=== PATIENT | female | born 1985 | race Caucasian/White ===

== ENCOUNTER 2022-09-04 13:21 | Outpatient (CLI) | payer OTHER, SELFPAY | END 2022-09-04 13:22 | disposition home or self-care (01) | PROVIDERS: Visit Provider Nurse Practitioner Family | DX: Z00.00 Encounter for general adult medical examination without abnormal findings (principal); E03.9 Hypothyroidism, unspecified; D64.9 Anemia, unspecified | CPT/HCPCS: 82728; 83540; 83550; 84443; 84481 ==

== ENCOUNTER 2023-09-18 23:06 | Emergency (ER) | payer OTHER, SELFPAY ==
[2023-09-18 23:12] VITALS: BP 155/90; PULSE 91; RESP 18; TEMP 36.7; O2SAT 98
--- NOTE | 2023-09-18 23:16 | ED_ITS ---
HPI - General Adult General Chief complaint: Abdominal Pain Stated complaint: abdominal pain Time Seen by Provider: 09/18/23 23:11 History of Present Illness HPI narrative: 1500 ate gyros and since had upper abd/rib pain. states hx of this 1x before after eating a sub, that time pt vomited and pain went away. today tried antiacids and some relief, states she cant vomit so pain is getting worse. hx gastric sleve sx. ibuprofen 800 at 1200. 38-year-old woman presenting to the emergency department with concern of upper abdominal pain. Really intense. Pain seems to be wrapping around to both sides of her back. No dysuria or hematuria. Does have a history of gastric sleeve and gallbladder remains. Similar episode about a month ago after eating and seem to resolve after vomiting. Vomiting is difficult today. She has tried treatment with some antacids maybe a little relief. Did also take some ibuprofen. Pain has been present now over the last 10 hours or so. No fever. Related Data Home Medications ?Medication ?Instructions ?Recorded ?Confirmed desvenlafaxine succinate 50 mg 50 mg PO DAILY 08/02/22 06/04/23 tablet,extended release 24 hr omeprazole 20 mg capsule,delayed 20 mg PO DAILY 08/02/22 06/04/23 release valacyclovir 500 mg tablet 500 mg PO QDAY 06/04/23 06/04/23 (Valtrex) Previous Rx's ?Medication ?Instructions ?Recorded levothyroxine 125 mcg tablet 125 mcg PO QDAY #90 tabs 06/04/23 Allergies Allergy/AdvReac Type Severity Reaction Status Date / Time Penicillins Allergy Unknown Verified 06/04/23 13:54 NSAIDS (Non-Steroidal Allergy Verified 06/04/23 13:54 Anti-Inflamma Review of Systems Status of ROS: Reports: 6 or more systems reviewed and unremarkable except as noted in History and below [facility] Medical History HSV-2 (herpes simplex virus 2) infection ?B00.9 - Herpesviral infection, unspecified (ICD-10) Anemia ?D64.9 - Anemia, unspecified (ICD-10) Hypothyroidism ?E03.9 - Hypothyroidism, unspecified (ICD-10) Surgical History H/O hernia repair ?Z98.890 - Other specified postprocedural states (ICD-10) ?Z87.19 - Personal history of other diseases of the digestive system (ICD-10) History of partial hysterectomy ?Z90.711 - Acquired absence of uterus with remaining cervical stump (ICD-10) H/O gastric sleeve ?Z90.3 - Acquired absence of stomach [part of] (ICD-10) Social History What is your current living situation?: I presently have a place to live Problems where you live: no known problems In the past 12 months, utilities in danger of being shut off: no In past 12 months, lack of transportation kept you from medical appts, meetings, work, or getting things needed for daily living: yes In the past 12 mos, have been you worried that your food would run out before you had money to buy more?: never true In the past 12 mos, the food you bought just didn't last and you didn't have money to buy more?: never true Smoking Status: Never smoker How often do you have a drink containing alcohol: never AUDIT-C Alcohol total score: 0 Non-prescribed substance use: denies use How often does anyone, including family, friends and others, physically hurt you : never How often does anyone, including family, friends and others, insult or talk down to you: never How often does anyone, including family, friends and others, threaten you with harm: never How often does anyone, including family, friends and others, scream or curse at you: never Little interest or pleasure in doing things: not at all Feeling down, depressed, or hopeless: not at all Exam Narrative: Exam Narrative: I enter the room to find Ms. Lezama the retching over the sink. Clearly very uncomfortable. Mildly labored in her breathing but not tachypneic. Heart in elevated rate but regular rhythm. Abdomen with present bowel sounds. Soft and without peritoneal signs but is quite tender across the upper abdomen. Little tender to percussion in the right flank. Extremities are well perfused without edema. No rashes noted. Const: Vital Signs, click to edit/add: Vital Signs - 24 hr 09/18/23 23:12 09/18/23 23:21 09/19/23 02:17 Temperature 98.1 F Pulse Rate [Pulse Oximeter] 91 76 Respiratory Rate 18 16 Blood Pressure [Ri ght Upper Arm] 155/90 H 121/72 Pulse Oximetry 98 96 96 Oxygen Delivery Me thod Room Air Room Air Documenting provider has reviewed patient's vital signs: yes Course Vital Signs Vital signs: Initial Vital Signs Temperature 98.1 F 09/18/23 23:12 Temperature Source Temporal Artery Scan 09/18/23 23:12 Pulse Rate 91 09/18/23 23:12 Respiratory Rate 18 09/18/23 23:12 Blood Pressure 155/90 H 09/18/23 23:12 Blood Pressure Mean 111 H 09/18/23 23:12 Blood Pressure Position Sitting 09/18/23 23:12 Pulse Oximetry 98 09/18/23 23:12 Oxygen Delivery Method Room Air 09/18/23 23:12 Vital Signs Temperature 98.1 F 09/18/23 23:12 Pulse Rate 91 09/18/23 23:12 Respiratory Rate 18 09/18/23 23:12 Blood Pressure 155/90 H 09/18/23 23:12 Pulse Oximetry 98 09/18/23 23:12 Oxygen Delivery Method Room Air 09/18/23 23:12 Temperature 98.1 F 09/18/23 23:12 Pulse Rate 76 09/19/23 02:17 Respiratory Rate 16 09/19/23 02:17 Blood Pressure 121/72 09/19/23 02:17 Pulse Oximetry 96 09/19/23 02:17 Oxygen Delivery Method Room Air 09/19/23 02:17 Medications Administered Medications: Discontinued Medications Generic Name Dose Route Start Last Admin Trade Name Justusq PRN Reason Stop Dose Admin Hydromorphone HCl 0.5 mg 09/18/23 23:20 09/18/23 23:30 Hydromorphone 0.5 Mg/0.5 Ml Inj IVP 09/18/23 23:21 0.5 mg ONCE ONE Administration Sodium Chloride 500 mls @ 500 mls/hr 09/18/23 23:20 09/19/23 00:35 0.9 % Sodium Chloride 500 Ml IV 09/19/23 00:19 Infused .Q1H ONE Infusion Ketorolac Tromethamine 30 mg 09/18/23 23:20 09/18/23 23:32 Ketorolac 30 Mg/Ml Inj IVP 09/18/23 23:21 30 mg ONCE ONE Administration Ondansetron HCl 4 mg 09/18/23 23:20 09/18/23 23:31 Ondansetron 2 Mg/Ml Inj IVP 09/18/23 23:21 4 mg ONCE ONE Administration Medical Decision Making MDM Narrative Medical decision making narrative: I would have concern about biliary colic. Differential also would include pancreatitis, gastritis possibly ureteral stone and colic though I think less likely. Infectious hepatitis? IV was initiated. Received normal saline. Given ketorolac and half a mg of Dilaudid with marked relief of her pain. Limited abdominal ultrasound was requested and discussed findings with application infrastructure engineer. Radiology over-read as below TECHNIQUE: Limited right upper quadrant ultrasound examination of the abdomen was performed. Grayscale and color Doppler images were obtained. COMPARISON: None. FINDINGS: Liver: Normal in size and contour. The hepatic echotexture is increased in echogenicity. There is mild intrahepatic biliary ductal dilatation. No suspicious hepatic masses. Gallbladder: Distended gallbladder. Cholelithiasis with biliary sludge. No gallbladder wall thickening. Sonographic Donis`s sign was positive. Common bile duct: Measures 11 mm. Pancreas: Visualized portions unremarkable. Right kidney: Normal in size. No hydronephrosis. No suspicious renal masses or obstructive urinary calculus. IMPRESSION: Cholelithiasis with findings compatible with acute cholecystitis. The dilatation of the intrahepatic and extrahepatic bile duct raise suspicion for a choledocholithiasis. Labs show rather elevated transaminases and elevated bilirubin primarily direct. All since to indicate an obstructive process. Did discuss findings with our general surgeon who is recommending a ERCP. Will be looking for hospital with this capability for admission. Contacted [facility] has a bed. I did speak with Dr. Muniz bullet maker who is accepting. Ms. Lezama would really prefer to be going by private car. She does appear well, now pain-free, and has been stable vitally otherwise. Lab Data Lab results reviewed: Yes I reviewed the patient's lab results Labs: Lab Results 09/18/23 09/19/23 Range/Units 23:27 03:10 WBC 7.08 (4.50-11.00) K/uL RBC 4.83 (4.00-5.20) m/uL Hgb 15.3 (12.0-16.0) gm/dL Hct 45.5 (33.0-51.0) % MCV 94 (80-100) fL MCH 32 (26-34) pg MCHC 34 (32-36) gm/dL RDW Coeff of Jose 11.8 (11.5-15.5) % Plt Count 161 (140-440) K/uL Neut % (Auto) 66.9 (42.0-72.0) % Lymph % (Auto) 26.7 (20-44) % [place] % (Auto) 5.8 (0.0-11.0) % Eos % (Auto) 0.4 (0.0-7.0) % Baso % (Auto) 0.1 (0.0-3.0) % Neut # (Auto) 4.73 (1.7-7.0) K/uL Lymph # (Auto) 1.89 (0.90-2.90) K/uL [place] # (Auto) 0.40 (0.00-0.90) K/UL Eos # (Auto) 0.03 (0.00-0.50) K/uL Baso # (Auto) 0.01 (0.00-0.30) K/uL Abs Immat Gran (auto) 0.01 (0.00-0.30) K/uL Imm/Tot Granulo (auto) 0.1 % Sodium 139 (135-149) mmol/L Potassium 3.9 (3.6-5.1) mmol/L Chloride 105 (96-114) mmol/L Carbon Dioxide 28 (20-32) mmol/L Anion Gap 6 L (7-15) mEq/L BUN 15 (5-24) mg/dL Creatinine 0.6 (0.5-1.5) mg/dL Estimated GFR 116 ml/min Glucose 130 H (60-115) mg/dL Calcium 9.6 (8.4-10.6) mg/dL Total Bilirubin 2.2 H (0.1-1.5) mg/dL Direct Bilirubin 1.1 H (0.0-0.5) mg/dL AST 1847 H (12-35) U/L ALT 1325 H (4-35) U/L Alkaline Phosphatase 103 (40-150) U/L C-Reactive Protein < 0.5 L (0.5-1.0) mg/dL Total Protein 7.5 (6.0-8.3) g/dL Albumin 4.8 (3.3-5.0) g/dL Lab Acknowledgement Test Added Discharge Plan Discharge Clinical Impression: Choledocholithiasis, Acute cholecystitis Patient Disposition: Home, Self-Care Condition: Stable Additional Instructions: Please present to the emergency department at [facility]. They are expecting you. Dr. Muniz is the bullet maker evelin who will be admitting you. Prescriptions: No Action desvenlafaxine succinate 50 mg tablet extended release 24 hr 50 mg PO DAILY omeprazole 20 mg capsule,delayed release(DR/EC) 20 mg PO DAILY valacyclovir [Valtrex] 500 mg tablet 500 mg PO QDAY levothyroxine 125 mcg tablet 125 mcg PO QDAY Qty: 90 0RF Follow Up/Referrals: Tyra Bravo MANAGER PROJECT MANAGEMENT [Primary Care Provider] - Stand Alone Forms: [employer] Info Instructions
[2023-09-18 23:21] VITALS: O2SAT 96
--- NOTE | 2023-09-18 23:21 | CRLHL7_ITS ---
For Patients: As a result of the Century Cures Act, medical imaging exams and procedure reports are released immediately into your electronic medical record. You may view this report before your referring provider. If you have questions, please contact your health care provider. INDICATION: Right upper quadrant pain. TECHNIQUE: Limited right upper quadrant ultrasound examination of the abdomen was performed. Grayscale and color Doppler images were obtained. COMPARISON: None. FINDINGS: Liver: Normal in size and contour. The hepatic echotexture is increased in echogenicity. There is mild intrahepatic biliary ductal dilatation. No suspicious hepatic masses. Gallbladder: Distended gallbladder. Cholelithiasis with biliary sludge. No gallbladder wall thickening. Sonographic Donis`s sign was positive. Common bile duct: Measures 11 mm. Pancreas: Visualized portions unremarkable. Right kidney: Normal in size. No hydronephrosis. No suspicious renal masses or obstructive urinary calculus. IMPRESSION: Cholelithiasis with findings compatible with acute cholecystitis. The dilatation of the intrahepatic and extrahepatic bile duct raise suspicion for a choledocholithiasis. Dictated by Eric Villavicencio MD @ 09/19/2023 12:22:11 AM (Electronically Signed)
[2023-09-18] MEDS: 0.9 % SODIUM CHLORIDE 500 ML 500 ML IV (23:29)
[2023-09-18] MEDS: HYDROmorphone 0.5 mg/0.5 ml inj IVP (23:30)
[2023-09-18] MEDS: ONDANSETRON 2 MG/ML inj 4 MG IVP (23:31)
[2023-09-18] MEDS: KETOROLAC 30 MG/ML inj IVP (23:32)
[2023-09-18 23:36] LABS: Basophils Absolute Auto 0.01 K/uL (0.00-0.30); Basophils Percent Auto 0.1 % (0.0-3.0); Eosinophils Absolute Auto 0.03 K/uL (0.00-0.50); Eosinophils Percent Auto 0.4 % (0.0-7.0); Hematocrit 45.5 % (33.0-51.0); Hemoglobin* 15.3 gm/dL (12.0-16.0); Immature Granulocytes Abs Auto 0.01 K/uL (0.00-0.30); Immature Granulocytes Pct Auto 0.1 %; Lymphocytes Absolute Auto 1.89 K/uL (0.90-2.90); Lymphocytes Percent Auto 26.7 % (20-44); Mean Corpuscular HGB Conc 34 gm/dL (32-36); Mean Corpuscular Hemoglobin 32 pg (26-34); Mean Corpuscular Volume 94 fL (80-100); Monocytes Percent Auto 5.8 % (0.0-11.0); Neutrophils Absolute Auto 4.73 K/uL (1.7-7.0); Neutrophils Percent Auto 66.9 % (42.0-72.0); Platelet Count* 161 K/uL (140-440); RDW Coefficient of Variation % 11.8 % (11.5-15.5); Red Blood Count 4.83 m/uL (4.00-5.20); White Blood Count* 7.08 K/uL (4.50-11.00)
[2023-09-18 23:47] LABS: Slide Review Reflex No
[2023-09-18 23:50] LABS: Chloride* 105 mmol/L (96-114)
[2023-09-18 23:51] LABS: Albumin* 4.8 g/dL (3.3-5.0); Potassium* 3.9 mmol/L (3.6-5.1); Sodium* 139 mmol/L (135-149)
[2023-09-18 23:53] LABS: Creatinine* 0.6 mg/dL (0.5-1.5); Estimated Glomerular Filt Rate 116 ml/min
[2023-09-18 23:54] LABS: Alkaline Phosphatase* 103 U/L (40-150); Anion Gap 6 mEq/L (7-15); Bilirubin Direct* 1.1 mg/dL (0.0-0.5); Bilirubin Total* 2.2 mg/dL (0.1-1.5); Blood Urea Nitrogen* 15 mg/dL (5-24); Calcium* 9.6 mg/dL (8.4-10.6); Carbon Dioxide* 28 mmol/L (20-32); Glucose* 130 mg/dL (60-115); Total Protein* 7.5 g/dL (6.0-8.3)
--- OUTSIDE RECORDS SUMMARY | 2023-09-18 23:55 | XMS_ITS | Clinical Summary ---
Author Organization [facility] Address [place], [place] [address] Care Team Providers Care Numerical Control Lathe Operator Name Role Phone Tyra Shelton NP Primary Care Provider [phone] Allergies Active Allergy Reactions Criticality Noted Date Comments Aspirin Other - Describe In Comment Field 02/22/2019 Gastric sleeve 02/15/2019 Nsaids (Non-Steroidal Anti-Inflammatory Drug) Other - Describe In Comment Field 02/22/2019 Gastric sleeve 02/15/2019Gastric sleeve 02/15/2019 Penicillins *Unknown - Childhood Rxn Unknown 10/23/2015 Medications Medication Sig Dispensed Refills Start Date End Date Status levothyroxine (SYNTHROID) 137 mcg tabletIndications:Hyp othyroidism (acquired) Take 1 tablet by mouth before breakfast. 90 tablet 1 03/08/2018 Active biotin 10,000 mcg TbDi Take by mouth. Active desvenlafaxine succinate (PRISTIQ) 50 mg Extended-Release tablet Take 50 mg by mouth once daily. 11/12/2021 Active omeprazole (PRILOSEC) 20 mg Delayed-Release capsule Take 1 Capsule by mouth once daily. 04/07/2021 Active calcium carbonate (Calcium 500) 500 mg calcium (1,250 mg) chewable tablet Chew 1 Tablet (1,250 mg) by mouth three times daily with meals. 0 10/01/2022 Active Magnesium 200 mg tab Take 1 Tablet (200 mg) by mouth two times daily. 0 10/01/2022 Active cholecalciferol (VITAMIN D3) 5,000 unit capsule Take 1 Capsule (5,000 units) by mouth once daily. 10/01/2022 Active b complex vitamins (VITAMIN B COMPLEX) capsule Take 1 Capsule by mouth once daily. 0 10/01/2022 Active Fepdi-4-HCT-EPA-Fish Oil (Fish OiL) 1,000 mg (120 mg-180 mg) cap Take 1 Capsule (1,000 mg) by mouth once daily. 0 10/01/2022 Active turmeric 400 mg cap Take 1 Capsule by mouth once daily. 0 10/01/2022 Active Active Problems Problem Noted Date Diagnosed Date Hypothyroidism (acquired) 03/03/2016 Immunizations Name Administration Dates Next Due Tdap 10/18/2013 Family History Medical History Relation Name Comments Unknown Brother COPD Father Hypertension Father Leukemia Maternal Grandfather Cancer Maternal Grandmother PANCREA TIC Heart Disease Maternal Grandmother Diabetes Mother Psychiatric illness Mother Cancer-colon Paternal Grandfather Alzheimer's disease Paternal Grandmother Relation Name Status Comments Brother Father Alive Maternal Grandfather Maternal Grandmother Mother Alive Paternal Grandfather Paternal Grandmother Social History Tobacco Use Types Packs/Day Years Used Date Smoking Tobacco: Former Cigarettes Q uit: 10/19/2012 Smokeless Tobacco: Never Tobacco Cessation:Ready to Q uit: Yes; Counseling Given: Yes Alcohol Use Standard Drinks/Week Comments Yes 0 (1 standard drink = 0.6 oz pur e alcohol) RARE - MAYBE 1 GLASS MONTHLY Social Connections Answer Date Recorded Frequency of Communication with Friends and Fami ly Not on file 10/01/2022 Sex and Gender Information Value Date Recorded Sex Assigned at Not on file Gender Identity Not on file Sexual Orientation Not on file Obstetrics History Last Filed Vital Signs Vital Sign Reading Time Taken Comments Blood Pressure 125/78 10/01/2022 1:12 PM CDT Pulse 96 10/01/2022 1:12 PM CDT Temperature 37.2 ??C (99 ??F) 12/21/2021 12:26 PM SLAB WORKER Respiratory Rate 18 12/21/2021 12:26 PM SLAB WORKER Oxygen Saturation 96% 10/01/2022 1:12 PM CDT Inhaled Oxygen Concentration - - Weight 80.3 kg (177 lb) 10/01/2022 1:12 PM CDT Height 162.6 cm (5' 4) 10/01/2022 1:12 PM CDT Body Mass Index 30.38 10/01/2022 1:12 PM CDT Plan of Treatment Health Maintenance Due Date Last Done Comments HIV for age 15-65 07/14/1998 Hepatitis C screening for age 18-79 07/14/2001 Depression screening for age 12+ 02/25/2018 02/25/2017, 03/03/2016, 12/31/2015 COVID-19 vaccine series ( season) 2022 11/12/2021, 01/01/2021, 05/18/2020 BMI (ht and wt on same day) for age 18+ 10/02/2023 10/01/2022, 04/20/2017, 02/25/2017, Additional history exists Influenza for age 9-49 10/11/2023 6 (Completed outside of [facility]) Tetanus booster 10/19/2023 10/18/2013 Tdap Completed 10/18/2013 Pneumococcal series for age 6-64 Aged Out No longer eligible based on patient's age to complete this topic Care Teams Numerical Control Lathe Operator Relationship Specialty Start Date End Date Tyra Shelton, MANAGER SUPPLY PCP - General Nurse Practitioner 10/15/22
--- OUTSIDE RECORDS SUMMARY | 2023-09-18 23:56 | XMS_ITS | Encounter Summary ---
Author Organization [facility] Address [address] [place] [address] Care Team Providers Care Gaming Surveillance Observer Name Role Phone Joanna Hernandez MD Unavailable [phone] Joanna Hernandez MD Primary Care Provider [phone] Makenzie Toth PA-C Unavailable [phone] Encounter Details Date Type Department Care Team (Late st Contact Info) Description 04/15/2021 [facility] [place] [facility] [address] [place] [id number] Olivia Arredondo, RN Social History Tobacco Use Types Packs/Day Years Used Date Smoking Tobacco: Former Cigarettes 0 07/10/2001 - 2012 Smokeless Tobacco: Never Comments:Smoke free since , previously mild smoker 1-3 cigs a day Alcohol Use Standard Drinks/Week Comments Yes 0 (1 standard drink = 0.6 oz pur e alcohol) 0-1 per month PHQ-2 Answer Date Recorded PHQ-2 Score 0 06/12/2020 Sex and Gender Information Value Date Recorded Sex Assigned at Female 11/11/2018 8:03 AM CDT Gender Identity Female 11/11/2018 8:03 AM CDT Sexual Orientation Straight 11/11/2018 8: 03 AM CDT documented as of this encounter Plan of Treatment Not on file documented as of this encounter Visit Diagnoses Not on filedocumented in this encounter Additional Health Concerns Assessment Noted Time PHQ-9 Depression Total Score: 27 10/31/2 021 7:02 AM CDT documented as of this encounter Care Teams Gaming Surveillance Observer Relationship Specialty [place] [address] [place] [address] PCP - General Family Practice 02/22/19 [place] [address] [place] [address] Assigned PCP 10/29/18 Makenzie Toth PA-C [address] [place] [address] Assigned Surgical Provider 04/29/20 documented as of this encounter
--- OUTSIDE RECORDS SUMMARY | 2023-09-18 23:56 | XMS_ITS | Encounter Summary ---
Author Organization [place] Address [address] [place] [address] Care Team Providers Care Road Freight Conductor Name Role Phone Joanna Hernandez MD Unavailable [phone] Joanna Hernandez MD Primary Care Provider [phone] Encounter Details Date Type Department Care Team (Late st Contact Info) Description 01/27/2022 [facility] [place] [facility] [address] [place] [address] Jodie Salazar MD [address] [facility] [address] [place] [address] Social History Tobacco Use Types Packs/Day Years Used Date Smoking Tobacco: Former Cigarettes 0 07/10/2001 - 2012 Smokeless Tobacco: Never Comments:Smoke free since , previously mild smoker 1-3 cigs a day Alcohol Use Standard Drinks/Week Comments Yes 0 (1 standard drink = 0.6 oz pur e alcohol) 0-1 per month PHQ-2 Answer Date Recorded PHQ-2 Score 1 01/30/2022 Sex and Gender Information Value Date Recorded Sex Assigned at Female 11/11/2018 8:03 AM CDT Gender Identity Female 11/11/2018 8:03 AM CDT Sexual Orientation Straight 11/11/2018 8: 03 AM CDT COVID-19 Exposure Response Date Recorded In the last 10 days, have yo u been in contact with someone who was confirmed or suspected to have Coronavirus/COVID-19? No / Unsure 01/30/2022 10:03 AM SUPERVISOR DIMENSION WAREHOUSE documented as of this encounter Plan of Treatment Not on file documented as of this encounter Visit Diagnoses Not on filedocumented in this encounter Additional Health Concerns Assessment Noted Time PHQ-9 Depression Total Score: 27 021 7:02 AM CDT documented as of this encounter Care Teams Road Freight Conductor Relationship Specialty [place] [address] [place] [address] PCP - General Family Practice 02/22/19 [place] [address] [place] [address] Assigned PCP 10/29/18 documented as of this encounter
--- OUTSIDE RECORDS SUMMARY | 2023-09-18 23:56 | XMS_ITS | Encounter Summary ---
Author Organization [facility] Address [address] [place] [address] Care Team Providers Care Basic Sciences Professor Name Role Phone Joanna Hernandez MD Unavailable [phone] Joanna Hernandez MD Primary Care Provider [phone] Makenzie Toth PA-C Unavailable [phone] Encounter Details Date Type Department Care Team (Late st Contact Info) Description 04/08/2021 [facility] [place] Medical Advice [facility] [address] [place] [address] Celena Davenport, [facility] [address] [facility] [address] [place], [place] [address] Social History Tobacco Use Types Packs/Day Years [...] documented as of this encounter Care Teams Basic Sciences Professor Relationship Specialty [place] [address] [place] [address] PCP - General Family Practice 02/22/19 [place] [address] [place] [address] Assigned PCP 10/29/18 Makenzie Toth PA-C [address] [place] [address] Assigned Surgical Provider 04/29/20 documented as of this encounter
--- OUTSIDE RECORDS SUMMARY | 2023-09-18 23:56 | XMS_ITS | Encounter Summary ---
Author Organization [place] Address [address] [place] [address] Care Team Providers Care Flattening Press Operator Name Role Phone Joanna Hernandez MD Unavailable [phone] Joanna Hernandez MD Primary Care Provider [phone] Makenzie Toth PA-C Unavailable [phone] Encounter Details Date Type Department Care Team (Late st Contact Info) Description 02/21/2021 [facility] [place] Medical Advice [facility] [place] [id number] [facility] [address] [place] [address] Makenzie Toth PA-C [address] [facility] [address] [place], [place] [address] Social History Tobacco Use Types Packs/Day Years Used Date Smoking Tobacco: Former Cigarettes 0 07/10/2001 - 2012 Smokeless Tobacco: Never Comments:Smoke free since 11, previously mild smoker 1-3 cigs a day [...] documented as of this encounter Care Teams Flattening Press Operator Relationship Specialty [place] [address] [place] [address] PCP - General Family Practice 02/22/19 [place] [address] [place] [address] Assigned PCP 10/29/18 Makenzie Toth PA-C [address] [place] [address] Assigned Surgical Provider 04/29/20 documented as of this encounter
--- OUTSIDE RECORDS SUMMARY | 2023-09-18 23:56 | XMS_ITS | Encounter Summary ---
Author Organization [place] Address [address] [facility] [place] [address] Care Team Providers Care Drainage Inspector Name Role Phone Joanna Hernandez MD Unavailable [phone] Joanna Hernandez MD Primary Care Provider [phone] Makenzie Toth PA-C Unavailable [phone] Encounter Details Date Type Department Care Team (Late st Contact Info) Description 08/19/2021 [facility] [place] Medical Advice [address] [address] Vickie Landin Social History Tobacco Use Types Packs/Day Years [...] documented as of this encounter Care Teams Drainage Inspector Relationship Specialty [place] [address] [place] [address] PCP - General Family Practice 02/22/19 [place] [address] [place] [address] Assigned PCP 10/29/18 Makenzie Toth PA-C [address] [place] [address] Assigned Surgical Provider 04/29/20 documented as of this encounter
--- OUTSIDE RECORDS SUMMARY | 2023-09-18 23:56 | XMS_ITS | Encounter Summary ---
Author Organization [place] Address [facility] [place] [address] Care Team Providers Care Braze Operator Name Role Phone Joanna Hernandez MD Unavailable [phone] Joanna Hernandez MD Primary Care Provider [phone] Encounter Details Date Type Department Care Team (Latest Contact Info) Description 06/12/2023 Travel Social History Tobacco Use Types Packs/Day Years Used Date Smoking Tobacco: Former Cigarettes 0 07/10/2001 - 2012 Smokeless Tobacco: Never Comments:Smoke free since , previously mild smoker 1-3 cigs a day Alcohol Use Standard Drinks/Week Comments Yes 0 (1 standard drink = 0.6 oz pur e alcohol) 0-1 per month PHQ-2 Answer Date Recorded PHQ-2 Score 1 01/30/2022 Adolescent Education Answer Date Record ed Getting School Help Needed Not on file 10/31 Sex and Gender Information Value Date Recorded [...] documented as of this encounter Care Teams Braze Operator Relationship Specialty [place] [address] [place] [address] PCP - General Family Practice 02/22/19 [place] [address] [place] [address] Assigned PCP 10/29/18 documented as of this encounter
--- OUTSIDE RECORDS SUMMARY | 2023-09-18 23:56 | XMS_ITS | Encounter Summary ---
Author Organization [place] Address [address] [place] [address] Care Team Providers Care Sign Installer Name Role Phone Joanna Hernandez MD Unavailable [phone] Joanna Hernandez MD Primary Care Provider [phone] Makenzie Toth PA-C Unavailable [phone] Encounter Details Date Type Department Care Team (Late st Contact Info) Description 04/04/2021 [facility] [place] Medical Advice [facility] [address] [place] [address] Celena Davenport, [facility] [address] [facility] [address] [place], [place] [address] Social History Tobacco Use Types Packs/Day Years [...] documented as of this encounter Care Teams Sign Installer Relationship Specialty [place] [address] [place] [address] PCP - General Family Practice 02/22/19 [place] [address] [place] [address] Assigned PCP 10/29/18 Makenzie Toth PA-C [address] [place] [address] Assigned Surgical Provider 04/29/20 documented as of this encounter
--- OUTSIDE RECORDS SUMMARY | 2023-09-18 23:56 | XMS_ITS | Encounter Summary ---
Author Organization [place] Address [address] [place] [address] Care Team Providers Care Cross Tie Tram Loader Name Role Phone Joanna Hernandez MD Unavailable [phone] Joanna Hernandez MD Primary Care Provider [phone] Encounter Details Date Type Department Care Team (Late st Contact Info) Description 01/30/2022 [facility] Medical [facility]ice [facility] [address] [place] [address] Jodie Salazar MD [address] [facility] [address] [place] [address] Social History Tobacco Use Types [...] Coronavirus/COVID-19? No / Unsure 01/30/2022 10:03 AM [employer] MAKER HAND documented as of this encounter Plan of Treatment Not on file documented as of this encounter Visit Diagnoses Not on filedocumented in this encounter Additional Health Concerns Assessment Noted Time PHQ-9 Depression Total Score: 27 021 7:02 AM CDT documented as of this encounter Care Teams Cross Tie Tram Loader Relationship Specialty [place] [address] [place] [address] PCP - General Family Practice 02/22/19 [place] [address] [place] [address] Assigned PCP 10/29/18 documented as of this encounter
--- OUTSIDE RECORDS SUMMARY | 2023-09-18 23:56 | XMS_ITS | Encounter Summary ---
Author Organization [place] Address [address] [place] [address] Care Team Providers Care Spline Rolling Machine Job Setter Name Role Phone Joanna Hernandez MD Unavailable [phone] Joanna Hernandez MD Primary Care Provider Makenzie Toth PA-C Unavailable [phone] Encounter Details Date Type Department Care Team (Late st Contact Info) Description 05/29/2021 [facility] [place] [facility] [place] [address] [facility] [address] [place] [address] Makenzie Toth PA-C [address] [facility] [address] [place], [place] [address] Social History Tobacco Use Types Packs/Day Years [...] documented as of this encounter Care Teams Spline Rolling Machine Job Setter Relationship Specialty [place] [address] [place] [address] PCP - General Family Practice 02/22/19 [place] [address] [place] [address] Assigned PCP 10/29/18 Makenzie Toth PA-C [address] [place] [address] Assigned Surgical Provider 04/29/20 documented as of this encounter
--- OUTSIDE RECORDS SUMMARY | 2023-09-18 23:56 | XMS_ITS | Referral Summary ---
Author Organization [place] Address [address] [place] [address] Care Team Providers Care Agency Director Name Role Phone Joanna Hernandez MD Unavailable [phone] Joanna Hernandez MD Primary Care Provider [phone] Allergies Active Allergy Reactions Criticality Noted Date Comments Aspirin Other (See Comments) 02/22/2019 Gastric sleeve 02/15/2019 Nsaids Other (See Comments) 02/22/2019 Gastric sleeve 02/15/2019Gastric sleeve 02/15/2019 Penicillins 10/07/2018 Medications Medication Sig Dispensed Refills Start Date End Date Status Biotin 46840 MCG TBDP Take by mouth daily Active Cholecalciferol (VITAMIN D3 PO) Take 5,000 Units by mouth daily Gel cap. Active CALCIUM CITRATE PO Take 500 mg by mouth 3 times daily Chews at mid-morning, lunch, and dinner. Active vitamin (B COMPLEX-C) tablet Take 1 tablet by mouth once a week Active childrens multivitamin w/iron (FLINTSTONES COMPLETE) chewable tablet Take 2 chew tab by mouth At Bedtime Active MAGNESIUM GLYCINATE PO Take 260 mg by mouth 2 times daily Active desvenlafaxine (PRISTIQ) 50 MG 24 hr tablet Take 50 mg by mouth 11/09/2021 Active LORazepam (ATIVAN) 0.5 MG tablet TAKE ONE TABLET BY MOUTH TWICE DAILY NEEDED FOR SEVERE ANXIETY 05/17/2021 Active MAGNESIUM GLYCINATE PO 02/09/2021 Ac tive levothyroxine (SYNTHROID/LEVOTHROID) 112 MCG tabletIndications:Acqui red hypothyroidism Take 1 tablet (112 mcg) by mouth daily 90 tablet 3 01/30/2022 Active Active Problems Problem Noted Date Diagnosed Date H/O total hysterectomy 06/12/2020 Postsurgical malabsorption 02/28/2020 Orthostatic lightheadedness 02/28/2020 Overweight 02/28/2020 Bariatric surgery status 04/21/2019 Overview: Gastric sleeve 2019 Acquired hypothyroidism 11/18/2018 PCOS (polycystic ovarian syndrome) 10/27/2018 Resolved Problems Problem Noted Date Diagnosed Date Resolved Date Class 1 obesity due to exces s calories with serious comorbidity and body mass index (BMI) of 30.0 to 30.9 in adult 02/15/2019 02/28/2020 Morbidly obese 01/11/2019 01/26/2019 Overview: Added automatically from request for surgery [id number] Morbidly obese 01/11/2019 04/21/2019 Overview: Added automatically from request for surgery [id number] Morbid obesity with BMI of 40.0-44.9, adult 10/27/2018 08/17/2019 Morbid obesity 10/12/2018 11/18/2018 Immunizations Name Administration Dates Next Due COVID-19 MONOVALENT 12+ (Pfizer) 01/01/2021 Flu, Unspecified 11/12/2019,11/18/2018 Influenza Vaccine >6 months,quad, PF 11/21/2020, 11/18/2018 TDAP Vaccine (Adacel) 10/18/2013 Social History Tobacco Use Types Packs/Day Years Used Date Smoking Tobacco: Former Cigarettes 0 07/10/2001 - 2012 Smokeless Tobacco: Never Tobacco Cessation:Counseling Given: Not Answered Comments:Smoke free since 2012, previously mild smoker 1-3 cigs a day [...] Orientation Straight 11/11/2018 8: 03 AM CDT Last Filed Vital Signs Vital Sign Reading Time Taken Comments Blood Pressure 98/68 06/12/2020 3:23 PM CDT Pulse 60 06/12/2020 3:23 PM CDT Temperature 36.9 ??C (98.4 ??F) 06/12/2020 3:23 PM CD T Respiratory Rate 14 06/12/2020 3:23 PM CDT Oxygen Saturation 94% 02/22/2019 1:47 PM TRACK FITTER Inhaled Oxygen Concentration - - Weight 69.4 kg (153 lb) 05/29/2021 9:27 AM CDT Height 162.6 cm (5' 4) 05/29/2021 9:27 AM CDT Body Mass Index 26.26 05/29/2021 9:27 AM CDT Plan of Treatment Not on file Procedures Procedure Name Priority Date/Time Associated Diagnosis Comments MA DIAGNOSTIC BILATERAL W/ KENTRELL Routine 06/12/2023 7:54 AM CDT Left breast mass Breast pain, left T4 FREE Routine 01/30/2022 10:10 AM TRACK FITTER Acquired hypothyroidism HIV ANTIGEN ANTIBODY COMBO Routine 01/09/2021 11:08 AM TRACK FITTER Screening for HIV (human immunodeficiency virus) HEPATITIS C SCREEN REFLEX TO HCV RNA QUANT AND GENOTYPE Routine 01/09/2021 11:08 AM TRACK FITTER Need for hepatitis C screening test LIPID REFLEX TO DIRECT LDL PANEL Routine 06/12/2020 4:54 PM CDT Routine general medical examination at a health care facility GLUCOSE BY METER Routine 02/16/2019 6:31 AM TRACK FITTER Morbidly obese (H) PAP SMEAR - HIM PATIENT REPORTED Routine 12/14/2018 from Last 3 Months or Most Recently Relevant to Health Maintenance Results * MA Diagnostic Bilateral w/Kentrell (06/12/2023 7:54 AM CDT) Anatomical Region Laterality Modality Breast Bilateral Mammography Impressions 06/12/2023 8:52 AM CDT IMPRESSION: 1. Negative bilateral mammogram and targeted left breast ultrasound. Any further management of the clinically palpable lump and breast pain can be based on clinical grounds. 2. Based on family history, patient may qualify for high risk screening with supplemental breast MRI. She was advised to discuss with her primary care provider. The patient states she has an appointment to follow up regarding possible genetic testing. BI-RADS CATEGORY: 1 - ??Negative. ?? RECOMMENDED FOLLOW-UP: Routine yearly mammography beginning at age 40 or as discussed with your provider. NELSON MACE MD Narrative 06/12/2023 8:52 AM CDT EXAM: MA DIAGNOSTIC BILATERAL W/ KENTRELL, US BREAST LEFT LIMITED 1-3 QUADRANTS, 06/12/2023 7:54 AM HISTORY: Bilateral symmetric tenderness along the pectoralis muscle and behind the nipples. Palpable lump in the lower outer left breast detected by physician. Family history of breast cancer in her mother in her 40s. Family history of ovarian cancer in her maternal grandmother. Previous probably benign asymmetry in the left breast for which final follow-up is due. COMPARISON: 10/06/2018, 03/18/2019, 09/16/2019 BREAST DENSITY: There are scattered areas of fibroglandular density. FINDINGS: Diagnostic tomosynthesis with CAD shows nothing for malignancy in either breast and no worrisome interval change. Global increase in breast density is due to significant interval weight loss. Targeted ultrasound shows nothing for malignancy in the lower outer quadrant in the area of palpable lump. Mary Alice Schmidt MD IMG MAMMOGRAPHY JOANNE CYNDEERY * T4, free (01/30/2022 10:10 AM TRACK FITTER) Free T4 1.31 0.90 - 1.70 ng/dL 01/30/2022 5:43 PM TRACK FITTER [facility] Blood STRUCTURE OF LEFT UPPER LIMB / Unknown Venipuncture / Unknown 01/30/2022 10:10 AM TRACK FITTER 01/30/2022 10:10 AM TRACK FITTER Joanna Hernandez MD LAB - BLOOD ORDER [facility] [place] [facility] [address] [place] [address], [facility] [phone] * HIV Antigen Antibody Combo (01/09/2021 11:08 AM TRACK FITTER) HIV Antigen Antibody Combo Nonreactive Nonreactive 01/10/2021 10:53 AM TRACK FITTER [facility] Comment:HIV-1 p24 Ag & HIV-1 /HIV-2 Ab Not Detected Blood STRUCTURE OF LEFT UPPER LIMB / Unknown Venipuncture / Unknown 01/09/2021 11:08 AM TRACK FITTER 01/09/2021 11:08 AM TRACK FITTER Joanna Hernandez MD LAB - BLOOD ORDER MILAGROS [facility] Specialty Core Lab [address] [facility] [place] [address], [facility] [phone] * Hepatitis C Screen Reflex to HCV RNA Quant and Genotype (01/09/2021 11:08 AM TRACK FITTER) Pathologist [facility] Hepatitis C Antibody Nonreactive Nonreactive 01/10/2021 10:53 AM TRACK FITTER [facility] Blood STRUCTURE OF LEFT UPPER LIMB / Unknown Venipuncture / Unknown 01/09/2021 11:08 AM TRACK FITTER 01/09/2021 11:08 AM TRACK FITTER Narrative [facility] - 01/10/2021 10:53 AM TRACK FITTER Assay performance characteristics have not been established for newborns, infants, and children. Joanna Hernandez MD LAB - BLOOD ORDER MILAGROS [facility] Specialty Core Lab [address] [facility] [place] [address], [facility] [phone] * Lipid panel reflex to direct LDL Fasting (06/12/2020 4:54 PM CDT) Pathologist [facility] Cholesterol 132 <200 mg/dL 06/13/2020 5:14 PM CDT [facility] Triglycerides 58 <150 mg/dL 06/13/2020 5:14 PM CDT [facility] HDL Cholesterol 51 >49 mg/dL 5:17 PM CDT [facility] LDL Cholesterol Calculated 69 <100 mg/dL 06/13/2020 5:17 PM CDT [facility] Comment:Desirable: <100 mg/d l Non HDL Cholesterol 81 <130 mg/dL 06/13/2020 5:17 PM CDT [facility] Blood 06/12/2020 4:54 PM CDT 06/12/2020 4:56 PM CDT Joanna Hernandez MD LAB - BLOOD ORDER MILAGROS [facility] [address] [place] [address], [facility] [phone] * Glucose by meter (02/16/2019 6:31 AM TRACK FITTER) Glucose 89 70 - 99 mg/dL 02/16/2019 6:42 AM TRACK FITTER POINT OF CARE TEST, GLUCOSE 02/16/2019 6:31 AM TRACK FITTER 02/16/2019 6:42 AM TRACK FITTER Dimitri Pop MD LAB - BEAKER POCT POINT OF CARE TEST, GLUCOSE * PAP Smear - HIM Patient Reported (12/14/2018) PAP Smear - HIM Patient Reported Negative EXTERNAL LAB 12/14/2018 Narrative EXTERNAL LAB - 12/14/2018 Joanna Hernandez MD ??P Abstract Quality Initiatives Pap with HPV, 12/14/2018, Dr. Ordonez - all negative Patient Reported LABORATORY EXTERNAL LAB External Lab from Last 3 Months or Most Recently Relevant to Health Maintenance Advance Directives For more information, please contact: [phone] * Full Code (Latest Code Status on File) Date Activated Date Inactivated Comments 02/15/2019 12:06 PM 02/17/2019 3:40 PM Question Answer Comments Code status determined by: Unable to det ermine; FULL CODE until documents or legal decision maker available Care Teams Agency Director Relationship Specialty [place] [address] [place] [address] PCP - General Family Practice 02/22/19 [place] [address] [place] [address] Assigned PCP 10/29/18
--- OUTSIDE RECORDS SUMMARY | 2023-09-18 23:56 | XMS_ITS | Encounter Summary ---
Author Organization [place] Address [address] [place] [address] Care Team Providers Care Supervisor Composing Room Name Role Phone Joanna Hernandez MD Unavailable [phone] Joanna Hernandez MD Primary Care Provider [phone] Reason for Referral * Diagnostic Imaging Ultrasound (Routine) - Pending Review Specialty Diagnoses / Procedures Referred By Contac t Referred To Contact Radiology. Diagnoses Left breast mass Breast pain, left Procedures US Breast Left Mary Alice Schmidt MD [facility] [address] [place] [address] Referral ID Status Reason Start Date Expiration Date V isits Requested Visits Authorized [id number] Pending Review 05/27/2023 05/26/2024 1 1 Reason for Visit * Diagnostic Imaging Ultrasound (Routine) - Pending Review Specialty Diagnoses / Procedures Referred By Contac t Referred To Contact Radiology. Diagnoses Left breast mass Breast pain, left Procedures US Breast Left Mary Alice Schmidt MD [facility] [address] [place] [address] Referral ID Status Reason Start Date Expiration Date V isits Requested Visits Authorized [id number] Pending Review 05/27/2023 05/26/2024 1 1 Encounter Details Date Type Department Care Team (Late st Contact Info) Description 06/12/2023 7:19 AM CDT - 06/12/2023 11:59 PM CDT Hospital Encounter [facility] [address] [facility], [address] [place] [phone] Mary Alice Schmidt MD [facility] [address] [facility] [address] [place], [place] [address] Left breast mass; Breast pain, left Discharge Disposition: Home or Self Care Social History Tobacco Use Types Packs/Day Years [...] AM CDT documented as of this encounter Medications at Time of Discharge Medication Sig Dispensed Refills Start Date End Date Biotin 59159 MCG TBDP Take by mouth daily CALCIUM CITRATE PO Take 500 mg by mouth 3 times daily Chews at mid-morning, lunch, and dinner. childrens multivitamin w/iron (FLINTSTONES COMPLETE) chewable tablet Take 2 chew tab by mouth At Bedtime Cholecalciferol (VITAMIN D3 PO) Take 5,000 Units by mouth daily Gel cap. desvenlafaxine (PRISTIQ) 50 MG 24 hr tablet Take 50 mg by mouth 11/09/2021 levothyroxine (SYNTHROID/LEVOTHROID) 112 MCG tabletIndications:Acquired hypothyroidism Take 1 tablet (112 mcg) by mouth daily 90 tablet 3 01/30/2022 LORazepam (ATIVAN) 0.5 MG tablet TAKE ONE TABLET BY MOUTH TWICE DAILY NEEDED FOR SEVERE ANXIETY 05/17/2021 MAGNESIUM GLYCINATE PO 02/09/2021 MAGNESIUM GLYCINATE PO Take 260 mg by mouth 2 times daily vitamin (B COMPLEX-C) tablet Take 1 tablet by mouth once a week documented as of this encounter Plan of Treatment Not on file documented as of this encounter Procedures Procedure Name Priority Date/Time Associated Diagnosis Comments US BREAST LEFT LIMITED 1-3 QUADRANTS Routine 06/12/2023 8:37 AM CDT Left breast mass Breast pain, left documented in this encounter Results * US Breast Left (06/12/2023 8:37 AM CDT) Anatomical Region Laterality Modality Breast Left Ultrasound Impressions 06/12/2023 8:52 AM CDT IMPRESSION: 1. [...] AM CDT EXAM: MA DIAGNOSTIC BILATERAL W/ MODE[place]O, US BREAST LEFT LIMITED 1-3 QUADRANTS, 06/12/2023 [...] palpable lump. Mary Alice Schmidt MD IMG US ORDERABLES documented in this encounter Visit Diagnoses Diagnosis Left breast mass Lump or mass in breast Breast pain, left Mastodynia documented in this encounter Additional Health Concerns Assessment Noted Time PHQ-9 Depression Total Score: 27 021 7:02 AM CDT documented as of this encounter Care Teams Supervisor Composing Room Relationship Specialty [place] [address] [place] [address] PCP - General Family Practice 02/22/19 [place] [address] [facility] [place] [address] Assigned PCP 10/29/18 documented as of this encounter
--- OUTSIDE RECORDS SUMMARY | 2023-09-18 23:56 | XMS_ITS | Encounter Summary ---
Author Organization [place] Address [address] [place] [address] Care Team Providers Care Foam Charger Name Role Phone Joanna Hernandez MD Unavailable Joanna Hernandez MD Primary Care Provider [phone] Reason for Referral * Diagnostic Imaging Mammo (Routine) - Pending Review Specialty Diagnoses / Procedures Referred By [facility] Referred To Contact Radiology. Diagnoses Left breast mass Breast pain, left Procedures MA Diagnostic Bilateral w/Mary Alice Benítez MD [facility] [address] [address] Referral ID Status Reason Start Date Expiration Date V isits Requested Visits Authorized [id number] Pending Review 05/27/2023 05/26/2024 1 1 Reason for Visit * Diagnostic Imaging Mammo (Routine) - Pending Review Specialty Diagnoses / Procedures [facility] Ref[facility] To Contact Rad[facility]. Diagnoses Left breast mass Breast pain, left Procedures MA Diagnostic Bilateral w/Mary Alice Benítez MD [facility] [address] [facility] [address] [place] [address] Referral ID Status Reason Start Date Expiration Date V isits Requested Visits Authorized [id number] Pending Review 05/27/2023 05/26/2024 1 1 Encounter Details Date Type Department Care Team (Late st Contact Info) Description 06/12/2023 7:18 AM CDT Hospital Encounter [facility] [address] [facility], [address] [place] [phone] Mary Alice Schmidt MD [facility] [address] [place] [address] Left breast mass; Breast pain, left Discharge [...] Dispensed Refills Start Date End Date Biotin 37831 MCG TBDP Take by mouth daily CALCIUM [...] left documented in this encounter Results * MA Diagnostic Bilateral w/Kentrell (06/12/2023 [...] Mary Alice Schmidt MD IMG MAMMOGRAPHY JOANNE MAYA documented in this encounter Visit Diagnoses Diagnosis Left breast mass Lump or mass in breast Breast pain, left Mastodynia documented in this encounter Additional Health Concerns Assessment Noted Time PHQ-9 Depression Total Score: 27 021 7:02 AM CDT documented as of this encounter Care Teams Foam Charger Relationship Specialty [place] [address] [facility] [place] [address] PCP - General Family Practice 02/22/19 [place] [address] [place] [address] Assigned PCP 10/29/18 documented as of this encounter
--- OUTSIDE RECORDS SUMMARY | 2023-09-18 23:56 | XMS_ITS | Encounter Summary ---
Author Organization [place] Address [address] [facility] [place] [address] Care Team Providers Care Laser Cutter Name Role Phone Joanna Hernandez MD Unavailable [phone] Joanna Hernandez MD Primary Care Provider [phone] Makenzie Toth PA-C Unavailable [phone] Encounter Details Date Type Department Care Team (Late st Contact Info) Description 12/08/2020 [facility] Medical Advice [facility] [address] [place] [address] [place] [id number] [place] [address] Social History Tobacco Use Types Packs/Day Years [...] AM CDT documented as of this encounter Miscellaneous Notes * Telephone Encounter - Karo Duncan RN - 12/10/2020 8:05 AM CDT Please see gas appliance mechanic encounter 12/10/20. Karo Luciano RN documented in this encounter Plan of Treatment Not on file documented as of this encounter Visit Diagnoses Not on filedocumented in this encounter Additional Health Concerns Assessment Noted Time PHQ-9 Depression Total Score: 27 021 7:02 AM CDT documented as of this encounter Care Teams Laser Cutter Relationship Specialty [place] [address] [place] [address] PCP - General Family Practice 02/22/19 [place] [address] [place] [address] Assigned PCP 10/29/18 Makenzie Toth PA-C [address] [place] [address] Assigned Surgical Provider 04/29/20 documented as of this encounter
--- OUTSIDE RECORDS SUMMARY | 2023-09-18 23:56 | XMS_ITS | Encounter Summary ---
Author Organization [place] Address [facility] [place] [address] Care Team Providers Care Warp Coiler Name Role Phone Joanna Hernandez MD Unavailable [phone] Joanna Hernandez MD Primary Care Provider [phone] Makenzie Toth PA-C Unavailable + [phone] Encounter Details Date Type Department Care Team (Late st Contact Info) Description 01/02/2021 Documentation Only INTERFACED REPORT Unknown, Provider Social History Tobacco Use Types Packs/Day Years [...] Exposure Response Date Recorded In the last month, have you been in contact with someone who was confirmed or suspected to have Coronavirus / COVID-19? Unable to assess 01/01/2021 11:59 AM CS T documented as of this encounter Plan of Treatment Not on file documented as of this encounter Visit Diagnoses Not on filedocumented in this encounter Additional Health Concerns Assessment Noted Time PHQ-9 Depression Total Score: 27 021 7:02 AM CDT documented as of this encounter Care Teams Warp Coiler Relationship Specialty [place] [address] [place] [address] PCP - General Family Practice 02/22/19 [place] [address] [place] [address] Assigned PCP 10/29/18 Makenzie Toth PA-C [address] [facility] [address] [place] [address] Assigned Surgical Provider 04/29/20 documented as of this encounter
--- OUTSIDE RECORDS SUMMARY | 2023-09-18 23:56 | XMS_ITS | Encounter Summary ---
Author Organization [place] Address [address] [place] [address] Care Team Providers Care Finance Intern Name Role Phone Joanna Hernandez MD Unavailable [phone] Joanna Hernandez MD Primary Care Provider [phone] Makenzie Toth PA-C Unavailable +[phone] Reason for Visit * Reason Onset Date Comments Patient Inquiry 10/08/2020 Encounter Details Date Type Department Care Team (Late st Contact Info) Description 10/08/2020 [facility] Medical Advice [facility] [id number] [place] [address] [place] [address] [place] [address] Patient Inquiry Social History Tobacco Use Types Packs/Day Years [...] encounter Miscellaneous Notes * Telephone Encounter - Joanna Hernandez MD - 10/09/2020 12:56 PM CDT This should not be cause for concern while she is asleep. If she notes a heart rate drop like this during the day, she should be seen. No need to check thyroid levels. JH * Telephone Encounter - Chencho Duran RN - 10/08/2020 2:21 PM CDT Please see patient MyChart message as follow up from physical 06/12/20. Please advise, visit needed to discuss or lab only for thyroid recheck? Chencho Onofre RN documented in this encounter Plan of Treatment Not on file documented as of this encounter Visit Diagnoses Not on filedocumented in this encounter Care Teams Finance Intern Relationship Specialty [place] [address] [place] [address] PCP - General Family Practice 02/22/19 [place] [address] [place] [address] Assigned PCP 10/29/18 Makenzie Toth PA-C [address] [address] Assigned Surgical Provider 04/29/20 documented as of this encounter
--- OUTSIDE RECORDS SUMMARY | 2023-09-18 23:56 | XMS_ITS | Encounter Summary ---
Author Organization [place] Address [address] [place] [address] Care Team Providers Care Public Health Veterinarian Name Role Phone Joanna Hernandez MD Unavailable [phone] Joanna Hernandez MD Primary Care Provider [phone] Makenzie Toth PA-C Unavailable [phone] Encounter Details Date Type Department Care Team (Late st Contact Info) Description 04/29/2021 [facility] Medical Advice [facility] [place] [id number] [facility] [address] [place] [address] Makenzie Toth PA-C [address] [facility] [address] [place], [place] [address] Social History Tobacco Use Types Packs/Day Years [...] or suspected to have Coronavirus / COVID-19? No / Unsure 04/24/2021 1:29 PM CDT documented as of this encounter Plan of Treatment Not on file documented as of this encounter Visit Diagnoses Not on filedocumented in this encounter Additional Health Concerns Assessment Noted Time PHQ-9 Depression Total Score: 27 021 7:02 AM CDT documented as of this encounter Care Teams Public Health Veterinarian Relationship Specialty [place] [address] [place] [address] PCP - General Family Practice 02/22/19 [place] [address] [place] [address] Assigned PCP 10/29/18 Makenzie Toth PA-C [address] [place] [address] Assigned Surgical Provider 04/29/20 documented as of this encounter
--- OUTSIDE RECORDS SUMMARY | 2023-09-18 23:56 | XMS_ITS | Encounter Summary ---
Author Organization [place] Address [address] [place] [address] Care Team Providers Care Parts Facilitator Name Role Phone Joanna Hernandez MD Unavailable [phone] Joanna Hernandez MD Primary Care Provider [phone] Makenzie Toth PA-C Unavailable [phone] Encounter Details Date Type Department Care Team (Late st Contact Info) Description 05/03/2020 [facility] Medical Advice [address] [address] Vickie Landin Social History Tobacco Use Types Packs/Day Years Used Date Smoking Tobacco: Former Cigarettes 0 07/10/2001 - 2012 Smokeless Tobacco: Never Comments:Smoke free since 11, previously mild smoker 1-3 cigs a day Alcohol Use Standard Drinks/Week Comments Yes 0 (1 standard drink = 0.6 oz pur e alcohol) 0-1 per month PHQ-2 Answer Date Recorded PHQ-2 Score 0 11/12/2018 Sex and Gender Information Value Date Recorded Sex Assigned at Female 11/11/2018 8:03 AM CDT Gender Identity Female 11/11/2018 8:03 AM CDT Sexual Orientation Straight 11/11/2018 8: 03 AM CDT documented as of this encounter Plan of Treatment Not on file documented as of this encounter Visit Diagnoses Not on filedocumented in this encounter Care Teams Parts Facilitator Relationship Specialty [place] [address] [place] [address] PCP - General Family Practice 02/22/19 [place] [address] [place] [address] Assigned PCP 10/29/18 Makenzie Toth PA-C [address] [place] [address] Assigned Surgical Provider 04/29/20 documented as of this encounter
--- OUTSIDE RECORDS SUMMARY | 2023-09-18 23:56 | XMS_ITS | Encounter Summary ---
Author Organization [place] Address [address] [facility] [place] [address] Care Team Providers Care Automobile Contract Clerk Name Role Phone Joanna Hernandez MD Unavailable [phone] Joanna Hernandez MD Primary Care Provider [phone] Makenzie Toth PA-C Unavailable [phone] Encounter Details Date Type Department Care Team (Late st Contact Info) Description 01/07/2021 [facility] Medical Advice [facility] [address] [place] [address] [place] [address] [place] [address] Acquired hypothyroidism (Primary Dx) Social History Tobacco Use Types Packs/Day Years [...] have Coronavirus / COVID-19? No / Unsure 01/09/2021 11:04 AM INFECTIOUS DISEASE TECHNICIAN documented as of this encounter Miscellaneous Notes * Telephone Encounter - Joanna Hernandez MD - 01/08/2021 10:34 AM INFECTIOUS DISEASE TECHNICIAN Orders in, please help schedule lab appt. JH CTIOUS DISEASE TECHNICIAN * Telephone Encounter - Vickie Landin - 01/07/2021 2:29 PM CST Please advise if you will place labs or if patient needs to schedule Vickie Landin/ Rug Repairer CTIOUS DISEASE TECHNICIAN documented in this encounter Plan of Treatment Not on file documented as of this encounter Results * T4, free (01/09/2021 11:08 AM INFECTIOUS DISEASE TECHNICIAN) Free T4 1.01 0.76 - 1.46 ng/dL 01/10/2021 11:48 AM INFECTIOUS DISEASE TECHNICIAN [facility] Blood STRUCTURE OF LEFT UPPER LIMB / Unknown Venipuncture / Unknown 01/09/2021 11:08 AM INFECTIOUS DISEASE TECHNICIAN 01/09/2021 11:08 AM INFECTIOUS DISEASE TECHNICIAN Joanna Hernandez MD LAB - BLOOD ORDER [facility] Acute Care Lab [address] Lab (1st floor, no room number) [place] [address], [facility] [phone] * TSH (01/09/2021 11:08 AM INFECTIOUS DISEASE TECHNICIAN) TSH 0.81 0.40 - 4.00 mU/L 01/10/2021 11:53 AM INFECTIOUS DISEASE TECHNICIAN [facility] Blood STRUCTURE OF LEFT UPPER LIMB / Unknown Venipuncture / Unknown 01/09/2021 11:08 AM INFECTIOUS DISEASE TECHNICIAN 01/09/2021 11:08 AM INFECTIOUS DISEASE TECHNICIAN Joanna Hernandez MD LAB - BLOOD ORDER [facility] Acute Care Lab [address] [facility] Lab (1st floor, no room number) [place] [address], [facility] [phone] documented in this encounter Visit Diagnoses Diagnosis Acquired hypothyroidism- Primary Unspecified hypothyroidism documented in this encounter Additional Health Concerns Assessment Noted Time PHQ-9 Depression Total Score: 27 021 7:02 AM CDT documented as of this encounter Care Teams Automobile Contract Clerk Relationship Specialty [place] [address] [place] [address] PCP - General Family Practice 02/22/19 [place] [address] [place] [address] Assigned PCP 10/29/18 Makenzie Toth PA-C [address] [place] [address] Assigned Surgical Provider 04/29/20 documented as of this encounter
--- OUTSIDE RECORDS SUMMARY | 2023-09-18 23:56 | XMS_ITS | Clinical Summary ---
Author Organization [place] Address [address] [place] [address] Care Team Providers Care Transmission Design Engineer Name Role Phone Joanna Hernandez MD Unavailable [phone] Joanna Hernandez MD Primary Care Provider [phone] Allergies Active Allergy Reactions Criticality Noted Date Comments Aspirin Other (See Comments) 02/22/2019 Gastric sleeve 02/15/2019 Nsaids Other (See Comments) 02/22/2019 Gastric sleeve 02/15/2019Gastric sleeve 02/15/2019 Penicillins 10/07/2018 Medications Medication Sig Dispensed Refills Start Date End Date Status Biotin 90714 MCG TBDP Take by mouth daily Active [...] Overview: Added automatically from request for surgery [id number] Morbidly obese 01/11/2019 04/21/2019 Overview: Added automatically from request for surgery [id number] Morbid obesity with BMI of 40.0-44.9, adult 10/27/2018 08/17/2019 Morbid obesity 10/12/2018 11/18/2018 Immunizations Name Administration Dates Next Due COVID-19 MONOVALENT 12+ (Pfizer) 01/01/2021 Flu, Unspecified 11/12/2019,11/18/2018 Influenza Vaccine >6 months,quad, PF 11/21/2020, 11/18/2018 TDAP Vaccine (Adacel) 10/18/2013 Family History Medical History Relation Comments Obesity Brother 1 Obesity Brother 2 Hypertension Father Obesity Father Substance Abuse Father Cerebrovascular Disease Maternal Grandmother Diabetes Maternal Grandmother Type 2 dece ased Hypertension Maternal Grandmother Obesity Maternal Grandmother Breast Cancer Mother Diabetes Mother Type 2 Obesity Mother Obesity Other Thyroid Disease Other Colon Cancer Paternal Grandfather Diabetes Paternal Grandfather Type 2 dece ased Obesity Paternal Grandfather Prostate Cancer Paternal Grandfather Relation Status Comments Brother 1 Brother 2 Father Alive Maternal Grandmother Mother Alive Other Paternal Grandfather Social History Tobacco Use Types Packs/Day Years [...] CDT Oxygen Saturation 94% 02/22/2019 1:47 PM FOOD SERVICE MANAGER Inhaled Oxygen Concentration - - Weight 69.4 kg (153 lb) 05/29/2021 9:27 AM CDT Height 162.6 cm (5' 4) 05/29/2021 9:27 AM CDT Body Mass Index 26.26 05/29/2021 9:27 AM CDT Plan of Treatment Health Maintenance Due Date Last Done Comments HEPATITIS B IMMUNIZATION (1 of 3 - 19+ 3-dose series) 07/14/2002 YEARLY PREVENTIVE VISIT 06/12/2021 06/12/2020, 11/18 PAP 12/14/2021 12/14/2018 GLUCOSE 02/16/2022 02/16/2019, 08/2019, 02/15/2019, Additional history exists COVID-19 Vaccine ( season) 2022 11/12/2021, 01/01/2021, 05/18/2020 ANNUAL REVIEW OF HM ORDERS 01/30/2023 01/30/2022, TSH W/FREE T4 REFLEX 01/30/2023 01/30/2022, 01/30/2022, 01/09/2021, Additional history exists PHQ-2 (once per calendar year) 2023 01/30/2022, 12/08/2020, 06/12/2020, Additional history exists INFLUENZA VACCINE (#1) 2023 2, 11/21/2020, 11/12/2019, Additional history exists DTAP/TDAP/TD IMMUNIZATION (2 - Td or Tdap) 10/19/2023 10/18/2013 MAMMO SCREENING 06/11/2025 06/12/2023, 08/08/2019, 03/18/2019, Additional history exists ADVANCE CARE PLANNING 06/12/2025 06/12/2020 LIPID 06/12/2025 06/12/2020, 11/18/2018 HEPATITIS C SCREENING Completed 01/09/2021 HIV SCREENING Completed 01/09/2021 HPV IMMUNIZATION Aged Out No longer e ligible based on patient's age to complete this topic IPV IMMUNIZATION Aged Out No longer e ligible based on patient's age to complete this topic MENINGITIS IMMUNIZATION Aged Out No l onger eligible based on patient's age to complete this topic Pneumococcal Vaccine: Pediatrics (0 to 5 Years) and At-Risk Patients (6 to 64 Years) Aged Out No longer eligible based on patient's age to complete this topic RSV MONOCLONAL ANTIBODY Aged Out No l onger eligible based on patient's age to complete this topic Procedures Procedure Name Priority Date/Time Associated Diagnosis Comments MA DIAGNOSTIC BILATERAL W/ KENTRELL Routine 06/12/2023 7:54 AM CDT Left breast mass Breast pain, left T4 FREE Routine 01/30/2022 10:10 AM FOOD SERVICE MANAGER Acquired hypothyroidism HIV ANTIGEN ANTIBODY COMBO Routine 01/09/2021 11:08 AM FOOD SERVICE MANAGER Screening for HIV (human immunodeficiency virus) HEPATITIS C SCREEN REFLEX TO HCV RNA QUANT AND GENOTYPE Routine 01/09/2021 11:08 AM FOOD SERVICE MANAGER Need for hepatitis C screening test LIPID REFLEX TO DIRECT LDL PANEL Routine 06/12/2020 4:54 PM CDT Routine general medical examination at a health care facility GLUCOSE BY METER Routine 02/16/2019 6:31 AM FOOD SERVICE MANAGER Morbidly obese (H) PAP SMEAR - HIM [...] Alice Schmidt MD IMG MAMMOGRAPHY JOANNE MAYA * T4, free (01/30/2022 10:10 AM FOOD SERVICE MANAGER) Free T4 1.31 0.90 - 1.70 ng/dL 01/30/2022 5:43 PM FOOD SERVICE MANAGER [facility] Blood STRUCTURE OF LEFT UPPER LIMB / Unknown Venipuncture / Unknown 01/30/2022 10:10 AM FOOD SERVICE MANAGER 01/30/2022 10:10 AM FOOD SERVICE MANAGER Joanna Hernandez MD LAB - BLOOD ORDER [facility] [place] Core Lab [address] [facility], [address] [place] [address], [facility] [phone] * HIV Antigen Antibody Combo (01/09/2021 11:08 AM FOOD SERVICE MANAGER) HIV Antigen Antibody Combo Nonreactive Nonreactive 01/10/2021 10:53 AM FOOD SERVICE MANAGER [facility] Comment:HIV-1 p24 Ag & HIV-1 /HIV-2 Ab Not Detected Blood STRUCTURE OF LEFT UPPER LIMB / Unknown Venipuncture / Unknown 01/09/2021 11:08 AM FOOD SERVICE MANAGER 01/09/2021 11:08 AM FOOD SERVICE MANAGER Joanna Hernandez MD LAB - BLOOD ORDER [facility] Specialty Core Lab [address] [facility], [address] [place] [address], [facility] [phone] * Hepatitis C Screen Reflex to HCV RNA Quant and Genotype (01/09/2021 11:08 AM FOOD SERVICE MANAGER) Hepatitis C Antibody Nonreactive Nonreactive 01/10/2021 10:53 AM FOOD SERVICE MANAGER [facility] Blood STRUCTURE OF LEFT UPPER LIMB / Unknown Venipuncture / Unknown 01/09/2021 11:08 AM FOOD SERVICE MANAGER 01/09/2021 11:08 AM FOOD SERVICE MANAGER Narrative [facility] - 01/10/2021 10:53 AM FOOD SERVICE MANAGER Assay performance characteristics have not been established for newborns, infants, and children. Joanna Hernandez MD LAB - BLOOD ORDER [facility] Specialty Core Lab [address] [facility], [address] [place] [address], [facility] [phone] * Lipid panel reflex to direct LDL Fasting (06/12/2020 4:54 PM CDT) Cholesterol 132 <200 mg/dL 06/13/2020 5:14 PM CDT [facility] Triglycerides 58 <150 mg/dL 06/13/2020 5:14 PM CDT [facility] HDL Cholesterol 51 >49 mg/dL 5:17 PM CDT [facility] LDL Cholesterol Calculated 69 <100 mg/dL 06/13/2020 5:17 PM CDT [facility] Comment:Desirable: <100 mg/d l Non HDL Cholesterol 81 <130 mg/dL 06/13/2020 5:17 PM CDT [facility] Blood 06/12/2020 4:54 PM CDT 06/12/2020 4:56 PM CDT Joanna Hernandez MD LAB - BLOOD ORDER [facility] [address] [place] [address], [facility] [phone] * Glucose by meter (02/16/2019 6:31 AM FOOD SERVICE MANAGER) Glucose 89 70 - 99 mg/dL 02/16/2019 6:42 AM FOOD SERVICE MANAGER POINT OF CARE TEST, GLUCOSE 02/16/2019 6:31 AM FOOD SERVICE MANAGER 02/16/2019 6:42 AM FOOD SERVICE MANAGER Dimitri Pop MD LAB - BEAKER POCT [...] Advance Directives For more information, please contact: [phone] * Full Code (Latest Code Status on File) Date Activated Date Inactivated Comments 02/15/2019 12:06 PM 02/17/2019 3:40 PM Question Answer Comments Code status determined by: Unable to det ermine; FULL CODE until documents or legal decision maker available Care Teams Transmission Design Engineer Relationship Specialty [place] [address] [place] [address] PCP - General Family Practice 02/22/19 [place] [address] [facility] [address] Assigned PCP 10/29/18
--- OUTSIDE RECORDS SUMMARY | 2023-09-18 23:56 | XMS_ITS | Encounter Summary ---
Author Organization [place] Address [facility] [place] [address] Care Team Providers Care Instructor Ballroom Dancing Name Role Phone Joanna Hernandez MD Unavailable [phone] Joanna Hernandez MD Primary Care Provider [phone] Encounter Details Date Type Department Care Team (Late st Contact Info) Description 10/25/2021 [facility] Medical Advice [facility] [address] [place] [address] Joanna Hernandez MD [address] [place] [address] Social History Tobacco Use Types Packs/Day [...] documented as of this encounter Care Teams Instructor Ballroom Dancing Relationship Specialty [place] [address] [place] [address] PCP - General Family Practice 02/22/19 [place] [address] [place] [address] Assigned PCP 10/29/18 documented as of this encounter
--- OUTSIDE RECORDS SUMMARY | 2023-09-18 23:56 | XMS_ITS | Encounter Summary ---
Author Organization [place] Address [address] [facility] [place] [address] Care Team Providers Care Sofa Back Upholsterer Name Role Phone Joanna Hernandez MD Unavailable [phone] Joanna Hernandez MD Primary Care Provider Makenzie Toth PA-C Unavailable [phone] Reason for Visit * Reason Onset Date Comments Orders 05/03/2020 Encounter Details Date Type Department Care Team (Late st Contact Info) Description 05/03/2020 Telephone [facility] [id number] [place] [address] [place] [address] [place] [address] Orders Social History Tobacco Use Types Packs/Day Years [...] Telephone Encounter - Joanna Hernandez MD - 05/03/2020 10:19 AM CDT Orders placed, but she needs a visit with me as it's been a year. JH * Telephone Encounter - Natalie Wan - 05/03/2020 9:54 AM CDT Reason for Call: Request for an order or referral: Order or referral being requested: Thyroid lab Date needed: as soon as possible Has the patient been seen by the PCP for this problem? YES Additional comments: Patient has lab appt on 05/08/2020 is requesting thyroid labs. Phone number Patient can be reached at: Home number on file [phone] (home) Best Time: Anytime Can we leave a detailed message on this number? YES Call taken on 05/03/2020 at 9:54 AM by Natalie Wan documented in this encounter Plan of Treatment Not on file documented as of this encounter Results * T4, free (05/08/2020 10:53 AM CDT) T4 Free 1.04 0.76 - 1.46 ng/dL 05/09/2020 10:37 AM CDT [facility] Blood specimen (specimen) 05/08/2020 10:53 AM CDT 05/08/2020 10:58 AM CDT Joanna Hernandez MD LAB - BLOOD ORDER [facility] [address] [place] [address] * TSH (05/08/2020 10:53 AM CDT) Pathologist [facility] TSH 1.30 0.40 - 4.00 mU/L 05/09/2020 10:43 AM CDT [facility] Blood specimen (specimen) 05/08/2020 10:53 AM CDT 05/08/2020 10:58 AM CDT Joanna Hernandez MD LAB - BLOOD ORDER [facility] [address] [place] [address] documented in this encounter Visit Diagnoses Diagnosis Acquired hypothyroidism- Primary Unspecified hypothyroidism documented in this encounter Care Teams Sofa Back Upholsterer Relationship Specialty [place] [address] [place] [address] PCP - General Family Practice 02/22/19 [place] [address] [place] [address] Assigned PCP 10/29/18 Makenzie Toth PA-C [address] [place] [address] Assigned Surgical Provider 04/29/20 documented as of this encounter
--- OUTSIDE RECORDS SUMMARY | 2023-09-18 23:57 | XMS_ITS | Encounter Summary ---
Author Organization [place] Address [address] [place] [address] Care Team Providers Care Furniture Rental Consultant Name Role Phone Joanna Hernandez MD Unavailable Joanna Hernandez MD Primary Care Provider [phone] Dimitri Pop MD Unavailable [phone] Dung De Jesus PA-C Unavailable Makenzie Toth PA-C Unavailable [phone] Encounter Details Date Type Department Care Team (Late st Contact Info) Description 03/07/2019 My[facility] Medical Advice [facility] Surgical Weight Loss Clinic [address] [place] [id number] Dung De Jesus PA-C [facility] [place] [address] Social History Tobacco Use Types Packs/Day Years Used Date Smoking Tobacco: Former Cigarettes Q uit: 2013 Smokeless Tobacco: Never Alcohol Use Standard Drinks/Week Comments Yes 0 [...] on filedocumented in this encounter Care Teams Furniture Rental Consultant Relationship Specialty [place] [address] [place] [address] PCP - General Family Practice 02/22/19 [place] [address] [place] [address] Assigned PCP 10/29/18 Dimitri Pop MD [address] [address] Assigned Surgical Provider 12/02/19 Dung De Jesus PA-C [address] [place] [address] Assigned Surgical Provider 04/25/20 Makenzie Toth PA-C [address] [place] [address] Assigned Surgical Provider 04/29/20 documented as of this encounter
--- OUTSIDE RECORDS SUMMARY | 2023-09-18 23:57 | XMS_ITS | Encounter Summary ---
Author Organization [place] Address [address] [facility] [place] [address] Care Team Providers Care Battery Plate Remover Name Role Phone Rhys Ordonez MD Primary Care Provider + Joanna Hernandez MD Unavailable Joanna Hernandez MD Primary Care Provider [phone] Dimitri Pop MD Unavailable [phone] Dung De Jesus PA-C Unavailable Makenzie Toth PA-C Unavailable [phone] Encounter Details Date Type Department Care Team (Late st Contact Info) Description 12/27/2018 MyC Medical Advice [facility] Surgical Weight Loss Clinic [place] [address] [facility] [address] [place] [address] Dimitri Pop MD [address] [facility] [address] [address] [place] [address] Social History Tobacco Use Types Packs/Day Years [...] on filedocumented in this encounter Care Teams Battery Plate Remover Relationship Specialty Start Date End Date Rhys Ordonez MD [address] [place] [address] PCP - General technical document writer 10/01/18 02/21/19 [place] [address] [place] [address] PCP - General Family Practice 02/22/19 [place] [address] [place] [address] Assigned PCP 10/29/18 Dimitri Pop MD [address] [place] [address] Assigned Surgical Provider 12/02/19 Dung De Jesus PA-C [address] [place] [address] Assigned Surgical Provider 04/25/20 Makenzie Toth PA-C [address] [place] [address] Assigned Surgical Provider 04/29/20 documented as of this encounter
--- OUTSIDE RECORDS SUMMARY | 2023-09-18 23:57 | XMS_ITS | Encounter Summary ---
Author Organization [place] Address [address] [place] [address] Care Team Providers Care Pleating Machine Operator Name Role Phone Joanna Hernandez MD Unavailable [phone] Joanna Hernandez MD Primary Care Provider [phone] Dimitri Pop MD Unavailable [phone] Dung De Jesus PA-C Unavailable [phone] Makenzie Toth PA-C Unavailable [phone] Encounter Details Date Type Department Care Team (Late st Contact Info) Description 02/28/[address] [facility] Surgical Weight Loss Clinic [address] [place] [address] Makenzie Toth PA-C [address] [place] [address] [place] [address] Social History Tobacco Use Types Packs/Day Years [...] have Coronavirus / COVID-19? No / Unsure 02/15/2020 1:22 PM INDUSTRIAL SOCIOLOGIST documented as of this encounter Plan of Treatment Not on file documented as of this encounter Visit Diagnoses Not on filedocumented in this encounter Care Teams Pleating Machine Operator Relationship Specialty [place] [address] [place] [address] PCP - General Family Practice 02/22/19 [place] [address] [place] [address] Assigned PCP 10/29/18 Dimitri Pop MD [address] [address] Assigned Surgical Provider 12/02/19 Dung De Jesus PA-C [address] [address] Assigned Surgical Provider 04/25/20 Makenzie Toth PA-C [address] [address] Assigned Surgical Provider 04/29/20 documented as of this encounter
--- OUTSIDE RECORDS SUMMARY | 2023-09-18 23:57 | XMS_ITS | Encounter Summary ---
Author Organization [place] Address [address] [place] [address] Care Team Providers Care Wound Nurse Name Role Phone Joanna Hernandez MD Unavailable [phone] Joanna Hernandez MD Primary Care Provider [phone] Dimitri Pop MD Unavailable [phone] Dung De Jesus PA-C Unavailable Makenzie Toth PA-C Unavailable [phone] Encounter Details Date Type Department Care Team (Late st Contact Info) Description 11/29/2019 [facility] Weight Loss Clinic [address] [place] [phone] [facility] Social History Tobacco Use Types Packs/Day Years [...] have Coronavirus / COVID-19? No / Unsure 11/18/2019 1:59 PM CDT documented as of this encounter Plan of Treatment Not on file documented as of this encounter Visit Diagnoses Not on filedocumented in this encounter Care Teams Wound Nurse Relationship Specialty [place] [address] [place] [address] PCP - General Family Practice 02/22/19 [place] [address] [place] [address] Assigned PCP 10/29/18 Dimitri Pop MD [address] [place] [address] Assigned Surgical Provider 12/02/19 Dung De Jesus PA-C [address] [address] Assigned Surgical Provider 04/25/20 Makenzie Toth PA-C [address] [place] [address] Assigned Surgical Provider 04/29/20 documented as of this encounter
--- OUTSIDE RECORDS SUMMARY | 2023-09-18 23:57 | XMS_ITS | Encounter Summary ---
Author Organization [place] Address [facility] [place] [address] Care Team Providers Care Endoscopy Registered Nurse Name Role Phone Rhys Ordonez MD Primary Care Provider + Joanna Hernandez MD Unavailable [phone] Joanna Hernandez MD Primary Care Provider [phone] Dimitri Pop MD Unavailable [phone] Dung De Jesus PA-C Unavailable Makenzie Toth PA-C Unavailable [phone] Encounter Details Date Type Department Care Team (Late st Contact Info) Description 02/11/2019 MyC Medical Advice [facility] SURGERY CASES Dimitri Pop MD [address] [facility] [address] [place] [address] Social History Tobacco Use Types Packs/Day Years [...] on filedocumented in this encounter Care Teams Endoscopy Registered Nurse Relationship Specialty Start Date End Date Rhys Ordonez MD [address] [place] [address] PCP - General occupational health nurse supervisor 10/01/18 02/21/19 [place] [address] [place] [place] [address] PCP - General Family Practice 02/22/19 [place] [address] [place] [place] [address] Assigned PCP 10/29/18 Dimitri Pop MD [address] [place] [address] Assigned Surgical Provider 12/02/19 Dung De Jesus PA-C [address] [place] [address] Assigned Surgical Provider 04/25/20 Makenzie Toth PA-C [address] [place] [address] Assigned Surgical Provider 04/29/20 documented as of this encounter
--- OUTSIDE RECORDS SUMMARY | 2023-09-18 23:57 | XMS_ITS | Encounter Summary ---
Author Organization [place] Address [address] [place] [address] Care Team Providers Care Lithographer Helper Name Role Phone Rhys Ordonez MD Primary Care Provider + Joanna Hernandez MD Unavailable Joanna Hernandez MD Primary Care Provider [phone] Dimitri Pop MD Unavailable [phone] Dung De Jesus PA-C Unavailable Makenzie Toth PA-C Unavailable [phone] Encounter Details Date Type Department Care Team (Late st Contact Info) Description 10/29/2018 MyC Medical Advice [facility] Surgical Weight Loss Clinic [place] [address] [facility] [address] [place] [address] Dung De Jesus PA-C [address] [facility] [place] [address] Social History Tobacco Use Types Packs/Day Years Used Date Smoking Tobacco: Former Cigarettes Q uit: 2013 Smokeless Tobacco: Never Alcohol Use Standard Drinks/Week Comments Yes 0 (1 standard drink = 0.6 oz pur e alcohol) 0-1 per month Sex and Gender Information Value Date Recorded Sex Assigned at Female 11/11/2018 8:03 AM CDT Gender Identity Female 11/11/2018 8:03 AM CDT Sexual Orientation Straight 11/11/2018 8: 03 AM CDT documented as of this encounter Plan of Treatment Not on file documented as of this encounter Visit Diagnoses Not on filedocumented in this encounter Care Teams Lithographer Helper Relationship Specialty Start Date End Date Rhys Ordonez MD [address] [place] [address] PCP - General district manager 10/01/18 02/21/19 [place] [address] [place] [address] PCP - General Family Practice 02/22/19 [place] [address] [place] [address] Assigned PCP 10/29/18 Dimitri Pop MD [address] [place] [address] Assigned Surgical Provider 12/02/19 Dung De Jesus PA-C [address] [address] Assigned Surgical Provider 04/25/20 Makenzie Toth PA-C [address] [place] [address] Assigned Surgical Provider 04/29/20 documented as of this encounter
--- OUTSIDE RECORDS SUMMARY | 2023-09-18 23:57 | XMS_ITS | Encounter Summary ---
Author Organization [place] Address [address] [place] [address] Care Team Providers Care Marine Insurance Claim Examiner Name Role Phone Joanna Hernandez MD Unavailable [phone] Joanna Hernandez MD Primary Care Provider [phone] Dimitri Pop MD Unavailable [phone] Dung De Jesus PA-C Unavailable Makenzie Toth PA-C Unavailable [phone] Encounter Details Date Type Department Care Team (Late st Contact Info) Description 02/23/2019 MyC Medical Advice [facility] Surgical Weight Loss Clinic [address] [place] [phone] Dung De Jesus PA-C [facility] [place] [address] Social History Tobacco Use Types Packs/Day Years [...] on filedocumented in this encounter Care Teams Marine Insurance Claim Examiner Relationship Specialty [place] [address] [place] [address] PCP - General Family Practice 02/22/19 [place] [address] [place] [address] Assigned PCP 10/29/18 Dimitri Pop MD [address] [address] Assigned Surgical Provider 12/02/19 Dung De Jesus PA-C [address] [place] [address] Assigned Surgical Provider 04/25/20 Makenzie Toth PA-C [address] [place] [address] Assigned Surgical Provider 04/29/20 documented as of this encounter
--- OUTSIDE RECORDS SUMMARY | 2023-09-18 23:57 | XMS_ITS | Encounter Summary ---
Author Organization [place] Address [address] [place] [address] Care Team Providers Care Turntable Man Name Role Phone Joanna Hernandez MD Unavailable Joanna Hernandez MD Primary Care Provider [phone] Dimitri Pop MD Unavailable [phone] Dung De Jesus PA-C Unavailable Makenzie Toth PA-C Unavailable [phone] Encounter Details Date Type Department Care Team (Late st Contact Info) Description 07/25/2019 MyC Medical Advice [facility] Surgical Weight Loss Clinic [place] [address] [facility] [address] [place] [phone] Dung De Jesus PA-C [facility] [place] [address] Social History Tobacco Use Types Packs/Day Years [...] on filedocumented in this encounter Care Teams Turntable Man Relationship Specialty [place] [address] [place] [address] PCP - General Family Practice 02/22/19 [place] [address] [place] [address] Assigned PCP 10/29/18 Dimitri Pop MD [address] [address] Assigned Surgical Provider 12/02/19 Dung De Jesus PA-C [address] [address] Assigned Surgical Provider 04/25/20 Makenzie Toth PA-C [address] [address] Assigned Surgical Provider 04/29/20 documented as of this encounter
--- OUTSIDE RECORDS SUMMARY | 2023-09-18 23:57 | XMS_ITS | Encounter Summary ---
Author Organization [place] Address [facility] [place] [address] Care Team Providers Care Nitrogen Operator Name Role Phone Rhys Ordonez MD Primary Care Provider + Joanna Hernandez MD Unavailable Joanna Hernandez MD Primary Care Provider [phone] Dimitri Pop MD Unavailable [phone] Dung De Jesus PA-C Unavailable [phone] Makenzie Toth PA-C Unavailable [phone] Encounter Details Date Type Department Care Team (Late st Contact Info) Description 01/24/2019 MyC Medical Advice SX SURGERY CASES Dimitri Pop MD [address] [facility] [address] [place] [address] Social History Tobacco Use Types Packs/Day Years [...] on filedocumented in this encounter Care Teams Nitrogen Operator Relationship Specialty Start Date End Date Rhys Ordonez MD [address] [place] [address] PCP - General coiler operator 10/01/18 02/21/19 [place] [address] [place] [place] [address] PCP - General Family Practice 02/22/19 [place] [address] [place] [place] [address] Assigned PCP 10/29/18 Dimitri Pop MD [address] [place] [address] Assigned Surgical Provider 12/02/19 Dung De Jesus PA-C [address] [place] [address] Assigned Surgical Provider 04/25/20 Makenzie Toth PA-C [address] [place] [address] Assigned Surgical Provider 04/29/20 documented as of this encounter
--- OUTSIDE RECORDS SUMMARY | 2023-09-18 23:57 | XMS_ITS | Encounter Summary ---
Author Organization [place] Address [facility] [place] [address] Care Team Providers Care Account Support Associate Name Role Phone Rhys Ordonez MD Primary Care Provider + Joanna Hernandez MD Unavailable Joanna Hernandez MD Primary Care Provider [phone] Dimitri Pop MD Unavailable [phone] Dung De Jesus PA-C Unavailable Makenzie Toth PA-C Unavailable [phone] Encounter Details Date Type Department Care Team (Late st Contact Info) Description 01/26/2019 MyC Medical Advice SX SURGERY CASES Dimitri Pop MD [address] [facility] [address] [place] [address] Social History Tobacco Use Types Packs/Day Years [...] on filedocumented in this encounter Care Teams Account Support Associate Relationship Specialty Start Date End Date Rhys Ordonez MD [address] [place] [address] PCP - General frame carver spindle 10/01/18 02/21/19 [place] [address] [place] [address] PCP - General Family Practice 02/22/19 [place] [address] [place] [place] [address] Assigned PCP 10/29/18 Dimitri Pop MD [address] [place] [address] Assigned Surgical Provider 12/02/19 Dung De Jesus PA-C [address] [place] [address] Assigned Surgical Provider 04/25/20 Makenzie Toth PA-C [address] [place] [address] Assigned Surgical Provider 04/29/20 documented as of this encounter
--- OUTSIDE RECORDS SUMMARY | 2023-09-18 23:57 | XMS_ITS | Encounter Summary ---
Author Organization [place] Address [facility] [place] [address] Care Team Providers Care Delineator Name Role Phone Rhys Ordonez MD Primary Care Provider + Joanna Hernandez MD Unavailable Joanna Hernandez MD Primary Care Provider [phone] Dimitri Pop MD Unavailable [phone] Dung De Jesus PA-C Unavailable Makenzie Toth PA-C Unavailable [phone] Encounter Details Date Type Department Care Team (Late st Contact Info) Description 02/10/2019 MyC Medical Advice SX SURGERY CASES Dimitri Pop MD [address] [facility] [address] [place] [address] Social History Tobacco Use Types Packs/Day Years [...] on filedocumented in this encounter Care Teams Delineator Relationship Specialty Start Date End Date Rhys Ordonez MD [address] [place] [address] PCP - General high school combination teacher 10/01/18 02/21/19 [place] [address] [place] [place] [address] PCP - General Family Practice 02/22/19 [place] [address] [place] [place] [address] Assigned PCP 10/29/18 Dimitri Pop MD [address] [place] [address] Assigned Surgical Provider 12/02/19 Dung De Jesus PA-C [address] [place] [address] Assigned Surgical Provider 04/25/20 Makenzie Toth PA-C [address] [place] [address] Assigned Surgical Provider 04/29/20 documented as of this encounter
--- OUTSIDE RECORDS SUMMARY | 2023-09-18 23:57 | XMS_ITS | Encounter Summary ---
Author Organization [place] Address [address] [place] [address] Care Team Providers Care Hand Flatwork Finisher Name Role Phone Joanna Hernandez MD Unavailable Joanna Hernandez MD Primary Care Provider [phone] Dimitri Pop MD Unavailable [phone] Dung De Jesus PA-C Unavailable Makenzie Toth PA-C Unavailable [phone] Encounter Details Date Type Department Care Team (Late st Contact Info) Description 08/22/2019 MyC Medical Advice [facility] Surgical Weight Loss Clinic [address] [place] [address] Celena Davenport, FARRAH [facility] [address] [place] [address] [address] [place], [place] [address] Social History Tobacco Use Types Packs/Day Years [...] have Coronavirus / COVID-19? No / Unsure 08/18/2019 7:31 AM CDT documented as of this encounter Plan of Treatment Not on file documented as of this encounter Visit Diagnoses Not on filedocumented in this encounter Care Teams Hand Flatwork Finisher Relationship Specialty [place] [address] [place] [address] PCP - General Family Practice 02/22/19 [place] [address] [place] [address] Assigned PCP 10/29/18 Dimitri Pop MD [address] [address] Assigned Surgical Provider 12/02/19 Dung De Jesus PA-C [address] [address] Assigned Surgical Provider 04/25/20 Makenzie Toth PA-C [address] [address] Assigned Surgical Provider 04/29/20 documented as of this encounter
--- OUTSIDE RECORDS SUMMARY | 2023-09-18 23:57 | XMS_ITS | Encounter Summary ---
Author Organization [place] Address [address] [place] [address] Care Team Providers Care Cyber Security Specialist Name Role Phone Joanna Hernandez MD Unavailable Joanna Hernandez MD Primary Care Provider [phone] Dimitri Pop MD Unavailable [phone] Dung De Jesus PA-C Unavailable Makenzie Toth PA-C Unavailable [phone] Encounter Details Date Type Department Care Team (Late st Contact Info) Description 08/19/2019 MyC Medical Advice [facility] Weight [facility] [place] [address] [facility] [address] [place] [phone] Dung De Jesus PA-C [facility] [place] [address] Social History Tobacco Use Types Packs/Day Years [...] on filedocumented in this encounter Care Teams Cyber Security Specialist Relationship Specialty [place] [address] [place] [address] PCP - General Family Practice 02/22/19 [place] [address] [place] [address] Assigned PCP 10/29/18 Dimitri Pop MD [address] [address] Assigned Surgical Provider 12/02/19 Dung De Jesus PA-C [address] [address] Assigned Surgical Provider 04/25/20 Makenzie Toth PA-C [address] [address] Assigned Surgical Provider 04/29/20 documented as of this encounter
--- OUTSIDE RECORDS SUMMARY | 2023-09-18 23:57 | XMS_ITS | Encounter Summary ---
Author Organization [place] Address [address] [place] [address] Care Team Providers Care Nailing Machine Operator Automatic Name Role Phone Joanna Hernandez MD Unavailable Joanna Hernandez MD Primary Care Provider [phone] Dimitri Pop MD Unavailable [phone] Dung De Jesus PA-C Unavailable [phone] Makenzie Toth PA-C Unavailable [phone] Encounter Details Date Type Department Care Team (Late st Contact Info) Description 08/18/2019 [facility] [place] [facility] [address] [place] [phone] [facility] Social History Tobacco Use Types Packs/Day Years [...] on filedocumented in this encounter Care Teams Nailing Machine Operator Automatic Relationship Specialty [place] [address] [place] [address] PCP - General Family Practice 02/22/19 [place] [address] [place] [address] Assigned PCP 10/29/18 Dimitri Pop MD [address] [place] [address] Assigned Surgical Provider 12/02/19 Dung De Jesus PA-C [address] [address] Assigned Surgical Provider 04/25/20 Makenzie Toth PA-C [address] [place] [address] Assigned Surgical Provider 04/29/20 documented as of this encounter
--- OUTSIDE RECORDS SUMMARY | 2023-09-18 23:57 | XMS_ITS | Encounter Summary ---
Author Organization [place] Address [address] [place] [address] Care Team Providers Care Business Continuity Management Director Name Role Phone Rhys Ordonez MD Primary Care Provider + Joanna Hernandez MD Unavailable Joanna Hernandez MD Primary Care Provider [phone] Dimitri Pop MD Unavailable [phone] Dung De Jesus PA-C Unavailable Makenzie Toth PA-C Unavailable [phone] Encounter Details Date Type Department Care Team (Late st Contact Info) Description 12/24/2018 MyC Medical Advice [facility] Surgical Weight Loss Clinic [place] [id number] [facility] [address] [place] [address] Dung De Jesus PA-C [address] [facility] [place] [address] Social History Tobacco Use Types Packs/Day Years [...] on filedocumented in this encounter Care Teams Business Continuity Management Director Relationship Specialty Start Date End Date Rhys Ordonez MD [address] [place] [address] PCP - General drug and alcohol treatment specialist 10/01/18 02/21/19 [place] [address] [place] [address] PCP - General Family Practice 02/22/19 [place] [address] [place] [address] Assigned PCP 10/29/18 Dimitri Pop MD [address] [place] [address] Assigned Surgical Provider 12/02/19 Dung De Jesus PA-C [address] [place] [address] Assigned Surgical Provider 04/25/20 Makenzie Toth PA-C [address] [place] [address] Assigned Surgical Provider 04/29/20 documented as of this encounter
--- OUTSIDE RECORDS SUMMARY | 2023-09-18 23:57 | XMS_ITS | Encounter Summary ---
Author Organization [place] Address [address] [place] [address] Care Team Providers Care Permit Specialist Name Role Phone Rhys Ordonez MD Primary Care Provider + Joanna Hernandez MD Unavailable [phone] Joanna Hernandez MD Primary Care Provider [phone] Dimitri Pop MD Unavailable [phone] Dung De Jesus PA-C Unavailable [phone] aMkenzie Toth PA-C Unavailable [phone] Reason for Visit * Reason Onset Date Comments MyChart Communication 12/28/2018 Encounter Details Date Type Department Care Team (Late st Contact Info) Description 12/28/2018 [facility] [address] [place] [address] [place] [address] [place] [address] MyChart Communication Social History Tobacco Use Types Packs/Day Years [...] on filedocumented in this encounter Care Teams Permit Specialist Relationship Specialty Start Date End Date Rhys Ordonez MD [address] [place] [address] PCP - General pest controller assistant 10/01/18 02/21/19 [place] [address] [address] [place] [address] PCP - General Family Practice 02/22/19 [place] [address] [place] [address] Assigned PCP 10/29/18 Dimitri Pop MD [address] [place] [address] Assigned Surgical Provider 12/02/19 Dung De Jesus PA-C [address] [place] [address] Assigned Surgical Provider 04/25/20 Makenzie Toth PA-C [address] [place] [address] Assigned Surgical Provider 04/29/20 documented as of this encounter
--- OUTSIDE RECORDS SUMMARY | 2023-09-18 23:57 | XMS_ITS | Encounter Summary ---
Author Organization [place] Address [address] [place] [address] Care Team Providers Care Boat Loader Name Role Phone Joanna Hernandez MD Unavailable Joanna Hernandez MD Primary Care Provider [phone] Dimitri Pop MD Unavailable [phone] Dung De Jesus PA-C Unavailable Makenzie Toth PA-C Unavailable [phone] Encounter Details Date Type Department Care Team (Late st Contact Info) Description 11/22/2019 MyC Medical Advice [facility] [place] [id number] [facility] [address] [place] [phone] Dung De Jesus PA-C [facility] [place] [address] Social History Tobacco Use Types Packs/Day Years [...] on filedocumented in this encounter Care Teams Boat Loader Relationship Specialty [place] [address] [place] [address] PCP - General Family Practice 02/22/19 [place] [address] [place] [address] Assigned PCP 10/29/18 Dimitri Pop MD [address] [address] Assigned Surgical Provider 12/02/19 Dung De Jesus PA-C [address] [address] Assigned Surgical Provider 04/25/20 Makenzie Toth PA-C [address] [address] Assigned Surgical Provider 04/29/20 documented as of this encounter
--- OUTSIDE RECORDS SUMMARY | 2023-09-18 23:57 | XMS_ITS | Encounter Summary ---
Author Organization [place] Address [address] [place] [address] Care Team Providers Care Bacon Skin Lifter Name Role Phone Joanna Hernandez MD Unavailable [phone] Joanna Hernandez MD Primary Care Provider [phone] Dimitri Pop MD Unavailable [phone] Dung De Jesus PA-C Unavailable Makenzie Toth PA-C Unavailable [phone] Encounter Details Date Type Department Care Team (Late st Contact Info) Description 08/19/2019 MyC Medical Advice [facility] [place] [address] [facility] [address] [place] [phone] Dung De Jesus PA-C [facility] [place] [address] Social History Tobacco Use Types Packs/Day Years [...] on filedocumented in this encounter Care Teams Bacon Skin Lifter Relationship Specialty [place] [address] [place] [address] PCP - General Family Practice 02/22/19 [place] [address] [place] [address] Assigned PCP 10/29/18 Dimitri Pop MD [address] [address] Assigned Surgical Provider 12/02/19 Dung De Jesus PA-C [address] [address] Assigned Surgical Provider 04/25/20 Makenzie Toth PA-C [address] [address] Assigned Surgical Provider 04/29/20 documented as of this encounter
--- OUTSIDE RECORDS SUMMARY | 2023-09-18 23:57 | XMS_ITS | Encounter Summary ---
Author Organization [place] Address [address] [place] [address] Care Team Providers Care Marinator Name Role Phone Joanna Hernandez MD Unavailable [phone] Joanna Hernandez MD Primary Care Provider [phone] Dimitri Pop MD Unavailable [phone] Dung De Jesus PA-C Unavailable Makenzie Toth PA-C Unavailable [phone] Encounter Details Date Type Department Care Team (Late st Contact Info) Description 02/16/2020 MyC Medical Advice [facility] [address] [place] [address] Celena Davenport, [facility] [address] [place] [address] [address] [place], [place] [address] Social History Tobacco Use Types Packs/Day Years [...] COVID-19? No / Unsure 02/15/2020 1:22 PM PACKAGE DYE STAND LOADER documented as of this encounter Plan of Treatment Not on file documented as of this encounter Visit Diagnoses Not on filedocumented in this encounter Care Teams Marinator Relationship Specialty [place] [address] [place] [address] PCP - General Family Practice 02/22/19 [place] [address] [place] [address] Assigned PCP 10/29/18 Dimitri Pop MD [address] [place] [address] Assigned Surgical Provider 12/02/19 Dung De Jesus PA-C [address] [address] Assigned Surgical Provider 04/25/20 Makenzie Toth PA-C [address] [address] [address] Assigned Surgical Provider 04/29/20 documented as of this encounter
--- OUTSIDE RECORDS SUMMARY | 2023-09-18 23:57 | XMS_ITS | Encounter Summary ---
Author Organization [place] Address [address] [place] [address] Care Team Providers Care Subway Repair Supervisor Name Role Phone Joanna Hernandez MD Unavailable Joanna Hernandez MD Primary Care Provider [phone] Dimitri Pop MD Unavailable [phone] Dung De Jesus PA-C Unavailable Makenzie TothC Unavailable [phone] Reason for Visit * Reason Comments Medication Refill Encounter Details Date Type Department Care Team (Late st Contact Info) Description 02/16/2020 Refill [facility] [place] [address] [facility] [address] [place] [phone] Dung De Jesus PA-C [address] [place] [address] Medication Refill Social History Tobacco Use Types Packs/Day Years [...] COVID-19? No / Unsure 02/15/2020 1:22 PM GENETICIST documented as of this encounter Miscellaneous Notes * Telephone Encounter - Celena Davenport, RN - 02/16/2020 9:18 AM GENETICIST Patient sent MYChart note and stated she will speak with provider when she is seen 02/28/20. No needfor refill now. Thx DZ TICIST documented in this encounter Plan of Treatment Not on file documented as of this encounter Visit Diagnoses Diagnosis Bariatric surgery status Gastroesophageal reflux disease without esophagitis Esophageal reflux documented in this encounter Care Teams Subway Repair Supervisor Relationship Specialty [place] [address] [place] [address] PCP - General Family Practice 02/22/19 [place] [address] [place] [address] Assigned PCP 10/29/18 Dimitri Pop MD [address] [place] [address] Assigned Surgical Provider 12/02/19 Dung De Jesus PA-C [address] [address] Assigned Surgical Provider 04/25/20 Makenzie Toth PA-C [address] [place] [address] Assigned Surgical Provider 04/29/20 documented as of this encounter
--- OUTSIDE RECORDS SUMMARY | 2023-09-18 23:57 | XMS_ITS | Encounter Summary ---
Author Organization [place] Address [address] [place] [address] Care Team Providers Care Phosphatic Fertilizer Supervisor Name Role Phone Rhys Ordonez MD Primary Care Provider + Joanna Hernandez MD Unavailable Joanna Hernandez MD Primary Care Provider [phone] Dimitri Pop MD Unavailable [phone] Dung De Jesus PA-C Unavailable [phone] Makenzie Toth PA-C Unavailable [phone] Encounter Details Date Type Department Care Team (Late st Contact Info) Description 11/04/2018 MyC Medical Advice [facility] Surgical Weight Loss [facility] [place] [address] [facility] [address] [place] [address] Dung De Jesus PA-C [address] [facility] [place] [address] Social History Tobacco Use Types Packs/Day Years [...] on filedocumented in this encounter Care Teams Phosphatic Fertilizer Supervisor Relationship Specialty Start Date End Date Rhys Ordonez MD [address] [place] [address] PCP - General machine iii coremaker 10/01/18 02/21/19 [place] [address] [place] [address] PCP - General Family Practice 02/22/19 [place] [address] [place] [address] Assigned PCP 10/29/18 Dimitri Pop MD [address] [place] [address] Assigned Surgical Provider 12/02/19 Dung De Jesus PA-C [address] [address] Assigned Surgical Provider 04/25/20 Makenzie Toth PA-C [address] [place] [address] Assigned Surgical Provider 04/29/20 documented as of this encounter
--- OUTSIDE RECORDS SUMMARY | 2023-09-18 23:57 | XMS_ITS | Encounter Summary ---
Author Organization [place] Address [address] [place] [address] Care Team Providers Care Junior Web Designer Name Role Phone Joanna Hernandez MD Unavailable Joanna Hernandez MD Primary Care Provider [phone] Dimitri Pop MD Unavailable [phone] Dung De Jesus PA-C Unavailable Makenzie Toth PA-C Unavailable [phone] Encounter Details Date Type Department Care Team (Late st Contact Info) Description 02/15/2020 MyC Medical Advice [facility] [place] [address] [place] [phone] Dimitri Pop MD [address] [place] [address] Social History Tobacco Use Types Packs/Day Years [...] COVID-19? No / Unsure 02/15/2020 1:22 PM WIRE PRODUCTS INSPECTOR documented as of this encounter Miscellaneous Notes * Telephone Encounter - Jana Delaney RN - 02/15/2020 2:06 PM CST Already addressed for pt. Jana Wright. FARRAH Delaney on 02/15/2020 at 2:06 PM PRODUCTS INSPECTOR documented in this encounter Plan of Treatment Not on file documented as of this encounter Visit Diagnoses Not on filedocumented in this encounter Care Teams Junior Web Designer Relationship Specialty [place] [address] [place] [address] PCP - General Family Practice 02/22/19 [place] [address] [place] [address] Assigned PCP 10/29/18 Dimitri Pop MD [address] [place] [address] Assigned Surgical Provider 12/02/19 Dung De Jesus PA-C [address] [address] Assigned Surgical Provider 04/25/20 Makenzie Toth PA-C [address] [place] [address] Assigned Surgical Provider 04/29/20 documented as of this encounter
--- OUTSIDE RECORDS SUMMARY | 2023-09-18 23:57 | XMS_ITS | Encounter Summary ---
Author Organization [place] Address [address] [place] [address] Care Team Providers Care Automatic Door Mechanic Name Role Phone Rhys Ordonez MD Primary Care Provider + Joanna Hernandez MD Unavailable Joanna Hernandez MD Primary Care Provider [phone] Dimitri Pop MD Unavailable [phone] Dung De Jesus PA-C Unavailable Makenzie Toth PA-C Unavailable [phone] Encounter Details Date Type Department Care Team (Late st Contact Info) Description 11/25/2018 MyC Medical Advice [facility] [place] [address] [facility] [address] [place] [address] Dung De Jesus PA-C [address] [facility] [place] [address] Social History Tobacco Use Types Packs/Day Years [...] on filedocumented in this encounter Care Teams Automatic Door Mechanic Relationship Specialty Start Date End Date Rhys Ordonez MD [address] [place] [address] PCP - General sourcing associate 10/01/18 02/21/19 [place] [address] [place] [address] PCP - General Family Practice 02/22/19 [place] [address] [place] [address] Assigned PCP 10/29/18 Dimitri Pop MD [address] [place] [address] Assigned Surgical Provider 12/02/19 Dung De Jesus PA-C [address] [place] [address] Assigned Surgical Provider 04/25/20 Makenzie Toth PA-C [address] [place] [address] Assigned Surgical Provider 04/29/20 documented as of this encounter
--- OUTSIDE RECORDS SUMMARY | 2023-09-18 23:57 | XMS_ITS | Encounter Summary ---
Author Organization [place] Address [address] [place] [address] Care Team Providers Care Laboratory Machinist Name Role Phone Joanna Hernandez MD Unavailable Joanna Hernandez MD Primary Care Provider [phone] Dimitri Pop MD Unavailable [phone] Dung De eJsus PA-C Unavailable Makenzie Toth PA-C Unavailable [phone] Encounter Details Date Type Department Care Team (Late st Contact Info) Description 03/22/2019 MyC Medical Advice [facility] [address] [place] [phone] Dung De Jesus PA-C [facility] [place] [address] Social History Tobacco Use Types Packs/Day Years [...] on filedocumented in this encounter Care Teams Laboratory Machinist Relationship Specialty [place] [address] [place] [address] PCP - General Family Practice 02/22/19 [place] [address] [place] [address] Assigned PCP 10/29/18 Dimitri Pop MD [address] [address] Assigned Surgical Provider 12/02/19 Dung De Jesus PA-C [address] [place] [address] Assigned Surgical Provider 04/25/20 Makenzie Toth PA-C [address] [place] [address] Assigned Surgical Provider 04/29/20 documented as of this encounter
[2023-09-19 00:01] LABS: C Reactive Protein* < 0.5 mg/dL (0.5-1.0)
[2023-09-19 00:13] LABS: Alanine Aminotransferase* 1325 U/L (4-35); Aspartate Amino Transferase* 1847 U/L (12-35)
[2023-09-19 02:17] VITALS: BP 121/72; PULSE 76; RESP 16; O2SAT 96
[2023-09-19 03:24] LABS: Acetaminophen* < 10.0 ug/mL (10.0-30.0); Ethanol* < 0.01 % (0.01-0.03)
[2023-09-19 03:34] VITALS: BP 126/75; PULSE 70; RESP 16; O2SAT 96
== END 2023-09-19 04:00 | disposition home or self-care (01) ==
PROVIDERS: Emergency Provider Family Medicine; PCP Nurse Practitioner Family
DX: K81.0 Acute cholecystitis (principal)
CPT/HCPCS: 36415; 76705; 80048; 80053; 80076; 80143; 82077; 85025; 86140; 94761; 96374; 96375; 99284; J1170; J1885; J2405; J7030

== ENCOUNTER 2023-11-17 13:05 | Outpatient (CLI) | payer OTHER, SELFPAY ==
--- OUTSIDE RECORDS SUMMARY | 2023-11-20 13:06 | XMS_ITS | Encounter Summary ---
Author Organization [place] Address [address] [place] [address] Care Team Providers Care Gyn Name Role Phone Danette Alan APRN CFD ENGINEER Primary Care Provider [phone] Danette Alan APRN CFD ENGINEER Unavailable [phone] Encounter Details Date Type Department Care Team (Latest Contact Info) Description 10/07/2023 Travel Social History Tobacco Use Types Packs/Day Years Used Date Smoking Tobacco: Former Cigarettes 0 07/10/2001 - 2012 Smokeless Tobacco: Never Comments:Smoke free since , previously mild smoker 1-3 cigs a day Alcohol Use Standard Drinks/Week Comments Yes 0 (1 standard drink = 0.6 oz pur e alcohol) 0-1 per month PHQ-2 Answer Date Recorded PHQ-2 Score 0 09/23/2023 Adolescent Education Answer Date Record ed Getting School Help Needed Not on file 10/31 Interpersonal Safety Answer Date Record ed Do you feel physically and e motionally safe where you currently live? Yes 09/23/2023 Within the past 12 months, h ave you been hit, slapped, kicked or otherwise physically hurt by someone? No 09/23/2023 Within the past 12 months, h ave you been humiliated or emotionally abused in other ways by your partner or ex-partner? No 09/23/2023 Sex and Gender Information Value Date Recorded [...] documented as of this encounter Care Teams Gyn Relationship Specialty Start Date End Date Danette Alan APRN CNP [address] [facility] [address] [place] [address] PCP - General Family Medicine 09/28/23 Danette Alan APRN CFD ENGINEER [address] [facility] [address] [place] [address] Assigned PCP 10/02/23 documented as of this encounter
--- OUTSIDE RECORDS SUMMARY | 2023-11-20 13:06 | XMS_ITS | Encounter Summary ---
Author Organization [place] Address [address] [place] [address] Care Team Providers Care Scrap Metal Collector Name Role Phone Danette Alan APRN CURRICULUM COORDINATOR Primary Care Provider [phone] Danette Alan APRN CURRICULUM COORDINATOR Unavailable Cleve Barger MD Unavailable Encounter Details Date Type Department Care Team (Late st Contact Info) Description 10/07/2023 [facility] Medical Advice [facility] [place] [address] [place] [address] Mandi Marie, RN Social History Tobacco Use Types Packs/Day [...] documented as of this encounter Care Teams Scrap Metal Collector Relationship Specialty Start Date End Date Danette Alan APRN CURRICULUM COORDINATOR [address] [place], [place] [address] PCP - General Family Medicine 09/28/23 Danette Alan APRN CURRICULUM COORDINATOR [address] [place], [place] [address] Assigned PCP 10/02/23 Cleve Barger MD [address] [place] [address] Assigned Surgical Provider 11/02/23 documented as of this encounter
--- OUTSIDE RECORDS SUMMARY | 2023-11-20 13:06 | XMS_ITS | Clinical Summary ---
Author Organization [facility] Address [address] [place] [address] Care Team Providers Care Radiology Technologist Name Role Phone Danette Alan APRN FLIGHT AGENT Primary Care Provider [phone] Danette Alan APRN FLIGHT AGENT Unavailable [phone] Cleve Barger MD Unavailable Allergies Active Allergy Reactions Criticality Noted Date Comments Aspirin Other (See Comments) 02/22/2019 Gastric sleeve 02/15/2019 Nsaids Other (See Comments) 02/22/2019 Gastric sleeve 02/15/2019Gastric sleeve 02/15/2019 Penicillins 10/07/2018 Medications Medication Sig Dispensed Refills Start Date End Date Status Biotin 93801 MCG TBDP Take by mouth daily Active Cholecalciferol (VITAMIN D3 PO) Take 5,000 Units by mouth daily Gel cap. Active CALCIUM CITRATE PO Take 500 mg by mouth 3 times daily At mid-morning, lunch, and dinner. Active vitamin (B COMPLEX-C) tablet Take 1 tablet by mouth daily Active MAGNESIUM GLYCINATE PO Take 260 mg by mouth daily Active desvenlafaxine (PRISTIQ) 50 MG 24 hr tablet Take 50 mg by mouth daily 11/09/2021 Active levothyroxine (SYNTHROID/LEVOTHRO ID) 125 MCG tablet Take 125 mcg by mouth daily Active estradiol (VIVELLE-DOT) 0.05 MG/24HR bi-weekly patch Place 1 patch onto the skin twice a week Thursday and Fridays Active valACYclovir (VALTREX) 500 MG tablet Take 500 mg by mouth daily as needed Active senna (SENOKOT) 8.6 MG tabletIndications:C holedocholithiasis Take 1 tablet by mouth 2 times daily as needed for constipation (while taking oxycodone) 20 tablet 09/21/2023 Active oxyCODONE (ROXICODONE) 5 MG tabletIndications:C holedocholithiasis Take 0.5-1 tablets (2.5-5 mg) by mouth every 4 hours as needed for breakthrough pain or moderate to severe pain (2.5 mg for moderate pain, 5 mg for severe pain) 8 tablet 09/23/2023 Active docusate sodium (COLACE) 100 MG capsuleIndications: Slow transit constipation Take 1 capsule (100 mg) by mouth 2 times daily. 60 capsule 2 10/08/2023 Active nystatin (MYCOSTATIN) 643464 UNIT/GM external powderIndications:S low transit constipation,Candid a infection Apply topically 2 times daily. 15 g 10/08/2023 Active Active Problems Problem Noted Date Diagnosed Date Choledocholithiasis 09/19/2023 H/O total hysterectomy 06/12/2020 Postsurgical malabsorption 02/28/2020 [...] Overview: Added automatically from request for surgery [id number] Morbidly obese 01/11/2019 04/21/2019 Overview: Added automatically from request for surgery [id number] Morbid obesity with BMI of 40.0-44.9, adult 10/27/2018 08/17/2019 Morbid obesity 10/12/2018 11/18/2018 Encounters Date Type Department Care Team Description 10/08/2023 12:45 PM CDT Office Visit [facility] [place] [address] [place] [phone] Cleve Barger MD Slow transit constipation (Primary Dx); Joanna infection 10/08/2023 10:51 AM CDT - 10/08/2023 11:59 PM CDT Hospital Encounter [facility] [address] [place] [phone] Cleve Barger MD Abdominal pain, right upper quadrant Discharge Disposition: Home or Self Care 10/07/2023 2:20 PM CDT Lab [facility] [address] [place] [phone] Abdominal pain, right upper quadrant 10/07/2023 Travel 10/07/2023 MyC Medical Advice [facility] [address] [place] [phone] Mandi Marie, FARRAH 10/07/2023 Telephone [facility] [address] [place] [phone] Mandi Marie, FARRAH 10/07/2023 MyC Medical Advice [facility] [address] [place] [phone] Danette Alan APRN CNP MyChart Communication 09/25/2023 MyC Medical Advice [facility] [address] [place] [phone] Danette Alan APRN CNP 09/25/2023 Telephone [facility] [address] [place] [phone] Danette Alan APRN FLIGHT AGENT Forms (Unum) 09/23/2023 9:30 AM CDT Office Visit [facility] [address] [place] [phone] Danette Arredondo APRN FLIGHT AGENT Hospital discharge follow-up (Primary Dx); Choledocholithiasis; Elevated liver enzymes; Constipation, unspecified constipation type 09/23/2023 Travel 09/22/2023 MyC Medical Advice [address] [phone] Joanna Hernandez MD MyChart Communication 09/21/2023 7:30 AM CDT - 09/21/2023 9:45 AM CDT [facility] [address] [place] [phone] Cleve Barger MD Laparoscopic cholecystectomy 09/21/2023 7:27 AM CDT Anesthesia Event [facility] [address] [place] [phone] Arina Birmingham MD Anderson, Andrew Jon, DO 09/20/2023 MyC Medical Advice [address] [phone] Joanna Hernandez MD MyChart Communication ( ... 09/19/2023 12:33 PM CDT Anesthesia Event [facility] [address] [place] [phone] Neptali Beard MD Dennen, Kristina Nguyen, APRN MOP MAKER 09/19/2023 11:30 AM CDT - 09/19/2023 12:30 PM CDT Surgery [facility] [address] [place] [phone] Delmar Sheth MD ENDOSCOPIC ULTRASOUND, ESOPHAGOSCOPY / UPPER GASTROINTESTINAL TRACT (GI) 09/19/2023 4:56 AM CDT - 09/21/2023 4:00 PM CDT Hospital Encounter [facility] Orthopedics Spine [address] [place] [phone] Matti Muniz MD Dasari, Brian Aldana MD Choledocholithiasis (Primary Dx) Discharge Disposition: Home or Self Care from Last 3 Months Immunizations Name Administration Dates Next Due COVID-19 MONOVALENT 12+ (Pfizer) 01/01/2021 Flu, Unspecified 11/12/2019,11/18/2018 Influenza Vaccine (Flucelvax Quadrivalent) 11/12 Influenza Vaccine >6 months,quad, PF 11/21/2020, 11/18/2018 [...] 2012 Smokeless Tobacco: Never Tobacco Cessation:Counseling Given: Yes Comments:Smoke free since 2012, previously mild smoker [...] Sign Reading Time Taken Comments Blood Pressure 122/83 09/23/2023 9:24 AM CDT Pulse 84 09/23/2023 9:24 AM CDT Temperature 36.9 ??C (98.4 ??F) 09/23/2023 9:24 AM CD T Respiratory Rate 18 09/23/2023 9:24 AM CDT Oxygen Saturation 99% 09/23/2023 9:24 AM CDT Inhaled Oxygen Concentration - - Weight 80.7 kg (178 lb) 09/23/2023 9:24 AM CDT Height 162.6 cm (5' 4) 09/23/2023 9:24 AM CDT Body Mass Index 30.55 09/23/2023 9:24 AM CDT Plan of Treatment Health Maintenance Due Date Last Done Comments Pneumococcal Vaccine: Pediatrics (0 to 5 Years) and At-Risk Patients (6 to 64 Years) (1 of 2 - PCV) 07/14/1989 HEPATITIS B IMMUNIZATION (1 of 3 - 19+ 3-dose series) 07/14/2002 YEARLY PREVENTIVE VISIT 06/12/2021 06/12/2020, 11/18 ANNUAL REVIEW OF HM ORDERS 01/30/2023 01/30/2022, COVID-19 Vaccine ( season) 2023 11/12/2021, 01/01/2021, 05/18/2020 DTAP/TDAP/TD IMMUNIZATION (2 - Td or Tdap) 10/19/2023 10/18/2013 TSH W/FREE T4 REFLEX 09/19/2024 09/20/2023, 09/19/2023, 01/30/2022, Additional history exists MAMMO SCREENING 06/11/2025 06/12/2023, 0808/2019, 03/18/2019, Additional history exists ADVANCE CARE PLANNING 06/12/2025 06/12/2020 LIPID 06/12/2025 06/12/2020, 11/18/2018 PAP 07/10/2026 07/11/2023, 12/14/2018 GLUCOSE 10/06/2026 10/07/2023, 09/09, 09/19/2023, Additional history exists RSV VACCINE (1 - 1-dose 75+ series) 07/14/2058 HEPATITIS C SCREENING Completed 01/09/2021 HIV SCREENING Completed 01/09/2021 PHQ-2 (once per calendar year) Completed 09/23/2023, 01/30/2022, 12/08/2020, Additional history exists INFLUENZA VACCINE Completed 10/28/2023, , 11/21/2020, Additional history exists HPV IMMUNIZATION Aged Out No longer e ligible based on patient's age to complete this topic MENINGITIS IMMUNIZATION Aged Out No l onger eligible based on patient's age to complete this topic RSV MONOCLONAL ANTIBODY Aged Out No l onger eligible based on patient's age to complete this topic Medical Devices Implanted Type Area Grocery Supervisor Device Identifier Shelf Expiration Date Model / Serial / Lot Stent Reynaldo Larose (Cutler) [place] [id number] Clso-10-5 - [id number] Implanted:Qty : 1 on 09/19/2023 by Delmar Sheth MD at [facility] Stent N/A: Bile Duct [employer] [id number] 08/20/2025 CLSO-10-5 / / [id number] Procedures Procedure Name Priority Date/Time Associated Diagnosis Comments US ABDOMEN COMPLETE STAT 10/08/2023 11:33 AM CDT Abdominal pain, right upper quadrant CBC WITH PLATELETS Routine 10/07/2023 1:47 PM CDT Abdominal pain, right upper quadrant COMPREHENSIVE METABOLIC PANEL Routine 10/07/2023 1:47 PM CDT Abdominal pain, right upper quadrant HEPATIC FUNCTION PANEL Routine 4 9:59 AM CDT Hospital discharge follow-up Choledocholithiasis Elevated liver enzymes HEPATIC FUNCTION PANEL Routine 4 11:34 AM CDT SURGICAL PATHOLOGY EXAM Routine 09/21/19 8:08 AM CDT ANE AIRWAY ETT PERFORMABLE Routine 09/20 7:41 AM CDT CHOLECYSTECTOMY, LAPAROSCOPIC 09/21/2023 7:32 AM CDT Choledocholithiasis LIPASE Routine 09/20/2023 10:43 AM CDT CBC WITH PLATELETS Routine 09/20/2023 10:43 AM CDT COMPREHENSIVE METABOLIC PANEL Routine 09/20/2023 10:43 AM CDT CRP INFLAMMATION Routine 09/20/2023 10:43 AM CDT TSH WITH FREE T4 REFLEX Routine 09/20/19 10:43 AM CDT EKG 12-LEAD, TRACING ONLY Routine 2023 4:02 PM CDT XR SURGERY GEETA FLUORO LESS THAN 5 MIN Routine 09/19/2023 1:10 PM CDT ERCP W/W/O GREGORIO OF SPEC-BRUSH/WASH 09/19/2023 12:34 PM CDT Choledocholithiasis ENDOSCOPIC ULTRASOUND, ESOPHAGOSCOPY / UPPER GASTROINTESTINAL TRACT (GI) 09/19/2023 12:34 PM CDT Choledocholithiasis UPPER EUS Routine 09/19/2023 11:56 AM CDT ENDOSCOPIC RETROGRADE CHOLANGIOPANCREATOGRAPHY Routine 09/19/2023 11:56 AM CDT CBC WITH PLATELETS & DIFFERENTIAL Routine 09/19/2023 8:37 AM CDT MAGNESIUM STAT Add-on 09/19/2023 8:37 AM CDT TSH WITH FREE T4 REFLEX STAT Add-on 09/19/19 24 8:37 AM CDT BILIRUBIN DIRECT STAT Add-on 09/19/2023 8:37 AM CDT CBC WITH PLATELETS AND DIFFERENTIAL Routine 09/19/2023 8:37 AM CDT COMPREHENSIVE METABOLIC PANEL Routine 09/19/2023 8:37 AM CDT ALT (EXTERNAL RESULT) Routine 09/18/2023 11:27 PM CDT AST (EXTERNAL RESULT) Routine 09/18/2023 11:27 PM CDT CREATININE (EXTERNAL RESULT) Routine 10/2023 11:27 PM CDT GLUCOSE (EXTERNAL RESULT) Routine 2023 11:27 PM CDT POTASSIUM (EXTERNAL RESULT) Routine 10/2023 11:27 PM CDT US IMAGING - HIM SCAN 09/18/2023 12:00 AM CDT PAP SMEAR - HIM PATIENT REPORTED Routine 07/11/2023 MA DIAGNOSTIC BILATERAL W/ KENTRELL Routine 06/12/2023 7:54 AM CDT Left breast mass Breast pain, left HIV ANTIGEN ANTIBODY COMBO Routine 01/09 11:08 AM HAT MENDER Screening for HIV (human immunodeficiency virus) HEPATITIS C SCREEN REFLEX TO HCV RNA QUANT AND GENOTYPE Routine 01/09/2021 11:08 AM HAT MENDER Need for hepatitis C screening test LIPID REFLEX TO DIRECT LDL PANEL Routine 06/12/2020 4:54 PM CDT Routine general medical examination at a health care facility from Last 3 Months or Most Recently Relevant to Health Maintenance Results * US Abdomen Complete (10/08/2023 11:33 AM CDT) Anatomical Region Laterality Modality Abdomen/Pelvis Ultrasound Impressions 10/08/2023 11:36 AM CDT IMPRESSION: 1. ??No acute process demonstrated. DNAA LIGHT MD Narrative 10/08/2023 11:36 AM CDT US ABDOMEN COMPLETE 10/08/2023 11:33 AM CLINICAL HISTORY: S/p lap junito and ERCP, RUQ pain; Abdominal pain, right upper quadrant TECHNIQUE: Complete abdominal ultrasound. COMPARISON: None. FINDINGS: GALLBLADDER: Surgically absent. BILE DUCTS: No biliary dilatation. The common duct measures 3 mm. LIVER: Normal parenchyma with smooth contour. No focal mass. RIGHT KIDNEY: Normal size. Normal echogenicity with no hydronephrosis or mass. LEFT KIDNEY: Normal size. Normal echogenicity with no hydronephrosis or mass. SPLEEN: Normal. PANCREAS: The visualized portions are normal. AORTA: Normal in caliber. IVC: Normal where visualized. No ascites. Procedure Note Dana Light MD - 10/08/2023 US ABDOMEN COMPLETE 10/08/2023 11:33 AM CLINICAL HISTORY: S/p lap junito and ERCP, RUQ pain; Abdominal pain, right upper quadrant TECHNIQUE: Complete abdominal ultrasound. COMPARISON: None. FINDINGS: GALLBLADDER: Surgically absent. BILE DUCTS: No biliary dilatation. The common duct measures 3 mm. LIVER: Normal parenchyma with smooth contour. No focal mass. RIGHT KIDNEY: Normal size. Normal echogenicity with no hydronephrosis or mass. LEFT KIDNEY: Normal size. Normal echogenicity with no hydronephrosis or mass. SPLEEN: Normal. PANCREAS: The visualized portions are normal. AORTA: Normal in caliber. IVC: Normal where visualized. No ascites. IMPRESSION: 1. No acute process demonstrated. DANA LIGHT MD Cleve Barger MD [facility] US ORDERABLES * Comprehensive metabolic panel (10/07/2023 1:47 PM CDT) Only the most recent of3 resultswithin the time period is included. Sodium 141 135 - 145 mmol/L 10/07/2023 2:14 PM CDT LABORATORY Potassium 3.7 3.4 - 5.3 mmol/L 10/07/2023 2:14 PM CDT LABORATORY Carbon Dioxide (CO2) 26 22 - 29 mmol/L 10/07/2023 2:14 PM CDT LABORATORY Anion Gap 12 7 - 15 mmol/L 10/07/2023 2:14 PM CDT LABORATORY Urea Nitrogen 18.0 6.0 - 20.0 mg/dL 10/07/2023 2:14 PM CDT LABORATORY Creatinine 0.73 0.51 - 0.95 mg/dL 10/07/2023 2:14 PM CDT LABORATORY GFR Estimate >90 >60 mL/min/1.7 3m2 10/07/2023 2:14 PM CDT LABORATORY Comment:eGFR calculated us2020 CKD-EPI equation. Calcium 9.3 8.8 - 10.4 mg/dL 10/07/2023 2:14 PM CDT LABORATORY Comment:Reference intervals for this test were updated on 08/25/2023 to reflect our healthy population more accurately. There may be differences in the flagging of prior results with similar values performed with this method. Those prior results can be interpreted in the context of the updated reference intervals. Chloride 103 98 - 107 mmol/L 10/07/2023 2:14 PM CDT LABORATORY Glucose 97 70 - 99 mg/dL 10/07/2023 2:14 PM CDT LABORATORY Alkaline Phosphatase 71 40 - 150 U/L 10/07/2023 2:14 PM CDT LABORATORY AST 16 0 - 45 U/L 10/07/2023 2:14 PM CDT LABORATORY ALT 31 0 - 50 U/L 10/07/2023 2:14 PM CDT LABORATORY Protein Total 7.0 6.4 - 8.3 g/dL 10/07/2023 2:14 PM CDT LABORATORY Albumin 4.4 3.5 - 5.2 g/dL 10/07/2023 2:14 PM CDT LABORATORY Bilirubin Total 0.6 <=1.2 mg/dL 10/07/2023 2:14 PM CDT LABORATORY Blood STRUCTURE OF LEFT UPPER LIMB / Unknown Venipuncture / Unknown 10/07/2023 1:47 PM CDT 10/07/2023 1:47 PM CDT Cleve Barger MD LAB - BLOOD ORDERABL ES LABORATORY [facility] [address] 1[address] floor, [address] [place] [address], [facility] [phone] * CBC with platelets (10/07/2023 1:47 PM CDT) Only the most recent of2 resultswithin the time period is included. [facility] WBC Count 8.0 4.0 - 11.0 10e3/uL 10/07/2023 1:55 PM CDT LABORATORY RBC Count 4.53 3.80 - 5.20 10e6/uL 10/07/2023 1:55 PM CDT LABORATORY Hemoglobin 14.8 11.7 - 15.7 g/dL 10/07/2023 1:55 PM CDT LABORATORY Hematocrit 43.1 35.0 - 47.0 % 10/07/2023 1:55 PM CDT LABORATORY MCV 95 78 - 100 fL 10/07/2023 1:55 PM CDT LABORATORY MCH 32.7 26.5 - 33.0 pg 10/07/2023 1:55 PM CDT LABORATORY MCHC 34.3 31.5 - 36.5 g/dL 10/07/2023 1:55 PM CDT LABORATORY RDW 11.8 10.0 - 15.0 % 10/07/2023 1:55 PM CDT LABORATORY Platelet Count 219 150 - 450 10e3/uL 10/07/2023 1:55 PM CDT LABORATORY Blood STRUCTURE OF LEFT UPPER LIMB / Unknown Venipuncture / Unknown 10/07/2023 1:47 PM CDT 10/07/2023 1:47 PM CDT Cleve Barger MD LAB - BLOOD ORDERABL ES LABORATORY [facility] [address], [address] [place] [address], [facility] [phone] * (ABNORMAL) Hepatic panel (Albumin, ALT, AST, Bili, Alk Phos, TP) (09/23/2023 9:59 AM CDT) Only the most recent of2 resultswithin the time period is included. [facility] Protein Total 6.9 6.4 - 8.3 g/dL 09/23/2023 10:20 PM CDT [facility] Albumin 4.2 3.5 - 5.2 g/dL 09/23/2023 10:20 PM CDT [facility] Bilirubin Total 0.8 <=1.2 mg/dL 09/23/2023 10:20 PM CDT [facility] Alkaline Phosphatase 115 40 - 150 U/L 09/23/2023 10:20 PM CDT [facility] AST 68(H) 0 - 45 U/L 09/23/2023 10:20 PM CDT [facility] ALT 591(HH) 0 - 50 U/L 09/23/2023 10:20 PM CDT [facility] Bilirubin Direct 0.29 0.00 - 0.30 mg/dL 09/23/2023 10:20 PM CDT [facility] Blood BLOOD SPECIMEN / Unknown Venipuncture / Unknown 09/23/2023 9:59 AM CDT 09/23/2023 9:59 AM CDT Danette Alan APRN FLIGHT AGENT LAB - BLOOD ORDERA BLES [facility] LAB[facility]ATORY [facility] [address] [facility], [address] * Surgical Pathology Exam (09/21/2023 8:08 AM CDT) Case Report Surgical Pathology Report ? Case: [id number] ? Authorizing Provider: ??Cleve Barger MD ? Collected: ? 09/21/2023 08:08 AM ? Ordering Location: ? [facility] ?Received: ?09/21/2023 09:12 AM ? [facility] OR ? Pathologist: ? Yolanda De Souza MD ? Specimen: ?Gallbladder, Gallbladder and Contents ? 09/22/2023 4:06 PM CDT LABORATORY Final Diagnosis A(1). Gallbladder, cholecystectomy: -Acute cholecystitis, and cholelithiasis. -Negative for dysplasia or malignancy. 09/22/2023 4:06 PM CDT LABORATORY Clinical Information Procedure: Laparoscopic cholecystectomy Pre-op Diagnosis: Choledocholithiasis [K80.50] Post-op Diagnosis: K80.50 - Choledocholithiasis [ICD-10-CM] 09/22/2023 4:06 PM CDT LABORATORY Gross Description A(1). Gallbladder, Gallbladder and Contents: The specimen is received in formalin, labeled with the patient's name, medical record number and other identifying information designated gallbladder and contents. It consists of an 11.1 x 4.2 x 2.8 cm gonsalez-pink, intact, fluctuant gallbladder. The cystic duct margin is entirely inked black. The specimen is opened, releases a green-brown bile admixed with multiple, 0.1-0.4 cm pale-gonsalez, bosselated calculi. The gallbladder displays a pale-gonsalez, velvety mucosa with a ranging 0.2-0.5 cm wall. No obvious possible mass or nodularities are grossly identified. Diet Aid sections of the gallbladder to include the cystic duct margin (inked black) are submitted in 1 cassette. (ISMAEL Alejandre (ASCP) 09/21/2023 9:43 AM 09/22/2023 4:06 PM CDT LABORATORY Microscopic Description Microscopic examination was performed. 09/22/2023 4:06 PM CDT LABORATORY Performing Labs The technical component of this testing was completed at [facility]. Stain controls for all stains resulted within this report have been reviewed and show appropriate reactivity. 09/22/2023 4:06 PM CDT LABORATORY Case Images 09/22/2023 4:06 PM CDT LABORATORY Tissue GALLBLADDER PART / Unknown 09/21/2023 8:08 AM CDT 09/21/2023 9:12 AM CDT Cleve [facility] [address] (1st floor, no room number) [place] [address], [facility] [address], [address] [place] [address], [facility] [phone] * ANE AIRWAY ETT PERFORMABLE (09/21/2023 7:41 AM CDT) Narrative Dinora Agee APRN CRNA - 09/21/2023 7:41 AM CDT Dinora Agee APRN CRNA ? 09/21/2023 ??7:57 AM Airway ? Patient location during procedure: OR ? Procedure Start/Stop Times: 09/21/2023 7:41 AM Staff - ? Anesthesiologist: ??Arina Birmingham MD ? MOP MAKER: Dinora Agee APRN CRNA ? Performed By: CRNAIndications and Patient Condition ? Indications for airway management: seamus-procedural ? Induction type:intravenous ? Mask difficulty assessment: 1 - vent by mask Final Airway Details ? Final airway type: endotracheal airway ? Successful airway: ETT - single Endotracheal Airway Details ? ETT size (mm): 7.0 ? Cuffed: yes ? Successful intubation technique: video laryngoscopy ? VL Blade Size: Perrin 4 ? Grade View of Cords: 1 ? Adjucts: stylet ? Position: Right ? Measured from: lips ? Secured at (cm): 21 ? Bite block used: None Post intubation assessment ? Placement verified by: capnometry, equal breath sounds and chest rise ? Number of attempts at approach: 1 ? Number of other approaches attempted: 0 ? Secured with: tape ? Ease of procedure: easy (Very narrow/arched palate) ? Dentition: Intact and Unchanged Medication(s) Administered Medication Administration Time: 09/21/2023 7:41 AM Arina Birmingham MD [place] ANESTHESIA * TSH with free T4 reflex (09/20/2023 10:43 AM CDT) Only the most recent of2 resultswithin the time period is included. TSH 2.05 0.30 - 4.20 uIU/mL 09/20/2023 11:32 AM CDT LABORATORY Blood STRUCTURE OF RIGHT UPPER LIMB / Unknown Venipuncture / Unknown 09/20/2023 10:43 AM CDT 09/20/2023 10:55 AM CDT Brian Sewell MD LAB - BLOOD ORDERAB LES LABORATORY [facility] [address], [address] [place] [address], [place] [phone] * Lipase (09/20/2023 10:43 AM CDT) Lipase 41 13 - 60 U/L 09/20/2023 11:32 AM CDT LABORATORY Blood STRUCTURE OF RIGHT UPPER LIMB / Unknown Venipuncture / Unknown 09/20/2023 10:43 AM CDT 09/20/2023 10:55 AM CDT Brian Sewell MD LAB - BLOOD ORDERAB LES LABORATORY [facility] [address] 1[address], [address] [place] [address], [facility] [phone] * CRP inflammation (09/20/2023 10:43 AM CDT) CRP Inflammation 3.45 <5.00 mg/L 09/20/19 11:32 AM CDT LABORATORY Blood STRUCTURE OF RIGHT UPPER LIMB / Unknown Venipuncture / Unknown 09/20/2023 10:43 AM CDT 09/20/2023 10:55 AM CDT Tonio GUEVARA LAB - BLOOD ORD ERABLES LABORATORY [facility] [address] 1[address], [address] [place] [address], [facility] [phone] * EKG 12-lead, tracing only (09/19/2023 4:02 PM CDT) Systolic Blood Pressure mmHg RADIOLOGY RESULTS Diastolic Blood Pressure mmHg RADIOLOGY RESULTS Ventricular Rate 37 BPM RAD IOLOGY RESULTS Atrial Rate 37 BPM RADIOLOG Y RESULTS TN Interval 162 ms RADIOLOG Y RESULTS QRS Duration 86 ms RADIOLO GY RESULTS QT 478 ms RADIOLOGY RESULTS QTc 375 ms RADIOLOGY RESULTS P [place] 66 degrees RADIOLOGY RESULTS R AXIS 91 degrees RADIOLOGY RESULTS T [place] 66 degrees RADIOLOGY RESULTS Interpretation ECG Sinus bradycardia Rightward axis Nonspecific T wave abnormality Abnormal ECG No previous ECGs available Confirmed by MD LIBERTAD, PATRICIO ([id number]) on 09/20/2023 10:46:35 AM RADIOLOGY RESULTS 09/19/2023 4:02 PM CDT 09/20/2023 10:46 AM CDT Brian Sewell MD ECG ORDERABLES Performing Organization Address [facility]/ZIP Co de Phone Number RADIOLOGY RESULTS * XR Surgery GEETA Fluoro Less Than 5 Min (09/19/2023 1:10 PM CDT) Narrative RADIANT - 09/19/2023 1:15 PM CDT This exam was marked as non-reportable because it will not be read by a radiologist or a [facility] non-radiologist provider. Delmar Sheth MD IMG DIAGNOSTIC I MAGING ORDERABLES Performing Organization Address [facility]/ZIP Co de Phone Number RADIANT * UPPER EUS (09/19/2023 11:56 AM CDT) Upper EUS [place] [address] ??[place] ??[id number] Patient Name: Ana Lezama ? Procedure Date: 09/19/2023 11:56 AM ? Date of : 1985 ? Admit Type: Inpatient Age: 38 ? Room: OR [facility] Note Status: Finalized ?Attending MD: DELMAR SHETH MD, Instrument Name: 533 [id number] Radial Procedure: ?Upper EUS Indications: ?Common bile duct dilation (acquired) seen on CT ?scan, Elevated liver enzymes, Suspected ?choledocholithiasis, Epigastric abdominal pain Providers: ?DELMAR SHETH MD, Chelsea Cavanaugh RN, Monica ?FARRAH Araiza MD: ? King Cardenas MD Medicines: ?Monitored Anesthesia Care Complications: ?No immediate complications. Procedure: ?Pre-Anesthesia Assessment: ?- Prior to the procedure, a History and Physical ?was performed, and patient medications and ?allergies were reviewed. The patient is competent. ?The risks and benefits of the procedure and the ?sedation options and risks were discussed with the ?patient. All questions were answered and informed ?consent was obtained. Patient identification and ?proposed procedure were verified in the ?pre-procedure area. Mental Status Examination: ?alert and oriented. Airway Examination: normal ?oropharyngeal airway and neck mobility. Respiratory ?Examination: clear to auscultation. CV Examination: ?normal. Prophylactic Antibiotics: The patient does ?not require prophylactic antibiotics. Prior ?Anticoagulants: The patient has taken no ?anticoagulant or antiplatelet agents. ASA Grade ?Assessment: II - A patient with mild systemic ?disease. After reviewing the risks and benefits, ?the patient was deemed in satisfactory condition to ?undergo the procedure. The anesthesia plan was to ?use moderate sedation / analgesia (conscious ?sedation). Immediately prior to administration of ?medications, the patient was re-assessed for ?adequacy to receive sedatives. The heart rate, ?respiratory rate, oxygen saturations, blood ?pressure, adequacy of pulmonary ventilation, and ?response to care were monitored throughout the ?procedure. The physical status of the patient was ?re-assessed after the procedure. ?After obtaining informed consent, the endoscope was ?passed under direct vision. Throughout the ?procedure, the patient's blood pressure, pulse, and ?oxygen saturations were monitored continuously. The ?Endosonoscope was introduced through the mouth, and ?advanced to the second part of duodenum. The upper ?EUS was accomplished without difficulty. The ?patient tolerated the procedure well. ? Findings: ? ENDOSCOPIC FINDING: : ? The examined esophagus was normal. ? ENDOSONOGRAPHIC FINDING: : ? Endosonographic images of the stomach were unremarkable. ? There was no sign of significant endosonographic abnormality in the ? examined duodenum. ? There was no sign of significant endosonographic abnormality in the ? ampulla. ? Multiple stones were visualized endosonographically in the common bile ? duct and in the gallbladder. The stones measured up to 5 mm in greatest ? dimension. The stones were round. They were hyperechoic and ? characterized by shadowing. ? One stone was visualized endosonographically in the common bile duct. ? The stone measured 5 mm in greatest dimension. It was hyperechoic and ? characterized by shadowing. ? There was dilation in the common bile duct which measured up to 8 mm. ? There was no sign of significant endosonographic abnormality in the ? entire pancreas. The pancreatic duct measured up to 2 mm in diameter. ? Impression: ? - Normal esophagus. ?- Endosonographic images of the stomach were ?unremarkable. ?- There was no sign of significant pathology in the ?examined duodenum. ?- There was no sign of significant pathology in the ?ampulla. ?- Multiple stones were visualized ?endosonographically in the common bile duct and in ?the gallbladder. ?- One stone was visualized endosonographically in ?the common bile duct. ?- There was dilation in the common bile duct which ?measured up to 8 mm. ?- There was no sign of significant pathology in the ?entire pancreas. ?- No specimens collected. Recommendation: ? - [facility]. ?- Clear liquid diet. ? Procedure Code(s): ? --- Professional --- ? 56399, Esophagogastroduodenos copy, flexible, transoral; with endoscopic ? ultrasound examination limited to the esophagus, stomach or duodenum, ? and adjacent structures Diagnosis Code(s): ? --- Professional --- ? K80.20, Calculus of gallbladder without cholecystitis without obstruction ? K80.50, Calculus of bile duct without cholangitis or cholecystitis ? without obstruction ? K83.8, Other specified diseases of biliary tract ? R74.8, Abnormal levels of other serum enzymes ? R10.13, Epigastric pain CPT copyright 2021 [employer]. All rights reserved. The codes documented in this report are preliminary and upon seamless tube roller review may be revised to meet current compliance requirements. Electronically Signed by Delmar Infante __ DELMAR SHETH MD 09/19/2023 10:02:58 PM I was physically present for the entire viewing portion of the exam. DELMAR SHETH MD Number of Addenda: 0 Note Initiated On: 09/19/2023 11:56 AM Total Procedure Duration: 0 hours 2 minutes 36 seconds Scope In: 12:49:47 PM Scope Out: 12:52:23 PM RADIOLOGY RESULTS 09/19/2023 11:5 6 AM CDT King Cardenas PROCEDURES RADIOLOGY RESULTS * ENDOSCOPIC RETROGRADE CHOLANGIOPANCREATOGRAPHY (09/19/2023 11:56 AM CDT) Pathologist [address] [place] ??[place] ??[id number] _ Patient Name: Ana Lezama ? Procedure Date: 09/19/2023 11:56 AM ? Date of : 1985 ? Admit Type: Inpatient Age: 38 ? Room: OR [facility] Note Status: Finalized ?Attending MD: DELMAR SHETH MD, Instrument Name: [id number] ERCP ? _ Procedure: ?ERCP Indications: ?Bile duct stone(s) Providers: ?DELMAR SHETH MD, Chelsea Cavanaugh RN, Monica ?FARRAH Araiza Referring : ? King Cardenas MD Medicines: ?Monitored Anesthesia Care Complications: ?No immediate complications. _ Procedure: ?Pre-Anesthesia Assessment: ?- Prior to the procedure, a History and Physical ?was performed, and patient medications and ?allergies were reviewed. The patient is competent. ?The risks and benefits of the procedure and the ?sedation options and risks were discussed with the ?patient. All questions were answered and informed ?consent was obtained. Patient identification and ?proposed procedure were verified by the physician ?in the pre-procedure area. Mental Status ?Examination: alert and oriented. Airway ?Examination: normal oropharyngeal airway and neck ?mobility. Respiratory Examination: clear to ?auscultation. Prophylactic Antibiotics: The patient ?does not require prophylactic antibiotics. Prior ?Anticoagulants: The patient has taken no ?anticoagulant or antiplatelet agents. ASA Grade ?Assessment: II - A patient with mild systemic ?disease. After reviewing the risks and benefits, ?the patient was deemed in satisfactory condition to ?undergo the procedure. The anesthesia plan was to ?use moderate sedation / analgesia (conscious ?sedation). Immediately prior to administration of ?medications, the patient was re-assessed for ?adequacy to receive sedatives. The heart rate, ?respiratory rate, oxygen saturations, blood ?pressure, adequacy of pulmonary ventilation, and ?response to care were monitored throughout the ?procedure. The physical status of the patient was ?re-assessed after the procedure. ?After obtaining informed consent, the scope was ?passed under direct vision. Throughout the ?procedure, the patient's blood pressure, pulse, and ?oxygen saturations were monitored continuously. The ?Duodenoscope was introduced through the mouth, and ?used to inject contrast into and used to inject ?contrast into the bile duct. The ERCP was ?accomplished without difficulty. The patient ?tolerated the procedure well. ? Findings: ? The network security engineer film was normal. The esophagus was successfully intubated ? under direct vision. The scope was advanced to a normal major papilla in ? the descending duodenum without detailed examination of the pharynx, ? larynx and associated structures, and upper GI tract. The upper GI tract ? was grossly normal. The bile duct was deeply cannulated with the ? short-nosed traction sphincterotome. Contrast was injected. I personally ? interpreted the bile duct images. There was brisk flow of contrast ? through the ducts. Image quality was excellent. Contrast extended to the ? biliary pancreatic junction. Contrast extended to the main bile duct. ? Contrast extended to the cystic duct. Opacification of the main bile ? duct was successful. The maximum diameter of the ducts was 8 mm. The ? middle third of the main bile duct contained one stone, which was 6 mm ? in diameter. A short 0.035 inch Soft Jagwire was passed into the biliary ? tree. A 7 mm biliary sphincterotomy was made with a monofilament ? traction (standard) sphincterotome using ERBE electrocautery. There was ? no post-sphincterotomy bleeding. The biliary tree was swept with a 12 mm ? balloon starting at the bifurcation. Sludge was swept from the duct. All ? stones were removed. One 10 Fr by 5 cm temporary stent with a single ? external flap and a single internal flap was placed 4 cm into the common ? bile duct. Bile flowed through the stent. The stent was in good position. ? Impression: ? - Choledocholithiasis was found. Complete removal ?was accomplished by biliary sphincterotomy and ?balloon extraction. ?- A biliary sphincterotomy was performed. ?- The biliary tree was swept. ?- One temporary stent was placed into the common ?bile duct. Recommendation: ? - [facility]. ?- Clear liquid diet. ?- Repeat ERCP in 3 months to remove stent. ? Procedure Code(s): ? --- Professional --- ? 14787, Endoscopic retrograde cholangiopancreatography (ERCP); with ? placement of endoscopic stent into biliary or pancreatic duct, including ? pre- and post-dilation and guide wire passage, when performed, including ? sphincterotomy, when performed, each stent ? 10075, Endoscopic retrograde cholangiopancreatography (ERCP); with ? removal of calculi/debris from biliary/pancreatic duct(s) Diagnosis Code(s): ? --- Professional --- ? K80.50, Calculus of bile duct without cholangitis or cholecystitis ? without obstruction CPT copyright 2021 [employer]. All rights reserved. The codes documented in this report are preliminary and upon seamless tube roller review may be revised to meet current compliance requirements. Electronically Signed by Delmar Infante DELMAR SHETH MD 09/19/2023 10:06:16 PM I was physically present for the entire viewing portion of the exam. DELMAR SHETH MD Number of Addenda: 0 Note Initiated On: 09/19/2023 11:56 AM Total Procedure Duration: 0 hours 7 minutes 6 seconds Scope In: 12:54:21 PM Scope Out: 1:01:27 PM RADIOLOGY RESULTS 09/19/2023 11:5 6 AM CDT King Cardenas PROCEDURES RADIOLOGY RESULTS * (ABNORMAL) CBC with platelets and differential (09/19/2023 8:37 AM CDT) WBC Count 4.5 4.0 - 11.0 10e3/uL 09/19/2023 9:19 AM CDT LABORATORY RBC Count 4.36 3.80 - 5.20 10e6/uL 09/19/2023 9:19 AM CDT LABORATORY Hemoglobin 13.8 11.7 - 15.7 g/dL 09/19/2023 9:19 AM CDT LABORATORY Hematocrit 41.0 35.0 - 47.0 % 09/19/2023 9:19 AM CDT LABORATORY MCV 94 78 - 100 fL 09/19/2023 9:19 AM CDT LABORATORY MCH 31.7 26.5 - 33.0 pg 09/19/2023 9:19 AM CDT LABORATORY MCHC 33.7 31.5 - 36.5 g/dL 09/19/2023 9:19 AM CDT LABORATORY RDW 11.9 10.0 - 15.0 % 09/19/2023 9:19 AM CDT LABORATORY Platelet Count 149(L) 150 - 450 10e3/uL 09/19/2023 9:19 AM CDT LABORATORY % Neutrophils 61 % 09/19/2023 9:19 AM CDT LABORATORY % Lymphocytes 31 % 09/19/2023 9:19 AM CDT LABORATORY % Monocytes 6 % 09/19/2023 9:19 AM CDT LABORATORY % Eosinophils 2 % 09/19/2023 9:19 AM CDT LABORATORY % Basophils 0 % 09/19/2023 9:19 AM CDT LABORATORY % Immature Granulocytes 0 % 09/19/2023 9:19 AM CDT LABORATORY NRBCs per 100 WBC 0 <1 /100 024 9:19 AM CDT LABORATORY Absolute Neutrophils 2.7 1.6 - 8.3 10e3/uL 09/19/2023 9:19 AM CDT LABORATORY Absolute Lymphocytes 1.4 0.8 - 5.3 10e3/uL 09/19/2023 9:19 AM CDT LABORATORY Absolute Monocytes 0.3 0.0 - 1.3 10e3/uL 09/19/2023 9:19 AM CDT LABORATORY Absolute Eosinophils 0.1 0.0 - 0.7 10e3/uL 09/19/2023 9:19 AM CDT LABORATORY Absolute Basophils 0.0 0.0 - 0.2 10e3/uL 09/19/2023 9:19 AM CDT LABORATORY Absolute Immature Granulocytes 0.0 <=0.4 10e3/uL 09/19/2023 9:19 AM CDT LABORATORY Absolute NRBCs 0.0 10e3/uL 09/19/2023 9:19 AM CDT LABORATORY Blood BLOOD SPECIMEN / Unknown Venipuncture / Unknown 09/19/2023 8:37 AM CDT 09/19/2023 9:16 AM CDT Matti Muniz MD LAB - BLOOD DAREKE ZULMA LABORATORY [facility] [address], [address] [place] [address], [facility] [phone] * Magnesium (09/19/2023 8:37 AM CDT) Magnesium 2.0 1.7 - 2.3 mg/dL 09/20/2023 10:54 AM CDT LABORATORY Blood BLOOD SPECIMEN / Unknown Venipuncture / Unknown 09/19/2023 8:37 AM CDT 09/19/2023 9:16 AM CDT Paulo Naranjo MD LAB - BLOOD ORDERABL ES Performing Organization Address City/[facility]/ZIP Co de Phone Number LABORATORY [facility] [address], [address] [place] [address], [facility] [phone] * (ABNORMAL) Bilirubin direct (09/19/2023 8:37 AM CDT) Bilirubin Direct 1.54(H) 0.00 - 0.30 mg/dL 09/19/2023 12:34 PM CDT LABORATORY Blood BLOOD SPECIMEN / Unknown Venipuncture / Unknown 09/19/2023 8:37 AM CDT 09/19/2023 9:16 AM CDT Heidy Cheng MD LAB - BLOOD ORDERABL ES LABORATORY [facility] [address], [address] [place] [address], [facility] [phone] * Potassium (External Result) (09/18/2023 11:27 PM CDT) Potassium (External) 3.9 3.6 - 5.1 mmol/L [facility] Blood 09/18/2023 11:2 7 PM CDT [facility] - 09/18/2023 11:27 PM CDT [facility] ED NOTES Provider Outside LAB - HIM EXTERNAL R ESULT Performing Organization Address City/[facility]/ZIP Co de Phone Number [id number] [place] [address] * (ABNORMAL) Glucose (External Result) (09/18/2023 11:27 PM CDT) Glucose (External) 130(H) 60 - 115 mg/dL [facility] Blood 09/18/2023 11:2 7 PM CDT [facility] - 09/18/2023 11:27 PM CDT [facility] ED NOTES Provider Outside LAB - [facility] EXTERNAL R ESULT Performing Organization Address [facility] Co de Phone Number [address] [address], [facility] [phone] * Creatinine (External Result) (09/18/2023 11:27 PM CDT) Creatinine (External) 0.6 0.5 - 1.5 mg/dL [facility] Blood 09/18/2023 11:2 7 PM CDT [facility] - 09/18/2023 11:27 PM CDT [facility] ED NOTES Provider Outside LAB - HIM EXTERNAL R ESULT Performing Organization Address City/[facility] Co de Phone Number [address] [address], [facility] [phone] * (ABNORMAL) AST (External Result) (09/18/2023 11:27 PM CDT) AST (External) 1,847(H) 12 - 35 U/L [facility] Blood 09/18/2023 11:2 7 PM CDT [facility] - 09/18/2023 11:27 PM CDT [facility] ED NOTES Provider Outside LAB - HIM EXTERNAL R ESULT Performing Organization Address City/[facility]/ZIP Co de Phone Number [address] [phone] * (ABNORMAL) ALT (External Result) (09/18/2023 11:27 PM CDT) ALT (External) 1,325(H) 4 - 35 U/L [facility] Blood 09/18/2023 11:2 7 PM CDT [facility] - 09/18/2023 11:27 PM CDT [facility] ED NOTES Provider Outside LAB - HIM EXTERNAL R ESULT Performing Organization Address City/[facility]/ZIP Co de Phone Number [address] [address], [facility] [phone] * US Imaging - HIM Scan (09/18/2023 12:00 AM CDT) Anatomical Region Laterality Modality Other 09/18/2023 Provider Outside [facility] US ORDERABLES * PAP Smear - HIM Patient Reported (07/11/2023) PAP Smear - HIM Patient Reported Unknown 07/11/2023 Narrative Bettye Wilhelm - 07/11/2023 See encounter dated 09/23/23 Patient Reported LABORATORY * MA Diagnostic Bilateral w/Kentrell (06/12/2023 7:54 [...] Schmidt MD IMG MAMMOGRAPHY JOANNE MAYA * HIV Antigen Antibody Combo (01/09/2021 11:08 AM HAT MENDER) HIV Antigen Antibody Combo Nonreactive Nonreactive 01/10/2021 10:53 AM HAT MENDER [facility] Comment:HIV-1 p24 Ag & HIV-1 /HIV-2 Ab Not Detected Blood STRUCTURE OF LEFT UPPER LIMB / Unknown Venipuncture / Unknown 01/09/2021 11:08 AM HAT MENDER 01/09/2021 11:08 AM HAT MENDER Joanna Hernandez MD LAB - BLOOD ORDER [place] Lab [address] [facility], [address] [place] [address], [facility] [phone] * Hepatitis C Screen Reflex to HCV RNA Quant and Genotype (01/09/2021 11:08 AM HAT MENDER) Pathologist [facility] Hepatitis C Antibody Nonreactive Nonreactive 01/10/2021 10:53 AM HAT MENDER [facility] Blood STRUCTURE OF LEFT UPPER LIMB / Unknown Venipuncture / Unknown 01/09/2021 11:08 AM HAT MENDER 01/09/2021 11:08 AM HAT MENDER Narrative [facility] - 01/10/2021 10:53 AM HAT MENDER Assay performance characteristics have not been established for newborns, infants, and children. Joanna Hernandez MD LAB - BLOOD ORDER [place] Performing Organization Address [facility] Co de Phone Number [facility] [address] [facility], [address] [place] [address], [facility] [phone] * Lipid panel reflex to direct LDL Fasting (06/12/2020 4:54 PM CDT) [facility] Cholesterol 132 <200 mg/dL 06/13/2020 5:14 PM CDT [facility] Triglycerides 58 <150 mg/dL 06/13/2020 5:14 PM CDT [facility] HDL Cholesterol 51 >49 mg/dL 5:17 PM CDT [facility] LDL Cholesterol Calculated 69 <100 mg/dL 06/13/2020 5:17 PM CDT [facility] Comment:Desirable: <100 mg/d l Non HDL Cholesterol 81 <130 mg/dL 06/13/2020 5:17 PM CDT [facility] Blood 06/12/2020 4:54 PM CDT 06/12/2020 4:56 PM CDT Joanna Hernandez MD LAB - BLOOD ORDER [place] [facility] [address] [place] [address], [facility] [phone] from Last 3 Months or Most Recently Relevant to Health Maintenance Advance Directives For more information, please contact: [phone] * Full Code (Latest Code Status on File) Date Activated Date Inactivated Comments 09/19/2023 5:02 AM 09/21/2023 8:48 PM All basic an d advanced life-sustaining interventions are performed as appropriate Question Answer Comments Code status determined by: Discussion with patie nt/ legal decision maker * Full Code Date Activated Date Inactivated Comments 02/15/2019 12:06 PM 02/17/2019 3:40 PM Question Answer Comments Code status determined by: Unable to det ermine; FULL CODE until documents or legal decision maker available Care Teams Radiology Technologist Relationship Specialty Start Date End Date Danette Alan APRN FLIGHT AGENT [address] [place] [address] PCP - General Family Medicine 09/28/23 Danette Alan APRN FLIGHT AGENT [address] [place] [address] Assigned PCP 10/02/23 Cleve Barger MD [address] [place] [id number] Assigned Surgical Provider 11/02/23
--- OUTSIDE RECORDS SUMMARY | 2023-11-20 13:06 | XMS_ITS | Encounter Summary ---
Author Organization [place] Address [address] [place] [address] Care Team Providers Care Exercise Instructor Name Role Phone OlgaDanette santoyo DOMINGO BEATING MACHINE OPERATOR Primary Care Provider [phone] BEATING MACHINE OPERATOR Unavailable [phone] Reason for Visit * Reason Comments Post-Op - General Surgery PO: Laparoscop ic cholecystectomy 09/21/23. U/S prior to appt. Encounter Details Date Type Department Care Team (Late st Contact Info) Description 10/08/2023 12:45 PM CDT Office Visit [facility] [place] [address] [place] [phone] Cleve Barger MD [address] [facility] [address] [place], [place] [phone] Slow transit constipation (Primary Dx); Joanna infection Social History Tobacco Use Types Packs/Day Years [...] AM CDT documented as of this encounter Progress Notes * Cleve Barger MD - 10/08/2023 12:45 PM CDT Surgery Consultation, [facility], ISMAEL Barger MD Ana Lezama Date of : 1985 Age: [age] year old Ana Lezama is a 38 year old female who I did a laparoscopic cholecystectomy on after an ERCP by Dr. Sheth. This was on 09/21/2023. She did well for the week following the surgery. Than she beganhaving significant abdominal pain that starts near her umbilical incision and then extends to her right flank. She hasn't had many bowel movements since surgery. I did obtain labs after she called our triage nurse. Her LFTs and an ultrasound are normal. On exam, her camera port incision, which is in one of her old incisions is retracted a bit. There is some redness around it. I think her pain is due to constipation. She agrees with that. She does have miralax at home. Will add colace. The redness around her incision is due to some candidiasis and possibly some reaction tothe adhesive of the steri-strips. She will follow up PRN if her pain doesn't get better. Cleve Barger M.D., .[facility] DENISE Powers documented in this encounter Plan of Treatment Not on file documented as of this encounter Visit Diagnoses Diagnosis Slow transit constipation- Primary Joanna infection Candidiasis of unspecified site documented in this encounter Additional Health Concerns Assessment Noted Time PHQ-9 Depression Total Score: 27 021 7:02 AM CDT documented as of this encounter Care Teams Exercise Instructor Relationship Specialty Start Date End Date Danette Alan APRN BEATING MACHINE OPERATOR [address] [facility] [address] [place] [address] PCP - General Family Medicine 09/28/23 Danette Alan APRN BEATING MACHINE OPERATOR [address] [place] [address] Assigned PCP 10/02/23 documented as of this encounter
--- OUTSIDE RECORDS SUMMARY | 2023-11-20 13:06 | XMS_ITS | Encounter Summary ---
Author Organization [facility] Address [address] [place] [address] Care Team Providers Care Neon Sign Worker Name Role Phone Danette Alan APRN, CNP Primary Care Provider [phone] Danette Alan APRN PHOTOENGRAVING RETOUCHER Unavailable [phone] Reason for Referral * Diagnostic Imaging Ultrasound (Routine) - Pending Review Specialty Diagnoses / Procedures Referred By Contac t Referred To Contact Radiology. Diagnoses Abdominal pain, right upper quadrant Procedures US Abdomen Complete Cleve Barger MD [address] [employer] [address] [place] [address] [place] [address] Referral ID Status Reason Start Date Expiration Date V isits Requested Visits Authorized [id number] Pending Review 10/07/2023 10/06/2024 1 1 Reason for Visit * Diagnostic Imaging Ultrasound (Routine) - Pending Review Specialty Diagnoses / Procedures Referred By Contac t Referred To Contact Radiology. Diagnoses Abdominal pain, right upper quadrant Procedures US Abdomen Complete Cleve Barger MD [address] [employer] [address] [place] [address] Referral ID Status Reason Start Date Expiration Date V isits Requested Visits Authorized [id number] Pending Review 10/07/2023 10/06/2024 1 1 Encounter Details Date Type Department Care Team (Latest Contact Info) Description 10/08/2023 10:51 AM CDT - 10/08/2023 11:59 PM CDT Hospital Encounter [facility] [address] [phone] Cleve Barger MD [address] [place] [address] Abdominal pain, right upper quadrant Discharge Disposition: Home or Self Care Social [...] Dispensed Refills Start Date End Date Biotin 05971 MCG TBDP Take by mouth daily CALCIUM CITRATE PO Take 500 mg by mouth 3 times daily At mid-morning, lunch, and dinner. Cholecalciferol (VITAMIN D3 PO) Take 5,000 Units by mouth daily Gel cap. desvenlafaxine (PRISTIQ) 50 MG 24 hr tablet Take 50 mg by mouth daily 11/09/2021 docusate sodium (COLACE) 100 MG capsuleIndications:Slo w transit constipation Take 1 capsule (100 mg) by mouth 2 times daily. 60 capsule 2 10/08/2023 estradiol (VIVELLE-DOT) 0.05 MG/24HR bi-weekly patch Place 1 patch onto the skin twice a week Thursday and Fridays levothyroxine (SYNTHROID/LEVOTHROID) 125 MCG tablet Take 125 mcg by mouth daily MAGNESIUM GLYCINATE PO Take 260 mg by mouth daily nystatin (MYCOSTATIN) 035676 UNIT/GM external powderIndications:Slow transit constipation,Joanna infection Apply topically 2 times daily. 15 g 10/08/2023 oxyCODONE (ROXICODONE) 5 MG tabletIndications:Chol edocholithiasis Take 0.5-1 tablets (2.5-5 mg) by mouth every 4 hours as needed for breakthrough pain or moderate to severe pain (2.5 mg for moderate pain, 5 mg for severe pain) 8 tablet 09/23/2023 senna (SENOKOT) 8.6 MG tabletIndications:Chol edocholithiasis Take 1 tablet by mouth 2 times daily as needed for constipation (while taking oxycodone) 20 tablet 09/21/2023 valACYclovir (VALTREX) 500 MG tablet Take 500 mg by mouth daily as needed vitamin (B COMPLEX-C) tablet Take 1 tablet by mouth daily documented as of this encounter Plan of Treatment Not on file documented as of this encounter Procedures Procedure Name Priority Date/Time Associated Diagnosis Comments US ABDOMEN COMPLETE STAT 10/08/2023 1 1:33 AM CDT Abdominal pain, right upper quadrant documented in this encounter Results * US Abdomen Complete (10/08/2023 11:33 AM CDT) Anatomical Region Laterality Modality Abdomen/Pelvis Ultrasound Impressions 10/08/2023 11:36 AM CDT IMPRESSION: 1. ??No acute process demonstrated. DANA LIGHT MD Narrative 10/08/2023 11:36 AM CDT [...] demonstrated. DANA LIGHT MD Cleve Barger MD IMG US ORDERABLES documented in this encounter Visit Diagnoses Diagnosis Abdominal pain, right upper quadrant documented in this encounter Additional Health Concerns Assessment Noted Time PHQ-9 Depression Total Score: 27 12/09/ 021 7:02 AM CDT documented as of this encounter Care Teams Neon Sign Worker Relationship Specialty Start Date End Date Danette Alan APRN PHOTOENGRAVING RETOUCHER [address] [place] [address] PCP - General Family Medicine 09/28/23 Danette Alan APRN PHOTOENGRAVING RETOUCHER [address] [place] [address] Assigned PCP 10/02/23 documented as of this encounter
--- OUTSIDE RECORDS SUMMARY | 2023-11-20 13:06 | XMS_ITS | Encounter Summary ---
Author Organization [facility] Address [address] [place] [address] Care Team Providers Care Supervisor Uranium Processing Name Role Phone Dayanna Danette LANE PAYROLL SERVICES ANALYST Primary Care Provider [phone] Danette Alan APRN PAYROLL SERVICES ANALYST Unavailable [phone] Encounter Details Date Type Department Care Team (Late st Contact Info) Description 10/07/2023 2:20 PM CDT Lab [facility] [address] [id number] Abdominal pain, right upper quadrant Social History Tobacco Use Types Packs/Day Years [...] Procedure Name Priority Date/Time Associated Diagnosis Comments COMPREHENSIVE METABOLIC PANEL Routine 10/07/2023 1:47 PM CDT Abdominal pain, right upper quadrant CBC WITH PLATELETS Routine 10/07/2023 1: 47 PM CDT Abdominal pain, right upper quadrant documented in this encounter Results * CBC with platelets (10/07/2023 1:47 PM CDT) WBC Count 8.0 4.0 - 11.0 10e3/uL [...] MD LAB - BLOOD ORDERABL ES LABORATORY [facility] [address], [address] [place] [address], [facility] [phone] * Comprehensive metabolic panel (10/07/2023 1:47 PM CDT) Sodium 141 135 - 145 mmol/L 10/07/2023 [...] 10/07/2023 2:14 PM CDT LABORATORY Comment:eGFR calculated usin 2020 CKD-EPI equation. Calcium 9.3 8.8 - 10.4 [...] MD LAB - BLOOD ORDERABL ES LABORATORY [facility] [address], [address] [place] [address], [facility] [phone] documented in this encounter Visit Diagnoses Diagnosis Abdominal pain, right upper quadrant documented in this encounter Additional Health Concerns Assessment Noted Time PHQ-9 Depression Total Score: 27 021 7:02 AM CDT documented as of this encounter Care Teams Supervisor Uranium Processing Relationship Specialty Start Date End Date Danette Alan APRN PAYROLL SERVICES ANALYST [address] [place] [address] PCP - General Family Medicine 09/28/23 Danette Alan APRN PAYROLL SERVICES ANALYST [address] [place] [address] Assigned PCP 10/02/23 documented as of this encounter
--- OUTSIDE RECORDS SUMMARY | 2023-11-20 13:06 | XMS_ITS | Referral Summary ---
Author Organization [place] Address [address] [place] [address] Care Team Providers Care Advertising Copywriter Name Role Phone DayannaAristeoDanetteaiyana LANE ELECTROTYPER Primary Care Provider [phone] Danette Alan APRN ELECTROTYPER Unavailable Cleve Barger MD Unavailable Encounters Date Type Department Care Team Description 10/08/2023 12:45 PM CDT Office Visit [facility] Surgery [facility] [address], [address] [place] [phone] Cleve Barger MD Slow transit constipation (Primary Dx); Joanna infection 10/08/2023 10:51 AM CDT - 10/08/2023 11:59 PM CDT Hospital Encounter [facility] [address] [place] [phone] Cleve Barger MD Abdominal pain, right upper quadrant Discharge Disposition: Home or Self Care 10/07/2023 Travel 10/07/2023 MyC Medical Advice [facility] Surgery [facility] [address], [address] [place] [phone] Mandi Marie RN 10/07/2023 2:20 PM CDT Lab [facility] [address] [address] Abdominal pain, right upper quadrant 10/07/2023 Telephone [facility] Surgery [facility] [address], [address] [place] [phone] Mandi Marie RN 10/07/2023 MyC Medical Advice [facility] [address] [place] [phone] Danette Alan APRN CNP MyChart Communication 09/25/2023 MyC Medical Advice [facility] [address] [place] [phone] Danette Alan APRN CNP 09/25/2023 Telephone [facility] [address] [place] [phone] Danette Alan APRN CNP Forms (Unum) 09/23/2023 Travel 09/23/2023 9:30 AM CDT Office Visit [facility] [address] [place] [phone] Danette Alan APRN CNP Hospital discharge follow-up (Primary Dx); Choledocholithiasis; Elevated liver enzymes; Constipation, unspecified constipation type 09/22/2023 MyC Medical Advice [address] [phone] Joanna Hernandez MD MyChart Communication 09/21/2023 7:30 AM CDT - 09/21/2023 9:45 AM CDT Surgery [facility] [address] [place] [phone] Cleve Barger MD Laparoscopic cholecystectomy 09/21/2023 7:27 AM CDT Anesthesia Event [facility] [address] [place] [phone] Arina [place] MD Anderson, Andrew Jon, DO 09/19/2023 4:56 AM CDT - 09/21/2023 4:00 PM CDT Hospital Encounter [facility] [address] [place] [phone] Matti Muniz MD Dasari, Brian Aldana MD Choledocholithiasis (Primary Dx) Discharge Disposition: Home or Self Care 09/20/2023 MyC Medical Advice [address] [phone] Joanna Hernandez MD MyChart Communication ( ... 09/19/2023 12:33 PM CDT Anesthesia Event [facility] [address] [place] [phone] Neptali Beard MD Dennen, Kristina Nguyen, DOMINGO RUTLEDGE 09/19/2023 11:30 AM CDT - 09/19/2023 12:30 PM CDT Surgery [facility] [address] [place] [phone] Delmar Sheth MD ENDOSCOPIC ULTRASOUND, ESOPHAGOSCOPY / UPPER GASTROINTESTINAL TRACT (GI) from Last 3 Months Allergies Active Allergy Reactions Criticality Noted Date Comments Aspirin Other (See Comments) 02/22/2019 Gastric sleeve 02/15/2019 Nsaids Other (See Comments) 02/22/2019 Gastric sleeve 02/15/2019Gastric sleeve 02/15/2019 Penicillins 10/07/2018 Medications Medication Sig Dispensed Refills Start Date End Date Status Biotin 32755 MCG TBDP Take by mouth daily Active [...] 60 capsule 2 10/08/2023 Active nystatin (MYCOSTATIN) 240274 UNIT/GM external powderIndications:S low transit constipation,Candid a [...] Overview: Added automatically from request for surgery [id number] Morbidly obese 01/11/2019 04/21/2019 Overview: Added automatically from request for surgery [id number] Morbid obesity with BMI of 40.0-44.9, adult [...] 09/23/2023 9:24 AM CDT Plan of Treatment Not on file Medical Devices Implanted Type Area Rod Buster Device Identifier Shelf Expiration Date Model / Serial / Lot Stent Reynaldo Larose ([place]) [place] [id number] Clso-10-5 - [id number] Implanted:Qty : 1 on 09/19/2023 by Delmar Sheth MD at [facility] Stent N/A: Bile Duct [employer] [id number] 08/20/2025 CLSO-10-5 / / [id number] Procedures Procedure Name Priority Date/Time Associated Diagnosis Comments US ABDOMEN COMPLETE STAT 10/08/2023 11:33 AM CDT Abdominal pain, right upper quadrant CBC WITH PLATELETS Routine 10/07/2023 1:47 PM CDT Abdominal pain, right upper quadrant COMPREHENSIVE METABOLIC PANEL Routine 10/07/2023 1:47 PM CDT Abdominal pain, right upper quadrant HEPATIC FUNCTION PANEL Routine 9:59 AM CDT Hospital discharge follow-up Choledocholithiasis Elevated liver enzymes HEPATIC FUNCTION PANEL Routine 11:34 AM CDT SURGICAL PATHOLOGY EXAM Routine 09/21/19 8:08 AM CDT ANE AIRWAY ETT PERFORMABLE Routine 09/20 7:41 AM CDT CHOLECYSTECTOMY, LAPAROSCOPIC 09/21/2023 7:32 AM CDT Choledocholithiasis LIPASE Routine 09/20/2023 10:43 AM CDT CBC WITH PLATELETS Routine 09/20/2023 10:43 AM CDT COMPREHENSIVE METABOLIC PANEL Routine 09/20/2023 10:43 AM CDT CRP INFLAMMATION Routine 09/20/2023 10:43 AM CDT TSH WITH FREE T4 REFLEX Routine 09/20/19 24 10:43 AM CDT EKG 12-LEAD, TRACING ONLY [...] WITH FREE T4 REFLEX STAT Add-on 09/19/19 8:37 AM CDT BILIRUBIN DIRECT STAT Add-on [...] ANTIGEN ANTIBODY COMBO Routine 01/09 11:08 AM MEDICAL SERVICE TECHNICIAN Screening for HIV (human immunodeficiency virus) HEPATITIS C SCREEN REFLEX TO HCV RNA QUANT AND GENOTYPE Routine 01/09/2021 11:08 AM MEDICAL SERVICE TECHNICIAN Need for hepatitis C screening test LIPID [...] IMPRESSION: 1. ??No acute process demonstrated. DANA LIGTH MD Narrative 10/08/2023 11:36 AM CDT US [...] demonstrated. DANA LIGHT MD Cleve Barger MD [facility] US ORDERABLES * Comprehensive metabolic panel (10/07/2023 [...] MD LAB - BLOOD ORDERABL ES LABORATORY [facility] Acute Care Lab [address] floor, [address] [place] [address], [facility] [phone] * CBC with platelets (10/07/2023 1:47 PM CDT) Only the most recent of2 resultswithin the time period is included. WBC Count 8.0 4.0 - 11.0 10e3/uL [...] MD LAB - BLOOD ORDERABL ES LABORATORY [facility] Acute Care Lab [address] floor, [address] [place] [address], [facility] [phone] * (ABNORMAL) Hepatic panel (Albumin, ALT, AST, Bili, Alk Phos, TP) (09/23/2023 9:59 AM CDT) Only the most recent of2 resultswithin the time period is included. Protein Total 6.9 6.4 - 8.3 g/dL [...] AM CDT 09/23/2023 9:59 AM CDT Danette Espinozanatanael RETAIL WIRELESS ASSOCIATE ELECTROTYPER LAB - BLOOD ORDERA BLES UU LABORATORY [facility] Core Lab [address] [facility], [address] [place] [phone] * Surgical Pathology Exam (09/21/2023 8:08 AM CDT) Case Report Surgical Pathology Report ? Case: [id number] ? Authorizing Provider: ??Cleve Barger MD ? Collected: ? 09/21/2023 08:08 AM ? Ordering Location: ? [facility] ?Received: ?09/21/2023 09:12 AM ? [facility] Main OR ? Pathologist: ? Yolanda De Souza MD ? Specimen: ?Gallbladder, Gallbladder and Contents ? 09/22/2023 4:06 PM [facility] Final Diagnosis A(1). Gallbladder, cholecystectomy: -Acute cholecystitis, and cholelithiasis. -Negative for dysplasia or malignancy. 09/22/2023 4:06 PM [facility] Clinical Information Procedure: Laparoscopic cholecystectomy Pre-op Diagnosis: Choledocholithiasis [K80.50] Post-op Diagnosis: K80.50 - Choledocholithiasis [ICD-10-CM] 09/22/2023 4:[address] [facility] Gross Description A(1). Gallbladder, Gallbladder and [...] possible mass or nodularities are grossly identified. Bullet Casting Operator sections of the gallbladder to include the cystic duct margin (inked black) are submitted in 1 cassette. ([facility] 09/21/2023 9:43 AM 09/22/2023 4:[address] [facility] Microscopic Description Microscopic examination was performed. 09/22/2023 4:06 PM [facility] Performing Labs The technical component of this testing was completed at [facility]. Stain controls for all stains resulted within this report have been reviewed and show appropriate reactivity. 09/22/2023 4:06 PM CDT LABORATORY Case Images 09/22/2023 4:06 PM CDT LABORATORY Tissue GALLBLADDER PART / Unknown 09/21/2023 8:08 AM CDT 09/21/2023 9:12 AM CDT Cleve KILGOER - MUKESH COATES RH LABORATORY [facility] Acute Care Lab [address] [facility] Lab (1st floor, no room number) [place] [address], [facility] LABORATORY [facility] [place] [facility] Lab [address] floor, [address] [place] [address], [facility] [phone] * ANE AIRWAY ETT PERFORMABLE (09/21/2023 7:41 AM CDT) Narrative Dinora Agee APRN CRNA - 09/21/2023 7:41 AM CDT Dinora Agee APRN CRNA ? 09/21/2023 ??7:57 AM Airway ? Patient location during procedure: OR ? Procedure Start/Stop Times: 09/21/2023 7:41 AM Staff - ? Anesthesiologist: ??Arina [place] MD ? NUCLEAR POWER REACTOR OPERATOR: Dinora Agee APRN CRNA ? Performed By: [...] Time: 09/21/2023 7:41 AM Arina [place] MD OR ANESTHESIA * TSH with free T4 reflex (09/20/2023 10:43 AM CDT) Only the most recent of2 resultswithin the time period is included. TSH 2.05 0.30 - 4.20 uIU/mL 09/20/2023 11:32 AM CDT LABORATORY Blood STRUCTURE OF RIGHT UPPER LIMB / Unknown Venipuncture / Unknown 09/20/2023 10:43 AM CDT 09/20/2023 10:55 AM CDT Brian Sewell MD LAB - BLOOD ORDERAB LES [facility] Lab [address] 1[address] floor, [address] [place] [address], [facility] [phone] * Lipase (09/20/2023 10:43 AM CDT) Lipase 41 13 - 60 U/L 09/20/2023 11:32 AM CDT LABORATORY Blood STRUCTURE OF RIGHT UPPER LIMB / Unknown Venipuncture / Unknown 09/20/2023 10:43 AM CDT 09/20/2023 10:55 AM CDT Brian Sewell MD LAB - BLOOD ORDERAB LES LABORATORY [facility] Lab [address] 1[address] floor, [address] [place] [address], [facility] [phone] * CRP inflammation (09/20/2023 10:43 AM CDT) CRP Inflammation 3.45 <5.00 mg/L 09/20/19 11:32 AM CDT LABORATORY Blood STRUCTURE OF RIGHT UPPER LIMB / Unknown Venipuncture / Unknown 09/20/2023 10:43 AM CDT 09/20/2023 10:55 AM CDT Tonio GUEVARA LAB - BLOOD ORD ERABLES LABORATORY [facility] Acute [facility] [facility] Lab [address] 1[address] floor, [address] [place] [address], [facility] [phone] * EKG 12-lead, tracing only (09/19/2023 4:02 PM CDT) Systolic Blood Pressure mmHg RADIOLOGY RESULTS Diastolic Blood Pressure mmHg RADIOLOGY RESULTS Ventricular Rate 37 BPM RAD IOLOGY RESULTS Atrial Rate 37 BPM RADIOLOG Y RESULTS OR Interval 162 ms RADIOLOG Y RESULTS QRS Duration 86 ms RADIOLO GY RESULTS QT 478 ms RADIOLOGY RESULTS QTc 375 ms RADIOLOGY RESULTS P [place] 66 degrees RADIOLOGY RESULTS R AXIS 91 degrees RADIOLOGY RESULTS T [place] 66 degrees RADIOLOGY RESULTS Interpretation ECG Sinus bradycardia Rightward axis Nonspecific T wave abnormality Abnormal ECG No previous ECGs available Confirmed by MD LIBERTAD, PATRICIO ([id number]) on 09/20/2023 10:46:35 AM RADIOLOGY RESULTS 09/19/2023 4:02 PM CDT 09/20/2023 10:46 AM CDT Biran Sewell MD ECG ORDERABLES RADIOLOGY RESULTS * XR Surgery GEETA Fluoro Less Than 5 Min (09/19/2023 1:10 PM CDT) Narrative RADIANT - 09/19/2023 1:15 PM CDT This exam was marked as non-reportable because it will not be read by a radiologist or a [place] non-radiologist provider. Delmar Sheth MD IMG DIAGNOSTIC I MAGING ORDERABLES RADIANT * UPPER EUS (09/19/2023 11:56 AM CDT) Pathologist [facility] [place] [address] ??[place] ??[id number] Patient Name: Ana Lezama ? Procedure Date: 09/19/2023 11:56 AM ? Date of : 1985 ? Admit Type: Inpatient Age: 38 ? Room: [place] [address] Note Status: Finalized ?Attending MD: DELMAR SHETH MD, Instrument Name: 533 [id number] Radial Procedure: ?Upper EUS Indications: ?Common bile [...] Procedure Code(s): ? --- Professional --- ? 38734, Esophagogastroduodenos copy, flexible, transoral; with endoscopic ? [...] ? R10.13, Epigastric pain CPT copyright 2021 [employer]. All rights reserved. The codes documented in this report are preliminary and upon certified medical records coder review may be revised to meet current [...] ENDOSCOPIC RETROGRADE CHOLANGIOPANCREATOGRAPHY (09/19/2023 11:56 AM CDT) [place] [address] ??[place] ??[id number] _ Patient Name: Ana Lezama ? Procedure Date: 09/19/2023 11:56 AM ? Date of : 1985 ? Admit Type: Inpatient Age: 38 ? Room: OR [facility] Note Status: Finalized ?Attending MD: DELMAR SHETH [...] the procedure well. ? Findings: ? The market developer film was normal. The esophagus was successfully [...] Procedure Code(s): ? --- Professional --- ? 71249, Endoscopic retrograde cholangiopancreatography (ERCP); with ? placement of endoscopic stent into biliary or pancreatic duct, including ? pre- and post-dilation and guide wire passage, when performed, including ? sphincterotomy, when performed, each stent ? 92461, Endoscopic retrograde cholangiopancreatography (ERCP); with ? removal of calculi/debris from biliary/pancreatic duct(s) Diagnosis Code(s): ? --- Professional --- ? K80.50, Calculus of bile duct without cholangitis or cholecystitis ? without obstruction CPT copyright 2021 [employer]. All rights reserved. The codes documented in this report are preliminary and upon certified medical records coder review may be revised to meet current [...] CDT Matti Muniz MD LAB - BLOOD JOANNE MAYA [facility] Organization Address City/State/ZIP Co de Phone Number LABORATORY [facility] Lab [address] 1[address] floor, [address] [place] [address], [facility] [phone] * Magnesium (09/19/2023 8:37 AM CDT) Magnesium 2.0 1.7 - 2.3 mg/dL 09/20/2023 10:54 AM CDT LABORATORY Blood BLOOD SPECIMEN / Unknown Venipuncture / Unknown 09/19/2023 8:37 AM CDT 09/19/2023 9:16 AM CDT Paulo Naranjo MD LAB - BLOOD ORDERABL ES [facility] Lab [address] 1[address] floor, [address] [place] [address], [facility] [phone] * (ABNORMAL) Bilirubin direct (09/19/2023 8:37 AM CDT) Bilirubin Direct 1.54(H) 0.00 - 0.30 mg/dL 09/19/2023 12:34 PM CDT LABORATORY Blood BLOOD SPECIMEN / Unknown Venipuncture / Unknown 09/19/2023 8:37 AM CDT 09/19/2023 9:16 AM CDT Heidy Cheng MD LAB - BLOOD ORDERABL ES LABORATORY [facility] Lab [address] 1[address] floor, [address] [place] [address], [facility] [phone] * Potassium (External Result) (09/18/2023 11:27 PM CDT) Potassium (External) 3.9 3.6 - 5.1 mmol/L [facility] Blood 09/18/2023 11:2 7 PM CDT Narrative [facility] - 09/18/2023 11:27 PM CDT [facility][NOTE 3] ED NOTES Provider Outside LAB - HIM EXTERNAL R ESULT Performing Organization Address City/[facility]/ZIP Co de Phone Number [address] [address], [facility] [phone] * (ABNORMAL) Glucose (External Result) (09/18/2023 11:27 PM CDT) Glucose (External) 130(H) 60 - 115 mg/dL [facility] Blood 09/18/2023 11:2 7 PM CDT [facility] - 09/18/2023 11:27 PM CDT [facility][NOTE 3] ED NOTES Provider Outside LAB - [facility] EXTERNAL R ESULT Performing Organization Address [facility] Co de Phone Number [address] [address] [phone] * Creatinine (External Result) (09/18/2023 11:27 PM CDT) Creatinine (External) 0.6 0.5 - 1.5 mg/dL [facility] Blood 09/18/2023 11:2 7 PM CDT [facility] - 09/18/2023 11:27 PM CDT [facility][NOTE 3] ED NOTES Provider Outside LAB - HIM EXTERNAL R ESULT Performing Organization Address City/[facility] Co de Phone Number [facility] [address] [place] [address], [facility] [phone] * (ABNORMAL) AST (External Result) (09/18/2023 11:27 PM CDT) AST (External) 1,847(H) 12 - 35 U/L [facility] Blood 09/18/2023 11:2 7 PM CDT [facility] - 09/18/2023 11:27 PM CDT [facility][NOTE 3] ED NOTES Provider Outside LAB - HIM EXTERNAL R ESULT [facility] [address] [place] [address], [facility] [phone] * (ABNORMAL) ALT (External Result) (09/18/2023 11:27 PM CDT) ALT (External) 1,325(H) 4 - 35 U/L [facility] Blood 09/18/2023 11:2 7 PM CDT Narrative [facility] - 09/18/2023 11:27 PM CDT [facility][NOTE 3] ED NOTES Provider Outside LAB - HIM EXTERNAL R ESULT Performing Organization Address City/[facility]/ZIP Co de Phone Number [facility] [address] [place] [address], [facility] [phone] * US Imaging - HIM Scan (09/18/2023 12:00 AM CDT) Anatomical Region Laterality Modality Other 09/18/2023 Provider Outside [facility] US ORDERABLES * PAP Smear - HIM [...] HIV Antigen Antibody Combo (01/09/2021 11:08 AM MEDICAL SERVICE TECHNICIAN) Pathologist [facility] HIV Antigen Antibody Combo Nonreactive Nonreactive 01/10/2021 10:53 AM MEDICAL SERVICE TECHNICIAN [facility] Comment:HIV-1 p24 Ag & HIV-1 /HIV-2 Ab Not Detected Blood STRUCTURE OF LEFT UPPER LIMB / Unknown Venipuncture / Unknown 01/09/2021 11:08 AM MEDICAL SERVICE TECHNICIAN 01/09/2021 11:08 AM MEDICAL SERVICE TECHNICIAN Joanna Hernandez MD LAB - BLOOD ORDER [place] [facility] SPECIALTY [facility] Specialty Core Lab [address] [facility], [address] [place] [address], [place] [phone] * Hepatitis C Screen Reflex to HCV RNA Quant and Genotype (01/09/2021 11:08 AM MEDICAL SERVICE TECHNICIAN) Pathologist [facility] Hepatitis C Antibody Nonreactive Nonreactive 01/10/2021 10:53 AM MEDICAL SERVICE TECHNICIAN [facility] Blood STRUCTURE OF LEFT UPPER LIMB / Unknown Venipuncture / Unknown 01/09/2021 11:08 AM MEDICAL SERVICE TECHNICIAN 01/09/2021 11:08 AM MEDICAL SERVICE TECHNICIAN Narrative [facility] - 01/10/2021 10:53 AM MEDICAL SERVICE TECHNICIAN Assay performance characteristics have not been established for newborns, infants, and children. Joanna Hernandez MD LAB - BLOOD ORDER [place] [facility] SPECIAL[facility] CORE [facility] Specialty Core Lab [address] [facility], [address] [place] [address], [facility] [phone] * Lipid panel reflex to direct LDL Fasting (06/12/2020 4:54 PM CDT) Cholesterol 132 <200 mg/dL 06/13/2020 5:14 PM CDT [facility] Triglycerides 58 <150 mg/dL 06/13/2020 5:14 PM CDT [facility] HDL Cholesterol 51 >49 mg/dL 5:17 PM CDT [facility] LDL Cholesterol Calculated 69 <100 mg/dL 06/13/2020 5:17 PM CDT [facility] Comment:Desirable: <100 mg/d l Non HDL Cholesterol 81 <130 mg/dL 06/13/2020 5:17 PM CDT [facility] Blood 06/12/2020 4:54 PM CDT 06/12/2020 4:56 PM CDT Joanna Hernandez MD LAB - BLOOD ORDER [place] [facility] [address] [place] [address], [facility] [phone] from Last 3 Months or Most Recently Relevant to Health Maintenance Advance Directives For more information, please contact: [phone] * Full Code (Latest Code Status on File) Date Activated Date Inactivated Comments 09/19/2023 5:02 AM 09/21/2023 8:48 PM All basic an d advanced life-sustaining interventions are performed as appropriate Question Answer Comments Code status determined by: Discussion with crystal nt/ legal decision maker * Full Code Date Activated Date Inactivated Comments 02/15/2019 12:06 PM 02/17/2019 3:40 PM Question Answer Comments Code status determined by: Unable to det ermine; FULL CODE until documents or legal decision maker available Care Teams Advertising Copywriter Relationship Specialty Start Date End Date Danette Alan APRN ELECTROTYPER [address] [place] [address] PCP - General Family Medicine 09/28/23 Danette Alan APRN ELECTROTYPER [address] [place] [address] Assigned PCP 10/02/23 Cleve Barger MD [address] [place] [address] Assigned Surgical Provider 11/02/23
--- OUTSIDE RECORDS SUMMARY | 2023-11-20 13:07 | XMS_ITS | Encounter Summary ---
Author Organization [facility] Address [address] [place] [address] Care Team Providers Care Residential Energy Auditor Name Role Phone OlgaDanette santoyo DOMINGO PHYSICIAN PRACTICE ADMINISTRATOR Primary Care Provider [phone] OlgaAristeo santoyonah DOMINGO PHYSICIAN PRACTICE ADMINISTRATOR Unavailable Reason for Referral * Diagnostic Imaging Ultrasound (Routine) - Pending Review Specialty Diagnoses / Procedures Referred By Fabian covarrubias Referred To Contact Radiology. Diagnoses Abdominal pain, right upper quadrant Procedures US Abdomen Complete Cleve Baregr MD [address] [place] [address] Referral ID Status Reason Start Date Expiration Date V isits Requested Visits Authorized [id number] Pending Review 10/07/2023 10/06/2024 1 1 Encounter Details Date Type Department Care Team (Late st Contact Info) Description 10/07/2023 Telephone [facility] [place] [address] [place] [phone] Mandi Marie, FARRAH Social History Tobacco Use Types Packs/Day Years Used Date Smoking Tobacco: Former Cigarettes 0 07/10/2001 - 2012 Smokeless Tobacco: Never Comments:Smoke free since 20 11, previously mild smoker 1-3 cigs a [...] encounter Miscellaneous Notes * Telephone Encounter - Mandi Marie RN - 10/07/2023 1:06 PM CDT Called patient back to provide appointment info: - labs today. Check in at [facility] on floor 1. - ultrasound tomorrow. Check in at [facility] at 11:25 am for an 11:40 ultrasound. Nothing to eator drink for 8 hours (including water). - follow up with Dr. Barger in clinic tomorrow after Ultrasound Patient driving during phone call (on her way to get labs). Will MyChart her the information as well Mandi Marie RN-BSN * Telephone Encounter - Cleve Barger MD - 10/07/2023 12:37 PM CDT Called patient. Will get labs and US. Will have her follow up with me or one of the Pas when done. Cleve Barger M.D., F.A.C.SFreeman [facility] [place], [place] * Telephone Encounter - Mandi Marie RN - 10/07/2023 11:36 AM CDT Procedure: Laparoscopic cholecystectomy Date: 09/21/23 Surgeon: Charbel *Pt also had ERCP/stent;endoscopic ultrasound, esophagoscopy/upper GI on 09/19/[address] Sheth* Patient calling, in tears, to discuss pain she is having. She reports RUQ pain as well as pain across her belly button area. Taking 1000 mg of tylenol every 6 hours. Can't take ibuprofen (hx bariatric surgery). Pain started on Thursday. Seems to be associated with movement and standing. If she sits, or lays andtakes tylenol, symptoms get better. She can still feel the pressure, but pain improves She was buckled over in pain at 0930 this morning, until she took tylenol. Also a lot of bloating and belching. A lot of flatus. Passing gas helps, but very foul smelling. Trying to stay hydrated Pain is not incision, although one of her umbilical incisions does seem to be open slightly still. She is keeping it covered Low grade fever. 100 last night, 99 the night before. Chills. She is having bowel movements, but did have to start taking smooth move tea, fiber again. Informed her that I will discuss with Dr. Barger. Will likely recommend she be seen in clinic tomorrow Will call her once plan in place She agrees Did inform her that she should present to ER if symptoms become unmanageable in her home environment. She agreed Mandi Marie RN-BSN documented in this encounter Plan of Treatment Not on file documented as of this encounter Results * US Abdomen Complete [...] demonstrated. DANA LIGHT MD Cleve Barger MD [facility] US ORDERABLES * CBC with platelets (10/07/2023 1:47 PM CDT) [facility] WBC Count 8.0 4.0 - 11.0 10e3/uL [...] MD LAB - BLOOD ORDERABL ES LABORATORY [facility] [address] floor, [address] [place] [address], [facility] [phone] * Comprehensive metabolic panel (10/07/2023 1:47 PM [...] MD LAB - BLOOD ORDERABL ES LABORATORY [facility] [address] 1[address] floor, [address] [place] [address], [facility] [phone] documented in this encounter Visit Diagnoses Diagnosis Abdominal pain, right upper quadrant- Primary Abdominal pain, right upper quadrant documented in this encounter Additional Health Concerns Assessment Noted Time PHQ-9 Depression Total Score: 27 021 7:02 AM CDT documented as of this encounter Care Teams Residential Energy Auditor Relationship Specialty Start Date End Date Danette Alan APRN PHYSICIAN PRACTICE ADMINISTRATOR [address] [facility] [address] [place] [address] PCP - General Family Medicine 09/28/23 Danette Alan APRN PHYSICIAN PRACTICE ADMINISTRATOR [address] [facility] [address] [place] [address] Assigned PCP 10/02/23 documented as of this encounter
--- OUTSIDE RECORDS SUMMARY | 2023-11-20 13:07 | XMS_ITS | Encounter Summary ---
Author Organization [facility] Address [address] [place] [address] Care Team Providers Care Board Finisher Name Role Phone Joanna Hernandez MD Unavailable [phone] Joanna Hernandez MD Primary Care Provider [phone] Reason for Visit * Reason Comments Hospital F/U Encounter Details Date Type Department Care Team (Late st Contact Info) Description 09/23/2023 9:30 AM CDT Office Visit [facility] [address] [place] [address] Danette Alan APRN [facility] [address] [place] [address] Hospital discharge follow-up (Primary Dx); Choledocholithiasis; Elevated liver enzymes; Constipation, unspecified constipation type Social History Tobacco Use Types Packs/Day Years [...] AM CDT documented as of this encounter Last Filed Vital Signs Vital Sign Reading [...] Mass Index 30.55 09/23/2023 9:24 AM CDT documented in this encounter Patient Instructions * Patient Instructions* Danette Alan APRN CNP - 09/23/2023 9:30 AM CDT Constipation: Vitamin C- 2,000 mg daily until it is runny, then stop taking it. Smooth Move Tea Daily Magnesium (Natural Calm) 350 mg daily. Adult probiotic. If this does not help, consider over the counter miralax with PLENTY of water. Can also consider taking Senna over the counter 1-2 times daily until cleared out. * Attachments The following attachments cannot be sent through Care Everywhere. * Cholecystectomy: Post-op (Frisian) documented in this encounter Progress Notes * Danette Alan APRN CNP - 09/23/2023 9:30 AM CDT Assessment & Plan Hospital discharge follow-up Patient presents to the clinic for hospital discharge follow-up for gallbladder removal and elevated liver enzymes. Patient states she is overall doing okay. She does have some abdominal pain. She has been taking oxycodone most specifically at night. Patient only has 1 oxycodone left. She is wondering if she should go to Tylenol based off of her liver enzyme results. I will refill patient's pain medication for a one-time refill. - Hepatic panel (Albumin, ALT, AST, Bili, Alk Phos, TP); Future - Hepatic panel (Albumin, ALT, AST, Bili, Alk Phos, TP) Choledocholithiasis Will recheck hepatic panel. Patient requesting medication refill of oxycodone due to the pain and elevated liver enzymes limiting her to the amount of Tylenol she can take. Will refill oxycodone 1 more time. - Hepatic panel (Albumin, ALT, AST, Bili, Alk Phos, TP); Future - oxyCODONE (ROXICODONE) 5 MG tablet; Take 0.5-1 tablets (2.5-5 mg) by mouth every 4 hours as needed for breakthrough pain or moderate to severe pain (2.5 mg for moderate pain, 5 mg for severe pain) - Hepatic panel (Albumin, ALT, AST, Bili, Alk Phos, TP) Elevated liver enzymes Labs pending. - Hepatic panel (Albumin, ALT, AST, Bili, Alk Phos, TP); Future - Hepatic panel (Albumin, ALT, AST, Bili, Alk Phos, TP) Provided patient with work letter. Any further [place] paperwork will need to go through primary care provider as I am an acute same-day provider. Discussed this with the patient. Patient verbalized understanding. Constipation Constipation: Vitamin C- 2,000 mg daily until it is runny, then stop taking it. Smooth Move Tea Daily Magnesium (Natural Calm) 350 mg daily. Adult probiotic. If this does not help, consider over the counter miralax with PLENTY of water. Can also consider taking Senna over the counter 1-2 times daily until cleared out. MED REC REQUIRED Post Medication Reconciliation Status: discharge medications reconciled, continue medications without change BMI Estimated body mass index is 30.55 kg/m?? as calculated from the following: Height as of this encounter: 1.626 m (5' 4). Weight as of this encounter: 80.7 kg (178 lb). David Perez is a 38 year old, presenting for the following health issues: past medical history that is most notable for prior sleeve gastrectomy, family history of GB disease who presents with acute abdominal pain and nausea, and was found to have Choledocholithiasis and possible acute cholecystitis. Patient did undergo a gallbladder removal. Her liver enzymes were quiteelevated. Patient states she has been taking her oxycodone specifically at night to help her sleep.She does have a history of a gastric sleeve and therefore she is not able to take NSAIDs. Patient has not had a bowel movement since Thursday. Incisions have Steri-Strips on them. She does have some bloating in her abdomen area. Hospital F/U 09/23/2023 9:22 AM Additional Questions Roomed by Tyra Loredo CMA Via the [employer] Maintenance questionnaire, the patient has reported the following services have beencompleted -Cervical Cancer Screening: [facility] 2023-07-11, this information has been sent to the abstraction team. [facility] Hospital Follow-up Visit: Hospital/Prison/IP Rehab Facility: [facility] Date of Admission: 09/19/2023 Date of Discharge: 09/21/2023 Reason(s) for Admission: gall bladder removal Was the patient in the ICU or did the patient experience delirium during hospitalization? No Do you have any other stressors you would like to discuss with your provider? No Problems taking medications regularly: None Medication changes since discharge: None Problems adhering to non-medication therapy: None Summary of hospitalization: [facility] discharge summary reviewed Diagnostic Tests/Treatments reviewed. Follow up needed: none Other Healthcare Providers Involved in Patient???s Care: None Update since discharge: improved. Plan of care communicated with patient Review of Systems Constitutional, HEENT, cardiovascular, pulmonary, gi and gu systems are negative, except as otherwise noted. Objective BP 122/83 (BP Location: Left arm, Patient Position: Sitting, Cuff Size: Adult Large) Pulse 84 Temp 98.4 ??F (36.9 ??C) (Tympanic) Resp 18 Ht 1.626 m (5' 4) Wt 80.7 kg (178 lb) LMP (LMP Unknown) SpO2 99% No BMI 30.55 kg/m?? Body mass index is 30.55 kg/m??. Physical Exam GENERAL: alert and no distress NECK: no adenopathy, no asymmetry, masses, or scars RESP: lungs clear to auscultation - no rales, rhonchi or wheezes CV: regular rate and rhythm, normal S1 S2, no S3 or S4, no murmur, click or rub, no peripheral edema ABDOMEN: soft, nontender, no hepatosplenomegaly, no masses and bowel sounds normal MS: no gross musculoskeletal defects noted, no edema SKIN: surgical incisions on abdomen with steri strips in place. Signed Electronically by: Danette Alan APRN CNP documented in this encounter Plan of Treatment Not on file documented as of this encounter Procedures Procedure Name Priority Date/Time Associated Diagnosis Comments HEPATIC FUNCTION PANEL Routine 09/23/2023 9:59 AM CDT Hospital discharge follow-up Choledocholithiasis Elevated liver enzymes documented in this encounter Results * (ABNORMAL) Hepatic panel (Albumin, ALT, AST, Bili, Alk Phos, TP) (09/23/2023 9:59 AM CDT) Protein Total 6.9 6.4 - 8.3 g/dL [...] CDT 09/23/2023 9:59 AM CDT Danette Alan CONGRESSIONAL ASSISTANT PLAN NURSE LAB - BLOOD ORDERA BLES [facility]U LABORATORY [facility] [address] [place] [address] documented in this encounter Visit Diagnoses Diagnosis Hospital discharge follow-up- Primary Other follow-up examination Choledocholithiasis Calculus of bile duct without mention of cholecystitis or obstruction Elevated liver enzymes Nonspecific elevation of levels of transaminase or lactic acid dehydrogenase (LDH) Constipation, unspecified constipation type documented in this encounter Additional Health Concerns Assessment Noted Time PHQ-9 Depression Total Score: 27 021 7:02 AM CDT documented as of this encounter Care Teams Board Finisher Relationship Specialty [place] [address] [place] [address] PCP - General Family Practice 02/22/19 09/27/23 [place] [address] [place] [address] Assigned PCP 10/29/18 10/01/23 documented as of this encounter
--- OUTSIDE RECORDS SUMMARY | 2023-11-20 13:07 | XMS_ITS | Encounter Summary ---
Author Organization [place] Address [address] [place] [address] Care Team Providers Care Carry All Driver Name Role Phone Joanna Hernandez MD Unavailable [phone] Joanna Hernandez MD Primary Care Provider [phone] Danette Alan APRN PREDATORY ANIMAL EXTERMINATOR Primary Care Provider [phone] Danette Alan APRN PREDATORY ANIMAL EXTERMINATOR Unavailable Cleve Barger MD Unavailable Reason for Visit * Reason Onset Date Comments MyChart Communication 09/22/2023 Encounter Details Date Type Department Care Team (Late st Contact Info) Description 09/22/2023 MyC Medical Advice [facility] [id number] [place] [id number] [place] [address] [place] [address] MyChart Communication Social History Tobacco [...] documented as of this encounter Care Teams Carry All Driver Relationship Specialty [place] [address] [place] [address] PCP - General Family Practice 02/22/19 09/27/23 Danette Alan APRN PREDATORY ANIMAL EXTERMINATOR [address] [place] [address] PCP - General Family Medicine 09/28/23 [place] [address] [address] [place] [address] Assigned PCP 10/29/18 10/01/23 Danette Alan APRN PREDATORY ANIMAL EXTERMINATOR [address] [place] [address] Assigned PCP 10/02/23 Cleve Barger MD [address] [place] [address] Assigned Surgical Provider 11/02/23 documented as of this encounter
--- OUTSIDE RECORDS SUMMARY | 2023-11-20 13:07 | XMS_ITS | Encounter Summary ---
Author Organization [facility] Address [address] [place] [address] Care Team Providers Care Guest Relations Coordinator Name Role Phone Joanna Hernandez MD Unavailable [phone] Joanna Hernnadez MD Primary Care Provider [phone] Encounter Details Date Type Department Care Team (Late st Contact Info) Description 09/25/2023 MyC Medical Advice [facility] [address] [place] [address] Danette Alan APRN [facility] [address] [place], [place] [address] Social History Tobacco Use Types Packs/Day Years [...] encounter Miscellaneous Notes * Telephone Encounter - More Lee - 09/25/2023 2:52 PM CDT documented in this encounter Plan of Treatment Not on file documented as of this encounter Visit Diagnoses Not on filedocumented in this encounter Additional Health Concerns Assessment Noted Time PHQ-9 Depression Total Score: 27 021 7:02 AM CDT documented as of this encounter Care Teams Guest Relations Coordinator Relationship Specialty [place] [address] [place] [address] PCP - General Family Practice 02/22/19 09/27/23 [place] [address] [place] [address] Assigned PCP 10/29/18 10/01/23 documented as of this encounter
--- OUTSIDE RECORDS SUMMARY | 2023-11-20 13:07 | XMS_ITS | Encounter Summary ---
Author Organization [facility] Address [address] [place] [address] Care Team Providers Care Transportation Sales Consultant Name Role Phone Joanna Hernandez MD Unavailable Joanna Hernandez MD Primary Care Provider [phone] Reason for Visit * Auth/Cert (Routine) Specialty Diagnoses / Procedures Referred By Fabian t Referred To Contact Med Surg Diagnoses Gallstones Choledocholithiasis Sh Ortho Spine [address] [facility] [place] [address] Referral ID Status Reason Start Date Expiration Date Visits Re quested Visits Authorized [id number] 1 1 Encounter Details Date Type Department Care Team (Late st Contact Info) Description 09/21/2023 7:27 AM CDT Anesthesia Event [facility] [address] [place] [address] Arina Birmingham MD [facility] [address] [id number] Fco Anguiano, [facility] [address] [id number] Anesthesia Record Procedure Summary Procedure Name Responsible Anesthesiologist Anesthesia Start Time Anesthesia Stop Time Laparoscopic cholecystectomy (Abdomen) Arina Birmingham MD 09/21/23 0727 09/21/23 0913 Events Date Time Event Comment 09/21/2023 0643 0727 An Start Anesthesia Star t is defined as when the anesthesia provider assumed care, began anesthesia prep, remained continuously present with the patient, and excludes all time for performing the pre-anesthesia evaluation. The Pre-Anesthesia Evaluation was completed before Anesthesia Start. 0732 An Start Data 0732 AN REASSESS I attest that I have identified and re-evaluated the patient immediately before the induction of anesthesia and I am satisfied that the anesthetic plan is suitable for the patient's condition and procedure. The first vital signs recorded are pre- induction. Dinora Agee APRN CLINICAL PSYCHOLOGIST [facility] 0740 An Induction 0741 An Intubation 0743 Anesthesia Ready for Procedu re 0806 AN INCISION 0903 AN Extubation All extubation criteria met prior to removal. 0906 an stop data 0913 An Stop Electronically signed by Dinora Agee APRN CLINICAL PSYCHOLOGIST [facility] on September 21, 2023 9:13 AM Meds Name Total dexamethasone (DECADRON) 4 mg/mL 4 mg midazolam 1 mg/mL 2 mg fentaNYL 50 mcg/mL 200 mcg lidocaine 2% 100 mg propofol 10 mg/mL 150 mg propofol drip mcg/kg/min 866.18 mg rocuronium 10 mg/mL 70 mg glycopyrrolate 0.2 mg/mL 0.6 mg ondansetron 2 mg/mL 4 mg sugammadex (BRIDION) 200mg/2mL 200 mg ketorolac 30 mg/mL 30 mg lactated ringers infusion 1,000 mL * Agents Name O2 N2O Air Exp Sevoflurane Exp Isoflurane Exp Desflurane O2 Delivery Device Ins Sevoflurane Ins Isoflurane Ins Desflurane O2 Auxiliary * Blood No blood administrations on file. Lines, Drains, and Airways Type Details Placement Removal Incision/Surgical Site 02/15/19; 0936; Abdomen; PORT SITES X 5 02/15/19 0936 by Liz Hendrickson RN Incision/Surgical Site 09/21/23; 08; Abdomen; Port Site X 4 09/21/23 08 by Robert Jimenez RN Peripheral IV 09/20/23; 1729; 20 G ; B Green; Anterior, Right; Lower forearm; Chlorhexidine; 1; 1; Tolerated well 09/20/23 172 by Arina Bejarano RN 09/21/233 by Inpatient, Nurse ETT Placement Date: 09/21/23; Placement Time: 740 (created via procedure documentation); Mask Ventilation: 1; Induction Type: Intravenous; Ease of Intubation: Easy (Very narrow/arched palate); Technique: Video laryngoscopy; Tube Size: 7 mm; VL Blade Size: Perrin 4; Grade View: 1; Adjucts: Stylet; Placement Person: CLINICAL PSYCHOLOGIST [facility]; Attempts: 1 09/21/23 0741 by Dinora Agee APRN CLINICAL PSYCHOLOGIST [facility] 09/21/23 0906 by Dinora Agee APRN CRNA documented in this encounter Social History Tobacco Use Types Packs/Day Years [...] AM CDT documented as of this encounter OR Notes * Anesthesia Postprocedure Evaluation - Arina Birmingham MD - 09/21/2023 10:15 AM CDT Patient: Ana Lezama Procedure: Procedure(s): Laparoscopic cholecystectomy Anesthesia Type: General Note: Postop Pain Control: Uneventful Sign Out: Well controlled pain PONV: No Neuro/Psych: Uneventful Sign Out: Acceptable/Baseline neuro status Airway/Respiratory: Uneventful Sign Out: Acceptable/Baseline resp. status CV/Hemodynamics: Uneventful Sign Out: Acceptable CV status; No obvious hypovolemia; No obvious fluid overload Other NRE: DID A NON-ROUTINE EVENT OCCUR? No Last vitals: Vitals Value Taken Time BP 112/75 09/21/23 1000 Temp 36.3 ??C (97.3 ??F) 09/21/23 0908 Pulse 56 09/21/23 1014 Resp 16 09/21/23 1014 SpO2 100 % 09/21/23 1014 Vitals shown include unfiled device data. Electronically Signed By: Arina Birmingham MD, MD September 21, 2023 10:15 AM * Anesthesia Procedure Notes - Dinora Agee APRN CLINICAL PSYCHOLOGIST [facility] - 09/21/2023 7:57 AM CDTAssociated Order(s): Airway Airway Patient location during procedure: OR Procedure Start/Stop Times: 09/21/2023 7:41 AM Staff - Anesthesiologist: Arina Birmingham MD CL[facility]ICAL PSYCHOLOGIST [facility]: Dinora Agee APRN CRNA Performed By: CRNAIndications and Patient Condition Indications for airway management: semaus-procedural Induction type:intravenous Mask difficulty assessment: 1 - vent by mask Final Airway Details Final airway type: endotracheal airway Successful airway: ETT - single Endotracheal Airway Details ETT size (mm): 7.0 Cuffed: yes Successful intubation technique: video laryngoscopy VL Blade Size: Perrin 4 Grade View of Cords: 1 Adjucts: stylet Position: Right Measured from: lips Secured at (cm): 21 Bite block used: None Post intubation assessment Placement verified by: capnometry, equal breath sounds and chest rise Number of attempts at approach: 1 Number of other approaches attempted: 0 Secured with: tape Ease of procedure: easy (Very narrow/arched palate) Dentition: Intact and Unchanged Medication(s) Administered Medication Administration Time: 09/21/2023 7:41 AM * Anesthesia Preprocedure Evaluation - Arina Birmingham MD - 09/20/2023 6:26 AM CDT Anesthesia Pre-Procedure Evaluation Patient: Ana Lezama : 1985 Procedure : Procedure(s): CHOLECYSTECTOMY, LAPAROSCOPIC Past Medical History: Diagnosis Date Polycystic ovarian syndrome Thyroid disease Past Surgical History: Procedure Laterality Date ABDOMEN SURGERY 2011 COMBINED LAPAROSCOPIC GASTRIC SLEEVE, CHOLECYSTECTOMY N/A 02/15/2019 Procedure: LAPAROSCOPIC SLEEVE GASTRECTOMY; Surgeon: Dimitri Pop MD; Location: [facility] OR ENT SURGERY 1992 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, and 2 cesarians HERNIA REPAIR 01/2012 Allergies Allergen Reactions Asa [Aspirin] Other (See Comments) Gastric sleeve 02/15/2019 Nsaids Other (See Comments) Gastric sleeve 02/15/2019Gastric sleeve 02/15/2019 Pcn [Penicillins] Social History Tobacco Use Smoking status: Former Current packs/day: 0.00 Types: Cigarettes Start date: 07/10/2001 Quit date: 2013 Years since quittin.9 Smokeless tobacco: Never Tobacco comments: Smoke free since 2012, previously mild smoker 1-3 cigs a day Substance Use Topics Alcohol use: Yes Comment: 0-1 per month Wt Readings from Last 1 Encounters: 09/19/23 81.6 kg (180 lb) Anesthesia Evaluation Pt has had prior anesthetic. No history of anesthetic complications ROS/MED HX ENT/Pulmonary: (-) sleep apnea Neurologic: Cardiovascular: METS/Exercise Tolerance: Hematologic: Musculoskeletal: GI/Hepatic: Comment: Pt came to ED 09/17 with N/V and suspected choledocholithiasis/cholecystitis. S/p ERCP yesterday. Now for lap junito. History of lap sleeve gastrectomy 2019 (+) cholecystitis/cholelithiasis, (-) GERD Renal/Genitourinary: Comment: PCOS Endo: (+) thyroid problem, hypothyroidism, Obesity (BMI 31), Psychiatric/Substance Use: Infectious Disease: Malignancy: Other: Physical Exam Airway Mallampati: II TM distance: > 3 FB Neck ROM: full Mouth opening: > 3 cm Respiratory Devices and Support Dental no notable dental history (+) Minor Abnormalities - some fillings, tiny chips Cardiovascular cardiovascular exam normal Pulmonary pulmonary exam normal OUTSIDE LABS: CBC: Lab Results Component Value Date WBC 4.5 09/19/2023 WBC 5.2 01/30/2022 HGB 13.8 09/19/2023 HGB 14.5 01/30/2022 HCT 41.0 09/19/2023 HCT 42.9 01/30/2022 PLT 149 (L) 09/19/2023 PLT 178 01/30/2022 BMP: Lab Results Component Value Date NA 140 09/19/2023 NA 135 02/16/2019 POTASSIUM 3.9 09/19/2023 POTASSIUM 4.0 02/16/2019 CHLORIDE 106 09/19/2023 CHLORIDE 105 02/16/2019 CO2 24 09/19/2023 CO2 26 02/16/2019 BUN 10.1 09/19/2023 BUN 13 01/26/2019 CR 0.61 09/19/2023 CR 0.64 02/15/2019 GLC 91 09/19/2023 GLC 91 01/26/2019 COAGS: Lab Results Component Value Date INR 0.92 01/26/2019 POC: Lab Results Component Value Date BGM 89 02/16/2019 HEPATIC: Lab Results Component Value Date ALBUMIN 3.9 09/19/2023 PROTTOTAL 6.1 (L) 09/19/2023 ALT 2,181 (HH) 09/19/2023 AST 2,315 (HH) 09/19/2023 ALKPHOS 128 09/19/2023 BILITOTAL 2.6 (H) 09/19/2023 OTHER: Lab Results Component Value Date A1C 5.0 06/12/2020 DANIEL 8.9 09/19/2023 TSH 1.20 01/30/2022 T4 1.31 01/30/2022 T3 95 01/30/2022 Anesthesia Plan ASA Status: 2 NPO Status: NPO Appropriate Anesthesia Type: General. - Airway: ETT Induction: Intravenous. Maintenance: Balanced. Consents Anesthesia Plan(s) and associated risks, benefits, and realistic alternatives discussed. Questions answered and patient/in store representative(s) expressed understanding. - Discussed: - Discussed with: Patient - Extended Intubation/Ventilatory Support Discussed: No. - Patient is DNR/DNI Status: No Use of blood products discussed: Yes. - Discussed with: Patient. - Consented: consented to blood products Reason for refusal: other. Postoperative Care Pain management: IV analgesics, Oral pain medications, Multi-modal analgesia. PONV prophylaxis: Ondansetron (or other 5HT-3), Dexamethasone or Solumedrol, Background Propofol Infusion Comments: Fco Anguiano DO I have reviewed the pertinent notes and labs in the chart from the past 30 days and (re)examined the patient. Any updates or changes from those notes are reflected in this note. documented in this encounter Miscellaneous Notes * Anesthesia Care Transfer Note - Dinora Agee APRN CRNA - 09/21/2023 9:14 AM CDT Patient: Ana Lezama Procedure: Procedure(s): Laparoscopic cholecystectomy Diagnosis: Choledocholithiasis [K80.50] Diagnosis Additional Information: No value filed. Anesthesia Type: General Note: Oropharynx: oropharynx clear of all foreign objects and spontaneously breathing Level of Consciousness: awake Oxygen Supplementation: face mask Level of Supplemental Oxygen (L/min / FiO2): 10 Independent Airway: airway patency satisfactory and stable Dentition: dentition unchanged Vital Signs Stable: post-procedure vital signs reviewed and stable Report to RN Given: handoff report given Patient transferred to: PACU Comments: Pt awake and able to verbalize needs. ALL monitors on and audible. Spontaneous respiration without difficulty. Pt denies pain. Report given to JIRA ADMINISTRATOR. Handoff Report: Identifed the Patient, Identified the Reponsible Provider, Reviewed the pertinent medical history, Discussed the surgical course, Reviewed Intra-OP anesthesia mangement and issues during anesthesia, Set expectations for post-procedure period and Allowed opportunity for questions andacknowledgement of understanding Vitals: Vitals Value Taken Time BP 134/91 09/21/23 0908 Temp Pulse 81 09/21/23 0912 Resp 13 09/21/23 0912 SpO2 96 % 09/21/23 0912 Vitals shown include unfiled device data. Electronically Signed By: Dinora Agee APRN CRNA September 21, 2023 9:14 AM documented in this encounter Plan of Treatment Not on file documented as of this encounter Procedures Procedure Name Priority Date/Time Associated Diagnosis Comments ANE AIRWAY ETT PERFORMABLE Routine 09/21/2023 7:41 AM CDT documented in this encounter Results * ANE AIRWAY ETT PERFORMABLE (09/21/2023 7:41 AM CDT) Narrative Dinora Agee APRN CRNA - 09/21/2023 7:41 AM CDT Dinora Agee APRN CRNA ? 09/21/2023 ??7:57 AM Airway ? Patient location during procedure: OR ? Procedure Start/Stop Times: 09/21/2023 7:41 AM Staff - ? Anesthesiologist: ??Arina Birmingham MD ? CLINICAL PSYCHOLOGIST [facility]: Dinora Agee APRN CRNA ? Performed By: [...] Time: 09/21/2023 7:41 AM Arina Birmingham MD [place] ANESTHESIA documented in this encounter Visit Diagnoses Not on filedocumented in this encounter Administered Medications Inactive Administered Medications - up to 3 most recent administrations Medication Order MAR Action Action Date Dose Rate Site dexAMETHasone (DECADRON) injection Intravenous, PRN, Administer over 1 Minutes, Starting on Thu09/21/23 at 0727, Anesthesia Intra-op $Given 09/21/2023 7:44 AM CDT 4 mg fentaNYL (PF) (SUBLIMAZE) injection Intravenous, PRN, Administer over 3-5 Minutes, Starting on Thu09/21/23 at 0740, Anesthesia Intra-op $Given 09/21/2023 9:05 AM CDT 50 mcg $Given 09/21/2023 8:21 AM CDT 50 mcg $Given 09/21/2023 8:05 AM CDT 50 mcg glycopyrrolate (ROBINUL) injection Intravenous, PRN, Administer over 1-2 Minutes, Starting on Thu09/21/23 at 0735, Anesthesia Intra-op $Given 09/21/2023 8:09 AM CDT 0.2 mg $Given 09/21/2023 7:35 AM CDT 0.4 mg ketorolac (TORADOL) injection Intravenous, PRN, Administer over 2 Minutes, Starting on Thu09/21/23 at 0902, Anesthesia Intra-op $Given 09/21/2023 9:02 AM CDT 30 mg lactated ringers infusion at 10 mL/hr, Intravenous, CONTINUOUS, IF patient NOT on dialysis., Pre-procedure, Starting on Thu09/21/23 at 0630, Until Thu09/21/23 at 0907 $New Bag 09/21/2023 8:29 AM CDT $New Bag 09/21/2023 7:27 AM CDT lidocaine 2% injection (MDV) Intravenous, PRN, Starting on Thu09/21/23 at 0739, Anesthesia Intra-op $Given 09/21/2023 7:39 AM CDT 100 mg midazolam (VERSED) injection Intravenous, Administer over 2 Minutes, PRN, Starting on Thu09/21/23 at 0727, Anesthesia Intra-op $Given 09/21/2023 7:27 AM CDT 2 mg ondansetron (ZOFRAN) injection Intravenous, PRN, Administer over 2-5 Minutes, Starting on Thu09/21/23 at 0847, Anesthesia Intra-op $Given 09/21/2023 8:47 AM CDT 4 mg propofol (DIPRIVAN) infusion Intravenous, CONTINUOUS PRN, Starting on Thu09/21/23 at 0740, Anesthesia Intra-op Rate/Dose Change 09/21/2023 8:50 AM CDT 30 mcg/kg/min 14.688 mL/hr Rate/Dose Change 09/21/2023 8:45 AM CDT 125 mcg/kg/min 61. 2 mL/hr $New Bag 09/21/2023 7:40 AM CDT 150 mcg/kg/min 73.44 mL/ hr propofol (DIPRIVAN) injection 10 mg/mL vial Intravenous, PRN, Starting on Thu09/21/23 at 0740, Anesthesia Intra-op $Given 09/21/2023 7:40 AM CDT 150 mg rocuronium injection Intravenous, PRN, Starting on Thu09/21/23 at 0740, Anesthesia Intra-op $Given 09/21/2023 8:44 AM CDT 10 mg $Given 09/21/2023 8:05 AM CDT 10 mg $Given 09/21/2023 7:40 AM CDT 50 mg sugammadex (BRIDION) injection Intravenous, PRN, Starting on Thu09/21/23 at 0858, Anesthesia Intra-op $Given 09/21/2023 8:58 AM CDT 200 mg documented in this encounter Additional Health Concerns Assessment Noted Time PHQ-9 Depression Total Score: 27 021 7:02 AM CDT documented as of this encounter Care Teams Transportation Sales Consultant Relationship Specialty [place] [address] [place] [address] PCP - General Family Practice 02/22/19 09/27/23 [place] [address] [address] [facility] [address] Assigned PCP 10/29/18 10/01/23 documented as of this encounter
--- OUTSIDE RECORDS SUMMARY | 2023-11-20 13:07 | XMS_ITS | Encounter Summary ---
Author Organization [facility] Address [address] [place] [address] Care Team Providers Care Arabic Translator Name Role Phone Joanna Hernandez MD Unavailable [phone] Joanna Hernandez MD Primary Care Provider [phone] Reason for Visit * Auth/Cert (Routine) Specialty Diagnoses / Procedures Referred By Fabian t Referred To Contact Med Surg Diagnoses Gallstones Choledocholithiasis Sh Ortho Spine [address] [facility] [place] [id number] Referral ID Status Reason Start Date Expiration Date Visits Re quested Visits Authorized [id number] 1 1 Encounter Details Date Type Department Care Team (Late st Contact Info) Description 09/21/2023 7:30 AM CDT - 09/21/2023 9:45 AM CDT Surgery [facility] PeriOP Services [address] [place] [phone] Cleve Barger MD [address] [facility] [address] [place] [id number] Laparoscopic cholecystectomy Surgery Details Date/Time Status Location OR Service Patient Class Case Cl ass Case Type Trauma Case? 09/21/23 7:30 AM Posted SH OR OR M 16 General Inpatient Elective Panel 1 Procedure LRB Anes Op Region Wound Class Comments Laparoscopic cholecystectomy N/A General Abdomen I I-Clean Contaminated Surgeon Surgeon Role Service Panel Cleve Barger MD Primary General 1 Melinda Mahan PA-C Assisting Ux Manager Author fabi 1 documented in this encounter Social History Tobacco [...] Sign Reading Time Taken Comments Blood Pressure 122/78 09/21/2023 9:45 AM CDT Pulse 80 09/21/2023 9:45 AM CDT Temperature 36.3 ??C (97.3 ??F) 09/21/2023 9:08 AM CD T Respiratory Rate 20 09/21/2023 9:45 AM CDT Oxygen Saturation 99% 09/21/2023 9:45 AM CDT Inhaled Oxygen Concentration - - Weight 81.6 kg (180 lb) 09/19/2023 5:08 AM CDT Height 162.6 cm (5' 4) 09/19/2023 5:08 AM CDT Body Mass Index 30.9 09/19/2023 5:08 AM CDT documented in this encounter Discharge Summaries * Bryanna Urbano APRN CNP - 09/21/2023 1:27 PM CDT [facility] Hospitalist Discharge Summary Date of Admission: 09/19/2023 Date of Discharge: 09/21/2023 Discharging Provider: Bryanna Urbano APRN CNP Discharge Service: Hospitalist Service Discharge Diagnoses Suspected acute choledocholithiasis and possible acute cholecystitis s/p Lap Nancy, 09/21/23 Bradycardia, baseline Hypothyroid Clinically Significant Risk Factors # Obesity: Estimated body mass index is 30.9 kg/m?? as calculated from the following: Height as of this encounter: 1.626 m (5' 4). Weight as of this encounter: 81.6 kg (180 lb). Follow-ups Needed After Discharge Follow-up Appointments Follow-up and recommended labs and tests Dr. Barger's surgical office will contact you in approximately 2-3 weeks to check on your progress and answer any questions you may have. If you are doing well, you will not need to return for a follow up appointment. If any concerns are identified over the phone, we will help you make an appointment to see a provider. If you have not received a phone call, have any questions or concerns, or would like to be seen, please call us at [phone] and ask to speak with our nurse. We are located at [address] [place] [address]. Unresulted Labs Ordered in the Past 30 Days of this Admission Date and Time Order Name Status Description 09/21/2023 8:45 AM Surgical Pathology Exam In process These results will be followed up by [facility] Discharge Disposition Discharged to home Condition at discharge: Stable Hospital Course Ana Lezama is a 38 year old woman with past medical history that is most notable for prior sleeve gastrectomy, family history of GB disease who presents with acute abdominal pain and nausea, andis found to have suspected acute choledocholithiasis and possible acute cholecystitis. Suspected acute choledocholithiasis and possible acute cholecystitis s/p Marco A Cruz, 09/21/23: Of note, Ms. Lezama underwent successful combined laparoscopic gastric sleeve gastrectomy at [facility] by Dr. Pop, since which time she says she has lost over 100 pounds. She presents now for evaluation of acute abdominal pain and nausea. In the ED, whose records we arecurrently working dilligently to obtain, she is afebrile, without hypotension, tachycardia, or hypoxia. WBC is normal. CMP shows severe acute trans-aminitis with AST 1847, ALT 1325, Aphos 103, tbili 2.2, and dbili 1.1. Acetaminophen level is undetectable. Abdominal US reportedly shows a distended gallbladder and cholelithiasis with biliary sludge. The sonographic Donis's sign is positive. The wall is not thickened. The CBD is dilated to 11 mm. Patient underwent ERCP and this was discussed with Dr Sheth on 09/19/23. Underwent successful and uneventful lap nancy 09/20, has been on Empiric Meropenem (noting allergy to penicillins). 125 ml/hour NS IVF stopped post operatively. EBL 30cc Oxycodone PRN -- Post operative recheck LFTs are improved (Alk phos 165, ALT 1148, AST 314, total bili 0.8, direct 0.27) Bradycardia Patient has long standing history of sinu bradycardia. Last EKG from 2020 showed HR 57. She has been sinus emeli with stable blood pressures and asymptomatic. Her HR has been in the high 30's and low40s. Lower than when she was initially admitted. Discontinue dilaudid as this can cause bradycardia and likely exacerbating her low HR baseline. Appreciate cardiology consultation - no changes to management, signed off TSH is WNL, await FT4 Hypothyroid: Resume Synthroid Disposition: Home on 09/20 Consultations This Hospital Stay CARE MANAGEMENT / SOCIAL WORK IP CONSULT SURGERY GENERAL IP CONSULT GASTROENTEROLOGY IP CONSULT CARDIOLOGY IP CONSULT VASCULAR ACCESS ADULT IP CONSULT Code Status Full Code Time Spent on this Encounter I, Bryanna Urbano APRN CNP, personally saw the patient today and spent greater than 30 minutes discharging this patient. Bryanna Urbano APRN CNP [facility] [address] [facility] [phone] Physical Exam Vital Signs: Temp: 99.3 ??F (37.4 ??C) Temp src: Oral BP: 136/83 Pulse: 72 Resp: 24 SpO2: 94 % O2 Device: None (Room air) Oxygen Delivery: 2 LPM Weight: 180 lbs 0 oz Physical Exam Vitals and nursing note reviewed. HENT: Mouth/Throat: Mouth: Mucous membranes are dry. Cardiovascular: Rate and Rhythm: Regular rhythm. Bradycardia present. Pulmonary: Effort: Pulmonary effort is normal. Breath sounds: Normal breath sounds. Abdominal: General: Abdomen is flat. There is distension. Tenderness: There is abdominal tenderness. Skin: General: Skin is warm and dry. Capillary Refill: Capillary refill takes less than 2 seconds. Comments: Incision is covered, dressing CDI Neurological: General: No focal deficit present. Mental Status: She is alert. Mental status is at baseline. Psychiatric: Behavior: Behavior normal. Primary Care Physician Joanna Hernandez Discharge Orders Follow-up and recommended labs and tests Dr. Barger's surgical office will contact you in approximately 2-3 weeks to check on your progress and answer any questions you may have. If you are doing well, you will not need to return for a follow up appointment. If any concerns are identified over the phone, we will help you make an appointment to see a provider. If you have not received a phone call, have any questions or concerns, or would like to be seen, please call us at [phone] and ask to speak with our nurse. We are located at [address] [place] [address]. Activity Please see attached discharge instructions. Diet Please see attached discharge instructions. Significant Results and Procedures Results for orders placed or performed during the hospital encounter of 09/19/23 XR Surgery GEETA Fluoro Less Than 5 Min Narrative This exam was marked as non-reportable because it will not be read by a radiologist or a [facility] non-radiologist provider. Discharge Medications Current Discharge Medication List START taking these medications Details oxyCODONE (ROXICODONE) 5 MG tablet Take 0.5-1 tablets (2.5-5 mg) by mouth every 4 hours as needed for breakthrough pain or moderate to severe pain (2.5 mg for moderate pain, 5 mg for severe pain) Qty: 8 tablet, Refills: 0 Associated Diagnoses: Choledocholithiasis senna (SENOKOT) 8.6 MG tablet Take 1 tablet by mouth 2 times daily as needed for constipation (while taking oxycodone) Qty: 20 tablet, Refills: 0 Associated Diagnoses: Choledocholithiasis CONTINUE these medications which have NOT CHANGED Details Biotin 13472 MCG TBDP Take by mouth daily CALCIUM CITRATE PO Take 500 mg by mouth 3 times daily At mid-morning, lunch, and dinner. Cholecalciferol (VITAMIN D3 PO) Take 5,000 Units by mouth daily Gel cap. desvenlafaxine (PRISTIQ) 50 MG 24 hr tablet Take 50 mg by mouth daily estradiol (VIVELLE-DOT) 0.05 MG/24HR bi-weekly patch Place 1 patch onto the skin twice a week Thursday and Fridays levothyroxine (SYNTHROID/LEVOTHROID) 125 MCG tablet Take 125 mcg by mouth daily MAGNESIUM GLYCINATE PO Take 260 mg by mouth daily valACYclovir (VALTREX) 500 MG tablet Take 500 mg by mouth daily as needed vitamin (B COMPLEX-C) tablet Take 1 tablet by mouth daily Allergies Allergies Allergen Reactions Asa [Aspirin] Other (See Comments) Gastric sleeve 02/15/2019 Nsaids Other (See Comments) Gastric sleeve 02/15/2019Gastric sleeve 02/15/2019 Pcn [Penicillins] documented in this encounter Discharge Instructions * Discharge Instructions* Melinda Mahan PA-C - 09/20/2023 9:52 PM CDT [facility] Discharge Instructions: Post-Operative Cholecystectomy ACTIVITY Expect to feel tired after your surgery. This will gradually resolve. Take frequent, short walks and increase your activity gradually. Avoid strenuous physical activity or heavy lifting greater than 15-20 lbs. for 2-3 weeks. You may climb stairs. You may drive without restrictions when you are not using any prescription pain medication and feelcomfortable in a car. You may return to work/school when you are comfortable without any prescription pain medication. WOUND CARE You may remove your outer dressing or Band-Aids and shower 48 hours after the surgery. Pat your incisions dry and leave them open to air. Re-apply dressing (Band-Aids or gauze/tape) as needed for comfort or drainage. You may have steri-strips (looks like white tape) on your incision. You may peel off the steri-strips 2 weeks after your surgery if they have not peeled off on their own. If you have skin glue, it will peel up and fall off on its own. Do not soak your incisions in a tub or pool for 2 weeks. Do not apply any lotions, creams, or ointments to your incisions. A ridge under your incisions is normal and will gradually resolve. DIET Start with liquids, then gradually resume your regular diet as tolerated. Avoid heavy, spicy, and greasy meals for 2-3 days. Drink plenty of fluids to stay hydrated. It is not uncommon to experience some loose stools or diarrhea after surgery. This is your body's way of adapting to the bile which will slowly drain into your intestine. A low fat diet may help withthis. This should improve over 1-2 months. PAIN Expect some tenderness and discomfort at the incision sites. Use the prescribed pain medication at your discretion. Expect gradual resolution of your pain over several days. You may take acetaminophen/Tylenol instead of your prescribed pain medication. However, if you are taking [place] do not take any additional acetaminophen/Tylenol. Do not drink alcohol or drive while you are taking pain medications. You may apply ice to your incisions in 20 minute intervals as needed for the next 48 hours. After that time, consider switching to heat if you prefer. EXPECTATIONS Pain medications can cause constipation. Limit use when possible. Take an over the counter or prescribed stool softener/stimulant, such as Colace or Senna, 1-2 times a day with plenty of water. You may take a mild over the counter laxative, such as Miralax or a suppository, as needed. You may discontinue these medications once you are having regular bowel movements and/or are no longer taking your narcotic pain medication. You may have shoulder or upper back discomfort due to the gas used in surgery. This is temporary and should resolve in 48-72 hours. Short, frequent walks may help with this. If you are unable to urinate for 8 hours or feel as though you are not emptying your bladder adequately, we recommend you seek care at an ER or Urgent Care facility for possible catheter placement. FOLLOW UP Our office will contact you in approximately 2-3 weeks to check on your progress and answer any questions you may have. If you are doing well, you will not need to return for a follow up appointment.If any concerns are identified over the phone, we will help you make an appointment to see a provider. If you have not received a phone call, have any questions or concerns, or would like to be seen, please call us at [phone] and ask to speak with our nurse. We are located at [address] [place] [address] [place] [address]. CALL OUR OFFICE AT [phone] IF YOU HAVE: Chills or fever above 101??F. Increased redness, warmth, or drainage at your incisions. Significant bleeding. Pain not relieved by your pain medication or rest. Increasing pain after the first 48 hours. Any other concerns or questions. documented in this encounter Medications at Time of Discharge Medication Sig Dispensed Refills Start Date End Date Biotin 86971 MCG TBDP Take by mouth daily CALCIUM CITRATE PO Take 500 mg by mouth 3 times daily At mid-morning, lunch, and dinner. Cholecalciferol (VITAMIN D3 PO) Take 5,000 Units by mouth daily Gel cap. desvenlafaxine (PRISTIQ) 50 MG 24 hr tablet Take 50 mg by mouth daily 11/09/2021 estradiol (VIVELLE-DOT) 0.05 MG/24HR bi-weekly patch Place 1 patch onto the skin twice a week Thursday and Fridays levothyroxine (SYNTHROID/LEVOTHROID ) 125 MCG tablet Take 125 mcg by mouth daily MAGNESIUM GLYCINATE PO Take 260 mg by mouth daily senna (SENOKOT) 8.6 MG tabletIndications:Cho ledocholithiasis Take 1 tablet by mouth 2 times daily as needed for constipation (while taking oxycodone) 20 tablet 09/21/2023 valACYclovir (VALTREX) 500 MG tablet Take 500 mg by mouth daily as needed vitamin (B COMPLEX-C) tablet Take 1 tablet by mouth daily oxyCODONE (ROXICODONE) 5 MG tabletIndications:Cho ledocholithiasis Take 0.5-1 tablets (2.5-5 mg) by mouth every 4 hours as needed for breakthrough pain or moderate to severe pain (2.5 mg for moderate pain, 5 mg for severe pain) 8 tablet 09/21/2023 09/23/2023 documented as of this encounter Progress Notes * Melinda Mahan PA-C - 09/21/2023 9:16 AM CDT [facility] General Surgery Short Progress Note Ana Lezama underwent laparoscopic cholecystectomy without complications. Will admit back to the floor under hospitalist service. Okay to discharge home later today if LFTs improved and patient has recheck planned with GI team. From a surgical standpoint, patient needs to meet discharge criteria: pain is controlled with oral analgesia, tolerating diet, voiding well, and vital signs stable. Surgical discharge orders in place. Oxycodone and senokot sent to pharmacy. ADDENDUM Discussed with Bryanna Urbano NP with hospitalist team. Labs reviewed. Bilirubin now wnl and transaminases coming down. Patient feeling well and hopeful for discharge home. Recommend LFTs with GI as outpatient and will call patient in approximately 2 weeks for surgical follow up. No cholecystitis seen and patient does not antibiotic at discharge from our standpoint. Melinda Mahan PA-C * Logan العراقي, FARRAH - 09/20/2023 7:54 PM CDT A&Ox4. Independent in the room. Warm packs, and PRN oxy for breakthrough pain and prn zofran for nausea. Interventions helpful. Pt was overwhelmed (frustrated, tired, hungry) and wanted to leave earlier in the day when told that her surgery was delayed until tomorrow. Her mood dramatically improved after being allowed to eat and have coffee. Pt aware of plan for surgery tomorrow. NPO at midnight. Pt's spouse and children stopped in to visit. Abnormal labs ALT: 1,570, AST: 719, Platelet 131 * Purnima Torres DO - 09/20/2023 2:41 PM CDT [facility] GENERAL SURGERY Progress Note Admission Date: 09/19/2023 Assessment and Plan: Ana eLzama is a 38 year old female with PMHx sleeve gastrectomy, hypothyroidism who presented with choledocholithiasis. She underwent ERCP on 09/18 with sphincterotomy, stone removal, and stent placement. LFTs are downtrending today - OK for diet today. NPO at midnight for OR tomorrow - LFTs and lipase in AM Patient discussed with Dr. Cheng, staff surgeon. Purnima Torres, DO General Surgery, PGY-4 General Surgery and ACS Services Pager: [phone] Interval History: Pain controlled, was NPO, ambulating, doing ok overall. Meds reviewed. Physical Exam: Blood pressure 118/69, pulse (!) 38, temperature 98.7 ??F (37.1 ??C), temperature source Oral, resp. rate 18, height 1.626 m (5' 4), weight 81.6 kg (180 lb), SpO2 96%, not currently . Temperature Temp Av.3 ??F (36.8 ??C) Min: 97.5 ??F (36.4 ??C) Max: 99 ??F (37.2 ??C) I/O last 3 completed shifts: In: 1240 [P.O.:240; I.V.:1000] Out: - Constitutional: awake, no apparent distress Lungs: breathing comfortably on room air CV: RRR, extremities warm, well perfused Abdomen: soft, non-distended, tender in RUQ Extremities: moves all 4 extremities Data: Recent Labs Lab Test 09/20/23 1043 09/19/23 0837 01/30/22 1010 WBC 5.5 4.5 5.2 HGB 13.8 13.8 14.5 HCT 40.9 41.0 42.9 PLT 131* 149* 178 Recent Labs Lab Test 09/20/23 1043 09/19/23 0837 02/16/19 0823 02/15/19 1452 01/26/19 0923 NA 140 140 135 -- 138 POTASSIUM 4.4 3.9 4.0 -- 3.8 CHLORIDE 105 106 105 -- 108 CO2 26 -- 23 BUN 7.6 10.1 -- -- 13 CR 0.66 0.61 -- 0.64 0.69 Recent Labs Lab Test 09/20/23 1043 09/19/23 0837 10/27/18 1126 BILITOTAL 2.9* 2.6* 1.0 DBIL -- 1.54* -- ALT 1,570* 2,181* 44 AST 719* 2,315* 17 ALKPHOS 179* 128 60 LIPASE 41 -- -- Recent Labs Lab Test 01/26/19 0923 INR 0.92 Recent Labs Lab Test 09/20/23 1043 09/19/23 0837 01/26/19 0923 IERNE 9.1 8.9 8.9 MAG -- 2.0 -- Recent Labs Lab Test 09/20/23 1043 09/19/23 0837 02/16/19 0823 01/26/19 0923 10/27/18 1126 ANIONGAP 11 10 4 < > 6 ALBUMIN 4.0 3.9 -- -- 3.7 < > = values in this interval not displayed. Associated attestation - Heidy Cheng MD - 09/20/2023 4:40 PM CDT I have personally evaluated the patient and agree with Dr. Torres' s note below. I had planned on laparoscopic cholecystectomy today, however multiple surgical emergencies ended uprequiring her case be cancelled. I discussed this with the patient who was very understanding. Tolerating regular diet, but still complains of RUQ and back pain. Plan for laparoscopic cholecystectomytomorrow. Heidy Cheng MD [facility] Trauma/Emergency/Critical Care Surgery * Brian Sewell MD - 09/20/2023 1:12 PM CDT [facility] Hospitalist Progress Note Brian Sewell MD 09/20/2023 Assessment & Plan Ana Lezama is a 38 year old woman with past medical history that is most notable for prior sleeve gastrectomy, family history of GB disease who presents with acute abdominal pain and nausea, andis found to have suspected acute choledocholithiasis and possible acute cholecystitis. Suspected acute choledocholithiasis and possible acute cholecystitis: Of note, Ms. Lezama underwentsuccessful combined laparoscopic gastric sleeve gastrectomy at [facility] by Dr. Pop, since which time she says she has lost over 100 pounds. She presents now for evaluation of acute abdominal pain and nausea. In the ED, whose records we arecurrently working dilligently to obtain, she is afebrile, without hypotension, tachycardia, or hypoxia. WBC is normal. CMP shows severe acute trans-aminitis with AST 1847, ALT 1325, Aphos 103, tbili 2.2, and dbili 1.1. Acetaminophen level is undetectable. Abdominal US reportedly shows a distended gallbladder and cholelithiasis with biliary sludge. The sonographic Donis's sign is positive. The wall is not thickened. The CBD is dilated to 11 mm. Patient underwent ERCP and this was discussed with Dr Sheth on 09/19/23. NPO for lap cholecystectomy later today Empiric Meropenem ordered (noting allergy to penicillins). 125 ml/hour NS IVF ordered. Oxycodone, -- Repeat CBC and CMP show improved transaminases and stable bilirubin Bradycardia Patient has long standing history of sinu bradycardia. Last EKG from 2020 showed HR 57. She has been sinus emeli with stable blood pressures and asymptomatic. Her HR has been in the high 30's and low40s. Lower than when she was initially admitted. Discontinue dilaudid as this can cause bradycardia and likely exacerbating her low HR baseline. Appreciate cardiology consultation TSH is WNL, await FT4 Discontinue telemetry as this keeps going off. Hypothyroid: Resume Synthroid Disposition: Home on 09/20 Interval History -- chart reviewed -- HR monitor kept going off when below 40s -- surgery moved back to later today -- patient upset -- discussed with cardiology -Data reviewed today: I reviewed all new labs and imaging over the last 24 hours. I personally reviewed no images or EKG's today. Physical Exam , Blood pressure 118/69, pulse (!) 38, temperature 98.7 ??F (37.1 ??C), temperature source Oral, resp. rate 18, height 1.626 m (5' 4), weight 81.6 kg (180 lb), SpO2 96%, not currently . Vitals: 09/19/23 0508 Weight: 81.6 kg (180 lb) Vital Signs with Ranges Temp: [97.5 ??F (36.4 ??C)-99 ??F (37.2 ??C)] 98.7 ??F (37.1 ??C) Pulse: [38-67] 38 Resp: [14-25] 18 BP: (107-159)/(61-97) 118/69 SpO2: [93 %-100 %] 96 % I/O's Last 24 hours I/O last 3 completed shifts: In: 1240 [P.O.:240; I.V.:1000] Out: - Constitutional: Awake, alert, cooperative, no apparent distress Respiratory: Clear to auscultation bilaterally, no crackles or wheezing Cardiovascular: Regular rate and rhythm, normal S1 and S2 GI: Normal bowel sounds, soft, non-distended, non-tender Skin/Integumen: No rashes, no cyanosis, no edema Other: Medications All medications were reviewed. Current Facility-Administered Medications Medication Dose Route Frequency Provider Last Rate Last Admin sodium chloride 0.9 % infusion Intravenous Continuous Matti Muniz MD 125 mL/hr at 09/20/23 0027 New Bag at 09/20/23 0027 Current Facility-Administered Medications Medication Dose Route Frequency Provider Last Rate Last Admin meropenem (MERREM) 500 mg vial to attach to NS 100 mL bag for ADULTS or 25 mL bag for PEDS 500 mg Intravenous Q6H Brian Sewell MD 200 mL/hr at 09/20/23 0644 500 mg at 09/20/23 1200 sodium chloride (PF) 0.9% PF flush 3 mL 3 mL Intracatheter Q8H Matti Muniz MD 3 mL at 09/19/23 2224 Data Recent Labs Lab 09/20/23 1043 09/19/23 0837 WBC 5.5 4.5 HGB 13.8 13.8 MCV 94 94 PLT 131* 149* NA 140 140 POTASSIUM 4.4 3.9 CHLORIDE 105 106 CO2 24 BUN 7.6 10.1 CR 0.66 0.61 ANIONGAP 11 10 IRENE 9.1 8.9 GLC 80 91 ALBUMIN 4.0 3.9 PROTTOTAL 6.6 6.1* BILITOTAL 2.9* 2.6* ALKPHOS 179* 128 ALT 1,570* 2,181* AST 719* 2,315* LIPASE 41 -- No results found for this or any previous visit (from the past 24 hour(s)). Brian Sewell MD Text Page (7am to 6pm) documented in this encounter H&P Notes * Matti Muniz MD - 09/19/2023 5:02 AM CDT [facility] History and Physical Hospitalist Date of Admission: 09/19/2023 Date of Service (when I saw the patient): 09/19/23 ASSESSMENT Ana Lezama is a markedly pleasant 38 year old woman with past medical history that is most notable for prior sleeve gastrectomy, who presents with acute abdominal pain and nausea, and is found to have suspected acute choledocholithiasis and possible acute cholecystitis. PLAN Suspected acute choledocholithiasis and possible acute cholecystitis: Of note, Ms. Lezama underwentsuccessful combined laparoscopic gastric sleeve gastrectomy at [facility] by Dr. Pop, since which time she says she has lost over 100 pounds. She presents now for evaluation of acute abdominal pain and nausea. In the ED, whose records we arecurrently working dilligently to obtain, she is afebrile, without hypotension, tachycardia, or hypoxia. WBC is normal. CMP shows severe acute trans-aminitis with AST 1847, ALT 1325, Aphos 103, tbili 2.2, and dbili 1.1. Acetaminophen level is undetectable. Abdominal US reportedly shows a distended gallbladder and cholelithiasis with biliary sludge. The sonographic Donis's sign is positive. The wall is not thickened. The CBD is dilated to 11 mm. Overall, therefore, she is transferred here for further management of suspected acute choledocholithiasis and possible acute cholecystitis; noting that the pattern of hepatocellular injury could alternatively be consistent with toxic, viral or ischemic causes. -- Inpatient. NPO. Surgery and [facility] consulted. Empiric Meropenem ordered (noting allergy to penicillins). 125 ml/hour NS IVF ordered. Oxycodone, IV Dilaudid as needed for pain. Anti-emetics as needed. -- Repeat CBC and CMP in AM. SW consulted for disposition planning. Hypothyroid: Resume Synthroid when verified I have spent 80 minutes on the date of service doing chart review, history, examination, documentation, and further activities per the note. Chief Complaint Abdominal pain History is obtained from the patient and the ED physician whom I have spoken with History of Present Illness Ana Lezama is a markedly pleasant 38 year old woman who presents with sudden onset of abdominal pain, radiating diffusely through the abdomen and into her sides, beginning at 3 PM and constant and progressive, despite the use of prilosec and pepto bismol. She has associated nausea. The symptoms feel similar to a milder episode last month that resolved after she vomited. She has not vomited tonight yet however. She came to the [facility] for further evaluation. There she received IV narcotic and nsaid with partial relief of her symptoms. She otherwise denies any other acute complaints. In the ED, T 98.1, pulse 76, BP 121/72, sats 96% on room air CBC showed WBC 7.08, HGB 15.3, PLT 161. BMP showed Na 139, K 3.9, Cl 105, CO2 28, BUN 15, Cr 0.6, Glucose 130, Ca 9.6. Hepatic panel showed AST 1847, ALT 1325, Aphos 103, tbili 2.2, dbili 1.1, tprot 7.5, alb 4.8. CRP was negative, as were acetaminophen and salicylate levels. Abdominal US reportedly showed distended gallbladder and cholelithiasis with biliary sludge. The sonographic Donis's sign was positive. The wall was not thickened. The CBD was dilated to 11 mm. The case was discussed with a surgeon there and she has been transferred here. PHYSICAL EXAM Blood pressure 112/65, pulse 59, temperature 98.5 ??F (36.9 ??C), temperature source Oral, height 1.626 m (5' 4), weight 81.6 kg (180 lb), SpO2 98%, not currently . Constitutional: Alert and oriented to person, place and time; no apparent distress HEENT: normocephalic moist mucus membranes Respiratory: lungs clear to auscultation bilaterally Cardiovascular: regular S1 S2 GI: abdomen soft and diffusely tender, non distended bowel sounds positive Musculoskeletal: no clubbing, cyanosis or edema Neurologic: extra-ocular muscles intact; moves all four extremities Psychiatric: appropriate affect, insight and judgment DVT Prophylaxis: Pneumatic Compression Devices Code Status: Full Code Disposition: Expected discharge in 2-4 days Matti Muniz MD, MD Past Medical History I have reviewed this patient's medical history and updated it with pertinent information if needed. Past Medical History: Diagnosis Date Polycystic ovarian syndrome Thyroid disease Past Surgical History I have reviewed this patient's surgical history and updated it with pertinent information if needed. Past Surgical History: Procedure Laterality Date ABDOMEN SURGERY 2011 COMBINED LAPAROSCOPIC GASTRIC SLEEVE, CHOLECYSTECTOMY N/A 02/15/2019 Procedure: LAPAROSCOPIC SLEEVE GASTRECTOMY; Surgeon: Dimitri Pop MD; Location: [facility] ENT SURGERY 1992 [place] [employer] ANIMAL SURGERY hysterectomy, and 2 cesarians HERNIA REPAIR 01/2012 Prior to Admission Medications Prior to Admission Medications Prescriptions Last Dose Informant Patient Reported? Taking? Biotin 59949 MCG TBDP Self Yes No Sig: Take by mouth daily CALCIUM CITRATE PO Self Yes No Sig: Take 500 mg by mouth 3 times daily Chews at mid-morning, lunch, and dinner. Cholecalciferol (VITAMIN D3 PO) Self Yes No Sig: Take 5,000 Units by mouth daily Gel cap. LORazepam (ATIVAN) 0.5 MG tablet Yes No Sig: TAKE ONE TABLET BY MOUTH TWICE DAILY NEEDED FOR SEVERE ANXIETY MAGNESIUM GLYCINATE PO Yes No Sig: Take 260 mg by mouth 2 times daily MAGNESIUM GLYCINATE PO Yes No childrens multivitamin w/iron (FLINTSTONES COMPLETE) chewable tablet Yes No Sig: Take 2 chew tab by mouth At Bedtime desvenlafaxine (PRISTIQ) 50 MG 24 hr tablet Yes No Sig: Take 50 mg by mouth levothyroxine (SYNTHROID/LEVOTHROID) 112 MCG tablet No No Sig: Take 1 tablet (112 mcg) by mouth daily vitamin (B COMPLEX-C) tablet Yes No Sig: Take 1 tablet by mouth once a week Facility-Administered Medications: None Allergies Allergies Allergen Reactions Asa [Aspirin] Other (See Comments) Gastric sleeve 02/15/2019 Nsaids Other (See Comments) Gastric sleeve 02/15/2019Gastric sleeve 02/15/2019 Pcn [Penicillins] Social History I have reviewed this patient's social history and updated it with pertinent information if needed. Ana Lezama reports that she quit smoking about 10 years ago. Her smoking use included cigarettes. She started smoking about 22 years ago. She has never used smokeless tobacco. She reports currentalcohol use. She reports that she does not use drugs. Family History Family history assessed and, except as above, is non-contributory. Family History Problem Relation Age of Onset Substance Abuse Father Obesity Father Hypertension Father Hypertension Maternal Grandmother Cerebrovascular Disease Maternal Grandmother Diabetes Maternal Grandmother Type 2 Obesity Maternal Grandmother Colon Cancer Paternal Grandfather Prostate Cancer Paternal Grandfather Diabetes Paternal Grandfather Type 2 Obesity Paternal Grandfather Obesity Mother Diabetes Mother Type 2 Breast Cancer Mother Obesity Brother Thyroid Disease Other Obesity Other Obesity Brother Review of Systems The 10 point Review of Systems is negative other than noted in the HPI or here. Primary Care Physician Joanna Hernandez Data Labs Ordered and Resulted from Time of ED Arrival to Time of ED Departure COMPREHENSIVE METABOLIC PANEL Data reviewed today: I personally reviewed no images or EKG's today. documented in this encounter Consult Notes * Brian Martinez RN - 09/21/2023 2:08 PM CDTAssociated Order(s): CARE MANAGEMENT / SOCIAL WORK IP CONSULT Care Management Initial Consult General Information Assessment completed with: Patient, Type of CM/SW Visit: Offer D/C Planning Primary Care Provider verified and updated as needed: Yes Readmission within the last 30 days: no previous admission in last 30 days Reason for Consult: discharge planning Advance Care Planning: Communication Assessment Patient's communication style: spoken language (Maldivian or Bilingual) Hearing Difficulty or Deaf: no Wear Glasses or Blind: yes Cognitive Cognitive/Neuro/Behavioral: WDL Living Environment: People in home: child(mariza), dependent, spouse Current living Arrangements: house Able to return to prior arrangements: yes Family/Social Support: Care provided by: self Provides care for: child(mariza) Marital Status: Description of Support System: Supportive, Involved Current Resources: Patient receiving home care services: No Community Resources: None Equipment currently used at home: none Supplies currently used at home: None Employment/Financial: Employment Status: employed part-time Financial Concerns: none Does the patient's insurance plan have a 3 day qualifying hospital stay waiver? No Lifestyle & Psychosocial Needs: Social Determinants of Health Food Insecurity: Not on file Depression: Not at risk (01/30/2022) PHQ-2 PHQ-2 Score: 1 Housing Stability: Not on file Tobacco Use: Medium Risk (09/21/2023) Patient History Smoking Tobacco Use: Former Smokeless Tobacco Use: Never Passive Exposure: Not on file Financial Resource Strain: Not on file Alcohol Use: Not on file Transportation Needs: Not on file Physical Activity: Not on file Interpersonal Safety: Not on file Stress: Not on file Social Connections: Unknown (10/01/2022) [facility] from [facility] Social Connections Frequency of Communication with Friends and Family: Not on file Health Literacy: Not on file Functional Status: Prior to admission patient needed assistance: Dependent ADLs:: Independent Dependent IADLs:: Independent Mental Health Status: Mental Health Status: No Current Concerns Chemical Dependency Status: Values/Beliefs: Spiritual, Cultural Beliefs, [employer] Practices, Values that affect care: no Additional Information: Legal Instruments Examiner consulted prematurely from provider in ED for discharge planning. Patient is s/p laparoscopic cholecystectomy from today and lives in a house with her , dependent children and pets. Patient states she's feeling much better today postop and anxious to return home. PCP verified. Spouse will provide transportation to home. No discharge needs seen at this time and patient states she hasall she needs from a discharge point of view. Patient now has discharge orders placed and will likely discharge this afternoon. CM team signing off. Brian Martinez RN [facility] Inpatient Care Management - FLOAT CM jointer machine operator: [phone] daily 7:30-4:00 * aPulo Naranjo MD - 09/20/2023 10:17 AM CDTAssociated Order(s): CARDIOLOGY IP CONSULT [facility] Cardiology Consultation Ana Lezama Date of : 1985 Age: [age] year old Date of Admission: 09/19/2023 Consult Indication: bradycardia Assessment & Plan # Sinus bradycardia, asymptomatic, has resting sinus bradycardia at baseline, ddx includes vagally mediated reflex bradycardia from biliary pain, also possible contribution from hydromorphone. Not onAV debo blocking agents. Will add on TSH/free T4. No significant pauses or evidence of high-grade AV block on telemetry. No cardiac contraindication to proceeding with surgery, though recommend close hemodynamic monitoring particularly in the setting of anesthesia which may exacerbate bradycardia.Cardiology will sign off. Please do not hesitate to page with any questions or concerns. Paulo Naranjo MD, [facility] Cardiology September 20, 2023 Voice recognition software utilized. Moderate complexity History of Present Illness Patient is a 38-year-old female with a past medical history significant for gastric bypass surgery who presented with nausea, vomiting, abdominal pain, found to have symptomatic choledocholithiasis. Patient had been experiencing abdominal pain, as well as nausea, vomiting. Patient was found to have markedly abnormal liver enzymes. Patient underwent ERCP yesterday which demonstrated choledocholithiasis, complete removal was accomplished by biliary sphincterotomy and balloon extraction. A temporary stent was placed in the common bile duct. Plan is for cholecystectomy. Patient was noted to be bradycardic and so cardiology was consulted for preoperative assessment. Reviewed ECG 09/19/2023 demonstrating sinus bradycardia at 37 bpm. No evidence of high-grade AV block. ECG from 06/2020 demonstrated sinus bradycardia at 57 bpm. Prior cardiac evaluation notable for a TTE through outside hospital10/27/2022 that demonstrated normal biventricular function, no significant valvular abnormalities. Patient was also assessed with an exercise stress test through outside hospital 10/27/2022, notably patient was found to have sinus bradycardia during the study. Patient denies any recent issues with dizziness/lightheadedness. She used to wear an Apple Watch and notes that it would alert her of a heart rate below 40 bpm from time to time, she was asymptomatic during these episodes. Past Medical History Past Medical History: Diagnosis Date Polycystic ovarian syndrome Thyroid disease Past Surgical History Past Surgical History: Procedure Laterality Date ABDOMEN SURGERY 2011 COMBINED LAPAROSCOPIC GASTRIC SLEEVE, CHOLECYSTECTOMY N/A 02/15/2019 Procedure: LAPAROSCOPIC SLEEVE GASTRECTOMY; Surgeon: Dimitri Pop MD; Location: [facility] ENT SURGERY 1992 [place] [employer] ANIMAL SURGERY hysterectomy, and 2 cesarians HERNIA REPAIR 01/2012 Prior to Admission Medications Prior to Admission Medications Prescriptions Last Dose Informant Patient Reported? Taking? Biotin 96946 MCG TBDP Past Month Self Yes Yes Sig: Take by mouth daily CALCIUM CITRATE PO Unknown Self Yes Yes Sig: Take 500 mg by mouth 3 times daily At mid-morning, lunch, and dinner. Cholecalciferol (VITAMIN D3 PO) Unknown Self Yes Yes Sig: Take 5,000 Units by mouth daily Gel cap. MAGNESIUM GLYCINATE PO Unknown Yes Yes Sig: Take 260 mg by mouth daily desvenlafaxine (PRISTIQ) 50 MG 24 hr tablet Past Week Yes Yes Sig: Take 50 mg by mouth daily estradiol (VIVELLE-DOT) 0.05 MG/24HR bi-weekly patch 09/14/2023 at removed 09/17 Yes Yes Sig: Place 1 patch onto the skin twice a week Thursday and Fridays levothyroxine (SYNTHROID/LEVOTHROID) 125 MCG tablet 09/18/2023 Yes Yes Sig: Take 125 mcg by mouth daily valACYclovir (VALTREX) 500 MG tablet at PRN Yes Yes Sig: Take 500 mg by mouth daily as needed vitamin (B COMPLEX-C) tablet Unknown Yes Yes Sig: Take 1 tablet by mouth daily Facility-Administered Medications: None Current Facility-Administered Medications Medication Dose Route Frequency Provider Last Rate Last Admin benzocaine-menthol (CHLORASEPTIC) 6-10 MG lozenge 1 lozenge 1 lozenge Buccal Q1H PRN Matti Muniz MD calcium carbonate (TUMS) chewable tablet 1,000 mg 1,000 mg Oral 4x Daily PRN Matti Muniz MD guaiFENesin-dextromethorphan (ROBITUSSIN DM) 100-10 MG/5ML syrup 10 mL 10 mL Oral Q4H PRMatti Biggs MD HYDROmorphone (DILAUDID) injection 0.2 mg 0.2 mg Intravenous Q2H PRN Matti Muniz MD 0.2 mg at 09/20/23 0636 HYDROmorphone (DILAUDID) injection 0.4 mg 0.4 mg Intravenous Q2H PRN Matti Muniz MD lidocaine (LMX4) cream Topical Q1H PRN Matti Muniz MD lidocaine 1 % 0.1-1 mL 0.1-1 mL Other Q1H PRN Matti Muniz MD LORazepam (ATIVAN) injection 0.5-1 mg 0.5-1 mg Intravenous Q4H PRN Brian Sewell MD melatonin tablet 5 mg 5 mg Oral At Bedtime PRN Matti Muniz MD meropenem (MERREM) 500 mg vial to attach to NS 100 mL bag for ADULTS or 25 mL bag for PEDS 500 mg Intravenous Q6H Brian Sewell MD 200 mL/hr at 09/20/23 0644 500 mg at 09/20/23 0644 naloxone (NARCAN) injection 0.2 mg 0.2 mg Intravenous Q2 Min PRMatti Biggs MD Or naloxone (NARCAN) injection 0.4 mg 0.4 mg Intravenous Q2 Min PRN Matti Muniz MD Or naloxone (NARCAN) injection 0.2 mg 0.2 mg Intramuscular Q2 Min PRN Matti Muniz MD Or naloxone (NARCAN) injection 0.4 mg 0.4 mg Intramuscular Q2 Min PRMatti Biggs MD ondansetron (ZOFRAN ODT) ODT tab 4 mg 4 mg Oral Q6H PRMatti Biggs MD Or ondansetron (ZOFRAN) injection 4 mg 4 mg Intravenous Q6H PRN Matti Muniz MD 4 mg at 09/20/23 0635 oxyCODONE (ROXICODONE) tablet 10 mg 10 mg Oral Q4H PRMatti Biggs MD oxyCODONE (ROXICODONE) tablet 5 mg 5 mg Oral Q4H PRMatti Biggs MD senna-docusate (SENOKOT-S/PERICOLACE) 8.6-50 MG per tablet 1 tablet 1 tablet Oral BID PRMatti Biggs MD Or senna-docusate (SENOKOT-S/PERICOLACE) 8.6-50 MG per tablet 2 tablet 2 tablet Oral BID PRN Matti Muniz MD sodium chloride (PF) 0.9% PF flush 3 mL 3 mL Intracatheter Q8H Matti Muniz MD 3 mL at 09/19/23 2224 sodium chloride (PF) 0.9% PF flush 3 mL 3 mL Intracatheter q1 min prMatti Biggs MD sodium chloride 0.9 % infusion Intravenous Continuous Matti Muniz MD 125 mL/hr at 09/20/23 0027 New Bag at 09/20/23 0027 Current Facility-Administered Medications Medication Dose Route Frequency Provider Last Rate Last Admin benzocaine-menthol (CHLORASEPTIC) 6-10 MG lozenge 1 lozenge 1 lozenge Buccal Q1H PRMatti Biggs MD calcium carbonate (TUMS) chewable tablet 1,000 mg 1,000 mg Oral 4x Daily PRN Matti Muniz MD guaiFENesin-dextromethorphan (ROBITUSSIN DM) 100-10 MG/5ML syrup 10 mL 10 mL Oral Q4H PRN Matti Muniz MD HYDROmorphone (DILAUDID) injection 0.2 mg 0.2 mg Intravenous Q2H PRN Matti Muniz MD 0.2 mg at 09/20/23 0636 HYDROmorphone (DILAUDID) injection 0.4 mg 0.4 mg Intravenous Q2H PRN Matti Muniz MD lidocaine (LMX4) cream Topical Q1H PRN Matti Muniz MD lidocaine 1 % 0.1-1 mL 0.1-1 mL Other Q1H PRMatti Biggs MD LORazepam (ATIVAN) injection 0.5-1 mg 0.5-1 mg Intravenous Q4H PRN Brian Sewell MD melatonin tablet 5 mg 5 mg Oral At Bedtime PRN Matti Muniz MD meropenem (MERREM) 500 mg vial to attach to NS 100 mL bag for ADULTS or 25 mL bag for PEDS 500 mg Intravenous Q6H Brian Sewell MD 200 mL/hr at 09/20/23 0644 500 mg at 09/20/23 0644 naloxone (NARCAN) injection 0.2 mg 0.2 mg Intravenous Q2 Min PRMatti Biggs MD Or naloxone (NARCAN) injection 0.4 mg 0.4 mg Intravenous Q2 Min PRMatti Biggs MD Or naloxone (NARCAN) injection 0.2 mg 0.2 mg Intramuscular Q2 Min PRN Matti Muniz MD Or naloxone (NARCAN) injection 0.4 mg 0.4 mg Intramuscular Q2 Min PRMatti Biggs MD ondansetron (ZOFRAN ODT) ODT tab 4 mg 4 mg Oral Q6H PRN Matti Muniz MD Or ondansetron (ZOFRAN) injection 4 mg 4 mg Intravenous Q6H PRMatti Biggs MD 4 mg at 09/20/23 0635 oxyCODONE (ROXICODONE) tablet 10 mg 10 mg Oral Q4H Matti Graham MD oxyCODONE (ROXICODONE) tablet 5 mg 5 mg Oral Q4H PRMatti Biggs MD senna-docusate (SENOKOT-S/PERICOLACE) 8.6-50 MG per tablet 1 tablet 1 tablet Oral BID PRMatti Biggs MD Or senna-docusate (SENOKOT-S/PERICOLACE) 8.6-50 MG per tablet 2 tablet 2 tablet Oral BID PRMatti Biggs MD sodium chloride (PF) 0.9% PF flush 3 mL 3 mL Intracatheter Q8H Matti Muniz MD 3 mL at 09/19/23 2224 sodium chloride (PF) 0.9% PF flush 3 mL 3 mL Intracatheter q1 min prn Matti Muniz MD sodium chloride 0.9 % infusion Intravenous Continuous Matti Muniz MD 125 mL/hr at 09/20/23 0027 New Bag at 09/20/23 0027 Allergies Allergies Allergen Reactions Asa [Aspirin] Other (See Comments) Gastric sleeve 02/15/2019 Nsaids Other (See Comments) Gastric sleeve 02/15/2019Gastric sleeve 02/15/2019 Pcn [Penicillins] Social History reports that she quit smoking about 10 years ago. Her smoking use included cigarettes. She started smoking about 22 years ago. She has never used smokeless tobacco. She reports current alcohol use. She reports that she does not use drugs. Family History I have reviewed this patient's family history and updated it with pertinent information if needed. Family History Problem Relation Age of Onset Substance Abuse Father Obesity Father Hypertension Father Hypertension Maternal Grandmother Cerebrovascular Disease Maternal Grandmother Diabetes Maternal Grandmother Type 2 Obesity Maternal Grandmother Colon Cancer Paternal Grandfather Prostate Cancer Paternal Grandfather Diabetes Paternal Grandfather Type 2 Obesity Paternal Grandfather Obesity Mother Diabetes Mother Type 2 Breast Cancer Mother Obesity Brother Thyroid Disease Other Obesity Other Obesity Brother Review of Systems A comprehensive review of system was performed and is negative other than that noted in the HPI or here. Physical Exam Vital Signs with Ranges Temp: [96.8 ??F (36 ??C)-99 ??F (37.2 ??C)] 98.7 ??F (37.1 ??C) Pulse: [38-70] 38 Resp: [14-25] 18 BP: (107-159)/(61-97) 118/69 SpO2: [93 %-100 %] 96 % Wt Readings from Last 4 Encounters: 09/19/23 81.6 kg (180 lb) 05/29/21 69.4 kg (153 lb) 05/29/21 69.4 kg (153 lb) 06/12/20 70.3 kg (155 lb) I/O last 3 completed shifts: In: 1240 [P.O.:240; I.V.:1000] Out: - Vital signs were personally reviewed: Temperatures: Current - Temp: 98.7 ??F (37.1 ??C); Max - Temp Av ??F (36.7 ??C) Min: 96.8 ??F (36 ??C) Max: 99 ??F (37.2 ??C) Respiration range: Resp Av.1 Min: 14 Max: 25 Pulse range: Pulse Av.7 Min: 38 Max: 70 Blood pressure range: Systolic (24hrs), Av , Min:107 , Max:159 ; Diastolic (24hrs), Av, Min:61, Max:97 Pulse oximetry range: SpO2 Av.1 % Min: 93 % Max: 100 % Intake/Output Summary (Last 24 hours) at 09/20/2023 1017 Last data filed at 09/19/2023 1842 Gross per 24 hour Intake 1240 ml Output -- Net 1240 ml 180 lbs 0 oz Body mass index is 30.9 kg/m??. Body surface area is 1.92 meters squared. Physical Exam: General/Constitutional: appears stated age, tearful, appears to be well nourished Respiratory: clear to auscultation bilaterally, no wheezes, no rales, no increased work of breathing Cardiovascular: JVP normal, bradycardic, regular rhythm, normal S1 and S2, no S3, S4, no murmur appreciated, no lower extremity edema Laboratory tests personally reviewed: CMP Recent Labs Lab 09/19/23 0837 NA 140 POTASSIUM 3.9 CHLORIDE 106 CO2 24 ANIONGAP 10 GLC 91 BUN 10.1 CR 0.61 GFRESTIMATED >90 IRENE 8.9 PROTTOTAL 6.1* ALBUMIN 3.9 BILITOTAL 2.6* ALKPHOS 128 AST 2,315* ALT 2,181* CBC Recent Labs Lab 09/19/23 0837 WBC 4.5 RBC 4.36 HGB 13.8 HCT 41.0 MCV 94 MCH 31.7 MCHC 33.7 RDW 11.9 PLT 149* INRNo lab results found in last 7 days. No results found for: TROPI, TROPONIN, TROPR, TROPN Recent Labs Lab Test 06/12/20 1654 11/18/18 1345 CHOL 132 115 HDL 51 31* LDL 69 42 TRIG 58 209* Lab Results Component Value Date A1C 5.0 06/12/2020 A1C 4.8 04/21/2019 A1C 5.2 10/27/2018 TSH Date Value Ref Range Status 01/30/2022 1.20 0.30 - 4.20 uIU/mL Final 01/09/2021 0.81 0.40 - 4.00 mU/L Final 06/12/2020 1.02 0.40 - 4.00 mU/L Final Clinically Significant Risk Factors Present on Admission # Obesity: Estimated body mass index is 30.9 kg/m?? as calculated from the following: Height as of this encounter: 1.626 m (5' 4). Weight as of this encounter: 81.6 kg (180 lb). Cardiovascular: Cardiac Arrhythmia: Bradycardia, unspecified * Heidy Cheng MD - 09/19/2023 2:45 PM CDTAssociated Order(s): SURGERY GENERAL IP CONSULT [facility] Consult Note - General Surgery Service Date of Admission: 09/19/2023 Consult Requested by: Hospitalist Reason for Consult: choledocholithiasis Assessment & Plan: Surgery Ana Lezama is a 38 year old female admitted on 09/19/2023. Medical imaging from outside hospital is unable to be pushed through according to medical records and radiology. Will repeat US of RUQ to assess anatomy and gallbladder. Patient taken to GI suite for ERCP today. Will plan for laparoscopic cholecystctomy on 09/19/2023. Drains: None Code Status: Full Code Clinically Significant Risk Factors Present on Admission # Obesity: Estimated body mass index is 30.9 kg/m?? as calculated from the following: Height as of this encounter: 1.626 m (5' 4). Weight as of this encounter: 81.6 kg (180 lb). Heidy Cheng MD [facility] Non-urgent messages: Securely message with [employer] (Jarvam info) Text page via [facility] Paging/Directory Chief Complaint Abdominal pain History is obtained from the patient and medical records History of Present Illness Ana Lezama is a 38 year old female who has a history of a sleeve gastrectomy in 2019. She presents with abdominal pain nausea and vomiting at an outside hospital. LFTs were also elevated with direct bilirubin at 2.2 . US records at outside hospital shows distended gallbladder, cholelithiasis, and biliary sludge. Past Medical History Past Medical History: Diagnosis Date Polycystic ovarian syndrome Thyroid disease Past Surgical History Past Surgical History: Procedure Laterality Date ABDOMEN SURGERY 2011 COMBINED LAPAROSCOPIC GASTRIC SLEEVE, CHOLECYSTECTOMY N/A 02/15/2019 Procedure: LAPAROSCOPIC SLEEVE GASTRECTOMY; Surgeon: Dimitri Pop MD; Location: [facility] ENT SURGERY 1992 [place] [employer] ANIMAL SURGERY hysterectomy, and 2 cesarians HERNIA REPAIR 01/2012 Prior to Admission Medications Medications Prior to Admission Medication Sig Dispense Refill Last Dose Biotin 54357 MCG TBDP Take by mouth daily Past Month CALCIUM CITRATE PO Take 500 mg by mouth 3 times daily At mid-morning, lunch, and dinner. Unknown Cholecalciferol (VITAMIN D3 PO) Take 5,000 Units by mouth daily Gel cap. Unknown desvenlafaxine (PRISTIQ) 50 MG 24 hr tablet Take 50 mg by mouth daily Past Week estradiol (VIVELLE-DOT) 0.05 MG/24HR bi-weekly patch Place 1 patch onto the skin twice a week Thursday and Fridays09/14/2023 at removed 09/17 levothyroxine (SYNTHROID/LEVOTHROID) 125 MCG tablet Take 125 mcg by mouth daily 09/18/2023 MAGNESIUM GLYCINATE PO Take 260 mg by mouth daily Unknown valACYclovir (VALTREX) 500 MG tablet Take 500 mg by mouth daily as needed at PRN vitamin (B COMPLEX-C) tablet Take 1 tablet by mouth daily Unknown Social History I have reviewed this patient's social history and updated it with pertinent information if needed. Social History Tobacco Use Smoking status: Former Current packs/day: 0.00 Types: Cigarettes Start date: 07/10/2001 Quit date: 2012 Years since quittin.9 Smokeless tobacco: Never Tobacco comments: Smoke free since 2012, previously mild smoker 1-3 cigs a day Vaping Use Vaping status: Never Used Substance Use Topics Alcohol use: Yes Comment: 0-1 per month Drug use: Never Family History I have reviewed this patient's family history and updated it with pertinent information if needed. Family History Problem Relation Age of Onset Substance Abuse Father Obesity Father Hypertension Father Hypertension Maternal Grandmother Cerebrovascular Disease Maternal Grandmother Diabetes Maternal Grandmother Type 2 Obesity Maternal Grandmother Colon Cancer Paternal Grandfather Prostate Cancer Paternal Grandfather Diabetes Paternal Grandfather Type 2 Obesity Paternal Grandfather Obesity Mother Diabetes Mother Type 2 Breast Cancer Mother Obesity Brother Thyroid Disease Other Obesity Other Obesity Brother Allergies Allergies Allergen Reactions Asa [Aspirin] Other (See Comments) Gastric sleeve 02/15/2019 Nsaids Other (See Comments) Gastric sleeve 02/15/2019Gastric sleeve 02/15/2019 Pcn [Penicillins] Physical Exam Vital Signs: Temp: 97.6 ??F (36.4 ??C) Temp src: Temporal BP: 109/71 Pulse: 52 Resp: 17 SpO2: 96 % O2 Device: Nasal cannula Oxygen Delivery: 2 LPM Weight: 180 lbs 0 oz Intake/Output Summary (Last 24 hours) at 09/19/2023 1445 Last data filed at 09/19/2023 1310 Gross per 24 hour Intake 1000 ml Output -- Net 1000 ml Gen: NAD Neuro: AAO Abd: soft, nondistended, RUQ tenderness Medical Decision Making 15 MINUTES SPENT BY ME on the date of service doing chart review, history, exam, documentation & further activities per the note. Data I have personally reviewed the following data over the past 24 hrs: 4.5 \ 13.8 / 149 (L) 140 106 10.1 / 91 3.9 24 0.61 \ ALT: 2,181 (HH) AST: 2,315 (HH) AP: 128 TBILI: 2.6 (H) ALB: 3.9 TOT PROTEIN: 6.1 (L) LIPASE: N/A Imaging results reviewed over the past 24 hrs: Recent Results (from the past 24 hour(s)) XR Surgery GEETA Fluoro Less Than 5 Min Narrative This exam was marked as non-reportable because it will not be read by a radiologist or a [place] non-radiologist provider. * Tonio Keith PA - 09/19/2023 8:53 AM CDTAssociated Order(s): GASTROENTEROLOGY IP CONSULT [facility] Gastroenterology Consultation Ana Lezama [address] [facility] [id number] 38 year old female Admission Date/Time: 09/19/2023 Primary Care Provider: Joanna Hernandez Referring / Attending Physician: Dr. Muniz We were asked to see the patient in consultation by Dr. Muniz for evaluation of choledocholithiasis and cholecystitis. CC: Abdominal pain HPI: Ana Lezama is a pleasant 38 year old female who with past medical history that is most notable for prior sleeve gastrectomy, who presents with acute abdominal pain and nausea, and is found to have suspected acute choledocholithiasis and possible acute cholecystitis. Of note, Ms. Lezama und erwent successful combined laparoscopic gastric sleeve gastrectomy at [facility] by Dr. Pop. She presents now for evaluation of acute abdominal pain and nausea. In the ED, whose records we arecurrently working dilligently to obtain, she is afebrile, without hypotension, tachycardia, or hypoxia. *WBC is normal. CMP shows severe acute trans-aminitis with AST 1847, ALT 1325, Aphos 103, tbili 2.2, and dbili 1.1. Acetaminophen level is undetectable. *Abdominal US reportedly shows a distended gallbladder and cholelithiasis with biliary sludge. The sonographic Donis's sign is positive. The wall is not thickened. The CBD is dilated to 11 mm. Overall, therefore, she is transferred here for further management of suspected acute choledocholithiasis and possible acute cholecystitis. ROS: A comprehensive ten point review of systems was negative aside from those in mentioned in the HPI. PAST MED HX: I have reviewed this patient's medical history and updated it with pertinent information if needed. Past Medical History: Diagnosis Date Polycystic ovarian syndrome Thyroid disease MEDICATIONS: Prior to Admission Medications Prescriptions Last Dose Informant Patient Reported? Taking? Biotin 15127 MCG TBDP Self Yes No Sig: Take by mouth daily CALCIUM CITRATE PO Self Yes No Sig: Take 500 mg by mouth 3 times daily Chews at mid-morning, lunch, and dinner. Cholecalciferol (VITAMIN D3 PO) Self Yes No Sig: Take 5,000 Units by mouth daily Gel cap. LORazepam (ATIVAN) 0.5 MG tablet Yes No Sig: TAKE ONE TABLET BY MOUTH TWICE DAILY NEEDED FOR SEVERE ANXIETY MAGNESIUM GLYCINATE PO Yes No Sig: Take 260 mg by mouth 2 times daily MAGNESIUM GLYCINATE PO Yes No childrens multivitamin w/iron (FLINTSTONES COMPLETE) chewable tablet Yes No Sig: Take 2 chew tab by mouth At Bedtime desvenlafaxine (PRISTIQ) 50 MG 24 hr tablet Yes No Sig: Take 50 mg by mouth levothyroxine (SYNTHROID/LEVOTHROID) 112 MCG tablet No No Sig: Take 1 tablet (112 mcg) by mouth daily vitamin (B COMPLEX-C) tablet Yes No Sig: Take 1 tablet by mouth once a week Facility-Administered Medications: None ALLERGIES: Allergies Allergen Reactions Asa [Aspirin] Other (See Comments) Gastric sleeve 02/15/2019 Nsaids Other (See Comments) Gastric sleeve 02/15/2019Gastric sleeve 02/15/2019 Pcn [Penicillins] SOCIAL HISTORY: Social History Tobacco Use Smoking status: Former Current packs/day: 0.00 Types: Cigarettes Start date: 07/10/2001 Quit date: 2013 Years since quittin.9 Smokeless tobacco: Never Tobacco comments: Smoke free since 2013, previously mild smoker 1-3 cigs a day Vaping Use Vaping status: Never Used Substance Use Topics Alcohol use: Yes Comment: 0-1 per month Drug use: Never FAMILY HISTORY: Family History Problem Relation Age of Onset Substance Abuse Father Obesity Father Hypertension Father Hypertension Maternal Grandmother Cerebrovascular Disease Maternal Grandmother Diabetes Maternal Grandmother Type 2 Obesity Maternal Grandmother Colon Cancer Paternal Grandfather Prostate Cancer Paternal Grandfather Diabetes Paternal Grandfather Type 2 Obesity Paternal Grandfather Obesity Mother Diabetes Mother Type 2 Breast Cancer Mother Obesity Brother Thyroid Disease Other Obesity Other Obesity Brother PHYSICAL EXAM: Vital Signs with Ranges Temp: 97.8 ??F (36.6 ??C) Temp src: Oral BP: 107/55 Pulse: (!) 42 Resp: 16 SpO2: 97 % O2 Device: None (Room air) No intake/output data recorded. Constitutional: Alert, oriented to person, place, date, situation. Cooperative, lying in bed in NAD. Respiratory: Lungs CTAB. No crackles, wheezes, or rhonchi, no labored breathing. Cardiovascular: Heart RRR, no MRG, no edema. GI: Abdomen soft, TTP in epigastrium and RUQ Skin/Integumen: Warm, dry, non-diaphoretic. No jaundice. MSK: CMS x4 intact. ADDITIONAL COMMENTS: I reviewed the patient's new clinical lab test results. Recent Labs Lab Test 01/30/22 1010 04/24/21 1335 02/15/20 1354 02/15/19 1452 01/26/19 0923 WBC 5.2 7.8 4.8 < > 6.9 HGB 14.5 15.0 14.1 < > 15.1 MCV 95 93 93 < > 91 PLT 178 148* 179 < > 173 INR -- -- -- -- 0.92 < > = values in this interval not displayed. Recent Labs Lab Test 02/16/19 0823 01/26/19 0923 10/27/18 1126 POTASSIUM 4.0 3.8 3.7 CHLORIDE 105 108 106 CO2 26 23 24 BUN -- 13 8 ANIONGAP 4 7 6 Recent Labs Lab Test 10/27/18 1126 ALBUMIN 3.7 BILITOTAL 1.0 ALT 44 AST 17 I reviewed the patient's new imaging results. CONSULTATION ASSESSMENT AND PLAN: Ana Lezama is a markedly pleasant 38 year old woman with past medical history that is most notable for prior sleeve gastrectomy, who presents with acute abdominal pain and nausea, and is found to have suspected acute choledocholithiasis and possible acute cholecystitis. Suspected acute choledocholithiasis and possible acute cholecystitis: Of note, Ms. Lezama underwentsuccessful combined laparoscopic gastric sleeve gastrectomy at [facility] by Dr. Pop. She presents now for evaluation of acute abdominal pain and nausea. In the ED, whose records we arecurrently working dilligently to obtain, she is afebrile, without hypotension, tachycardia, or hypoxia. *WBC is normal. CMP shows severe acute trans-aminitis with AST 1847, ALT 1325, Aphos 103, tbili 2.2, and dbili 1.1. Acetaminophen level is undetectable. *Abdominal US reportedly shows a distended gallbladder and cholelithiasis with biliary sludge. The sonographic Donis's sign is positive. The wall is not thickened. The CBD is dilated to 11 mm. Overall, therefore, she is transferred here for further management of suspected acute choledocholithiasis and possible acute cholecystitis; noting that the pattern of hepatocellular injury could alternatively be consistent with toxic, viral or ischemic causes. --NPO. --Surgery consulted. --Empiric Meropenem ordered (noting allergy to penicillins). --IVF ordered. --Pain meds and . Anti-emetics as needed. --ERCP today. --possible cholecystectomy pending surgery input. LFTs quite elevated so will need to monitor. 09/19/23 08:37 Alkaline Phosphatase 128 ALT 2,181 (HH) AST 2,315 (HH) Bilirubin Direct 1.54 (H) Bilirubin Total 2.6 (H) [facility] Office: [phone] (Dr. Sheth) Associated attestation - Delmar Sheth MD - 09/27/2023 3:31 PM CDT History and physical exam was done independently.Patient's medical records imaging studies blood work and labs reviewed personally. On his physical exam patient is hemodynamically stable. Chest Normal breath sounds both sides. Cardiac exam unremarkable S1-S2 audible. Abdomen soft minimally distended good bowel sounds. Neurological exam nonfocal. Very pleasant 38-year-old female with history of gastric surgery with sleeve gastrectomy who is admitted with acute onset of severe abdominal pain with significantly elevated liver function test in the range of 2000 was admitted through ER due to severe pain patient is starting to feel better patient required pain medication IV fluids. During imaging evaluation patient was found to have gallstones and sludge along with dilated common bile duct up to 11 mm. Agree with the above-mentioned plan from my associate continue on IV antibiotics IV pain control supportive care plan to proceed with ERCP and sphincterotomy possible stent placement for choledocholithiasis. Risk-benefit plan discussed in detail. Thank you very much for letting us participate in his care. Delmar Sheth MD FACP [facility] documented in this encounter Nursing Notes * Mahi Mckeon RN - 09/21/2023 10:01 AM CDT Approved to transfer back to Ortho Spine floor per Dr. [place]. * Liseth Torres RN - 09/19/2023 2:37 PM CDT Glasses returned to pt * More Monsivais RN - 09/19/2023 2:27 PM CDT Cares turned over to Liseth Feliciano RN. Attempted to call report x 2. Nurse at break. * Liseth Torres RN - 09/19/2023 2:26 PM CDT Report received from More Chapa RN * More Monsivais RN - 09/19/2023 2:19 PM CDT Approved to transfer to floor by Dr. Neptali Beard. Glasses returned to patient's face in pacu. documented in this encounter Miscellaneous Notes * Plan of Care - Linda Menjivar RN - 09/21/2023 3:17 PM CDT Reason for Admission: choledocholithiasis; POD #0 laparoscopic cholecystectomy Cognitive/Mentation: A/Ox 4 Neuros/CMS: Intact VS: VSS on RA. Tele: n/a. /GI: Continent. Last BM 09/18/2023. Pulmonary: LS clear. Pain: 5/10 to abdomen managed by oxycodone. Drains/Lines: SL PIV Skin: 4 abdominal lap sites covered with bandaides Activity: Independent. Diet: regular Therapies recs: n/a Discharge: today Aggression Stoplight Tool: green End of shift summary: Arrived to floor around 1050. * Op Note - Cleve Barger MD - 09/21/2023 8:06 AM CDT General Surgery Operative Note PREOPERATIVE DIAGNOSIS: choledocholithasis POSTOPERATIVE DIAGNOSIS: choledocholithasis and cholecystitis PROCEDURE: Laparoscopic cholecystectomy SURGEON: Cleve Barger MD EXPRESS CLERK: Melinda Mahan PA-C The physician???s loan officer assistant was medically necessary for their expertise in camera management, suctioning and retraction. ANESTHESIA: General. BLOOD LOSS: 30 ml FINDINGS: Edema around the gallbladder consistent with cholecystitis INDICATIONS: Ms. Lezama presented with choledocholithasis. Patient is presenting for laparoscopic cholecystectomy. I explained the risks, benefits, complications including but not limited to bleeding, infection, possible need to open, possible postop hematoma, seroma, bowel, bladder or bile duct injury, [place], PE,and if any of these occurred the patient would require additional procedures. The patient agreed and did sign consent. DETAILS OF PROCEDURE: The patient was taken to the operating room and general anesthesia induced. They were positioned supine on the OR table with their left arm tucked at their side. An orogastric tube was placed. Perioperative antibiotics were administered. The abdomen was prepped and draped in standard fashion. A time out was performed. An incision was made above the umbilicus. Dissection was done down to the fascia. The fascia was doubly grasped with kochers elevated and incised in the midline. A figure of eight 0-vicryl suture wasplaced. A maegan trocar was placed into the peritoneal cavity. Insufflation was connected and flowed freely. Insufflation pressure was sent to 15mmhg. The abdomen was surveyed and no acute findings were seen. There was no injury from abdominal entrance noted. A total of three 5 mm trocars were placed, each having the skin and abdominal wall injected with marcaine. The gallbladder was retracted superiorly and laterally. The gallbladder wall was mildly thickened and edematous. Cautery was used totake down the medial and lateral peritoneal attachments in the infundibulum. I was able to delineate the cystic artery and cystic duct and got under the undersurface of the gallbladder to help further declinate the duct and artery. This dissection was taken up high to confirm the critical view on multiple views. The cystic duct was doubly clipped proximally and single clipped distally. The duct was completely transected with laparoscopic scissors. The artery was clipped proximally with two clips and distallywith one clip and transected. The gallbladder was taken off the liver bed with cautery. There was no bile spillage or significantbleeding. The gallbladder was then placed in an Endocatch bag and removed through the umbilical trocar site. The camera was reinserted which showed no bleeding or bile spillage. Copious irrigation were used until clear. The wound bed was inspected multiple times showing that it was completely dry and that the clips were in place. The 12mm port fascia was closed with the vicryl that was placed prior.. All gas was expelled and the trocars were taken out under direct visualization. Marcaine 0.5% were injected to all the wounds. The skin was closed with a 4-0 Monocryl in a subcuticular fashion. Steri-strips and sterile dressings were applied. The patient tolerated the procedure well. There wereno complications. They were awoken from anesthesia and transferred to PACU in stable condition. Allsponge, instrument and needle counts were correct. Cleve Barger MD Please route or send letter to: Primary Care Provider (PCP) and Referring Provider * Plan of Care - Betty Sharp RN - 09/21/2023 6:22 AM CDT Goal Outcome Evaluation: Summary: 09/20/23-09/21/23; [id number] Diagnosis: Choledocholithiasis POD: NA Orientation: A/O x4 Vitals/Tele: bradycardic (50s) on RA (baseline) IV Access/drains: R PIV infusing NS 125 ml/hr Diet: NPO since midnight Mobility: Independent Pain: 1 prn oral oxy and 1 prn IV morphine given for pain -08/18 GI/: Cont BB, no BM this shift Wound/Skin: WDL, CDI Consults: Surgery 7am Discharge Plan: pending postop recovery * Provider Notification - Logan العراقي RN - 09/20/2023 11:02 AM CDT * Plan of Care - Lashanda Moreland RN - 09/20/2023 7:08 AM CDT Goal Outcome Evaluation: DATE & TIME: 09/20/23, automobile service advisor Cognitive Concerns/ Orientation : A&o x 4. BEHAVIOR & AGGRESSION TOOL COLOR: Green CIWA SCORE: NA ABNL VS/O2: VSS except HR in 40s ( Hr drop down to 38 at times but quickly back to 40s). On RA MOBILITY: SBA PAIN MANAGMENT: PRN Dilaudid for RUQ abdominal pain, helpful. DIET: NPO BOWEL/BLADDER: Continent. ABNL LAB/BG: Am labs DRAIN/DEVICES: L PIV infusing NS @ 125ml/hr. Intermittent abx. TELEMETRY RHYTHM: SB SKIN: Intact TESTS/PROCEDURES: ERCP done on 09/19/23. Plan for lap nancy at noon today. D/C DATE: pending Discharge Barriers: pending. OTHER IMPORTANT INFO: GI and Surgery following. Gave PRN Zofran for nausea. * Plan of Care - Jac Jane RN - 09/20/2023 12:35 AM CDT Goal Outcome Evaluation: Shift Summary [id number] Admitting Diagnosis: Gallstones Choledocholithiasis Vitals Vital signs: Temp: 98.4 ??F (36.9 ??C) Temp src: Oral BP: 111/61 Pulse: (!) 40 Resp: 18 SpO2: 96 % O2 Device: None (Room air) Pain 07/19. Taking Dilaudid PRN. A&Ox4 Voiding Continent Mobility A1 Tele Bradycardia CMS Intact Lung Sounds Clear on All bases GI BS +4 Orders Placed This Encounter Clear Liquid Diet Plan: * Pharmacy-Admission Medication History - Ольга Maravilla - 09/19/2023 10:45 AM CDT Manager Of Development Admission Medication History Admission medication history is complete. The information provided in this note is only as accurateas the sources available at the time of the update. Information Source(s): Patient and CareEverywhere/SureScripts via in-person Pertinent Information: Pt reports not being adherent with desvenlafaxine and confirms taking 50mg strength, states that she is consistent with levothyroxine Changes made to GLOBAL COMMODITY MANAGER medication list: Added: valtrex prn, estradiol bi-weekly patch Deleted: no longer taking multivit/Fe, lorazepam Changed: desvenlafaxine 25mg ER --> 50mg ER Allergies reviewed with patient and updates made in EHR: yes Medication History Completed By: ОЛЬГА MARAVILLA 09/19/2023 10:45 AM GLOBAL COMMODITY MANAGER Med List Medication Sig Note Last Dose Biotin 81943 MCG TBDP Take by mouth daily Past Month CALCIUM CITRATE PO Take 500 mg by mouth 3 times daily At mid-morning, lunch, and dinner. Unknown Cholecalciferol (VITAMIN D3 PO) Take 5,000 Units by mouth daily Gel cap. Unknown desvenlafaxine (PRISTIQ) 50 MG 24 hr tablet Take 50 mg by mouth daily 09/19/2023: Per Ana Lilia, desvenlafaxine 25mg ER (LF 08/05 #90/90ds). Pt confirms taking 50mg x1 QD Past Week estradiol (VIVELLE-DOT) 0.05 MG/24HR bi-weekly patch Place 1 patch onto the skin twice a week Thursday and Fridays09/14/2023 at removed 09/17 levothyroxine (SYNTHROID/LEVOTHROID) 125 MCG tablet Take 125 mcg by mouth daily 09/18/2023 MAGNESIUM GLYCINATE PO Take 260 mg by mouth daily Unknown valACYclovir (VALTREX) 500 MG tablet Take 500 mg by mouth daily as needed at PRN vitamin (B COMPLEX-C) tablet Take 1 tablet by mouth daily Unknown Associated attestation - Sarwat Ortiz [facility] - 09/19/2023 11:01 AM CDT Sarwat Ortiz [facility] * Provider Notification - Logan العراقي RN - 09/19/2023 10:16 AM CDT Paged hospitalist CRITICAL LABS (AST: 2,318, ALT: 2,181) Both trending up from yesterday: AST 1,847, ALT 1,[address] Muniz's note. * Plan of Care - Flor Perea RN - 09/19/2023 6:28 AM CDT Images from the original note were not included. Goal Outcome Evaluation: ncomplete Patient came as DA from [address] on RA. IVF running with intermittent IV abx. No N/V complain during the shift. Independent in the room, call appropriately. Pain is managed by PRN meds. On NPO. No skin issues. documented in this encounter Plan of Treatment Not on file documented as of this encounter Procedures Procedure Name Priority Date/Time Associated Diagnosis Comments HEPATIC FUNCTION PANEL Routine 11:34 AM CDT SURGICAL PATHOLOGY EXAM Routine 09/21/19 8:08 AM CDT CHOLECYSTECTOMY, LAPAROSCOPIC 7:32 AM CDT Choledocholithi asis TSH WITH FREE T4 REFLEX Routine 09/20/19 10:43 AM CDT LIPASE Routine 09/20/2023 10:43 AM CDT CRP INFLAMMATION Routine 09/20/2023 10:43 AM CDT COMPREHENSIVE METABOLIC PANEL Routine 10:43 AM CDT CBC WITH PLATELETS Routine 09/20/2023 10:43 AM CDT EKG 12-LEAD, TRACING ONLY Routine 2023 4:02 PM CDT XR SURGERY GEETA FLUORO LESS THAN 5 MIN Routine 09/19/2023 1:10 PM CDT UPPER EUS Routine 09/19/2023 11:56 AM CDT ENDOSCOPIC RETROGRADE CHOLANGIOPANCREATOGRAPHY Routine 09/19/2023 11:56 AM CDT CBC WITH PLATELETS AND DIFFERENTIAL Routine 09/19/2023 8:37 AM CDT CBC WITH PLATELETS & DIFFERENTIAL Routine 09/19/2023 8:37 AM CDT TSH WITH FREE T4 REFLEX STAT Add-on 09/19/19 8:37 AM CDT MAGNESIUM STAT Add-on 09/19/2023 8:37 AM CDT COMPREHENSIVE METABOLIC PANEL Routine 8:37 AM CDT BILIRUBIN DIRECT STAT Add-on 09/19/2023 8:37 AM CDT documented in this encounter Results * (ABNORMAL) Hepatic function panel (09/21/2023 11:34 AM CDT) Protein Total 7.0 6.4 - 8.3 g/dL 09/21/2023 12:56 PM CDT LABORATORY Albumin 4.2 3.5 - 5.2 g/dL 09/21/2023 12:56 PM CDT LABORATORY Bilirubin Total 0.8 <=1.2 mg/dL 09/21/2023 12:56 PM CDT LABORATORY Alkaline Phosphatase 165(H) 40 - 150 U/L 09/21/2023 12:56 PM CDT LABORATORY AST 314(H) 0 - 45 U/L 09/21/2023 12:56 PM CDT LABORATORY ALT 1,148(HH) 0 - 50 U/L 09/21/2023 12:56 PM CDT LABORATORY Bilirubin Direct 0.27 0.00 - 0.30 mg/dL 09/21/2023 12:56 PM CDT LABORATORY Blood STRUCTURE OF LEFT HAND / Unknown Venipuncture / Unknown 09/21/2023 11:34 AM CDT 09/21/2023 11:52 AM CDT Melinda Mahan PA-C LAB - BLOOD ORDER [facility] [address], [address] [place] [address], [facility] [phone] * Surgical Pathology Exam (09/21/2023 8:08 AM CDT) Case Report Surgical Pathology Report ? Case: [id number] ? Authorizing Provider: ??Cleve Barger MD ? Collected: ? 09/21/2023 08:08 AM ? Ordering Location: ? [facility] ?Received: ?09/21/2023 09:12 AM ? [place] [address] [...] possible mass or nodularities are grossly identified. Developmental Specialist sections of the gallbladder to include the cystic duct margin (inked black) are submitted in 1 cassette. (ISMAEL Alejandre (ASCP) 09/21/2023 9:43 AM 09/22/2023 4:06 PM CDT LABORATORY Microscopic Description Microscopic examination was performed. 09/22/2023 4:06 PM CDT LABORATORY Performing Labs The technical component of this testing was completed at [facility]. Stain controls for all stains resulted within this report have been reviewed and show appropriate reactivity. 09/22/2023 4:06 PM CDT LABORATORY Case Images 09/22/2023 4:06 PM CDT LABORATORY Tissue GALLBLADDER PART / Unknown 09/21/2023 8:08 AM CDT 09/21/2023 9:12 AM CDT Cleve [facility] [address] [facility] (1st floor, no room number) [place] [address], [place] LABORATORY [facility] Lab [address] floor, [address] [place] [address], [place] [phone] * Lipase (09/20/2023 10:43 AM CDT) Lipase 41 13 - 60 U/L 09/20/2023 11:32 AM CDT LABORATORY Blood STRUCTURE OF RIGHT UPPER LIMB / Unknown Venipuncture / Unknown 09/20/2023 10:43 AM CDT 09/20/2023 10:55 AM CDT Brian Sewell MD LAB - BLOOD ORDERAB LES LABORATORY [facility] [address] 1[address] floor, [address] [place] [address], [facility] [phone] * TSH with free T4 reflex (09/20/2023 10:43 AM CDT) TSH 2.05 0.30 - 4.20 uIU/mL 09/20/2023 11:32 AM CDT LABORATORY Blood STRUCTURE OF RIGHT UPPER LIMB / Unknown Venipuncture / Unknown 09/20/2023 10:43 AM CDT 09/20/2023 10:55 AM CDT Brian Sewell MD LAB - BLOOD ORDERAB LES LABORATORY [facility] [address] 1[address] floor, [address] [place] [address], [facility] [phone] * (ABNORMAL) CBC with platelets (09/20/2023 10:43 AM CDT) WBC Count 5.5 4.0 - 11.0 10e3/uL 09/20/2023 10:57 AM CDT LABORATORY RBC Count 4.35 3.80 - 5.20 10e6/uL 09/20/2023 10:57 AM CDT LABORATORY Hemoglobin 13.8 11.7 - 15.7 g/dL 09/20/2023 10:57 AM CDT LABORATORY Hematocrit 40.9 35.0 - 47.0 % 09/20/2023 10:57 AM CDT LABORATORY MCV 94 78 - 100 fL 09/20/2023 10:57 AM CDT LABORATORY MCH 31.7 26.5 - 33.0 pg 09/20/2023 10:57 AM CDT LABORATORY MCHC 33.7 31.5 - 36.5 g/dL 09/20/2023 10:57 AM CDT LABORATORY RDW 11.8 10.0 - 15.0 % 09/20/2023 10:57 AM CDT LABORATORY Platelet Count 131(L) 150 - 450 10e3/uL 09/20/2023 10:57 AM CDT LABORATORY Blood STRUCTURE OF RIGHT UPPER LIMB / Unknown Venipuncture / Unknown 09/20/2023 10:43 AM CDT 09/20/2023 10:55 AM CDT Brian Sewell MD LAB - BLOOD ORDERAB LES LABORATORY [facility] [address] 1[address] floor, [address] [place] [address], [facility] [phone] * (ABNORMAL) Comprehensive metabolic panel (09/20/2023 10:43 AM CDT) [facility] Signature Sodium 140 135 - 145 mmol/L 09/[facility]23 [facility] Potassium 4.4 3.4 - 5.3 mmol/L 09/20/2023 11:44 AM [facility] Carbon Dioxide (CO2) 24 22 - 29 mmol/L 09/20/2023 11:44 AM [facility] Anion Gap 11 7 - 15 mmol/L 09/20/2023 11:44 AM [facility] Urea Nitrogen 7.6 6.0 - 20.0 mg/dL 09/20/2023 11:44 AM T LABORATORY Creatinine 0.66 0.51 - 0.95 mg/dL 09/20/2023 11:44 AM CDT LABORATORY GFR Estimate >90 >60 mL/min/1. 73m2 09/20/2023 11:44 AM [facility] Comment:eGFR calculated usin 2020 CKD-EPI equation. Calcium 9.1 8.8 - 10.4 mg/dL 09/20/2023 11:44 AM [facility] Comment:Reference intervals for this test were updated on 08/25/2023 to reflect our healthy population more accurately. There may be differences in the flagging of prior results with similar values performed with this method. Those prior results can be interpreted in the context of the updated reference intervals. Chloride 105 98 - 107 mmol/L 09/20/2023 11:44 AM CDT LABORATORY Glucose 80 70 - 99 mg/dL 09/20/2023 11:44 AM CDT LABORATORY Alkaline Phosphatase 179(H) 40 - 150 U/L 09/20/2023 11:44 AM CDT LABORATORY AST 719(HH) 0 - 45 U/L 09/20/2023 11:44 AM CDT LABORATORY ALT 1,570(HH) 0 - 50 U/L 09/20/2023 11:44 AM CDT LABORATORY Protein Total 6.6 6.4 - 8.3 g/dL 09/20/2023 11:44 AM CDT LABORATORY Albumin 4.0 3.5 - 5.2 g/dL 09/20/2023 11:44 AM T LABORATORY Bilirubin Total 2.9(H) <=1.2 mg/dL 09/20/2023 11:44 AM CDT LABORATORY Blood STRUCTURE OF RIGHT UPPER LIMB / Unknown Venipuncture / Unknown 09/20/2023 10:43 AM CDT 09/20/2023 10:55 AM CDT Brian Sewell MD LAB - BLOOD ORDERAB LES [facility] [address] 1[address] floor, [address] [place] [address], [facility] [phone] * CRP inflammation (09/20/2023 10:43 AM CDT) CRP Inflammation 3.45 <5.00 mg/L 09/20/19 11:32 AM CDT LABORATORY Blood STRUCTURE OF RIGHT UPPER LIMB / Unknown Venipuncture / Unknown 09/20/2023 10:43 AM CDT 09/20/2023 10:55 AM CDT Tonio GUEVARA LAB - BLOOD ORD ERABLES [facility] [address] 1[address] floor, [address] [place] [address], [facility] [phone] * EKG 12-lead, tracing only (09/19/2023 4:02 PM CDT) Systolic Blood Pressure mmHg RADIOLOGY RESULTS Diastolic Blood Pressure mmHg RADIOLOGY RESULTS Ventricular Rate 37 BPM RAD IOLOGY RESULTS Atrial Rate 37 BPM RADIOLOG Y RESULTS VT Interval 162 ms RADIOLOG Y RESULTS QRS Duration 86 ms RADIOLO GY RESULTS QT 478 ms RADIOLOGY RESULTS QTc 375 ms RADIOLOGY RESULTS P [place] 66 degrees RADIOLOGY RESULTS R AXIS 91 degrees RADIOLOGY RESULTS T [place] 66 degrees RADIOLOGY RESULTS Interpretation ECG Sinus bradycardia Rightward axis Nonspecific T wave abnormality Abnormal ECG No previous ECGs available Confirmed by MD LIBERTAD, PATRICIO ([id number]) on 09/20/2023 10:46:35 AM RADIOLOGY RESULTS 09/19/2023 4:02 PM CDT 09/20/2023 10:46 AM CDT Brian Sewell MD ECG ORDERABLES Performing Organization Address City/[facility]/ZIP Co de Phone Number RADIOLOGY RESULTS * XR Surgery GEETA Fluoro Less Than 5 Min (09/19/2023 1:10 PM CDT) Narrative RADIANT - 09/19/2023 1:15 PM CDT This exam was marked as non-reportable because it will not be read by a radiologist or a [place] non-radiologist provider. Delmar Sheth MD IMG DIAGNOSTIC I MAGING ORDERABLES RADIANT * UPPER EUS (09/19/2023 11:56 AM CDT) Upper EUS [facility] [address] ??[place] ??[id number] Patient Name: Ana Lezama ? Procedure Date: 09/19/2023 11:56 AM ? Date of : 1985 ? Admit Type: Inpatient Age: 38 ? Room: OR M 17 Note Status: Finalized ?Attending MD: DELMAR SHETH MD, Instrument Name: [id number] Radial Procedure: ?Upper EUS Indications: ?Common bile [...] Procedure Code(s): ? --- Professional --- ? 75181, Esophagogastroduodenos copy, flexible, transoral; with endoscopic ? [...] ? R10.13, Epigastric pain CPT copyright 2021 [employer]. All rights reserved. The codes documented in this report are preliminary and upon clinical coder review may be revised to meet [...] RETROGRADE CHOLANGIOPANCREATOGRAPHY (09/19/2023 11:56 AM CDT) Pathologist [place] [address] ??[place] ??[id number] _ Patient Name: Ana Lezama ? Procedure Date: 09/19/2023 11:56 AM ? Date of : 1985 ? Admit Type: Inpatient Age: 38 ? Room: OR M 17 Note Status: Finalized ?Attending MD: DELMAR SHETH [...] the procedure well. ? Findings: ? The chemical supervisor film was normal. The esophagus was successfully [...] Procedure Code(s): ? --- Professional --- ? 45683, Endoscopic retrograde cholangiopancreatography (ERCP); with ? placement of endoscopic stent into biliary or pancreatic duct, including ? pre- and post-dilation and guide wire passage, when performed, including ? sphincterotomy, when performed, each stent ? 84431, Endoscopic retrograde cholangiopancreatography (ERCP); with ? removal of calculi/debris from biliary/pancreatic duct(s) Diagnosis Code(s): ? --- Professional --- ? K80.50, Calculus of bile duct without cholangitis or cholecystitis ? without obstruction CPT copyright 2021 [employer]. All rights reserved. The codes documented in this report are preliminary and upon clinical coder review may be revised to meet [...] RADIOLOGY RESULTS 09/19/2023 11:5 6 AM CDT Holden Ronald PROCEDURES RADIOLOGY RESULTS * Magnesium (09/19/2023 8:37 AM CDT) Magnesium 2.0 1.7 - 2.3 mg/dL 09/20/2023 10:54 AM CDT LABORATORY Blood BLOOD SPECIMEN / Unknown Venipuncture / Unknown 09/19/2023 8:37 AM CDT 09/19/2023 9:16 AM CDT Paulo Naranjo MD LAB - BLOOD ORDERABL ES Performing Organization Address City/[facility] Co de Phone Number LABORATORY [facility] [address] 1[address], [address] [place] [address], [facility] [phone] * TSH with free T4 reflex (09/19/2023 8:37 AM CDT) TSH 0.98 0.30 - 4.20 uIU/mL 09/20/2023 10:54 AM CDT LABORATORY Blood BLOOD SPECIMEN / Unknown Venipuncture / Unknown 09/19/2023 8:37 AM CDT 09/19/2023 9:16 AM CDT Paulo Naranjo MD LAB - BLOOD ORDERABL ES Performing Organization Address City/[facility]/ZIP Co de Phone Number LABORATORY [facility] [address] 1[address], [address] [place] [address], [facility] [phone] * (ABNORMAL) Bilirubin direct (09/19/2023 8:37 AM CDT) Bilirubin Direct 1.54(H) 0.00 - 0.30 mg/dL 09/19/2023 12:34 PM CDT LABORATORY Blood BLOOD SPECIMEN / Unknown Venipuncture / Unknown 09/19/2023 8:37 AM CDT 09/19/2023 9:16 AM CDT Heidy Cheng MD LAB - BLOOD ORDERABL ES LABORATORY [facility] [address], [address] [place] [address], [facility] [phone] * (ABNORMAL) CBC with platelets and differential [...] Muniz MD LAB - BLOOD JOANNE MAYA [facility] Organization Address City/State/ZIP Co de Phone Number LABORATORY [facility] [address] 1[address], [address] [place] [address], [facility] [phone] * (ABNORMAL) Comprehensive metabolic panel (09/19/2023 8:37 AM CDT) Sodium 140 135 - 145 mmol/L 09/19/2023 10:10 AM CDT LABORATORY Potassium 3.9 3.4 - 5.3 mmol/L 09/19/2023 10:10 AM [facility] LABORATORY Carbon Dioxide (CO2) 24 22 - 29 mmol/L 09/19/2023 10:10 AM CDT LABORATORY Anion Gap 10 7 - 15 mmol/L 09/19/2023 10:10 [facility] Urea Nitrogen 10.1 6.0 - 20.0 mg/dL 09/19/2023 10:10 AM [facility] Creatinine 0.61 0.51 - 0.95 mg/dL 09/19/2023 10:10 AM [facility] GFR Estimate >90 >60 mL/min/1. 73m2 09/19/2023 10:10 AM [facility] Comment:eGFR calculated us2020 CKD-EPI equation. Calcium 8.9 8.8 - 10.4 mg/dL 09/19/2023 10:10 AM [facility] Comment:Reference intervals for this test were updated on 08/25/2023 to reflect our healthy population more accurately. There may be differences in the flagging of prior results with similar values performed with this method. Those prior results can be interpreted in the context of the updated reference intervals. Chloride 106 98 - 107 mmol/L 09/19/2023 10:10 AM [facility] Glucose 91 70 - 99 mg/dL 09/19/2023 10:10 AM [facility] Alkaline Phosphatase 128 40 - 150 U/L 09/19/2023 10:10 AM [facility] AST 2,315(HH) 0 - 45 U/L 09/19/2023 10:10 AM [facility] ALT 2,181(HH) 0 - 50 U/L 09/19/2023 10:10 AM [facility] Protein Total 6.1(L) 6.4 - 8.3 g/dL 09/19/2023 10:10 AM [facility] Albumin 3.9 3.5 - 5.2 g/dL 09/19/2023 10:10 AM [facility] Bilirubin Total 2.6(H) <=1.2 mg/dL 09/19/2023 10:10 AM [facility] Blood BLOOD SPECIMEN / Unknown Venipuncture / Unknown 09/19/2023 8:37 AM CDT 09/19/2023 9:16 AM CDT Matti Muniz MD LAB - BLOOD JOANNE ZULMA [facility] Organization Address City/State/ZIP Co de Phone Number LABORATORY [facility] [address], [address] [place] [address], [place] [phone] documented in this encounter Visit Diagnoses Diagnosis Choledocholithiasis- Primary Calculus of bile duct without mention of cholecystitis or obstruction Choledocholithiasis Calculus of bile duct without mention of cholecystitis or obstruction Choledocholithiasis Calculus of bile duct without mention of cholecystitis or obstruction documented in this encounter Administered Medications Inactive Administered Medications - up to 3 most recent administrations Medication Order MAR Action Action Date Dose Rate Site BUPivacaine 0.25 % - EPINEPHrine 1:200,000 injection PRN, Starting on Thu09/21/23 at 0854, Intra-procedure $Given 09/21/2023 8:54 AM CDT 30 mLs Operative Site/Surgical Site dexAMETHasone (DECADRON) injection 4 mg 4 mg, Intravenous, ONCE PRN, vomiting, nausea, Administer over 1 Minutes, Starting on Thu09/21/23 at 1048, For 1 dose, Administer ONLY if dexamethasone (DECADRON) NOT given in the OR. This is Step 2 of nausea and vomiting management. IF nausea vomiting NOT resolved within 30 minutes or dexamethasone (DECADRON) was given in the OR go to Step 3 prochlorperazine (COMPAZINE)., Phase ll fentaNYL (PF) (SUBLIMAZE) injection 25 mcg 25 mcg, Intravenous, EVERY 5 MIN PRN, moderate pain, Give fentaNYL (SUBLIMAZE) first if HYDROmorphone (DILAUDID) also ordered., Starting on Thu09/21/23 at 0644, - IF patient has received 2 doses of fentaNYL (SUBLIMAZE) AND continues to have pain score greater than or equal to six (6) or is unable to participate in post op recovery due to pain. Wait 5 minutes AFTER last fentaNYL (SUBLIMAZE) dose before administering HYDROmorphone (DILADUDID). Postop Anesthesia Phase I only. Notify Provider to assess for uncontrolled pain or analgesic side effects. DO NOT revert back to fentanyl (SUBLIMAZE) after moving to HYDROmorphone (DILAUDID)., PACU $Given 09/21/2023 9:36 AM CDT 25 mcg fentaNYL (PF) (SUBLIMAZE) injection 25 mcg 25 mcg, Intravenous, EVERY 15 MIN PRN, other, acute pain while in Phase II, Starting on Thu09/21/23 at 1048, Up to a total of 100 mcg. Use as a short acting IV agent for acute pain control. Patient must be monitored a minimum of 30 minutes before leaving the facility and meet all Phase II discharge criteria., Phase ll fentaNYL (PF) (SUBLIMAZE) injection 50 mcg 50 mcg, Intravenous, EVERY 5 MIN PRN, severe pain, Give fentaNYL (SUBLIMAZE) first if HYDROmorphone (DILAUDID) also ordered., Starting on Thu09/19/23 at 1330, Administer fentaNYL (SUBLIMAZE) for acute pain control. Move to HYDROmorphone (DILAUDID): - IF patient has received up to 200 mcg of fentaNYL (SUBLIMAZE), OR - IF patient has received 2 doses of fentaNYL (SUBLIMAZE) AND continues to have severe pain (pain score greater than or equal to seven (7) or is unable to participate in post op recovery due to pain. Wait 5 minutes AFTER last fentaNYL (SUBLIMAZE) dose before administering HYDROmorphone (DILADUDID). Postop Anesthesia Phase I only. Notify Provider to assess for uncontrolled pain or analgesic side effects. DO NOT revert back to fentanyl (SUBLIMAZE) after administering HYDROmorphone (DILAUDID)., PACU $Given 09/19/2023 1:42 PM CDT 50 mcg fentaNYL (PF) (SUBLIMAZE) injection 50 mcg 50 mcg, Intravenous, EVERY 5 MIN PRN, severe pain, Give fentaNYL (SUBLIMAZE) first if HYDROmorphone (DILAUDID) also ordered., Starting on Thu09/21/23 at 0644, - IF patient has received 2 doses of fentaNYL (SUBLIMAZE) AND continues to have severe pain (pain score greater than or equal to seven (7) or is unable to participate in post op recovery due to pain. Wait 5 minutes AFTER last fentaNYL (SUBLIMAZE) dose before administering HYDROmorphone (DILADUDID). Postop Anesthesia Phase I only. Notify Provider to assess for uncontrolled pain or analgesic side effects. DO NOT revert back to fentanyl (SUBLIMAZE) after moving to HYDROmorphone (DILAUDID)., PACU $Given 09/21/2023 9:14 AM CDT 50 mcg fentaNYL (PF) (SUBLIMAZE) injection 50 mcg 50 mcg, Intravenous, ONCE, Administer over 3-5 Minutes, On 09/21/23 at 0730, For 1 dose, Pre-procedure $Given 09/21/2023 7:19 AM CDT 50 mcg HYDROmorphone (DILAUDID) injection 0.2 mg 0.2 mg, Intravenous, EVERY 2 HOURS PRN, moderate pain, IF patient cannot take oral opioid OR IF pain not managed with non-pharmacological, non-opioid, or oral opioid interventions if ordered, Starting on 09/19/23 at 0502, May use concomitant with non-opioid analgesics. $Given 09/20/2023 6:36 AM CDT 0.2 mg $Given 09/20/2023 12:39 AM CDT 0.2 mg $Given 09/19/2023 10:24 PM CDT 0.2 mg lactated ringers infusion at 100 mL/hr, Intravenous, CONTINUOUS, Pre-procedure, Starting on 09/19/23 at 1230, Until 09/19/23 at 1326 $New Bag 09/19/2023 12:20 PM CDT 100 mL/hr LORazepam (ATIVAN) injection 0.5-1 mg 0.5-1 mg, Intravenous, EVERY 4 HOURS PRN, anxiety, Starting on 09/19/23 at 1633, IV Route: Dilute with equal volume NS prior to use. This drug may cause significant respiratory depression. Monitor respiratory status and vital signs carefully for 1 hour after each dose. meropenem (MERREM) 500 mg vial to attach to NS 100 mL bag for ADULTS or 25 mL bag for PEDS STAT, 500 mg, Intravenous, EVERY 8 HOURS, First dose on 09/19/23 at 0600, Indications: Intra-Abdominal Infection $New Bag 09/19/2023 5:50 AM CDT 500 mg meropenem (MERREM) 500 mg vial to attach to NS 100 mL bag for ADULTS or 25 mL bag for PEDS STAT, 500 mg, Intravenous, EVERY 6 HOURS, First dose (after last modification) on 09/19/23 at 1200, Dose adjusted per renal dosing policy. Estimated CrCl = >50 mL/min, IAI indication. , Indications: Intra-Abdominal Infection $New Bag 09/21/2023 11:35 AM CDT 500 mg $New Bag 09/21/2023 5:51 AM CDT 500 mg $New Bag 09/21/2023 12:32 AM CDT 500 mg morphine (PF) injection 2 mg 2 mg, Intravenous, EVERY 2 HOURS PRN, moderate pain, Starting on 09/20/23 at 1323 $Given 09/21/2023 12:32 AM CDT 2 mg naloxone (NARCAN) injection 0.2 mg 0.2 mg, Intravenous, EVERY 2 MIN PRN, opioid reversal, Starting on 09/19/23 at 0504, Administer intravenous route when available and notify provider when administered. For unintended sedation or respiratory depression if all of the below criteria are met: ~ respiratory rate LESS than or EQUAL to 8. ~SaO2 less than 92% and or/end-tidal CO2 is greater than 50. ~ the patient is receiving an opioid, has unintended sedations assessed as RASS (-3), and is currently not on mechanical ventilation. RASS scale moderate (-3) is movement or eye opening to voice but no eye contact. Patient Monitoring Once the patient has demonstrated a response to the naloxone, continue to monitor respiratory rate, depth, oxygen saturation and end-tidal CO2 (if available) every 15 minutes x 2, then every 30 minutes x 2, then every 1 hour x 1 after each naloxone dose. Consider transfer to ICU if patient respiratory parameters have not improved after 4 naloxone doses. naloxone (NARCAN) injection 0.2 mg 0.2 mg, Intramuscular, EVERY 2 MIN PRN, opioid reversal, Starting on 09/19/23 at 0504, Administer intramuscular if an intravenous route is not available and notify provider when administered. For unintended sedation or respiratory depression if all of the below criteria are met: ~ respiratory rate LESS than or EQUAL to 8. ~SaO2 less than 92% and or/end-tidal CO2 is greater than 50. ~ the patient is receiving an opioid, has unintended sedations assessed as RASS (-3), and is currently not on mechanical ventilation. RASS scale moderate (-3) is movement or eye opening to voice but no eye contact. Patient Monitoring Once the patient has demonstrated a response to the naloxone, continue to monitor respiratory rate, depth, oxygen saturation and end-tidal CO2 (if available) every 15 minutes x 2, then every 30 minutes x 2, then every 1 hour x 1 after each naloxone dose. Consider transfer to ICU if patient respiratory parameters have not improved after 4 naloxone doses. naloxone (NARCAN) injection 0.4 mg 0.4 mg, Intravenous, EVERY 2 MIN PRN, opioid reversal, Starting on 09/19/23 at 0504, Administer intravenous route when available and notify provider when administered. For unintended sedation or respiratory depression if all of the below criteria are met: ~ respiratory rate LESS than or EQUAL to 8. ~ SaO2 less than 92% and or/end-tidal CO2 is greater than 50. ~ the patient is receiving an opioid, has unintended sedation assessed as RASS (-4) or (-5) and patient is currently not on mechanical ventilation. RASS scale (-4) is deep sedation with no response to voice but movement or eye opening to physical stimulation. RASS scale (-5) is unarousable. Patient Monitoring Once the patient has demonstrated a response to the naloxone, continue to monitor respiratory rate, depth, oxygen saturation and end-tidal CO2 (if available) every 15 minutes x 2, then every 30 minutes x 2, then every 1 hour x 1 after each naloxone dose. Consider transfer to ICU if patient respiratory parameters have not improved after 4 naloxone doses. naloxone (NARCAN) injection 0.4 mg 0.4 mg, Intramuscular, EVERY 2 MIN PRN, opioid reversal, Starting on 09/19/23 at 0504, Administer intramuscular if an intravenous route is not available and notify provider when administered. For unintended sedation or respiratory depression if all of the below criteria are met: ~ respiratory rate LESS than or EQUAL to 8. ~ SaO2 less than 92% and or/end-tidal CO2 is greater than 50. ~ the patient is receiving an opioid, has unintended sedation assessed as RASS (-4) or (-5) and patient is currently not on mechanical ventilation. RASS scale (-4) is deep sedation with no response to voice but movement or eye opening to physical stimulation. RASS scale (-5) is unarousable. Patient Monitoring Once the patient has demonstrated a response to the naloxone, continue to monitor respiratory rate, depth, oxygen saturation and end-tidal CO2 (if available) every 15 minutes x 2, then every 30 minutes x 2, then every 1 hour x 1 after each naloxone dose. Consider transfer to ICU if patient respiratory parameters have not improved after 4 naloxone doses. ondansetron (ZOFRAN ODT) ODT tab 4 mg 4 mg, Oral, EVERY 6 HOURS PRN, nausea, vomiting, Starting on 09/19/23 at 0500, This is Step 1 of nausea and vomiting management. If nausea not resolved in 15 minutes, go to Step 2 prochlorperazine (COMPAZINE). With dry hands, peel back foil backing and gently remove tablet. Do not push oral disintegrating tablet through foil backing. Administer immediately on tongue and oral disintegrating tablet dissolves in seconds, then swallow with saliva. Liquid not required. $Given 09/20/2023 6:52 PM CDT 4 mg $Given 09/20/2023 12:17 PM CDT 4 mg ondansetron (ZOFRAN) injection 4 mg 4 mg, Intravenous, EVERY 6 HOURS PRN, nausea, vomiting, Administer over 2-5 Minutes, Starting on 09/19/23 at 0500, Give IF patient unable to tolerate oral medication. This is Step 1 of nausea and vomiting management. If nausea not resolved in 15 minutes, go to Step 2 prochlorperazine (COMPAZINE). $Given 09/20/2023 6:35 AM CDT 4 mg $Given 09/19/2023 10:24 PM CDT 4 mg $Given 09/19/2023 3:09 PM CDT 4 mg oxyCODONE (ROXICODONE) tablet 10 mg 10 mg, Oral, EVERY 4 HOURS PRN, severe pain, IF pain not managed with non-pharmacological and non-opioid interventions, Starting on 09/19/23 at 0502, May use concomitant with non-opioid analgesics. $Given 09/21/2023 11:35 AM CDT 10 mg $Given 09/20/2023 10:12 PM CDT 10 mg oxyCODONE (ROXICODONE) tablet 10 mg 10 mg, Oral, ONCE PRN, severe pain, Starting on 09/21/23 at 1048, For 1 dose, Max: 5 mg for opioid-na??ve patient. Use caution with patient Age GREATER than 65 years, COPD, or CrCl LESS than 50 mL/min., Phase ll oxyCODONE (ROXICODONE) tablet 5 mg 5 mg, Oral, EVERY 4 HOURS PRN, moderate pain, IF pain not managed with non-pharmacological and non-opioid interventions, Starting on Thu09/19/23 at 0502, May use concomitant with non-opioid analgesics. $Given 09/20/2023 6:52 PM CDT 5 mg $Given 09/20/2023 12:17 PM CDT 5 mg oxyCODONE (ROXICODONE) tablet 5 mg 5 mg, Oral, ONCE PRN, moderate pain, other, or is unable to participate in post op recovery due to pain., Starting on Thu09/21/23 at 1048, For 1 dose, Max: 5 mg for opioid-na??ve patient., Phase ll prochlorperazine (COMPAZINE) injection 5 mg 5 mg, Intravenous, EVERY 6 HOURS PRN, nausea, vomiting, Administer over 1-2 Minutes, Starting on Thu09/21/23 at 1048, This is Step 3 of the nausea and vomiting protocol. If nausea/vomitting not resolved in 15-30 minutes, notify Provider., Phase ll senna-docusate (SENOKOT-S/PERICOLACE) 8.6-50 MG per tablet 1 tablet 1 tablet, Oral, 2 TIMES DAILY, First dose (after last modification) on Thu09/21/23 at 1100, If no bowel movement in 24 hours, increase to 2 tablets by mouth. IF more than 1 constipation PRN medication is ordered, administer step-marte as indicated, moving to the next step ONLY if prior step ineffective. Step 1: senna-docusate (SENOKOT-S; PERICOLACE) OR bisacodyl (DULCOLAX) EC tablet Step 2: polyethylene glycol (MIRALAX/GLYCOLAX) Step 3: bisacodyl (DULCOLAX) suppository Step 4: enema Hold for loose stools. senna-docusate (SENOKOT-S/PERICOLACE) 8.6-50 MG per tablet 2 tablet 2 tablet, Oral, 2 TIMES DAILY, First dose (after last modification) on Thu09/21/23 at 1100, IF more than 1 constipation PRN medication is ordered, administer step-marte as indicated, moving to the next step ONLY if prior step ineffective. Step 1: senna-docusate (SENOKOT-S; PERICOLACE) OR bisacodyl (DULCOLAX) EC tablet Step 2: polyethylene glycol (MIRALAX/GLYCOLAX) Step 3: bisacodyl (DULCOLAX) suppository Step 4: enema Hold for loose stools. $Given 09/21/2023 2:37 PM CDT 2 tablets sodium chloride (PF) 0.9% PF flush 3 mL 3 mL, Intracatheter, EVERY 8 HOURS, First dose on 09/19/23 at 0530, to lock peripheral IV dormant line $Given 09/21/2023 5:51 AM CDT 3 mLs $Given 09/20/2023 10:13 PM CDT 3 mLs $Given 09/19/2023 10:24 PM CDT 3 mLs sodium chloride (PF) 0.9% PF flush 3 mL 3 mL, Intracatheter, EVERY 1 MIN PRN, line flush, other, to ensure patency or to lock dormant line, Starting on 09/19/23 at 0500 $Given 09/20/2023 5:29 PM CDT 3 mLs Right Arm sodium chloride 0.9 % infusion at 125 mL/hr, Intravenous, CONTINUOUS, Starting on 09/19/23 at 0530, Until 09/21/23 at 1329 $New Bag 09/21/2023 11:43 AM CDT 125 mL/hr $New Bag 09/20/2023 12:27 AM CDT 125 mL/hr Rate/Dose Verify 09/19/2023 3:53 PM CDT 125 mL/ hr sodium chloride 0.9% (bottle) irrigation PRN, Starting on Thu09/21/23 at 0833, Intra-procedure $Given 09/21/2023 8:33 AM CDT 1,000 mLs Operative Site/Surgi irene Site sodium chloride 0.9% irrigation (bag) PRN, Starting on Thu09/21/23 at 0834, Intra-procedure $Given 09/21/2023 8:34 AM CDT 1,000 mLs Operative Site/Surgi irene Site sterile water (bottle) irrigation PRN, Intra-procedure, Starting on Thu09/21/23 at 0834, Until Thu09/21/23 at 0907 $Given 09/21/2023 8:34 AM CDT 1,000 mLs Operative Site/Surgi irene Site documented in this encounter Active and Recently Administered Medications Times are shown in CDT. Scheduled Medication Order 09/19/2023 09/20/2023 09/21/2023 fentaNYL (PF) (SUBLIMAZE) injection 50 mcg (COMPLETED) 50 mcg, Intravenous, ONCE, Administer over 3-5 Minutes, On 09/21/23 at 0730, For 1 dose, Pre-procedure 0719 ($Given - Provider: Mahi Mckeon RN) meropenem (MERREM) 500 mg vial to attach to NS 100 mL bag for ADULTS or 25 mL bag for PEDS (CANCELED) STAT, 500 mg, Intravenous, EVERY 8 HOURS, First dose on 09/19/23 at 0600, Indications: Intra-Abdominal Infection 0550 ($New Bag - Provider: Flor Perea RN) meropenem (MERREM) 500 mg vial to attach to NS 100 mL bag for ADULTS or 25 mL bag for PEDS STAT, 500 mg, Intravenous, EVERY 6 HOURS, First dose (after last modification) on 09/19/23 at 1200, Dose adjusted per renal dosing policy. Estimated CrCl = >50 mL/min, IAI indication. , Indications: Intra-Abdominal Infection 1145 ($New Bag - Provider: Logan العراقي RN)1206 (Auto Hold - Provider: Orders Generic Provider - Reason: Transfer to a procedural area)1443 (Unhold - Provider: Orders Generic Provider)1852 ($New Bag - Provider: Jac Jane RN) 0026 ($New Bag - Provider: Lashanda Moreland RN)0644 ($New Bag - Provider: Lashanda Moreland RN)1200 ($New Bag - Provider: Logan العراقي RN)1828 ($New Bag - Provider: Logan العراقي RN) 0032 ($New Bag - Provider: Betty Sharp RN)0551 ($New Bag - Provider: Betty Sharp RN)0622 (Auto Hold - Provider: Orders Generic Provider - Reason: Transfer to a procedural area)1047 (Unhold - Provider: Orders Generic Provider)1135 ($New Bag - Provider: Linda Menjivar RN)1800 (Canceled Entry - Provider: Orders Generic Provider - Comment: Automatically canceled at discontinue of medication order) senna-docusate (SENOKOT-S/PERICOLACE) 8.6-50 MG per tablet 1 tablet(Linked Group 1) 1 tablet, Oral, 2 TIMES DAILY, First dose (after last modification) on Thu09/21/23 at 1100, If no bowel movement in 24 hours, increase to 2 tablets by mouth. IF more than 1 constipation PRN medication is ordered, administer step-marte as indicated, moving to the next step ONLY if prior step ineffective. Step 1: senna-docusate (SENOKOT-S; PERICOLACE) OR bisacodyl (DULCOLAX) EC tablet Step 2: polyethylene glycol (MIRALAX/GLYCOLAX) Step 3: bisacodyl (DULCOLAX) suppository Step 4: enema Hold for loose stools. 1437 (See Alternativ e - Provider: Linda Menjivar RN) senna-docusate (SENOKOT-S/PERICOLACE) 8.6-50 MG per tablet 2 tablet(Linked Group 1) 2 tablet, Oral, 2 TIMES DAILY, First dose (after last modification) on Thu09/21/23 at 1100, IF more than 1 constipation PRN medication is ordered, administer step-marte as indicated, moving to the next step ONLY if prior step ineffective. Step 1: senna-docusate (SENOKOT-S; PERICOLACE) OR bisacodyl (DULCOLAX) EC tablet Step 2: polyethylene glycol (MIRALAX/GLYCOLAX) Step 3: bisacodyl (DULCOLAX) suppository Step 4: enema Hold for loose stools. 1437 ($Given - Provider: Linda Menjivar RN) sodium chloride (PF) 0.9% PF flush 3 mL 3 mL, Intracatheter, EVERY 8 HOURS, First dose on Thu09/19/23 at 0530, to lock peripheral IV dormant line 0538 (Not Given - Provider: Flor Perea RN - Reason: IV Infusing)1206 (Auto Hold - Provider: Orders Generic Provider - Reason: Transfer to a procedural area)1330 (Automatically Held - Provider: Orders Generic Provider)1443 (Unhold - Provider: Orders Generic Provider)2224 ($Given - Provider: Jac Jane RN) 0639 (Not Given - Provider: Lashanda Moreland RN - Reason: IV Infusing)1330 (Not Given - Provider: Logan العراقي RN - Reason: IV Infusing)2213 ($Given - Provider: Betty Sharp RN) 0551 ($Given - Provider: Betty Sharp RN)0622 (Auto Hold - Provider: Orders Generic Provider - Reason: Transfer to a procedural area)1047 (Unhold - Provider: Orders Generic Provider)1320 (Not Given - Provider: Linda Menjivar RN - Reason: IV Infusing) Continuous Medication Order 09/19/2023 09/20/2023 09/21/2023 lactated ringers infusion (CANCELED) at 100 mL/hr, Intravenous, CONTINUOUS, Pre-procedure, Starting on 09/19/23 at 1230, Until 09/19/23 at 1326 1220 ($New Bag - Provider: Sinai Puga RN) lactated ringers infusion (CANCELED) at 10 mL/hr, Intravenous, CONTINUOUS, IF patient NOT on dialysis., Pre-procedure, Starting on 09/21/23 at 0630, Until 09/21/23 at 0907 0727 ($New Bag - Provider: Dinora Agee APRN [employer]BI[employer] SALES TECHNICIAN)0829 ($New Bag - Provider: Dinora Agee APRN CRNA) sodium chloride 0.9 % infusion (CANCELED) at 125 mL/hr, Intravenous, CONTINUOUS, Starting on 09/19/23 at 0530, Until 09/21/23 at 1329 0539 (Rate/Dose Verify - Provider: Flor Perea RN)1137 (Rate/Dose Verify - Provider: Logan العراقي RN)1234 (Anesthesia Volume Adjustment - Provider: Inga Sheth APRN MOBILE SALES TECHNICIAN)1310 (Anesthesia Volume Adjustment - Provider: Inga Sheth APRN MOBILE SALES TECHNICIAN)1451 ($New Bag - Provider: Logan العراقي RN)1553 (Rate/Dose Verify - Provider: Jac Jane RN) 0027 ($New Bag - Provider: Lashanda J Okpala, RN) 1143 ($New Bag - Provider: Linda Menjivar RN)1430 (Stopped - Provider: Linda Menjivar RN) PRN Medication Order 09/19/2023 09/20/2023 09/21/2023 benzocaine-menthol (CHLORASEPTIC) 6-10 MG lozenge 1 lozenge 1 lozenge, Buccal, EVERY 1 HOUR PRN, sore throat, without fever, Starting on 09/19/23 at 0500 1206 (Auto Hold - Provider: Orders Generic Provider - Reason: Transfer to a procedural area)1443 (Unhold - Provider: Orders Generic Provider) 0622 (Auto Hold - Provider: Orders Generic Provider - Reason: Transfer to a procedural area)1047 (Unhold - Provider: Orders Generic Provider) BUPivacaine 0.25 % - EPINEPHrine 1:200,000 injection (CANCELED) PRN, Starting on Thu09/21/23 at 0854, Intra-procedure 0854 ($Given - Provider: Cleve Barger MD) calcium carbonate (TUMS) chewable tablet 1,000 mg 1,000 mg, Oral, 4 TIMES DAILY PRN, heartburn, Starting on 09/19/23 at 0500 1206 (Auto Hold - Provider: Orders Generic Provider - Reason: Transfer to a procedural area)1443 (Unhold - Provider: Orders Generic Provider) 0622 (Auto Hold - Provider: Orders Generic Provider - Reason: Transfer to a procedural area)1047 (Unhold - Provider: Orders Generic Provider) dexAMETHasone (DECADRON) injection 4 mg 4 mg, Intravenous, ONCE PRN, vomiting, nausea, Administer over 1 Minutes, Starting on Thu09/21/23 at 1048, For 1 dose, Administer ONLY if dexamethasone (DECADRON) NOT given in the OR. This is Step 2 of nausea and vomiting management. IF nausea vomiting NOT resolved within 30 minutes or dexamethasone (DECADRON) was given in the OR go to Step 3 prochlorperazine (COMPAZINE)., Phase ll fentaNYL (PF) (SUBLIMAZE) injection 25 mcg (CANCELED) 25 mcg, Intravenous, EVERY 5 MIN PRN, moderate pain, Give fentaNYL (SUBLIMAZE) first if HYDROmorphone (DILAUDID) also ordered., Starting on Thu09/21/23 at 0644, - IF patient has received 2 doses of fentaNYL (SUBLIMAZE) AND continues to have pain score greater than or equal to six (6) or is unable to participate in post op recovery due to pain. Wait 5 minutes AFTER last fentaNYL (SUBLIMAZE) dose before administering HYDROmorphone (DILADUDID). Postop Anesthesia Phase I only. Notify Provider to assess for uncontrolled pain or analgesic side effects. DO NOT revert back to fentanyl (SUBLIMAZE) after moving to HYDROmorphone (DILAUDID)., PACU 0936 ($Given - Provider: Mahi Mckeon RN) fentaNYL (PF) (SUBLIMAZE) injection 25 mcg 25 mcg, Intravenous, EVERY 15 MIN PRN, other, acute pain while in Phase II, Starting on 09/21/23 at 1048, Up to a total of 100 mcg. Use as a short acting IV agent for acute pain control. Patient must be monitored a minimum of 30 minutes before leaving the facility and meet all Phase II discharge criteria., Phase ll fentaNYL (PF) (SUBLIMAZE) injection 50 mcg (CANCELED) 50 mcg, Intravenous, EVERY 5 MIN PRN, severe pain, Give fentaNYL (SUBLIMAZE) first if HYDROmorphone (DILAUDID) also ordered., Starting on Thu09/19/23 at 1330, Administer fentaNYL (SUBLIMAZE) for acute pain control. Move to HYDROmorphone (DILAUDID): - IF patient has received up to 200 mcg of fentaNYL (SUBLIMAZE), OR - IF patient has received 2 doses of fentaNYL (SUBLIMAZE) AND continues to have severe pain (pain score greater than or equal to seven (7) or is unable to participate in post op recovery due to pain. Wait 5 minutes AFTER last fentaNYL (SUBLIMAZE) dose before administering HYDROmorphone (DILADUDID). Postop Anesthesia Phase I only. Notify Provider to assess for uncontrolled pain or analgesic side effects. DO NOT revert back to fentanyl (SUBLIMAZE) after administering HYDROmorphone (DILAUDID)., PACU 1342 ($Given - Provider: More Monsivais RN) fentaNYL (PF) (SUBLIMAZE) injection 50 mcg (CANCELED) 50 mcg, Intravenous, EVERY 5 MIN PRN, severe pain, Give fentaNYL (SUBLIMAZE) first if HYDROmorphone (DILAUDID) also ordered., Starting on 09/21/23 at 0644, - IF patient has received 2 doses of fentaNYL (SUBLIMAZE) AND continues to have severe pain (pain score greater than or equal to seven (7) or is unable to participate in post op recovery due to pain. Wait 5 minutes AFTER last fentaNYL (SUBLIMAZE) dose before administering HYDROmorphone (DILADUDID). Postop Anesthesia Phase I only. Notify Provider to assess for uncontrolled pain or analgesic side effects. DO NOT revert back to fentanyl (SUBLIMAZE) after moving to HYDROmorphone (DILAUDID)., PACU 0914 ($Given - Provider: Mahi Mckeon RN) guaiFENesin-dextromethorph an (ROBITUSSIN DM) 100-10 MG/5ML syrup 10 mL 10 mL, Oral, EVERY 4 HOURS PRN, cough, Starting on 09/19/23 at 0500 1206 (Auto Hold - Provider: Orders Generic Provider - Reason: Transfer to a procedural area)1443 (Unhold - Provider: Orders Generic Provider) 0622 (Auto Hold - Provider: Orders Generic Provider - Reason: Transfer to a procedural area)1047 (Unhold - Provider: Orders Generic Provider) HYDROmorphone (DILAUDID) injection 0.2 mg (CANCELED) 0.2 mg, Intravenous, EVERY 2 HOURS PRN, moderate pain, IF patient cannot take oral opioid OR IF pain not managed with non-pharmacological, non-opioid, or oral opioid interventions if ordered, Starting on 09/19/23 at 0502, May use concomitant with non-opioid analgesics. 0552 ($Given - Provider: Flor Perea RN)1206 (Auto Hold - Provider: Orders Generic Provider - Reason: Transfer to a procedural area)1443 (Unhold - Provider: Orders Generic Provider)1608 ($Given - Provider: Jac Jane RN)1852 ($Given - Provider: Jac Jane RN)2224 ($Given - Provider: Jac Jane RN) 0039 ($Given - Provider: Lashanda Moreland RN)0636 ($Given - Provider: Lashanda Moreland RN) iohexol (OMNIPAQUE) injection (CANCELED) PRN, Starting on 09/19/23 at 1250, Intra-procedure 1250 ($Given - Provider: Delmar Sheth MD) lidocaine (LMX4) cream Topical, EVERY 1 HOUR PRN, pain, with VAD insertion, Starting on 09/19/23 at 0500, Apply at least 30 minutes prior to VAD insertion in divided doses as needed for size of site for insertion. MAX Dose: 2.5 g (?? of 5 g tube) Do NOT give if patient has a history of allergy to any local anesthetic or any judith product. Do NOT use both lidocaine intradermal/subcutaneous injection and the lidocaine cream on the same site. 1206 (Auto Hold - Provider: Orders Generic Provider - Reason: Transfer to a procedural area)1443 (Unhold - Provider: Orders Generic Provider) 0622 (Auto Hold - Provider: Orders Generic Provider - Reason: Transfer to a procedural area)1047 (Unhold - Provider: Orders Generic Provider) lidocaine 1 % 0.1-1 mL 0.1-1 mL, Other, EVERY 1 HOUR PRN, mild pain with VAD insertion, Starting on 09/19/23 at 0500, MAX dose 1 mL subcutaneous OR intradermal along the side of the vein in divided doses as needed for VAD insertion. Do NOT give if patient has a history of allergy to any local anesthetic or any judith product. Do NOT use both lidocaine intradermal/subcutaneous injection and the lidocaine cream on the same site. 1206 (Auto Hold - Provider: Orders Generic Provider - Reason: Transfer to a procedural area)1443 (Unhold - Provider: Orders Generic Provider) 0622 (Auto Hold - Provider: Orders Generic Provider - Reason: Transfer to a procedural area)1047 (Unhold - Provider: Orders Generic Provider) LORazepam (ATIVAN) injection 0.5-1 mg 0.5-1 mg, Intravenous, EVERY 4 HOURS PRN, anxiety, Starting on 09/19/23 at 1633, IV Route: Dilute with equal volume NS prior to use. This drug may cause significant respiratory depression. Monitor respiratory status and vital signs carefully for 1 hour after each dose. 0622 (Auto Hold - Provider: Orders Generic Provider - Reason: Transfer to a procedural area)1047 (Unhold - Provider: Orders Generic Provider) melatonin tablet 5 mg 5 mg, Oral, AT BEDTIME PRN, sleep, Starting on 09/19/23 at 0502, Do not give unless at least 6 hours of uninterrupted sleep is expected. If patient has multiple medications ordered PRN sleep/insomnia, offer melatonin first. 1206 (Auto Hold - Provider: Orders Generic Provider - Reason: Transfer to a procedural area)1443 (Unhold - Provider: Orders Generic Provider) 0622 (Auto Hold - Provider: Orders Generic Provider - Reason: Transfer to a procedural area)1047 (Unhold - Provider: Orders Generic Provider) morphine (PF) injection 2 mg 2 mg, Intravenous, EVERY 2 HOURS PRN, moderate pain, Starting on 09/20/23 at 1323 0032 ($Given - Provider: Betty Sharp RN)0622 (Auto Hold - Provider: Orders Generic Provider - Reason: Transfer to a procedural area)1047 (Unhold - Provider: Orders Generic Provider) naloxone (NARCAN) injection 0.2 mg(Linked Group 2) 0.2 mg, Intravenous, EVERY 2 MIN PRN, opioid reversal, Starting on 09/19/23 at 0504, Administer intravenous route when available and notify provider when administered. For unintended sedation or respiratory depression if all of the below criteria are met: ~ respiratory rate LESS than or EQUAL to 8. ~SaO2 less than 92% and or/end-tidal CO2 is greater than 50. ~ the patient is receiving an opioid, has unintended sedations assessed as RASS (-3), and is currently not on mechanical ventilation. RASS scale moderate (-3) is movement or eye opening to voice but no eye contact. Patient Monitoring Once the patient has demonstrated a response to the naloxone, continue to monitor respiratory rate, depth, oxygen saturation and end-tidal CO2 (if available) every 15 minutes x 2, then every 30 minutes x 2, then every 1 hour x 1 after each naloxone dose. Consider transfer to ICU if patient respiratory parameters have not improved after 4 naloxone doses. 1206 (Auto Hold - Provider: Orders Generic Provider - Reason: Transfer to a procedural area)1443 (Unhold - Provider: Orders Generic Provider) 0622 (Auto Hold - Provider: Orders Generic Provider - Reason: Transfer to a procedural area)1047 (Unhold - Provider: Orders Generic Provider) naloxone (NARCAN) injection 0.2 mg(Linked Group 2) 0.2 mg, Intramuscular, EVERY 2 MIN PRN, opioid reversal, Starting on 09/19/23 at 0504, Administer intramuscular if an intravenous route is not available and notify provider when administered. For unintended sedation or respiratory depression if all of the below criteria are met: ~ respiratory rate LESS than or EQUAL to 8. ~SaO2 less than 92% and or/end-tidal CO2 is greater than 50. ~ the patient is receiving an opioid, has unintended sedations assessed as RASS (-3), and is currently not on mechanical ventilation. RASS scale moderate (-3) is movement or eye opening to voice but no eye contact. Patient Monitoring Once the patient has demonstrated a response to the naloxone, continue to monitor respiratory rate, depth, oxygen saturation and end-tidal CO2 (if available) every 15 minutes x 2, then every 30 minutes x 2, then every 1 hour x 1 after each naloxone dose. Consider transfer to ICU if patient respiratory parameters have not improved after 4 naloxone doses. 1206 (Auto Hold - Provider: Orders Generic Provider - Reason: Transfer to a procedural area)1443 (Unhold - Provider: Orders Generic Provider) 0622 (Auto Hold - Provider: Orders Generic Provider - Reason: Transfer to a procedural area)1047 (Unhold - Provider: Orders Generic Provider) naloxone (NARCAN) injection 0.4 mg(Linked Group 2) 0.4 mg, Intravenous, EVERY 2 MIN PRN, opioid reversal, Starting on 09/19/23 at 0504, Administer intravenous route when available and notify provider when administered. For unintended sedation or respiratory depression if all of the below criteria are met: ~ respiratory rate LESS than or EQUAL to 8. ~ SaO2 less than 92% and or/end-tidal CO2 is greater than 50. ~ the patient is receiving an opioid, has unintended sedation assessed as RASS (-4) or (-5) and patient is currently not on mechanical ventilation. RASS scale (-4) is deep sedation with no response to voice but movement or eye opening to physical stimulation. RASS scale (-5) is unarousable. Patient Monitoring Once the patient has demonstrated a response to the naloxone, continue to monitor respiratory rate, depth, oxygen saturation and end-tidal CO2 (if available) every 15 minutes x 2, then every 30 minutes x 2, then every 1 hour x 1 after each naloxone dose. Consider transfer to ICU if patient respiratory parameters have not improved after 4 naloxone doses. 1206 (Auto Hold - Provider: Orders Generic Provider - Reason: Transfer to a procedural area)1443 (Unhold - Provider: Orders Generic Provider) 0622 (Auto Hold - Provider: Orders Generic Provider - Reason: Transfer to a procedural area)1047 (Unhold - Provider: Orders Generic Provider) naloxone (NARCAN) injection 0.4 mg(Linked Group 2) 0.4 mg, Intramuscular, EVERY 2 MIN PRN, opioid reversal, Starting on 09/19/23 at 0504, Administer intramuscular if an intravenous route is not available and notify provider when administered. For unintended sedation or respiratory depression if all of the below criteria are met: ~ respiratory rate LESS than or EQUAL to 8. ~ SaO2 less than 92% and or/end-tidal CO2 is greater than 50. ~ the patient is receiving an opioid, has unintended sedation assessed as RASS (-4) or (-5) and patient is currently not on mechanical ventilation. RASS scale (-4) is deep sedation with no response to voice but movement or eye opening to physical stimulation. RASS scale (-5) is unarousable. Patient Monitoring Once the patient has demonstrated a response to the naloxone, continue to monitor respiratory rate, depth, oxygen saturation and end-tidal CO2 (if available) every 15 minutes x 2, then every 30 minutes x 2, then every 1 hour x 1 after each naloxone dose. Consider transfer to ICU if patient respiratory parameters have not improved after 4 naloxone doses. 1206 (Auto Hold - Provider: Orders Generic Provider - Reason: Transfer to a procedural area)1443 (Unhold - Provider: Orders Generic Provider) 0622 (Auto Hold - Provider: Orders Generic Provider - Reason: Transfer to a procedural area)1047 (Unhold - Provider: Orders Generic Provider) ondansetron (ZOFRAN ODT) ODT tab 4 mg(Linked Group 3) 4 mg, Oral, EVERY 6 HOURS PRN, nausea, vomiting, Starting on 09/19/23 at 0500, This is Step 1 of nausea and vomiting management. If nausea not resolved in 15 minutes, go to Step 2 prochlorperazine (COMPAZINE). With dry hands, peel back foil backing and gently remove tablet. Do not push oral disintegrating tablet through foil backing. Administer immediately on tongue and oral disintegrating tablet dissolves in seconds, then swallow with saliva. Liquid not required. 1206 (Auto Hold - Provider: Orders Generic Provider - Reason: Transfer to a procedural area)1443 (Unhold - Provider: Orders Generic Provider)1509 (See Alternative - Provider: Logan العراقي RN)2224 (See Alternative - Provider: Jac Jane, FARRAH) 0635 (See Alternative - Provider: Lashanda Moreland, FARRAH)1217 ($Given - Provider: Logan العراقي RN)1852 ($Given - Provider: Logan العراقي RN) 0622 (Auto Hold - Provider: Orders Generic Provider - Reason: Transfer to a procedural area)1047 (Unhold - Provider: Orders Generic Provider) ondansetron (ZOFRAN) injection 4 mg(Linked Group 3) 4 mg, Intravenous, EVERY 6 HOURS PRN, nausea, vomiting, Administer over 2-5 Minutes, Starting on 09/19/23 at 0500, Give IF patient unable to tolerate oral medication. This is Step 1 of nausea and vomiting management. If nausea not resolved in 15 minutes, go to Step 2 prochlorperazine (COMPAZINE). 1206 (Auto Hold - Provider: Orders Generic Provider - Reason: Transfer to a procedural area)1443 (Unhold - Provider: Orders Generic Provider)1509 ($Given - Provider: Logan العراقي RN)2224 ($Given - Provider: Jac Jane RN) 0635 ($Given - Provider: Lashanda Moreland RN)1217 (See Alternative - Provider: Logan العراقي RN)1852 (See Alternative - Provider: Logan العراقي RN) 0622 (Auto Hold - Provider: Orders Generic Provider - Reason: Transfer to a procedural area)1047 (Unhold - Provider: Orders Generic Provider) oxyCODONE (ROXICODONE) tablet 10 mg (CANCELED) 10 mg, Oral, EVERY 4 HOURS PRN, severe pain, IF pain not managed with non-pharmacological and non-opioid interventions, Starting on 09/19/23 at 0502, May use concomitant with non-opioid analgesics. 1206 (Auto Hold - Provider: Orders Generic Provider - Reason: Transfer to a procedural area)1443 (Unhold - Provider: Orders Generic Provider) 2212 ($Given - Provider: Betty Sharp RN - Comment: pt requested 10mg) 0622 (Auto Hold - Provider: Orders Generic Provider - Reason: Transfer to a procedural area)1047 (Unhold - Provider: Orders Generic Provider)1135 ($Given - Provider: Linda Menjivar RN) oxyCODONE (ROXICODONE) tablet 10 mg 10 mg, Oral, ONCE PRN, severe pain, Starting on Thu09/21/23 at 1048, For 1 dose, Max: 5 mg for opioid-na??ve patient. Use caution with patient Age GREATER than 65 years, COPD, or CrCl LESS than 50 mL/min., Phase ll oxyCODONE (ROXICODONE) tablet 5 mg (CANCELED) 5 mg, Oral, EVERY 4 HOURS PRN, moderate pain, IF pain not managed with non-pharmacological and non-opioid interventions, Starting on 09/19/23 at 0502, May use concomitant with non-opioid analgesics. 1206 (Auto Hold - Provider: Orders Generic Provider - Reason: Transfer to a procedural area)1443 (Unhold - Provider: Orders Generic Provider) 1217 ($Given - Provider: Logan العراقي RN)1852 ($Given - Provider: Logan العراقي RN) 0622 (Auto Hold - Provider: Orders Generic Provider - Reason: Transfer to a procedural area)1047 (Unhold - Provider: Orders Generic Provider) oxyCODONE (ROXICODONE) tablet 5 mg 5 mg, Oral, ONCE PRN, moderate pain, other, or is unable to participate in post op recovery due to pain., Starting on Thu09/21/23 at 1048, For 1 dose, Max: 5 mg for opioid-na??ve patient., Phase ll prochlorperazine (COMPAZINE) injection 5 mg 5 mg, Intravenous, EVERY 6 HOURS PRN, nausea, vomiting, Administer over 1-2 Minutes, Starting on Thu09/21/23 at 1048, This is Step 3 of the nausea and vomiting protocol. If nausea/vomitting not resolved in 15-30 minutes, notify Provider., Phase ll sodium chloride (PF) 0.9% PF flush 3 mL 3 mL, Intracatheter, EVERY 1 MIN PRN, line flush, other, to ensure patency or to lock dormant line, Starting on Sat 10/24 at 0500 1206 (Auto Hold - Provider: Orders Generic Provider - Reason: Transfer to a procedural area)1443 (Unhold - Provider: Orders Generic Provider) 1729 ($Given - Provider: Arina Bejarano RN - Comment: new iv) 0622 (Auto Hold - Provider: Orders Generic Provider - Reason: Transfer to a procedural area)1047 (Unhold - Provider: Orders Generic Provider) sodium chloride 0.9% (bottle) irrigation (CANCELED) PRN, Starting on Thu09/21/23 at 0833, Intra-procedure 0833 ($Given - Provider: Cleve Barger MD) sodium chloride 0.9% irrigation (bag) (CANCELED) PRN, Starting on Thu09/21/23 at 0834, Intra-procedure 0834 ($Given - Provider: Cleve Barger MD) sterile water (bottle) irrigation (CANCELED) PRN, Intra-procedure, Starting on Thu09/21/23 at 0834, Until Thu09/21/23 at 0907 0834 ($Given - Provider: Cleve Barger MD - Comment: For Fire Risk Safety) Linked Groups Order Group 1: senna-docusate (SENOKOT-S/PERICOLACE) 8.6-50 MG per tablet 1 tabletJump to med 1 tablet, Oral, 2 TIMES DAILY, First dose (after last modification) on Thu09/21/23 at 1100, If no bowel movement in 24 hours, increase to 2 tablets by mouth. IF more than 1 constipation PRN medication is ordered, administer step-marte as indicated, moving to the next step ONLY if prior step ineffective. Step 1: senna-docusate (SENOKOT-S; PERICOLACE) OR bisacodyl (DULCOLAX) EC tablet Step 2: polyethylene glycol (MIRALAX/GLYCOLAX) Step 3: bisacodyl (DULCOLAX) suppository Step 4: enema Hold for loose stools. Or senna-docusate (SENOKOT-S/PERICOLACE) 8.6-50 MG per tablet 2 tabletJump to med 2 tablet, Oral, 2 TIMES DAILY, First dose (after last modification) on Thu09/21/23 at 1100, IF more than 1 constipation PRN medication is ordered, administer step- marte as indicated, moving to the next step ONLY if prior step ineffective. Step 1: senna-docusate (SENOKOT-S; PERICOLACE) OR bisacodyl (DULCOLAX) EC tablet Step 2: polyethylene glycol (MIRALAX/GLYCOLAX) Step 3: bisacodyl (DULCOLAX) suppository Step 4: enema Hold for loose stools. Group 2: naloxone (NARCAN) injection 0.2 mgJump to med 0.2 mg, Intravenous, EVERY 2 MIN PRN, opioid reversal, Starting on 09/19/23 at 0504, Administer intravenous route when available and notify provider when administered. For unintended sedation or respiratory depression if all of the below criteria are met: ~ respiratory rate LESS than or EQUAL to 8. ~SaO2 less than 92% and or/end-tidal CO2 is greater than 50. ~ the patient is receiving an opioid, has unintended sedations assessed as RASS (-3), and is currently not on mechanical ventilation. RASS scale moderate (-3) is movement or eye opening to voice but no eye contact. Patient Monitoring Once the patient has demonstrated a response to the naloxone, continue to monitor respiratory rate, depth, oxygen saturation and end-tidal CO2 (if available) every 15 minutes x 2, then every 30 minutes x 2, then every 1 hour x 1 after each naloxone dose. Consider transfer to ICU if patient respiratory parameters have not improved after 4 naloxone doses. Or naloxone (NARCAN) injection 0.4 mgJump to med 0.4 mg, Intravenous, EVERY 2 MIN PRN, opioid reversal, Starting on 09/19/23 at 0504, Administer intravenous route when available and notify provider when administered. For unintended sedation or respiratory depression if all of the below criteria are met: ~ respiratory rate LESS than or EQUAL to 8. ~ SaO2 less than 92% and or/end-tidal CO2 is greater than 50. ~ the patient is receiving an opioid, has unintended sedation assessed as RASS (-4) or (-5) and patient is currently not on mechanical ventilation. RASS scale (-4) is deep sedation with no response to voice but movement or eye opening to physical stimulation. RASS scale (-5) is unarousable. Patient Monitoring Once the patient has demonstrated a response to the naloxone, continue to monitor respiratory rate, depth, oxygen saturation and end-tidal CO2 (if available) every 15 minutes x 2, then every 30 minutes x 2, then every 1 hour x 1 after each naloxone dose. Consider transfer to ICU if patient respiratory parameters have not improved after 4 naloxone doses. Or naloxone (NARCAN) injection 0.2 mgJump to med 0.2 mg, Intramuscular, EVERY 2 MIN PRN, opioid reversal, Starting on 09/19/23 at 0504, Administer intramuscular if an intravenous route is not available and notify provider when administered. For unintended sedation or respiratory depression if all of the below criteria are met: ~ respiratory rate LESS than or EQUAL to 8. ~SaO2 less than 92% and or/end-tidal CO2 is greater than 50. ~ the patient is receiving an opioid, has unintended sedations assessed as RASS (-3), and is currently not on mechanical ventilation. RASS scale moderate (-3) is movement or eye opening to voice but no eye contact. Patient Monitoring Once the patient has demonstrated a response to the naloxone, continue to monitor respiratory rate, depth, oxygen saturation and end-tidal CO2 (if available) every 15 minutes x 2, then every 30 minutes x 2, then every 1 hour x 1 after each naloxone dose. Consider transfer to ICU if patient respiratory parameters have not improved after 4 naloxone doses. Or naloxone (NARCAN) injection 0.4 mgJump to med 0.4 mg, Intramuscular, EVERY 2 MIN PRN, opioid reversal, Starting on 09/19/23 at 0504, Administer intramuscular if an intravenous route is not available and notify provider when administered. For unintended sedation or respiratory depression if all of the below criteria are met: ~ respiratory rate LESS than or EQUAL to 8. ~ SaO2 less than 92% and or/end-tidal CO2 is greater than 50. ~ the patient is receiving an opioid, has unintended sedation assessed as RASS (-4) or (-5) and patient is currently not on mechanical ventilation. RASS scale (-4) is deep sedation with no response to voice but movement or eye opening to physical stimulation. RASS scale (-5) is unarousable. Patient Monitoring Once the patient has demonstrated a response to the naloxone, continue to monitor respiratory rate, depth, oxygen saturation and end-tidal CO2 (if available) every 15 minutes x 2, then every 30 minutes x 2, then every 1 hour x 1 after each naloxone dose. Consider transfer to ICU if patient respiratory parameters have not improved after 4 naloxone doses. Group 3: ondansetron (ZOFRAN ODT) ODT tab 4 mgJump to med 4 mg, Oral, EVERY 6 HOURS PRN, nausea, vomiting, Starting on 09/19/23 at 0500, This is Step 1 of nausea and vomiting management. If nausea not resolved in 15 minutes, go to Step 2 prochlorperazine (COMPAZINE). With dry hands, peel back foil backing and gently remove tablet. Do not push oral disintegrating tablet through foil backing. Administer immediately on tongue and oral disintegrating tablet dissolves in seconds, then swallow with saliva. Liquid not required. Or ondansetron (ZOFRAN) injection 4 mgJump to med 4 mg, Intravenous, EVERY 6 HOURS PRN, nausea, vomiting, Administer over 2-5 Minutes, Starting on 09/19/23 at 0500, Give IF patient unable to tolerate oral medication. This is Step 1 of nausea and vomiting management. If nausea not resolved in 15 minutes, go to Step 2 prochlorperazine (COMPAZINE). documented in this encounter Additional Health Concerns Assessment Noted Time PHQ-9 Depression Total Score: 27 021 7:02 AM CDT documented as of this encounter Care Teams Arabic Translator Relationship Specialty [place] [id number] [place] [address] PCP - General Family Practice 02/22/19 09/27/23 [place] [id number] [place] [address] Assigned PCP 10/29/18 10/01/23 documented as of this encounter
--- OUTSIDE RECORDS SUMMARY | 2023-11-20 13:07 | XMS_ITS | Encounter Summary ---
Author Organization [facility] Address [address] [place] [address] Care Team Providers Care General Pediatrician Name Role Phone Joanna Hernandez MD Unavailable Joanna Hernandez MD Primary Care Provider [phone] Reason for Visit * Auth/Cert (Routine) Specialty Diagnoses / Procedures Referred By Fabian t Referred To Contact Med Surg Diagnoses Gallstones Choledocholithiasis [facility] Ortho Spine [address] [facility] [place] [id number] Referral ID Status Reason Start Date Expiration Date Visits Re quested Visits Authorized [id number] 1 1 Encounter Details Date Type Department Care Team (Latest Contact Info) Description 09/19/2023 4:56 AM CDT - 09/21/2023 4:00 PM CDT Hospital Encounter [facility] Orthopedics Spine [address] [facility] [place] [id number] Matti Muniz MD [address] [address] Brian Sewell MD [address] [id number] Choledocholithiasis (Primary Dx) Discharge Disposition: Home or Self Care Social [...] Sign Reading Time Taken Comments Blood Pressure 136/83 09/21/2023 11:07 AM CDT Pulse 72 09/21/2023 10:43 AM CDT Temperature 37.4 ??C (99.3 ??F) 09/21/2023 11:07 AM C DT Respiratory Rate 24 09/21/2023 11:07 AM CDT Oxygen Saturation 94% 09/21/2023 11:07 AM CDT Inhaled Oxygen Concentration - - Weight 81.6 kg (180 lb) 09/19/2023 5:08 AM CDT Height 162.6 cm (5' 4) 09/19/2023 5:08 AM CDT Body Mass Index 30.9 09/19/2023 5:08 AM CDT documented in this encounter Discharge Summaries * Bryanna Urbano APRN CNP - 09/21/2023 1:27 PM CDT [facility] Hospitalist Discharge Summary Date of Admission: 09/19/2023 [...] to be seen, please call us at [phone] and ask to speak with our nurse. We are located at [address] [place] [address]. Unresulted Labs Ordered in the Past 30 [...] and possible acute cholecystitis s/p Lap Nancy, 09/21/23: Of note, Ms. Lezama underwent successful combined laparoscopic gastric sleeve gastrectomy at [facility] by Dr. Pop, since which time she [...] discharging this patient. Bryanna Urbano APRN CNP [facility]THOP[facility] SPINE [address] [facility] [address] Physical Exam Vital Signs: Temp: 99.3 ??F [...] to be seen, please call us at [phone] and ask to speak with our nurse. We are located at [address] [place] [address]. Activity Please see attached discharge instructions. Diet Please see attached discharge instructions. Significant Results and Procedures Results for orders placed or performed during the hospital encounter of 09/19/23 XR Surgery GEETA Fluoro Less Than 5 Min Narrative This exam was marked as non-reportable because it will not be read by a radiologist or a [facility] non-radiologist provider. Discharge Medications Current Discharge Medication [...] medications which have NOT CHANGED Details Biotin 64637 MCG TBDP Take by mouth daily CALCIUM [...] Mahan PA-C - 09/20/2023 9:52 PM CDT [facility] - [facility] Discharge Instructions: Post-Operative Cholecystectomy [...] pain medication. However, if you are taking [place] do not take any additional acetaminophen/Tylenol. Do [...] to be seen, please call us at [phone] and ask to speak with our nurse. We are located at [address] [place] [address]. CALL OUR OFFICE AT [phone] IF YOU HAVE: Chills or fever above 101??F. Increased redness, warmth, or drainage at your incisions. Significant bleeding. Pain not relieved by your pain medication or rest. Increasing pain after the first 48 hours. Any other concerns or questions. documented in this encounter Medications at Time of Discharge Medication Sig Dispensed Refills Start Date End Date Biotin 36817 MCG TBDP Take by mouth daily CALCIUM [...] Mahan PA-C - 09/21/2023 9:16 AM CDT [facility] General Surgery Short Progress Note Ana Lezama [...] our standpoint. Melinda Mahan PA-C * Logan العراقي RN - 09/20/2023 7:54 PM CDT A&Ox4. Independent [...] Torres DO - 09/20/2023 2:41 PM CDT [facility] GENERAL SURGERY Progress Note Admission Date: 09/19/2023 Assessment and Plan: Ana Lezama is a 38 year old female with [...] PGY-4 General Surgery and ACS Services Pager: [phone] Interval History: Pain controlled, was NPO, ambulating, [...] CHLORIDE 105 106 105 -- 108 CO2 24 26 -- 23 BUN 7.6 10.1 -- [...] Test 09/20/23 1043 09/19/23 0837 01/26/19 0923 DANIEL 9.1 8.9 8.9 MAG -- 2.0 -- [...] Plan for laparoscopic cholecystectomytomorrow. Heidy Cheng MD FACS Trauma/Emergency/Critical Care Surgery * Brian Sewell MD - 09/20/2023 1:12 PM CDT [facility] Hospitalist Progress Note Brian Sewell MD 09/20/2023 [...] underwentsuccessful combined laparoscopic gastric sleeve gastrectomy at [facility] by Dr. Pop, since which time she [...] 4.4 3.9 CHLORIDE 105 106 CO2 24 24 BUN 7.6 10.1 CR 0.66 0.61 ANIONGAP 11 10 DANIEL 9.1 8.9 GLC 80 91 ALBUMIN 4.0 3.9 PROTTOTAL 6.6 6.1* BILITOTAL 2.9* 2.6* ALKPHOS 179* 128 ALT 1,570* 2,181* AST 719* 2,315* LIPASE 41 -- No results found for this or any previous visit (from the past 24 hour(s)). Brian Sewell MD Text Page (7am to 6pm) documented in this encounter H&P Notes * Matti Muniz MD - 09/19/2023 5:02 AM CDT [facility] History and Physical Hospitalist Date of Admission: [...] underwentsuccessful combined laparoscopic gastric sleeve gastrectomy at [facility] by Dr. Pop, since which time she [...] tonight yet however. She came to the [place] ED for further evaluation. There she received [...] Location: [facility] OR ENT SURGERY 1992 [place] [employer] SPECIALIST SURGERY hysterectomy, and 2 cesarians HERNIA REPAIR 01/2012 Prior to Admission Medications Prior to Admission Medications Prescriptions Last Dose Informant Patient Reported? Taking? Biotin 84672 MCG TBDP Self Yes No Sig: Take [...] Communication Assessment Patient's communication style: spoken language (Cape Verdean or Bilingual) Hearing Difficulty or Deaf: no [...] file Social Connections: Unknown (10/01/2022) Received from [facility], [facility] [employer] [facility] Social Connections Frequency of Communication with Friends and Family: Not on file Health Literacy: Not on file Functional Status: Prior to admission patient needed assistance: Dependent ADLs:: Independent Dependent IADLs:: Independent Mental Health Status: Mental Health Status: No Current Concerns Chemical Dependency Status: Values/Beliefs: Spiritual, Cultural Beliefs, Spiritism Practices, Values that affect care: no Additional Information: Poultry Vaccinator consulted prematurely from provider in ED for [...] CM team signing off. Brian Martinez RN [facility] Inpatient Care Management - FLOAT CM battery container inspector: [phone] daily 7:30-4:00 * Paulo Naranjo MD - 09/20/2023 10:17 AM CDTAssociated Order(s): CARDIOLOGY IP CONSULT [facility] Cardiology Consultation Ana Lezama Date of : [...] any questions or concerns. Paulo Naranjo MD, [facility] Cardiology September 20, 2023 Voice recognition software [...] Location: [facility] OR ENT SURGERY 1992 [place] [employer] SPECIALIST SURGERY hysterectomy, and 2 cesarians HERNIA REPAIR 01/2012 Prior to Admission Medications Prior to Admission Medications Prescriptions Last Dose Informant Patient Reported? Taking? Biotin 89591 MCG TBDP Past Month Self Yes Yes [...] mg 0.2 mg Intravenous Q2 Min PRMatti Nuñez MD Or naloxone (NARCAN) injection 0.4 mg 0.4 mg Intravenous Q2 Min PRMatti Nuñez MD Or naloxone (NARCAN) injection 0.2 mg 0.2 mg Intramuscular Q2 Min PRMatti Nuñez MD Or naloxone (NARCAN) injection 0.4 mg 0.4 mg Intramuscular Q2 Min PRMatti Nuñez MD ondansetron (ZOFRAN ODT) ODT tab 4 mg 4 mg Oral Q6H PRMatti Nuñez MD Or ondansetron (ZOFRAN) injection 4 mg 4 mg Intravenous Q6H PRMatti Nuñez MD 4 mg at 09/20/23 0635 oxyCODONE (ROXICODONE) tablet 10 mg 10 mg Oral Q4H PRMatti Nuñez MD oxyCODONE (ROXICODONE) tablet 5 mg 5 mg Oral Q4H PRMatti Nuñez MD senna-docusate (SENOKOT-S/PERICOLACE) 8.6-50 MG per tablet 1 tablet 1 tablet Oral BID PRMatti Nuñez MD Or senna-docusate (SENOKOT-S/PERICOLACE) 8.6-50 MG per tablet 2 tablet 2 tablet Oral BID Matti Graham MD sodium chloride (PF) 0.9% PF flush 3 mL 3 mL Intracatheter Q8H Matti Muniz MD 3 mL at 09/19/23 2224 sodium chloride (PF) 0.9% PF flush 3 mL 3 mL Intracatheter q1 min Matti Graham MD sodium chloride 0.9 % infusion Intravenous Continuous Matti Muniz MD 125 mL/hr at 09/20/23 0027 New Bag at 09/20/23 0027 Current Facility-Administered Medications Medication Dose Route Frequency Provider Last Rate Last Admin benzocaine-menthol (CHLORASEPTIC) 6-10 MG lozenge 1 lozenge 1 lozenge Buccal Q1H PRMatti Nuñez MD calcium carbonate (TUMS) chewable tablet 1,000 [...] 0.2 mg 0.2 mg Intravenous Q2 Min PRN Matti Muniz MD Or naloxone (NARCAN) injection 0.4 mg 0.4 mg Intravenous Q2 Min PRN Matti Muniz MD Or naloxone (NARCAN) injection 0.2 mg 0.2 mg Intramuscular Q2 Min PRN Matti Muniz MD Or naloxone (NARCAN) injection 0.4 mg 0.4 mg Intramuscular Q2 Min PRMatti Nuñez MD ondansetron (ZOFRAN ODT) ODT tab 4 mg 4 mg Oral Q6H PRN Matti Muniz MD Or ondansetron (ZOFRAN) injection 4 mg 4 mg Intravenous Q6H PRMatti Nuñez MD 4 mg at 09/20/23 0635 oxyCODONE (ROXICODONE) tablet 10 mg 10 mg Oral Q4H PRN Matti Muniz MD oxyCODONE (ROXICODONE) tablet 5 mg 5 mg Oral Q4H PRN Matti Muniz MD senna-docusate (SENOKOT-S/PERICOLACE) 8.6-50 MG per tablet 1 tablet 1 tablet Oral BID PRN Matti Muniz MD Or senna-docusate (SENOKOT-S/PERICOLACE) 8.6-50 MG per [...] 91 BUN 10.1 CR 0.61 GFRESTIMATED >90 DANIEL 8.9 PROTTOTAL 6.1* ALBUMIN 3.9 BILITOTAL 2.6* [...] PM CDTAssociated Order(s): SURGERY GENERAL IP CONSULT [facility] Consult Note - General Surgery Service Date [...] 81.6 kg (180 lb). Heidy Cheng MD [facility] Non-urgent messages: Securely message with [employer] Integration Software (more info) Text page via [facility] Paging/Directory Chief Complaint Abdominal pain History [...] Location: [facility] OR ENT SURGERY 1992 [place] [employer] SPECIALIST SURGERY hysterectomy, and 2 cesarians HERNIA REPAIR 01/2012 Prior to Admission Medications Medications Prior to Admission Medication Sig Dispense Refill Last Dose Biotin 44275 MCG TBDP Take by mouth daily Past [...] be read by a radiologist or a [facility] non-radiologist provider. * Tonio Keith PA - 09/19/2023 8:53 AM CDTAssociated Order(s): GASTROENTEROLOGY IP CONSULT [facility] Gastroenterology Consultation Ana Lezama [address] [facility] [id number] 38 year old female Admission Date/Time: 09/19/2023 [...] successful combined laparoscopic gastric sleeve gastrectomy at [facility] by Dr. Pop. She presents now for [...] Last Dose Informant Patient Reported? Taking? Biotin 24514 MCG TBDP Self Yes No Sig: Take [...] underwentsuccessful combined laparoscopic gastric sleeve gastrectomy at [facility] by Dr. Pop. She presents now for [...] 2.6 (H) [facility] Office: [phone] (Dr. Sheth) Associated attestation - Delmar Sheth [...] PROCEDURE: Laparoscopic cholecystectomy SURGEON: Cleve Barger MD C ARCHITECT: Melinda Mahan PA-C The physician???s hospital administrative assistant was medically necessary for their expertise [...] seroma, bowel, bladder or bile duct injury, NH, PE,and if any of these occurred the [...] Provider * Plan of Care - Betty Sahrp RN - 09/21/2023 6:22 AM CDT Goal Outcome Evaluation: Summary: 09/20/23-09/21/23; [id number] Diagnosis: Choledocholithiasis POD: NA Orientation: A/O x4 [...] Goal Outcome Evaluation: DATE & TIME: 09/20/23, shift superintendent caustic cresylate Cognitive Concerns/ Orientation : A&o x 4. [...] AM CDT Goal Outcome Evaluation: Shift Summary [id number] Admitting Diagnosis: Gallstones Choledocholithiasis Vitals Vital signs: [...] Ольга Maravilla - 09/19/2023 10:45 AM CDT Yarn Sizer Admission Medication History Admission medication history is complete. The information provided in this note is only as accurateas the sources available at the time of the update. Information Source(s): Patient and CareEverywhere/SureScripts via in-person Pertinent Information: Pt reports not being adherent with desvenlafaxine and confirms taking 50mg strength, states that she is consistent with levothyroxine Changes made to [employer]PER[employer] medication list: Added: valtrex prn, estradiol bi-weekly patch Deleted: no longer taking multivit/Fe, lorazepam Changed: desvenlafaxine 25mg ER --> 50mg ER Allergies reviewed with patient and updates made in EHR: yes Medication History Completed By: ОЛЬГА MARAVILLA 09/19/2023 10:45 AM [employer] Med List Medication Sig Note Last Dose Biotin 92855 MCG TBDP Take by mouth daily Past Month CALCIUM CITRATE PO Take 500 mg by mouth 3 times daily At mid-morning, lunch, and dinner. Unknown Cholecalciferol (VITAMIN D3 PO) Take 5,000 Units by mouth daily Gel cap. Unknown desvenlafaxine (PRISTIQ) 50 MG 24 hr tablet Take 50 mg by mouth daily 09/19/2023: Per SureScripts, desvenlafaxine 25mg ER ( 08/05 #90/90ds). Pt confirms taking 50mg x1 [...] daily Unknown Associated attestation - Sarwat Ortiz [facility] - 09/19/2023 11:01 AM CDT Sarwat Ortiz [facility] * Provider Notification - Logan العراقي RN - 09/19/2023 10:16 AM CDT Javier hospitalist CRITICAL LABS (AST: 2,318, ALT: 2,181) Both trending up from yesterday: AST 1,847, ALT 1,[address] Muniz's note. * Plan of Care - Flor Perea RN - 09/19/2023 6:28 AM CDT Images from the original note were not included. Goal Outcome Evaluation: ncomplete Patient came as DA from [address] on [place]. IVF running with intermittent IV abx. No N/V complain during the shift. Independent in the room, call appropriately. Pain is managed by PRN meds. On NPO. No skin issues. documented in this encounter Plan of Treatment Not on file documented as of this encounter Procedures Procedure Name Priority Date/Time Associated Diagnosis Comments HEPATIC FUNCTION PANEL Routine 08/12/202 4 11:34 AM CDT SURGICAL PATHOLOGY EXAM [...] GREGORIO OF SPEC-BRUSH/WASH 09/19/2023 12:34 PM CDT Choledocholithi asis ENDOSCOPIC ULTRASOUND, ESOPHAGOSCOPY / UPPER GASTROINTESTINAL TRACT (GI) 09/19/2023 12:34 PM CDT Choledocholithi asis UPPER EUS Routine 09/19/2023 11:56 AM CDT [...] PA-C LAB - BLOOD ORDER [facility] [address] 1st floor, [address] [place] [address], [facility] [phone] * Surgical Pathology Exam (09/21/2023 8:08 AM CDT) Case Report Surgical Pathology Report ? Case: [id number] ? Authorizing Provider: ??Cleve Barger MD ? Collected: ? 09/21/2023 08:08 AM ? Ordering Location: ? [facility] ?Received: ?09/21/2023 09:12 AM ? [facility] OR ? Pathologist: ? Yolanda De Souza [...] possible mass or nodularities are grossly identified. Carton Wrapper sections of the gallbladder to include the cystic duct margin (inked black) are submitted in 1 cassette. (ISMAEL Alejandre ([facility]) 09/21/2023 9:43 AM 09/22/2023 4:06 PM CDT LABORATORY Microscopic Description Microscopic examination was performed. 09/22/2023 4:06 PM CDT LABORATORY Performing Labs The technical component of this testing was completed at [facility]. Stain controls for all stains resulted within this report have been reviewed and show appropriate reactivity. 09/22/2023 4:06 PM CDT LABORATORY Case Images 09/22/2023 4:06 PM CDT LABORATORY Tissue GALLBLADDER PART / Unknown 09/21/2023 8:08 AM CDT 09/21/2023 9:12 AM CDT Cleve [facility] [address] [facility] (1st floor, no room number) [place] [address], [place] LABORATORY [facility] [address], [address] [place] [address], [place] [phone] * Lipase (09/20/2023 10:43 AM CDT) Lipase 41 13 - 60 U/L 09/20/2023 11:32 AM CDT LABORATORY Blood STRUCTURE OF RIGHT UPPER LIMB / Unknown Venipuncture / Unknown 09/20/2023 10:43 AM CDT 09/20/2023 10:55 AM CDT Brian Sewell MD LAB - BLOOD ORDERAB LES LABORATORY [facility] [address], [address] [place] [address], [facility] [phone] * TSH with free T4 reflex (09/20/2023 10:43 AM CDT) TSH 2.05 0.30 - 4.20 uIU/mL 09/20/2023 11:32 AM CDT LABORATORY Blood STRUCTURE OF RIGHT UPPER LIMB / Unknown Venipuncture / Unknown 09/20/2023 10:43 AM CDT 09/20/2023 10:55 AM CDT Brian Sewell MD LAB - BLOOD ORDERAB LES LABORATORY [facility] [address], [address] [address], [facility] [phone] * (ABNORMAL) CBC with platelets (09/20/2023 10:43 [...] MD LAB - BLOOD ORDERAB LES LABORATORY [facility] [address], [address] [place] [address], [facility] [phone] * (ABNORMAL) Comprehensive metabolic panel (09/20/2023 10:43 AM CDT) Sodium 140 135 - 145 mmol/L 09/20/2023 11:44 AM [facility] Potassium 4.4 3.4 - 5.3 mmol/L 09/20/2023 11:44 AM [facility] Carbon Dioxide (CO2) 24 22 - 29 mmol/L 09/20/2023 11:44 AM [facility] Anion Gap 11 7 - 15 mmol/L 09/20/2023 11:44 AM T LABORATORY Urea Nitrogen 7.6 6.0 - 20.0 mg/dL 09/20/2023 11:44 AM CDT LABORATORY Creatinine 0.66 0.51 - 0.95 mg/dL 09/20/2023 11:44 AM CDT LABORATORY GFR Estimate >90 >60 mL/min/1. 73m2 09/20/2023 11:44 AM T LABORATORY Comment:eGFR calculated usin 2020 CKD-EPI equation. Calcium 9.1 8.8 - 10.4 mg/dL 09/20/2023 11:44 AM T LABORATORY Comment:Reference intervals for this test were [...] MD LAB - BLOOD ORDERAB LES LABORATORY [facility] [address], [address] [place] [address], [facility] [phone] * CRP inflammation (09/20/2023 10:43 AM CDT) CRP Inflammation 3.45 <5.00 mg/L 09/20/19 11:32 AM CDT LABORATORY Blood STRUCTURE OF RIGHT UPPER LIMB / Unknown Venipuncture / Unknown 09/20/2023 10:43 AM CDT 09/20/2023 10:55 AM CDT Tonio GUEVARA LAB - BLOOD ORD ERABLES [facility] LABORATORY [facility] [address], [address] [place] [address], [facility] [phone] * EKG 12-lead, tracing only (09/19/2023 4:02 PM CDT) Systolic Blood Pressure mmHg RADIOLOGY RESULTS Diastolic Blood Pressure mmHg RADIOLOGY RESULTS Ventricular Rate 37 BPM RAD IOLOGY RESULTS Atrial Rate 37 BPM RADIOLOG Y RESULTS VA Interval 162 ms RADIOLOG Y RESULTS QRS Duration 86 ms RADIOLO GY RESULTS QT 478 ms RADIOLOGY RESULTS QTc 375 ms RADIOLOGY RESULTS P Forest 66 degrees RADIOLOGY RESULTS R AXIS 91 degrees RADIOLOGY RESULTS T Forest 66 degrees RADIOLOGY RESULTS Interpretation ECG Sinus bradycardia Rightward axis Nonspecific T wave abnormality Abnormal ECG No previous ECGs available Confirmed by MD LIBERTAD, PATRICIO ([id number]) on 09/20/2023 10:46:35 AM RADIOLOGY RESULTS 09/19/2023 4:02 PM CDT 09/20/2023 10:46 AM CDT Brian Sewell MD ECG ORDERABLES Performing Organization Address [facility] Co de Phone Number RADIOLOGY RESULTS * XR Surgery GEETA Fluoro Less Than 5 Min (09/19/2023 1:10 PM CDT) Narrative RADIANT - 09/19/2023 1:15 PM CDT This exam was marked as non-reportable because it will not be read by a radiologist or a [facility] non-radiologist provider. Delmar Sheth MD IMG DIAGNOSTIC I MAGING ORDERABLES Performing Organization Address City/[facility]/ZIP Co de Phone Number RADIANT * UPPER EUS (09/19/2023 11:56 AM CDT) Upper EUS [facility] [address] ??[place] ??[id number] Patient Name: Ana Lezama ? Procedure Date: 09/19/2023 11:56 AM ? Date of : 1985 ? Admit Type: Inpatient Age: 38 ? Room: OR 17 Note Status: Finalized ?Attending MD: DELMAR SHETH MD, Instrument Name: 533 [id number] Radial Procedure: ?Upper EUS Indications: ?Common bile duct dilation (acquired) seen on CT ?scan, Elevated liver enzymes, Suspected ?choledocholithiasis, Epigastric abdominal pain Providers: ?DELMAR SHETH MD, Chelsea Cavanaugh RN, Monica ?FARRAH Araiza Referring MD: ? King Cardenas MD Medicines: ?Monitored [...] Procedure Code(s): ? --- Professional --- ? 62667, Esophagogastroduodenos copy, flexible, transoral; with endoscopic ? [...] ? R10.13, Epigastric pain CPT copyright 2021 [employer] [place] [employer]. All rights reserved. The codes documented in this report are preliminary and upon automobile accessories installer review may be revised to meet current [...] ENDOSCOPIC RETROGRADE CHOLANGIOPANCREATOGRAPHY (09/19/2023 11:56 AM CDT) [place] [address] [address] ??[place] ??[id number] _ Patient Name: Ana Lezama ? Procedure Date: 09/19/2023 11:56 AM ? Date of : 1985 ? Admit Type: Inpatient Age: 38 ? Room: OR 17 Note Status: Finalized ?Attending MD: DELMAR [...] the procedure well. ? Findings: ? The supervising fire marshal film was normal. The esophagus was successfully [...] Procedure Code(s): ? --- Professional --- ? 04303, Endoscopic retrograde cholangiopancreatography (ERCP); with ? placement of endoscopic stent into biliary or pancreatic duct, including ? pre- and post-dilation and guide wire passage, when performed, including ? sphincterotomy, when performed, each stent ? 83649, Endoscopic retrograde cholangiopancreatography (ERCP); with ? removal of calculi/debris from biliary/pancreatic duct(s) Diagnosis Code(s): ? --- Professional --- ? K80.50, Calculus of bile duct without cholangitis or cholecystitis ? without obstruction CPT copyright 2021 [employer] [place] [employer]. All rights reserved. The codes documented in this report are preliminary and upon automobile accessories installer review may be revised to meet current [...] - BLOOD ORDERABL ES Performing Organization Address City/[facility] Co de Phone Number [facility] [address], [address] [address], [facility] [phone] * TSH with free T4 reflex (09/19/2023 8:37 AM CDT) TSH 0.98 0.30 - 4.20 uIU/mL 09/20/2023 10:54 AM CDT LABORATORY Blood BLOOD SPECIMEN / Unknown Venipuncture / Unknown 09/19/2023 8:37 AM CDT 09/19/2023 9:16 AM CDT Paulo Naranjo MD LAB - BLOOD ORDERABL ES [facility] [address], [address] [place] [address], [facility] [phone] * (ABNORMAL) Bilirubin direct (09/19/2023 8:37 AM CDT) Pathologist [facility] Bilirubin Direct 1.54(H) 0.00 - 0.30 mg/dL 09/19/2023 12:34 PM CDT LABORATORY Blood BLOOD SPECIMEN / Unknown Venipuncture / Unknown 09/19/2023 8:37 AM CDT 09/19/2023 9:16 AM CDT Heidy Cheng MD LAB - BLOOD ORDERABL ES LABORATORY [facility] [address], [address] [place] [address], [facility] [phone] * (ABNORMAL) CBC with platelets and differential (09/19/2023 8:37 AM CDT) Pathologist [facility] WBC Count 4.5 4.0 - 11.0 10e3/uL [...] CDT Matti Muniz MD [facility] Organization Address City/State/ZIP Co de Phone Number LABORATORY [facility] [address], [address] [place] [address], [facility] [phone] * (ABNORMAL) Comprehensive metabolic panel (09/19/2023 8:37 AM CDT) Sodium 140 135 - 145 mmol/L 09/19/2023 10:10 AM CDT LABORATORY Potassium 3.9 3.4 - 5.3 mmol/L 09/19/2023 10:10 AM [facility] Carbon Dioxide (CO2) 24 22 - 29 mmol/L 09/19/2023 10:10 AM [facility] Anion Gap 10 7 - 15 mmol/L 09/19/2023 10:10 AM [facility] Urea Nitrogen 10.1 6.0 - 20.0 mg/dL 09/19/2023 10:10 AM [facility] Creatinine 0.61 0.51 - 0.95 mg/dL 09/19/2023 10:10 AM [facility] GFR Estimate >90 >60 mL/min/1. 73m2 09/19/2023 10:10 AM [facility] Comment:eGFR calculated usin 2020 CKD-EPI equation. Calcium 8.9 8.8 - 10.4 mg/dL 09/19/2023 10:10 AM [facility] Comment:Reference intervals for this test were updated on 08/25/2023 to reflect our healthy population more accurately. There may be differences in the flagging of prior results with similar values performed with this method. Those prior results can be interpreted in the context of the updated reference intervals. Chloride 106 98 - 107 mmol/L 09/19/2023 10:10 AM [facility] Glucose 91 70 - 99 mg/dL 09/19/2023 10:10 AM [facility] Alkaline Phosphatase 128 40 - 150 U/L 09/19/2023 10:10 AM [facility] AST 2,315(HH) 0 - 45 U/L 09/19/2023 10:10 AM [facility] ALT 2,181(HH) 0 - 50 U/L 09/19/2023 10:10 AM [facility] Protein Total 6.1(L) 6.4 - 8.3 g/dL 09/19/2023 10:10 AM [facility] Albumin 3.9 3.5 - 5.2 g/dL 09/19/2023 10:10 AM [facility] Bilirubin Total 2.6(H) <=1.2 mg/dL 09/19/2023 10:10 AM [facility] Blood BLOOD SPECIMEN / Unknown Venipuncture / Unknown 09/19/2023 8:37 AM CDT 09/19/2023 9:16 AM CDT Matti Muniz MD LAB - BLOOD JOANNE MAYA [facility] Organization Address City/State/ZIP Co de Phone Number [facility] [address] [place] [address], [place] [phone] documented in this encounter Visit Diagnoses Diagnosis Choledocholithiasis- Primary Calculus of bile duct without mention of cholecystitis or obstruction Choledocholithiasis Calculus of bile duct without mention of cholecystitis or obstruction documented in this encounter Administered Medications Inactive Administered Medications - up to 3 most recent administrations Medication Order MAR Action Action Date Dose Rate Site dexAMETHasone (DECADRON) injection 4 mg 4 [...] CONTINUOUS, Starting on 09/19/23 at 0530, Until Thu09/21/23 at 1329 $New Bag 09/21/2023 11:43 AM CDT 125 mL/hr $New Bag 09/20/2023 12:27 AM CDT 125 mL/hr Rate/Dose Verify 09/19/2023 3:53 PM CDT 125 mL/ hr documented in this encounter Active and Recently Administered Medications Times are shown in CDT. Scheduled Medication Order 09/19/2023 09/20/2023 09/21/2023 fentaNYL (PF) (SUBLIMAZE) injection 50 mcg (COMPLETED) 50 mcg, Intravenous, ONCE, Administer over 3-5 Minutes, On 09/21/23 at 0730, For 1 dose, Pre-procedure 0719 ($Given - Provider: Mahi Mckeon, FARRAH) meropenem (MERREM) 500 mg vial to attach to NS 100 mL bag for ADULTS or 25 mL bag for PEDS (CANCELED) STAT, 500 mg, Intravenous, EVERY 8 HOURS, First dose on 09/19/23 at 0600, Indications: Intra-Abdominal Infection 0550 ($New Bag - Provider: Flor Perea, FARRAH) meropenem (MERREM) 500 mg vial to attach [...] DAILY, First dose (after last modification) on 09/21/23 at 1100, If no bowel movement in [...] DAILY, First dose (after last modification) on 09/21/23 at 1100, IF more than 1 constipation PRN medication is ordered, administer step-marte as indicated, moving to the next step ONLY if prior step ineffective. Step 1: senna-docusate (SENOKOT-S; PERICOLACE) OR bisacodyl (DULCOLAX) EC tablet Step 2: polyethylene glycol (MIRALAX/GLYCOLAX) Step 3: bisacodyl (DULCOLAX) suppository Step 4: enema Hold for loose stools. 1437 ($Given - Provider: Linda Menjivar, RN) sodium chloride (PF) 0.9% PF flush 3 mL 3 mL, Intracatheter, EVERY 8 HOURS, First dose on 09/19/23 at 0530, to lock peripheral IV dormant line 0538 (Not Given - Provider: Flor Peera, FARRAH - Reason: IV Infusing)1206 (Auto Hold - Provider: Orders Generic Provider - Reason: Transfer to a procedural area)1330 (Automatically Held - Provider: Orders Generic Provider)1443 (Unhold - Provider: Orders Generic Provider)2224 ($Given - Provider: Jac Jane, FARRAH) 0639 (Not Given - Provider: Lashanda Moreland RN - Reason: IV Infusing)1330 (Not Given - Provider: Logan العراقي RN - Reason: IV Infusing)2213 ($Given - Provider: Betty Sharp RN) 0551 ($Given - Provider: Betty Sharp RN)0622 (Auto Hold - Provider: Orders Generic Provider - Reason: Transfer to a procedural area)1047 (Unhold - Provider: Orders Generic Provider)1320 (Not Given - Provider: Linda Menjivar, FARRAH - Reason: IV Infusing) Continuous Medication Order 09/19/2023 09/20/2023 09/21/2023 lactated ringers infusion (CANCELED) at 100 mL/hr, Intravenous, CONTINUOUS, Pre-procedure, Starting on 09/19/23 at 1230, Until 09/19/23 at 1326 1220 ($New Bag - Provider: Sinai Puga, RN) lactated ringers infusion (CANCELED) at 10 mL/hr, Intravenous, CONTINUOUS, IF patient NOT on dialysis., Pre-procedure, Starting on Thu09/21/23 at 0630, Until Thu09/21/23 at 0907 0727 ($New Bag - Provider: Dinora Agee APRN CRNA)0829 ($New Bag - Provider: Dinora Agee APRN CRNA) sodium chloride 0.9 % infusion (CANCELED) at 125 mL/hr, Intravenous, CONTINUOUS, Starting on 09/19/23 at 0530, Until Thu09/21/23 at 1329 0539 (Rate/Dose Verify - Provider: Flor Perea, FARRAH)1137 (Rate/Dose Verify - Provider: Logan العراقي RN)1234 (Anesthesia Volume Adjustment - Provider: Inga Sheth APRN CRNA)1310 (Anesthesia Volume Adjustment - Provider: Inga Sheth APRN CRNA)1451 ($New Bag - Provider: Logan العراقي RN)1553 (Rate/Dose Verify - Provider: Jac Jane, FARRAH) 0027 ($New Bag - Provider: Lashanda Moreland, FARRAH) 1143 ($New Bag - Provider: Linda Menjivar, FARRAH)1430 (Stopped - Provider: Linda Menjivar RN) PRN [...] 4 TIMES DAILY PRN, heartburn, Starting on Thu09/19/23 at 0500 1206 (Auto Hold - Provider: [...] if HYDROmorphone (DILAUDID) also ordered., Starting on 09/19/23 at 1330, Administer fentaNYL (SUBLIMAZE) for acute [...] Generic Provider)1509 (See Alternative - Provider: Logan العراقي, FARRAH)2224 (See Alternative - Provider: Jac Jane, FARRAH) 0635 (See Alternative - Provider: Lashanda Moreland RN)1217 ($Given - Provider: Logan العراقي, FARRAH)1852 ($Given - Provider: Logan العراقي, FARRAH) 0622 (Auto Hold - Provider: Orders Generic [...] Orders Generic Provider)1509 ($Given - Provider: Logan العراقي, FARRAH)2224 ($Given - Provider: Jac Jane RN) 0635 [...] Generic Provider) 1217 ($Given - Provider: Logan العراقي, FARRAH)1852 ($Given - Provider: Logan العراقي RN) 0622 [...] or to lock dormant line, Starting on Thu09/19/23 at 0500 1206 (Auto Hold - Provider: [...] 2 MIN PRN, opioid reversal, Starting on Thu09/19/23 at 0504, Administer intravenous route when available [...] documented as of this encounter Care Teams General Pediatrician Relationship Specialty [place] [address] [place] [address] PCP - General Family Practice 02/22/19 09/27/23 [place] [address] [place] [address] Assigned PCP 10/29/18 10/01/23 documented as of this encounter
--- OUTSIDE RECORDS SUMMARY | 2023-11-20 13:07 | XMS_ITS | Encounter Summary ---
Author Organization [place] Address [address] [place] [address] Care Team Providers Care Insulation Helper Name Role Phone Danette Alan APRN COMPENSATION/BENEFITS SPECIALIST Primary Care Provider [phone] Danette Alan APRN COMPENSATION/BENEFITS SPECIALIST Unavailable Reason for Visit * Reason Onset Date Comments MyChart Communication 10/07/2023 Encounter Details Date Type Department Care Team (Late st Contact Info) Description 10/07/2023 MyC Medical Advice [facility] [address] [place] [address] Danette Alan APRN COMPENSATION/BENEFITS SPECIALIST [address] [place] [address] MyChart Communication Social History Tobacco Use Types [...] documented as of this encounter Care Teams Insulation Helper Relationship Specialty Start Date End Date Danette Alan APRN COMPENSATION/BENEFITS SPECIALIST [address] [place] [address] PCP - General Family Medicine 09/28/23 Danette Alan APRN COMPENSATION/BENEFITS SPECIALIST [address] [place] [address] Assigned PCP 10/02/23 documented as of this encounter
--- OUTSIDE RECORDS SUMMARY | 2023-11-20 13:07 | XMS_ITS | Encounter Summary ---
Author Organization [place] Address [facility] [place] [address] Care Team Providers Care Sales Development Coordinator Name Role Phone Joanna Hernandez MD Unavailable [phone] Joanna Hernandez MD Primary Care Provider [phone] Encounter Details Date Type Department Care Team (Latest Contact Info) Description 09/23/2023 Travel Social History Tobacco Use Types Packs/Day [...] documented as of this encounter Care Teams Sales Development Coordinator Relationship Specialty [place] [address] [place] [address] PCP - General Family Practice 02/22/19 09/27/23 [place] [address] [place] [address] Assigned PCP 10/29/18 10/01/23 documented as of this encounter
--- OUTSIDE RECORDS SUMMARY | 2023-11-20 13:07 | XMS_ITS | Encounter Summary ---
Author Organization [facility] Address [address] [place] [address] Care Team Providers Care Lead Project Engineer Name Role Phone Joanna Hernandez MD Unavailable [phone] Joanna Hernandez MD Primary Care Provider [phone] Reason for Visit * Reason Onset Date Comments Forms 09/25/2023 Unum Encounter Details Date Type Department Care Team (Late st Contact Info) Description 09/25/2023 Telephone [facility] [address] [place] [address] Danette Alan APRN [facility] [address] [place] [address] Forms ([employer]um) Social History Tobacco Use Types Packs/Day Years [...] Telephone Encounter - More Lee - 09/25/2023 2:51 PM CDT Patient called back with the fax number [phone]. I faxed the form over there. * Telephone Encounter - Chelsea Glez - 09/25/2023 2:41 PM CDT Patient returned call. She was asked to provide to us the fax number to her surgeons office. Patient disconnected the call. * Telephone Encounter - More Lee - 09/25/2023 2:24 PM CDT Left message for patient to call back We [facility] for Danette Alan to fill out. Danette is a same day provider and does notdo this. The patient will need to ask her surgeon to fill this out documented in this encounter Plan of Treatment Not on file documented as of this encounter Visit Diagnoses Not on filedocumented in this encounter Additional Health Concerns Assessment Noted Time PHQ-9 Depression Total Score: 27 021 7:02 AM CDT documented as of this encounter Care Teams Lead Project Engineer Relationship Specialty [place] [address] [place] [address] PCP - General Family Practice 02/22/19 09/27/23 [place] [address] [place] [address] Assigned PCP 10/29/18 10/01/23 documented as of this encounter
--- OUTSIDE RECORDS SUMMARY | 2023-11-20 13:08 | XMS_ITS | Encounter Summary ---
Author Organization [place] Address [facility] [facility] [place] [address] Care Team Providers Care Ride Mechanic Name Role Phone Joanna Hernandez MD Unavailable [phone] Joanna Hernandez MD Primary Care Provider Makenzie Toth PA-C Unavailable [phone] Danette Alan APRN ADULT HIGH SCHOOL INSTRUCTOR Primary Care Provider [phone] Danette Alan APRN ADULT HIGH SCHOOL INSTRUCTOR Unavailable [phone] Cleve Barger MD Unavailable Encounter Details Date [...] documented as of this encounter Care Teams Ride Mechanic Relationship Specialty [place] [address] [place] [address] PCP - General Family Practice 02/22/19 09/27/23 Danette Alan APRN ADULT HIGH SCHOOL INSTRUCTOR [address] [place] [address] PCP - General Family Medicine 09/28/23 [place] [address] [place] [address] Assigned PCP 10/29/18 10/01/23 Makenzie Toth PA-C [address] [place] [address] Assigned Surgical Provider 04/29/20 Danette Alan APRN ADULT HIGH SCHOOL INSTRUCTOR [address] [place] [address] Assigned PCP 10/02/23 Cleve Barger MD [address] [place] [address] Assigned Surgical Provider 11/02/23 documented as of this encounter
--- OUTSIDE RECORDS SUMMARY | 2023-11-20 13:08 | XMS_ITS | Encounter Summary ---
Author Organization [place] Address [address] [place] [address] Care Team Providers Care Sugar Mill Worker Name Role Phone Joanna Hernandez MD Unavailable Joanna Hernandez MD Primary Care Provider [phone] Danette Alan APRN MOTION AND TIME STUDY TEACHER Primary Care Provider [phone] Danette Alan APRN MOTION AND TIME STUDY TEACHER Unavailable Cleve Barger MD Unavailable Encounter Details Date Type Department Care Team (Late st Contact Info) Description 01/30/2022 MyC Medical Advice [facility] [address] [address] Jodie [place]azar MD [address] [facility] [address] [place] [address] Social History Tobacco Use Types [...] Coronavirus/COVID-19? No / Unsure 01/30/2022 10:03 AM WATCH REPAIRER APPRENTICE documented as of this encounter Plan of Treatment Not on file documented as of this encounter Visit Diagnoses Not on filedocumented in this encounter Additional Health Concerns Assessment Noted Time PHQ-9 Depression Total Score: 27 021 7:02 AM CDT documented as of this encounter Care Teams Sugar Mill Worker Relationship Specialty [place] [address] [place] [address] PCP - General Family Practice 02/22/19 09/27/23 Danette Alan APRN MOTION AND TIME STUDY TEACHER [address] [facility] [address] [place] [address] PCP - General Family Medicine 09/28/23 [place] [address] [place] [address] Assigned PCP 10/29/18 10/01/23 Danette Alan APRN MOTION AND TIME STUDY TEACHER [address] [facility] [address] [place] [address] Assigned PCP 10/02/23 Cleve Barger MD [address] [facility] [address] [place] [address] Assigned Surgical Provider 11/02/23 documented as of this encounter
--- OUTSIDE RECORDS SUMMARY | 2023-11-20 13:08 | XMS_ITS | Encounter Summary ---
Author Organization [facility] Address [facility] [place] [address] Care Team Providers Care Wax Ball Molder Name Role Phone Joanna Hernandez MD Unavailable [phone] Joanna Hernandez MD Primary Care Provider [phone] Reason for Visit * Auth/Cert (Routine) Specialty Diagnoses / Procedures Referred By Fabian t Referred To Contact Med Surg Diagnoses Gallstones Choledocholithiasis [facility] Spine [address] [place] [address] Referral ID Status Reason Start Date Expiration Date Visits Re quested Visits Authorized [id number] 1 1 Encounter Details Date Type Department Care Team (Late st Contact Info) Description 09/19/2023 11:30 AM CDT - 09/19/2023 12:30 PM CDT Surgery [facility] Peri Services [address] [place] [address] Delmar Sheth MD [facility] [place] [place] [address] ENDOSCOPIC ULTRASOUND, ESOPHAGOSCOPY / UPPER GASTROINTESTINAL TRACT (GI) Surgery Details Date/Time Status Location OR Service Patient Class Case Class Case Type Trauma Case? 09/19/23 11:30 AM Posted SH OR OR M 17 Gastroenterology Inpatient NEST 4 - Urgent (within 12hrs) Panel 1 Procedure LRB Anes Op Region Wound Class Comments ENDOSCOPIC ULTRASOUND, ESOPHAGOSCOPY / UPPER GASTROINTESTINAL TRACT (GI) N/A MAC Esophagus II-Clean Cont aminated ENDOSCOPIC RETROGRADE CHOLANGIOPANCREATOGRAPHY, COMPLEX N/A General Mouth II-Clean Contaminated Surgeon Surgeon Role Service Panel Delmar Sheth MD Primary Gastroenterolog y 1 documented in this encounter Social History [...] Sign Reading Time Taken Comments Blood Pressure 107/55 09/19/2023 7:23 AM CDT Pulse 42 09/19/2023 7:23 AM CDT Temperature 36.6 ??C (97.8 ??F) 09/19/2023 7:23 AM CD T Respiratory Rate 16 09/19/2023 7:23 AM CDT Oxygen Saturation 97% 09/19/2023 7:23 AM CDT Inhaled Oxygen Concentration - - Weight 81.6 kg (180 lb) 09/19/2023 5:08 AM CDT Height 162.6 cm (5' 4) 09/19/2023 5:08 AM CDT Body Mass Index 30.9 09/19/2023 5:08 AM CDT documented in this encounter Discharge Summaries * Bryanna Urbano APRN HUMAN RESOURCES BENEFITS SPECIALIST - 09/21/2023 1:27 PM CDT [facility] Hospitalist Discharge Summary Date of Admission: 09/19/2023 Date of Discharge: 09/21/2023 Discharging Provider: Bryanna Urbano APRN HUMAN RESOURCES BENEFITS SPECIALIST Discharge Service: Hospitalist Service Discharge Diagnoses Suspected [...] to be seen, please call us at [phone] and ask to speak with our nurse. We are located at [address] [place] [address]. Unresulted Labs Ordered in the Past 30 [...] successful combined laparoscopic gastric sleeve gastrectomy at [facility] by Dr. Pop, since which time she [...] discharging this patient. Bryanna Urbano APRN CNP [facility] ORTHOPEDICS SPINE [address] [facility] [address] Physical Exam Vital Signs: Temp: 99.3 ??F [...] to be seen, please call us at [phone] and ask to speak with our nurse. We are located at [address] [place] [address]. Activity Please see attached discharge instructions. Diet Please see attached discharge instructions. Significant Results and Procedures Results for orders placed or performed during the hospital encounter of 09/19/23 XR Surgery GEETA Fluoro Less Than 5 Min Narrative This exam was marked as non-reportable because it will not be read by a radiologist or a [facility] non-radiologist provider. Discharge Medications Current Discharge Medication [...] medications which have NOT CHANGED Details Biotin 42057 MCG TBDP Take by mouth daily CALCIUM [...] Mahan PA-C - 09/20/2023 9:52 PM CDT [facility] Discharge Instructions: Post-Operative Cholecystectomy [...] pain medication. However, if you are taking [place] do not take any additional acetaminophen/Tylenol. Do [...] to be seen, please call us at [phone] and ask to speak with our nurse. We are located at [address] [place] [address]. CALL OUR OFFICE AT [phone] IF YOU HAVE: Chills or fever above 101??F. Increased redness, warmth, or drainage at your incisions. Significant bleeding. Pain not relieved by your pain medication or rest. Increasing pain after the first 48 hours. Any other concerns or questions. documented in this encounter Medications at Time of Discharge Medication Sig Dispensed Refills Start Date End Date Biotin 43838 MCG TBDP Take by mouth daily CALCIUM [...] Mahan PA-C - 09/21/2023 9:16 AM CDT [facility] General Surgery Short Progress Note Ana Lezama [...] Torres DO - 09/20/2023 2:41 PM CDT [facility] GENERAL SURGERY Progress Note Admission Date: 09/19/2023 Assessment and Plan: Ana Lezaam is a 38 year old female with [...] PGY-4 General Surgery and ACS Services Pager: [phone] Interval History: Pain controlled, was NPO, ambulating, [...] Plan for laparoscopic cholecystectomytomorrow. Heidy Cheng MD [facility] Trauma/Emergency/Critical Care Surgery * Brian Sewell MD - 09/20/2023 1:12 PM CDT [facility] Hospitalist Progress Note Brian Sewell MD 09/20/2023 [...] underwentsuccessful combined laparoscopic gastric sleeve gastrectomy at [facility] by Dr. Pop, since which time she [...] Muniz MD - 09/19/2023 5:02 AM CDT [facility] History and Physical Hospitalist Date of Admission: [...] underwentsuccessful combined laparoscopic gastric sleeve gastrectomy at [facility] by Dr. Pop, since which time she [...] tonight yet however. She came to the [place] ED for further evaluation. There she received [...] Location: [facility] OR ENT SURGERY 1992 [place] [employer]ER SURGERY hysterectomy, and 2 cesarians HERNIA REPAIR 01/2012 Prior to Admission Medications Prior to Admission Medications Prescriptions Last Dose Informant Patient Reported? Taking? Biotin 89589 MCG TBDP Self Yes No Sig: Take [...] it with pertinent information if needed. Ana C Patrie reports that she quit smoking about 10 [...] Communication Assessment Patient's communication style: spoken language ([place]an or Bilingual) Hearing Difficulty or Deaf: no [...] file Social Connections: Unknown (10/01/2022) Received from [employer] Social Connections Frequency of Communication with Friends and Family: Not on file Health Literacy: Not on file Functional Status: Prior to admission patient needed assistance: Dependent ADLs:: Independent Dependent IADLs:: Independent Mental Health Status: Mental Health Status: No Current Concerns Chemical Dependency Status: Values/Beliefs: Spiritual, Cultural Beliefs, Latter Day Practices, Values that affect care: no Additional Information: Corporate Communications Specialist consulted prematurely from provider in ED for [...] CM team signing off. Brian Martinez RN [facility] Inpatient Care Management - FLOAT CM roll slicing machine tender: [phone] daily 7:30-4:00 * Paulo Naranjo MD - 09/20/2023 10:17 AM CDTAssociated Order(s): CARDIOLOGY IP CONSULT [facility] Cardiology Consultation Ana Lezama Date of : [...] any questions or concerns. 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 Taking? Biotin 98905 MCG TBDP Past Month Self Yes Yes [...] 1,000 mg 1,000 mg Oral 4x Daily PRMatti Nuñez MD guaiFENesin-dextromethorphan (ROBITUSSIN DM) 100-10 MG/5ML syrup 10 mL 10 mL Oral Q4H PRMatti Nuñez MD HYDROmorphone (DILAUDID) injection 0.2 mg 0.2 mg Intravenous Q2H PRN Matti Muniz MD 0.2 mg at 09/20/23 0636 HYDROmorphone (DILAUDID) injection 0.4 mg 0.4 mg Intravenous Q2H PRMatti Nuñez MD lidocaine (LMX4) cream Topical Q1H PRMatti Nuñez MD lidocaine 1 % 0.1-1 mL 0.1-1 mL Other Q1H PRMatti Nuñez MD LORazepam (ATIVAN) injection 0.5-1 mg 0.5-1 [...] 0.2 mg 0.2 mg Intramuscular Q2 Min PRMtati Nuñez MD Or naloxone (NARCAN) injection 0.4 mg 0.4 mg Intramuscular Q2 Min PRN Matti Muniz MD ondansetron (ZOFRAN ODT) ODT tab 4 [...] 2 tablet 2 tablet Oral BID PRMatti Nuñez MD sodium chloride (PF) 0.9% PF flush [...] 2 tablet 2 tablet Oral BID PRMatti Nuñez MD sodium chloride (PF) 0.9% PF flush [...] PM CDTAssociated Order(s): SURGERY GENERAL IP CONSULT [facility] Consult Note - General Surgery Service Date [...] 81.6 kg (180 lb). 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 * Tonio Keith PA - 09/19/2023 8:53 AM CDTAssociated Order(s): GASTROENTEROLOGY IP CONSULT [facility] Gastroenterology Consultation Ana Lezama [address] [facility] [address] 38 year old female Admission Date/Time: 09/19/2023 [...] successful combined laparoscopic gastric sleeve gastrectomy at [facility] by Dr. Pop. She presents now for [...] Last Dose Informant Patient Reported? Taking? Biotin 91179 MCG TBDP Self Yes No Sig: Take [...] imaging results. CONSULTATION ASSESSMENT AND PLAN: Ana C Patrie is a markedly pleasant 38 year old woman with past medical history that is most notable for prior sleeve gastrectomy, who presents with acute abdominal pain and nausea, and is found to have suspected acute choledocholithiasis and possible acute cholecystitis. Suspected acute choledocholithiasis and possible acute cholecystitis: Of note, Ms. Lezama underwentsuccessful combined laparoscopic gastric sleeve gastrectomy at [facility] by Dr. Ppo. She presents now for evaluation of acute [...] 2.6 (H) [facility] Office: [phone] (Dr. Sheth) Associated attestation - Delmar Sheth [...] his care. Delmar Sheth MD FACP JHONY Sheth GI documented in this encounter Nursing Notes * [...] PROCEDURE: Laparoscopic cholecystectomy SURGEON: Cleve Barger MD SUPPORT SERVICES MANAGER: Melinda Mahan PA-C The physician???s after school program assistant was medically necessary for their expertise [...] seroma, bowel, bladder or bile duct injury, [place], PE,and if any of these occurred the [...] AM CDT Goal Outcome Evaluation: Summary: 09/20/23-09/21/23; [id number] Diagnosis: Choledocholithiasis POD: NA Orientation: A/O x4 Vitals/Tele: bradycardic (50s) on RA (baseline) IV Access/drains: R PIV infusing NS 125 ml/hr Diet: NPO since midnight Mobility: Independent Pain: 1 prn oral oxy and 1 prn IV morphine given for pain 4-08/18 GI/: Cont BB, no BM this shift Wound/Skin: WDL, CDI Consults: Surgery 7am Discharge Plan: pending postop recovery * Provider Notification - Logan العراقي RN - 09/20/2023 11:02 AM CDT * Plan of Care - Lashanda Moreland RN - 09/20/2023 7:08 AM CDT Goal Outcome Evaluation: DATE & TIME: 09/20/23, maintenance technician 3rd shift Cognitive Concerns/ Orientation : A&o x 4. [...] AM CDT Goal Outcome Evaluation: Shift Summary [id number] Admitting Diagnosis: Gallstones Choledocholithiasis Vitals Vital signs: [...] Ольга Maravilla - 09/19/2023 10:45 AM CDT Rv Mechanic Admission Medication History Admission medication history is complete. The information provided in this note is only as accurateas the sources available at the time of the update. Information Source(s): Patient and CareEverywhere/SureScripts via in-person Pertinent Information: Pt reports not being adherent with desvenlafaxine and confirms taking 50mg strength, states that she is consistent with levothyroxine Changes made to EYELET OPERATOR medication list: Added: valtrex prn, estradiol bi-weekly patch Deleted: no longer taking multivit/Fe, lorazepam Changed: desvenlafaxine 25mg ER --> 50mg ER Allergies reviewed with patient and updates made in EHR: yes Medication History Completed By: ОЛЬГА MARAVILLA 09/19/2023 10:45 AM EYELET OPERATOR Med List Medication Sig Note Last Dose Biotin 77677 MCG TBDP Take by mouth daily Past Month CALCIUM CITRATE PO Take 500 mg by mouth 3 times daily At mid-morning, lunch, and dinner. Unknown Cholecalciferol (VITAMIN D3 PO) Take 5,000 Units by mouth daily Gel cap. Unknown desvenlafaxine (PRISTIQ) 50 MG 24 hr tablet Take 50 mg by mouth daily 09/19/2023: Per SureScripts, desvenlafaxine 25mg ER (LF 08/05 #90/90ds). Pt [...] daily Unknown Associated attestation - Sarwat Ortiz RPH - 09/19/2023 11:01 AM CDT Sarwat Ortiz RPH * Provider Notification - Logan العراقي RN - 09/19/2023 10:16 AM CDT Paged hospitalist CRITICAL LABS (AST: 2,318, ALT: 2,181) Both trending up from yesterday: AST 1,847, ALT 1,[address] Muniz's note. * Plan of Care - Flor Perea RN - 09/19/2023 6:28 AM CDT Images from the original note were not included. Goal Outcome Evaluation: ncomplete Patient came as DA from [facility], [facility] on RA. IVF running with intermittent IV [...] PATHOLOGY EXAM Routine 09/21/19 8:08 AM CDT TSH WITH FREE T4 REFLEX [...] PA-C LAB - BLOOD ORDER [facility] [address] 1[address] floor, [address] [place] [address], [facility] [phone] * Surgical Pathology Exam (09/21/2023 8:08 AM CDT) Case Report Surgical Pathology Report ? Case: [id number] ? Authorizing Provider: ??Cleve Barger MD ? Collected: ? 09/21/2023 08:08 AM ? Ordering Location: ? [facility] ?Received: ?09/21/2023 09:12 AM ? [facility] OR ? Pathologist: ? Yolanda De Souza MD ? Specimen: ?Gallbladder, Gallbladder and Contents ? 09/22/2023 4:06 PM CDT LABORATORY Final Diagnosis A(1). Gallbladder, cholecystectomy: -Acute cholecystitis, and cholelithiasis. -Negative for dysplasia or malignancy. 09/22/2023 4:06 PM CDT LABORATORY Clinical Information Procedure: Laparoscopic cholecystectomy Pre-op Diagnosis: Choledocholithiasis [K80.50] Post-op Diagnosis: K80.50 - Choledocholithiasis [ICD-10-CM] 09/22/2023 4:06 PM T LABORATORY Gross Description A(1). Gallbladder, Gallbladder and [...] possible mass or nodularities are grossly identified. Systems Development Consultant sections of the gallbladder to include the cystic duct margin (inked black) are submitted in 1 cassette. (ISMAEL Alejandre (ASCP) 09/21/2023 9:43 AM 09/22/2023 4:06 PM T LABORATORY Microscopic Description Microscopic examination was performed. 09/22/2023 4:06 PM T LABORATORY Performing Labs The technical component of this testing was completed at [facility]. Stain controls for all stains resulted within this report have been reviewed and show appropriate reactivity. 09/22/2023 4:06 PM T LABORATORY Case Images 09/22/2023 4:06 PM T LABORATORY Tissue GALLBLADDER PART / Unknown 09/21/2023 8:08 AM CDT 09/21/2023 9:12 AM CDT Cleve [facility] Acute Care Lab [address] Lab (1st floor, no room number) [place] [address], [facility] LABORATORY [facility] [address] floor, [address] [place] [address], [facility] [phone] * Lipase (09/20/2023 10:43 AM CDT) Pathologist [facility] Lipase 41 13 - 60 U/L 09/20/2023 11:32 AM CDT LABORATORY Blood STRUCTURE OF RIGHT UPPER LIMB / Unknown Venipuncture / Unknown 09/20/2023 10:43 AM CDT 09/20/2023 10:55 AM CDT Brian Sewell MD LAB - BLOOD ORDERAB LES LABORATORY [facility] [address] 1[address] floor, [address] [place] [address], [facility] [phone] * TSH with free T4 reflex (09/20/2023 10:43 AM CDT) Pathologist [facility] TSH 2.05 0.30 - 4.20 uIU/mL 09/20/2023 11:32 AM CDT LABORATORY Blood STRUCTURE OF RIGHT UPPER LIMB / Unknown Venipuncture / Unknown 09/20/2023 10:43 AM CDT 09/20/2023 10:55 AM CDT Brian Sewell MD LAB - BLOOD ORDERAB LES LABORATORY [facility] [address] 1[address] floor, [address] [place] [address], [facility] [phone] * (ABNORMAL) CBC with platelets (09/20/2023 10:43 [...] Sewell MD LAB - BLOOD ORDERAB LES [facility] Organization Address City/State/ZIP Co de Phone Number LABORATORY [facility] [address] floor, [address] [place] [address], [facility] [phone] * (ABNORMAL) Comprehensive metabolic panel (09/20/2023 10:43 AM CDT) Sodium 140 135 - 145 mmol/L 09/20/2023 11:44 AM CDT LABORATORY Potassium 4.4 3.4 - 5.3 mmol/L 09/20/2023 11:44 [facility] Carbon Dioxide (CO2) 24 22 - 29 mmol/L 09/20/2023 11:44 AM CDT LABORATORY Anion Gap 11 7 - 15 mmol/L 09/20/2023 11:44 AM CDT LABORATORY Urea Nitrogen 7.6 6.0 - 20.0 mg/dL 09/20/2023 11:44 AM CDT LABORATORY Creatinine 0.66 0.51 - 0.95 mg/dL 09/20/2023 11:44 AM CDT LABORATORY GFR Estimate >90 >60 mL/min/1. 73m2 09/20/2023 11:44 AM CDT LABORATORY Comment:eGFR calculated usin 2020 CKD-EPI equation. Calcium 9.1 8.8 - 10.4 mg/dL 09/20/2023 11:44 AM CDT LABORATORY Comment:Reference intervals for this test [...] 0 - 45 U/L 09/20/2023 11:44 AM [facility] ALT 1,570(HH) 0 - 50 U/L 09/20/2023 11:44 AM CDT LABORATORY Protein Total 6.6 6.4 - 8.3 g/dL 09/20/2023 11:44 AM CDT LABORATORY Albumin 4.0 3.5 - 5.2 g/dL 09/20/2023 11:44 AM CDT LABORATORY Bilirubin Total 2.9(H) <=1.2 mg/dL 09/20/2023 11:44 AM CDT LABORATORY Blood STRUCTURE OF RIGHT UPPER LIMB / Unknown Venipuncture / Unknown 09/20/2023 10:43 AM CDT 09/20/2023 10:55 AM CDT Brian Sewell MD LAB - BLOOD ORDERAB LES LABORATORY [facility] [address] 1[address] floor, [address] [place] [address], [facility] [phone] * CRP inflammation (09/20/2023 10:43 AM CDT) CRP Inflammation 3.45 <5.00 mg/L 09/20/19 11:32 AM CDT LABORATORY Blood STRUCTURE OF RIGHT UPPER LIMB / Unknown Venipuncture / Unknown 09/20/2023 10:43 AM CDT 09/20/2023 10:55 AM CDT Tonio GUEVARA LAB - BLOOD ORD ERABLES LABORATORY [facility] [address] 1[address] floor, [address] [place] [address], [facility] [phone] * EKG 12-lead, tracing only (09/19/2023 4:02 PM CDT) Systolic Blood Pressure mmHg RADIOLOGY RESULTS Diastolic Blood Pressure mmHg RADIOLOGY RESULTS Ventricular Rate 37 BPM RAD IOLOGY RESULTS Atrial Rate 37 BPM RADIOLOG Y RESULTS AR Interval 162 ms RADIOLOG Y RESULTS QRS Duration 86 ms RADIOLO GY RESULTS QT 478 ms RADIOLOGY RESULTS QTc 375 ms RADIOLOGY RESULTS P [place] 66 degrees RADIOLOGY RESULTS R AXIS 91 degrees RADIOLOGY RESULTS T [place] 66 degrees RADIOLOGY RESULTS Interpretation ECG Sinus bradycardia Rightward axis Nonspecific T wave abnormality Abnormal ECG No previous ECGs available Confirmed by MD LIBERTAD, DEMOS ([id number]) on 09/20/2023 10:46:35 AM RADIOLOGY RESULTS 09/19/2023 4:02 PM CDT 09/20/2023 10:46 AM CDT Brian Sewell MD ECG ORDERABLES Performing Organization Address City/[facility]/ZIP Co de Phone Number RADIOLOGY RESULTS * XR Surgery GEETA Fluoro Less Than 5 Min (09/19/2023 1:10 PM CDT) Narrative RADIANT - 09/19/2023 1:15 PM CDT This exam was marked as non-reportable because it will not be read by a radiologist or a [facility] non-radiologist provider. Delmar Sheth MD IMG DIAGNOSTIC I MAGING ORDERABLES RADIANT * UPPER EUS (09/19/2023 11:56 AM CDT) Upper EUS [place] [address] ??[place] ??[id number] Patient Name: Ana Lezama ? Procedure Date: 09/19/2023 11:56 AM ? Date of : 1985 ? Admit Type: Inpatient Age: 38 ? Room: OR [facility] Note Status: Finalized ?Attending MD: DELMAR SHETH MD, Instrument Name: [id number] Radial Procedure: ?Upper EUS Indications: ?Common bile [...] Procedure Code(s): ? --- Professional --- ? 68628, Esophagogastroduodenos copy, flexible, transoral; with endoscopic ? [...] ? R10.13, Epigastric pain CPT copyright 2021 [employer]. All rights reserved. The codes documented in this report are preliminary and upon labor relations supervisor review may be revised to meet current [...] ENDOSCOPIC RETROGRADE CHOLANGIOPANCREATOGRAPHY (09/19/2023 11:56 AM CDT) [place] [address] [address] ??[place] ??[id number] _ Patient Name: Ana Lezama ? Procedure Date: 09/19/2023 11:56 AM ? Date of : 1985 ? Admit Type: Inpatient Age: 38 ? Room: OR [facility] Note Status: Finalized ?Attending MD: DELMAR [...] the procedure well. ? Findings: ? The deicer finisher film was normal. The esophagus was successfully [...] Procedure Code(s): ? --- Professional --- ? 00793, Endoscopic retrograde cholangiopancreatography (ERCP); with ? placement of endoscopic stent into biliary or pancreatic duct, including ? pre- and post-dilation and guide wire passage, when performed, including ? sphincterotomy, when performed, each stent ? 83357, Endoscopic retrograde cholangiopancreatography (ERCP); with ? removal of calculi/debris from biliary/pancreatic duct(s) Diagnosis Code(s): ? --- Professional --- ? K80.50, Calculus of bile duct without cholangitis or cholecystitis ? without obstruction CPT copyright 2021 [employer]. All rights reserved. The codes documented in this report are preliminary and upon labor relations supervisor review may be revised to meet current [...] RESULTS 09/19/2023 11:5 6 AM CDT King Posadas Ronald PROCEDURES RADIOLOGY RESULTS * Magnesium (09/19/2023 8:37 AM CDT) Magnesium 2.0 1.7 - 2.3 mg/dL 09/20/2023 10:54 AM CDT LABORATORY Blood BLOOD SPECIMEN / Unknown Venipuncture / Unknown 09/19/2023 8:37 AM CDT 09/19/2023 9:16 AM CDT Paulo Naranjo MD LAB - BLOOD ORDERABL ES LABORATORY [facility] [address] 1[address], [address] [place] [address], [facility] [phone] * TSH with free T4 reflex (09/19/2023 8:37 AM CDT) TSH 0.98 0.30 - 4.20 uIU/mL 09/20/2023 10:54 AM CDT LABORATORY Blood BLOOD SPECIMEN / Unknown Venipuncture / Unknown 09/19/2023 8:37 AM CDT 09/19/2023 9:16 AM CDT Paulo Naranjo MD LAB - BLOOD ORDERABL ES LABORATORY [facility] [address] 1[address], [address] [address], [facility] [phone] * (ABNORMAL) Bilirubin direct (09/19/2023 8:37 AM CDT) Pathologist [facility] Bilirubin Direct 1.54(H) 0.00 - 0.30 mg/dL 09/19/2023 12:34 PM CDT LABORATORY Blood BLOOD SPECIMEN / Unknown Venipuncture / Unknown 09/19/2023 8:37 AM CDT 09/19/2023 9:16 AM CDT Heidy Cheng MD LAB - BLOOD ORDERABL ES Performing Organization Address City/[facility]/ZIP Co de Phone Number LABORATORY [facility] [address], [address] [address], [facility] [phone] * (ABNORMAL) CBC with platelets and differential (09/19/2023 8:37 AM CDT) [facility] WBC Count 4.5 4.0 - 11.0 [...] CDT Matti Muniz MD LAB - BLOOD ORDElis [facility] Organization Address City/State/ZIP Co de Phone Number LABORATORY [facility] [address], [address] [place] [address], [facility] [phone] * (ABNORMAL) Comprehensive metabolic panel (09/19/2023 8:37 AM CDT) [facility] Signature Sodium 140 135 - 145 mmol/L 09/19/2023 10:10 AM [facility] Potassium 3.9 3.4 - 5.3 mmol/L 09/19/2023 10:10 AM [facility] Carbon Dioxide (CO2) 24 22 - 29 mmol/L 09/19/2023 10:10 AM [facility] Anion Gap 10 7 - 15 mmol/L 09/19/2023 10:10 AM [facility] Urea Nitrogen 10.1 6.0 - 20.0 mg/dL 09/19/2023 10:10 AM [facility] Creatinine 0.61 0.51 - 0.95 mg/dL 09/19/2023 10:10 AM [facility] GFR Estimate >90 >60 mL/min/1. 73m2 09/19/2023 10:10 AM [facility] Comment:eGFR calculated usin g 2020 CKD-EPI equation. Calcium 8.9 8.8 - 10.4 mg/dL 09/19/2023 10:10 AM [facility] Comment:Reference intervals for this test were updated on 08/25/2023 to reflect our healthy population more accurately. There may be differences in the flagging of prior results with similar values performed with this method. Those prior results can be interpreted in the context of the updated reference intervals. Chloride 106 98 - 107 mmol/L 09/19/2023 10:10 AM [facility] Glucose 91 70 - 99 mg/dL 09/19/2023 10:10 AM [facility] Alkaline Phosphatase 128 40 - 150 U/L 09/19/2023 10:10 AM [facility] AST 2,315(HH) 0 - 45 U/L 09/19/2023 10:10 AM [facility] ALT 2,181(HH) 0 - 50 U/L 09/19/2023 10:10 AM [facility] Protein Total 6.1(L) 6.4 - 8.3 g/dL 09/19/2023 10:10 AM [facility] Albumin 3.9 3.5 - 5.2 g/dL 09/19/2023 10:10 AM CDT LABORATORY Bilirubin Total 2.6(H) <=1.2 mg/dL 09/19/2023 10:10 AM CDT LABORATORY Blood BLOOD SPECIMEN / Unknown Venipuncture / Unknown 09/19/2023 8:37 AM CDT 09/19/2023 9:16 AM CDT Matti Muniz MD LAB - BLOOD JOANNE [facility] Organization Address City/State/ZIP Co de Phone Number LABORATORY [facility] [address] 1st floor, [address] [place] [address], [facility] [phone] documented in this encounter Visit Diagnoses Diagnosis [...] $Given 09/19/2023 10:24 PM CDT 0.2 mg iohexol (OMNIPAQUE) injection PRN, Starting on 09/19/23 at 1250, Intra-procedure $Given 09/19/2023 12:50 PM CDT 25 mLs lactated ringers infusion at 100 mL/hr, Intravenous, [...] العراقي RN)1828 ($New Bag - Provider: Logan اعلراقي RN) 0032 ($New Bag - Provider: Betty Sharp RN)0551 ($New Bag - Provider: Betty Sharp RN)0622 (Auto Hold - Provider: Orders Generic Provider - Reason: Transfer to a procedural area)1047 (Unhold - Provider: Orders Generic Provider)1135 ($New Bag - Provider: Linda Menjivar, FARRAH)1800 (Canceled Entry - Provider: Orders Generic Provider [...] Provider)1320 (Not Given - Provider: Linda Menjivar, RN - Reason: IV Infusing) Continuous Medication Order 09/19/2023 09/20/2023 09/21/2023 lactated ringers infusion (CANCELED) at 100 mL/hr, Intravenous, CONTINUOUS, Pre-procedure, Starting on 09/19/23 at 1230, Until 09/19/23 at 1326 1220 ($New Bag - Provider: Sinai Puga, FARRAH) lactated ringers infusion (CANCELED) at 10 mL/hr, Intravenous, CONTINUOUS, IF patient NOT on dialysis., Pre-procedure, Starting on 09/21/23 at 0630, Until Thu09/21/23 at 0907 0727 ($New Bag - Provider: Dinora Agee APRN CEO [place])0829 ($New Bag - Provider: Dinora Agee APRN CRNA) sodium chloride 0.9 % infusion (CANCELED) at 125 mL/hr, Intravenous, CONTINUOUS, Starting on 09/19/23 at 0530, Until 09/21/23 at 1329 0539 (Rate/Dose Verify - Provider: Flor Perea RN)1137 (Rate/Dose Verify - Provider: Logan العراقي RN)1234 (Anesthesia Volume Adjustment - Provider: Inga Sheth APRN CEO [place])1310 (Anesthesia Volume Adjustment - Provider: Inga Sheth APRN CEO [place])1451 ($New Bag - Provider: Logan العراقي RN)1553 (Rate/Dose Verify - Provider: Jac Jane, F[place]) 0027 ($New Bag - Provider: Lashanda Moreland RN) 1143 ($New Bag - Provider: Linda Menjivar, FARRAH)1430 (Stopped - Provider: Linda Menjivar, FARRAH) PRN Medication Order 09/19/2023 09/20/2023 09/21/2023 benzocaine-menthol [...] Provider)1509 (See Alternative - Provider: Logan العراقي, RN)2224 (See Alternative - Provider: Jac Jane RN) 0635 (See Alternative - Provider: Lashanda Moreland RN)1217 ($Given - Provider: Logan العراقي RN)1852 ($Given [...] Logan العراقي RN)2224 ($Given - Provider: Jac Jane, FARRAH) 0635 ($Given - Provider: Lashanda Moreland RN)1217 [...] op recovery due to pain., Starting on 09/21/23 at 1048, For 1 dose, Max: 5 mg for opioid-na??ve patient., Phase ll prochlorperazine (COMPAZINE) injection 5 mg 5 mg, Intravenous, EVERY 6 HOURS PRN, nausea, vomiting, Administer over 1-2 Minutes, Starting on 09/21/23 at 1048, This is Step 3 of the nausea and vomiting protocol. If nausea/vomitting not resolved in 15-30 minutes, notify Provider., Phase ll sodium chloride (PF) 0.9% PF flush 3 mL 3 mL, Intracatheter, EVERY 1 MIN PRN, line flush, other, to ensure patency or to lock dormant line, Starting on 09/19/23 at 0500 1206 (Auto [...] documented as of this encounter Care Teams Wax Ball Molder Relationship Specialty [place] [address] [place] [address] PCP - General Family Practice 02/22/19 09/27/23 [place] [address] [place] [address] Assigned PCP 10/29/18 10/01/23 documented as of this encounter
--- OUTSIDE RECORDS SUMMARY | 2023-11-20 13:08 | XMS_ITS | Encounter Summary ---
Author Organization [place] Address [address] [place] [address] Care Team Providers Care Brick Shader Name Role Phone Joanna Hernandez MD Unavailable [phone] Joanna Hernandez MD Primary Care Provider [phone] Danette Alan APRN MEDICAL BILLING ASSISTANT Primary Care Provider [phone] Danette Alan APRN MEDICAL BILLING ASSISTANT Unavailable Cleve Barger MD Unavailable Encounter Details Date Type Department Care Team (Late st Contact Info) Description 10/25/2021 MyC Medical Advice [facility] [address] [place] [address] [place] [address] [place] [address] Social History Tobacco Use Types Packs/Day [...] documented as of this encounter Care Teams Brick Shader Relationship Specialty [place] [address] [place] [address] PCP - General Family Practice 02/22/19 09/27/23 Danette Alan APRN MEDICAL BILLING ASSISTANT [address] [facility] [address] [place] [address] PCP - General Family Medicine 09/28/23 [place] [address] [place] [address] Assigned PCP 10/29/18 10/01/23 Danette Alan APRN MEDICAL BILLING ASSISTANT [address] [facility] [address] [place] [address] Assigned PCP 10/02/23 Cleve Barger MD [address] [facility] [address] [place] [address] Assigned Surgical Provider 11/02/23 documented as of this encounter
--- OUTSIDE RECORDS SUMMARY | 2023-11-20 13:08 | XMS_ITS | Encounter Summary ---
Author Organization [place] Address [address] [address] Care Team Providers Care Meal Room Hand Name Role Phone Joanna Hernandez MD Unavailable [phone] Joanna Hernandez MD Primary Care Provider [phone] Makenzie Toth PA-C Unavailable [phone] Danette Alan APRN FUDGER Primary Care Provider [phone] Danette Alan APRN FUDGER Unavailable [phone] Cleve Barger MD Unavailable Encounter Details Date Type Department Care Team (Late st Contact Info) Description 04/15/2021 MyC Medical Advice [facility] [address] [place] [phone] Olivia Arredondo, RN Social History Tobacco Use [...] documented as of this encounter Care Teams Meal Room Hand Relationship Specialty [place] [address] [place] [address] PCP - General Family Practice 02/22/19 09/27/23 Danette Alan APRN FUDGER [address] [facility] [address] [place] [address] PCP - General Family Medicine 09/28/23 [place] [address] [place] [address] Assigned PCP 10/29/18 10/01/23 Makenzie Toth PA-C [address] [place] [address] Assigned Surgical Provider 04/29/20 Danette Alan APRN FUDGER [address] [place] [address] Assigned PCP 10/02/23 Cleve Barger MD [address] [place] [address] Assigned Surgical Provider 11/02/23 documented as of this encounter
--- OUTSIDE RECORDS SUMMARY | 2023-11-20 13:08 | XMS_ITS | Encounter Summary ---
Author Organization [place] Address [address] [place] [address] Care Team Providers Care Acetylene Operator Name Role Phone Joanna Hernandez MD Unavailable Joanna Hernandez MD Primary Care Provider [phone] Reason for Visit * Auth/Cert (Routine) Specialty Diagnoses / Procedures Referred By Fabian t Referred To Contact Med Surg Diagnoses Gallstones Choledocholithiasis Sh Ortho Spine [address] [facility] [place] [address] Referral ID Status Reason Start Date Expiration Date Visits Re quested Visits Authorized [id number] 1 1 Encounter Details Date Type Department Care Team (Late st Contact Info) Description 09/19/2023 12:33 PM CDT Anesthesia Event [facility] [address] [place] [phone] Neptali Beard MD [facility] ANESTHESIOLOGY [address] [id number] Inga Sheth, BARREL TESTER AND DRAINER FARM CREW LEADER [address] [place] [address] [id number] Anesthesia Record Procedure Summary Procedure Name Responsible Anesthesiologist Anesthesia Start Time Anesthesia Stop Time ENDOSCOPIC ULTRASOUND, ESOPHAGOSCOPY / UPPER GASTROINTESTINAL TRACT (GI) (Esophagus) Neptali Beard MD 09/19/23 1233 09/19/23 1310 Events Date Time Event Comment 09/19/2023 1219 1233 An Start Anesthesia Star t is defined as when the anesthesia provider assumed care, began anesthesia prep, remained continuously present with the patient, and excludes all time for performing the pre-anesthesia evaluation. The Pre-Anesthesia Evaluation was completed before Anesthesia Start. 1234 An Start Data 1235 AN REASSESS I attest that I have identified and re-evaluated the patient immediately before the induction of anesthesia and I am satisfied that the anesthetic plan is suitable for the patient's condition and procedure. The first vital signs recorded are pre- induction. Inga Sheth APRN FARM CREW LEADER 1242 Anesthesia Ready for Procedu re 1304 an stop data 1310 An Stop Electronically signed by Inga Sheth APRN CRNA on September 19, 2023 1:10 PM Meds Name Total midazolam 1 mg/mL 2 mg fentaNYL 50 mcg/mL 50 mcg lidocaine 2% 40 mg propofol 10 mg/mL 30 mg propofol drip mcg/kg/min 148.92 mg ondansetron 2 mg/mL 4 mg glycopyrrolate 0.2 mg/mL 0.1 mg sodium chloride 0.9 % infusion 1,000 mL * Agents Name O2 N2O Air Exp Sevoflurane Exp Isoflurane Exp Desflurane Ins Sevoflurane Ins Isoflurane Ins Desflurane O2 Auxiliary * Blood No blood administrations on file. Lines, Drains, and Airways Type Details Placement Removal Incision/Surgical Site 02/15/19; 0936; Abdomen; PORT SITES X 5 02/15/19 0936 by Liz Hendrickson RN Peripheral IV 09/18/23; 1100; Anterior, Left; Wrist 09/18/23 1100 by Flor Perea RN 09/20/23 1731 by Arina Bejarano RN documented in this encounter Social History Tobacco [...] OR Notes * Anesthesia Postprocedure Evaluation - Neptali Beard MD - 09/19/2023 3:15 PM CDT Patient: Ana Lezama Procedure: Procedure(s): ENDOSCOPIC ULTRASOUND, ESOPHAGOSCOPY / UPPER GASTROINTESTINAL TRACT (GI) ENDOSCOPIC RETROGRADE CHOLANGIOPANCREATOGRAPHY, COMPLEX Anesthesia Type: MAC Note: Postop Pain Control: Uneventful Sign Out: Well controlled pain PONV: No Neuro/Psych: Uneventful Sign Out: Acceptable/Baseline neuro status Airway/Respiratory: Uneventful Sign Out: Acceptable/Baseline resp. status CV/Hemodynamics: Uneventful Sign Out: Acceptable CV status; No obvious hypovolemia; No obvious fluid overload Other NRE: NONE DID A NON-ROUTINE EVENT OCCUR? No Last vitals: Vitals Value Taken Time BP 115/78 09/19/23 1430 Temp 36.4 ??C (97.6 ??F) 09/19/23 1410 Pulse 42 09/19/23 1433 Resp 13 09/19/23 1433 SpO2 96 % 09/19/23 1437 Vitals shown include unfiled device data. Electronically Signed By: Neptali Beard MD September 19, 2023 3:15 PM * Anesthesia Preprocedure Evaluation - Neptali Beard MD - 09/19/2023 12:16 PM CDT Anesthesia Pre-Procedure Evaluation Patient: Ana Lezama : 1985 Procedure : Procedure(s): ENDOSCOPIC ULTRASOUND, ESOPHAGOSCOPY / UPPER GASTROINTESTINAL TRACT (GI) ENDOSCOPIC RETROGRADE CHOLANGIOPANCREATOGRAPHY, COMPLEX Past Medical History: Diagnosis Date Polycystic ovarian syndrome Thyroid disease Past Surgical History: Procedure Laterality Date ABDOMEN SURGERY 2011 COMBINED LAPAROSCOPIC GASTRIC SLEEVE, CHOLECYSTECTOMY N/A 02/15/2019 Procedure: LAPAROSCOPIC SLEEVE GASTRECTOMY; Surgeon: Dimitri Pop MD; Location: [facility] OR ENT SURGERY 1992 Tonsils CONTINUITY CLERK SURGERY hysterectomy, and 2 cesarians HERNIA REPAIR [...] Musculoskeletal: GI/Hepatic: Comment: Pt came to ED yesterday with N/V and suspected choledocholithiasis/cholecystitis. She was treated for pain and no nausea since yesterday. Hasn't eaten for ~12hrs. History of lap sleeve gastrectomy 2019 (+) cholecystitis/cholelithiasis, (-) GERD Renal/Genitourinary: Comment: PCOS Endo: (+) thyroid problem, hypothyroidism, Obesity (BMI 31), Psychiatric/Substance Use: Infectious Disease: Malignancy: Other: OUTSIDE LABS: CBC: Lab Results Component Value [...] Results Component Value Date A1C 5.0 06/12/2020 DAINEL 8.9 09/19/2023 TSH 1.20 01/30/2022 T4 1.31 01/30/2022 T3 95 01/30/2022 Anesthesia Plan ASA Status: 2 NPO Status: NPO Appropriate Anesthesia Type: MAC. - Reason for MAC: straight local not clinically adequate Consents Anesthesia Plan(s) and associated risks, benefits, and realistic alternatives discussed. Questions answered and patient/physician relations representative(s) expressed understanding. - Discussed: - Discussed with: Patient Postoperative Care Pain management: IV analgesics, Multi-modal analgesia. PONV prophylaxis: Ondansetron (or other 5HT-3) Comments: Other Comments: Surgeon requested MAC anesthesia. Given NPO and no nausea for some time, acceptable. If GI sees any significant gastric contents will switch to a GA Neptali Beard MD I have reviewed the pertinent notes and labs in the chart from the past 30 days and (re)examined the patient. Any updates or changes from those notes are reflected in this note. # Obesity: Estimated body mass index is 30.9 kg/m?? as calculated from the following: Height as of this encounter: 1.626 m (5' 4). Weight as of this encounter: 81.6 kg (180 lb). documented in this encounter Miscellaneous Notes * Anesthesia Care Transfer Note - Inga Sheth APRN FARM CREW LEADER - 09/19/2023 1:10 PM CDT Patient: Ana Lezama Procedure: Procedure(s): ENDOSCOPIC ULTRASOUND, ESOPHAGOSCOPY / UPPER GASTROINTESTINAL TRACT (GI) ENDOSCOPIC RETROGRADE CHOLANGIOPANCREATOGRAPHY, COMPLEX Diagnosis: Choledocholithiasis [K80.50] Diagnosis Additional Information: No value filed. Anesthesia Type: MAC Note: Oropharynx: oropharynx clear of all foreign objects and spontaneously breathing Level of Consciousness: drowsy Oxygen Supplementation: room air Independent Airway: airway patency satisfactory and stable Dentition: dentition unchanged Vital Signs Stable: post-procedure vital signs reviewed and stable Report to RN Given: handoff report given Patient transferred to: PACU Handoff Report: Identifed the Patient, Identified the Reponsible Provider, Reviewed the pertinent medical history, Discussed the surgical course, Reviewed Intra-OP anesthesia mangement and issues during anesthesia, Set expectations for post-procedure period and Allowed opportunity for questions andacknowledgement of understanding Vitals: Vitals Value Taken Time BP 130/78 09/19/23 1308 Temp Pulse 66 09/19/23 1309 Resp 19 09/19/23 1309 SpO2 100 % 09/19/23 1309 Vitals shown include unfiled device data. Electronically Signed By: Inga Sheth APRN FARM CREW LEADER September 19, 2023 1:10 PM documented in this encounter Plan of Treatment Not on file documented as of this encounter Visit Diagnoses Not on filedocumented in this encounter Administered Medications Inactive Administered Medications - up to 3 most recent administrations Medication Order MAR Action Action Date Dose Rate Site fentaNYL (PF) (SUBLIMAZE) injection Intravenous, PRN, Administer over 3-5 Minutes, Starting on 09/19/23 at 1233, Anesthesia Intra-op $Given 09/19/2023 12:33 PM CDT 50 mcg glycopyrrolate (ROBINUL) injection Intravenous, PRN, Administer over 1-2 Minutes, Starting on 09/19/23 at 1243, Anesthesia Intra-op $Given 09/19/2023 12:43 PM CDT 0.1 mg lidocaine 2% injection (MDV) Intravenous, PRN, Starting on 09/19/23 at 1239, Anesthesia Intra-op $Given 09/19/2023 12:39 PM CDT 40 mg midazolam (VERSED) injection Intravenous, Administer over 2 Minutes, PRN, Starting on 09/19/23 at 1234, Anesthesia Intra-op $Given 09/19/2023 12:34 PM CDT 2 mg ondansetron (ZOFRAN) injection Intravenous, PRN, Administer over 2-5 Minutes, Starting on 09/19/23 at 1255, Anesthesia Intra-op $Given 09/19/2023 12:55 PM CDT 4 mg propofol (DIPRIVAN) infusion Intravenous, CONTINUOUS PRN, Starting on 09/19/23 at 1239, Anesthesia Intra-op Rate/Dose Change 09/19/2023 12:49 PM CDT 75 mcg/kg/min 36.72 mL/hr $New Bag 09/19/2023 12:39 PM CDT 100 mcg/kg/min 48.96 mL /hr propofol (DIPRIVAN) injection 10 mg/mL vial Intravenous, PRN, Starting on 09/19/23 at 1240, Anesthesia Intra-op $Given 09/19/2023 12:52 PM CDT 10 mg $Given 09/19/2023 12:40 PM CDT 20 mg documented in this encounter Additional Health Concerns Assessment Noted Time PHQ-9 Depression Total Score: 27 021 7:02 AM CDT documented as of this encounter Care Teams Acetylene Operator Relationship Specialty [place] [address] [place] [address] PCP - General Family Practice 02/22/19 09/27/23 [place] [address] [place] [address] Assigned PCP 10/29/18 10/01/23 documented as of this encounter
--- OUTSIDE RECORDS SUMMARY | 2023-11-20 13:08 | XMS_ITS | Encounter Summary ---
Author Organization [place] Address [address] [facility] [place] [address] Care Team Providers Care Automobile Damage Appraiser Name Role Phone Joanna Hernandez MD Unavailable [phone] Joanna Hernandez MD Primary Care Provider Makenzie Toht PA-C Unavailable [phone] Danette Alan APRN DRIER OPERATOR Primary Care Provider [phone] Danette Alan APRN DRIER OPERATOR Unavailable [phone] Cleve Barger MD Unavailable Encounter Details Date Type Department Care Team (Late st Contact Info) Description 08/19/2021 MyC Medical Advice [address] [address] [place] Social History Tobacco [...] as of this encounter Care Teams Automobile Damage Appraiser Relationship Specialty [place] [address] [place] [address] PCP - General Family Practice 02/22/19 09/27/23 Danette Alan APRN DRIER OPERATOR [address] [facility] [address] [place] [address] PCP - General Family Medicine 09/28/23 [place] [address] [place] [address] Assigned PCP 10/29/18 10/01/23 Makenzie Toth PA-C [address] [place] [id number] Assigned Surgical Provider 04/29/20 Danette lAan APRN DRIER OPERATOR [address] [facility] [address] [place] [address] Assigned PCP 10/02/23 Cleve Barger MD [address] [place] [id number] Assigned Surgical Provider 11/02/23 documented as of this encounter
--- OUTSIDE RECORDS SUMMARY | 2023-11-20 13:08 | XMS_ITS | Encounter Summary ---
Author Organization [place] Address [address] [place] [address] Care Team Providers Care Drink Mixer Name Role Phone Joanna Hernandez MD Unavailable [phone] Joanna Hernandez MD Primary Care Provider [phone] Makenzie Toth PA-C Unavailable [phone] Danette Alan APRN APPLICATIONS COORDINATOR Primary Care Provider [phone] Danette Alan APRN APPLICATIONS COORDINATOR Unavailable Cleve Barger MD Unavailable Encounter Details Date Type Department Care Team (Late st Contact Info) Description 04/04/2021 MyC Medical Advice [facility] [address] [place] [phone] Celena Davenport, FARRAH [facility] [address] [facility] [address] [place] [phone] Social History Tobacco Use Types Packs/Day Years [...] documented as of this encounter Care Teams Drink Mixer Relationship Specialty [place] [address] [place] [address] PCP - General Family Practice 02/22/19 09/27/23 Danette Alan APRN APPLICATIONS COORDINATOR [address] [place] [address] PCP - General Family Medicine 09/28/23 [place] [address] [place] [address] Assigned PCP 10/29/18 10/01/23 Makenzie Toth PA-C [address] [place] [address] Assigned Surgical Provider 04/29/20 Danette Alan APRN APPLICATIONS COORDINATOR [address] [place] [address] Assigned PCP 10/02/23 Cleve Barger MD [address] [place] [address] Assigned Surgical Provider 11/02/23 documented as of this encounter
--- OUTSIDE RECORDS SUMMARY | 2023-11-20 13:08 | XMS_ITS | Encounter Summary ---
Author Organization [place] Address [address] [facility] [place] [address] Care Team Providers Care Anchor Tack Puller Name Role Phone Joanna Hernandez MD Unavailable [phone] Joanna Hernandez MD Primary Care Provider [phone] Reason for Visit * Reason Onset Date Comments MyChart Communication 09/20/2023 Encounter Details Date Type Department Care Team (Late st Contact Info) Description 09/20/2023 MyC Medical Advice [facility] [address] [place] [address] [place] [id number] [place] [address] MyChart Communication ( ... Social History Tobacco Use Types Packs/Day Years [...] documented as of this encounter Care Teams Anchor Tack Puller Relationship Specialty [place] [address] [place] [address] PCP - General Family Practice 02/22/19 09/27/23 [place] [address] [place] [address] Assigned PCP 10/29/18 10/01/23 documented as of this encounter
--- OUTSIDE RECORDS SUMMARY | 2023-11-20 13:08 | XMS_ITS | Encounter Summary ---
Author Organization [place] Address [address] [place] [address] Care Team Providers Care Stock Repairer Name Role Phone Joanna Hernandez MD Unavailable Joanna Hernandez MD Primary Care Provider [phone] Makenzie Toth PA-C Unavailable [phone] Danette Alan APRN MILL SUPERVISOR Primary Care Provider [phone] Danette Alan APRN MILL SUPERVISOR Unavailable Cleve Barger MD Unavailable Encounter Details Date Type Department Care Team (Late st Contact Info) Description 02/21/2021 MyC Medical Advice [facility] [place] [address] [facility] [address] [place] [address] Makenzie Toth PA-C [address] [facility] [address] [place] [phone] Social History Tobacco Use Types Packs/Day Years [...] documented as of this encounter Care Teams Stock Repairer Relationship Specialty [place] [address] [place] [address] PCP - General Family Practice 02/22/19 09/27/23 Danette Alan APRN MILL SUPERVISOR [address] [place] [address] PCP - General Family Medicine 09/28/23 [place] [address] [place] [address] Assigned PCP 10/29/18 10/01/23 Makenzie Toth PA-C [address] [place] [address] Assigned Surgical Provider 04/29/20 Danette Alan APRN MILL SUPERVISOR [address] [place] [address] Assigned PCP 10/02/23 Cleve Barger MD [address] [place] [address] Assigned Surgical Provider 11/02/23 documented as of this encounter
--- OUTSIDE RECORDS SUMMARY | 2023-11-20 13:08 | XMS_ITS | Encounter Summary ---
Author Organization [place] Address [address] [place] [address] Care Team Providers Care Roof Cement And Paint Maker Helper Name Role Phone Joanna Hernandez MD Unavailable Joanna Hernandez MD Primary Care Provider [phone] Makenzie Toth PA-C Unavailable +[phone] -[phone] Danette Alan APRN SEED TESTER Primary Care Provider +1- [phone] Danette Alan APRN SEED TESTER Unavailable Cleve Barger MD Unavailable Encounter Details Date Type Department Care Team (Late st Contact Info) Description 04/29/2021 MyC Medical Advice [facility] Surgical Weight Loss Clinic [place] [address] [place] [address] Makenzie Toth PA-C [address] [facility] [address] [place] [address] Social History Tobacco Use Types Packs/Day Years [...] documented as of this encounter Care Teams Roof Cement And Paint Maker Helper Relationship Specialty [place] [address] [place] [address] PCP - General Family Practice 02/22/19 09/27/23 Danette Alan APRN SEED TESTER [address] [place] [address] PCP - General Family Medicine 09/28/23 [place] [address] [place] [address] Assigned PCP 10/29/18 10/01/23 Makenzie Toth PA-C [address] [place] [address] Assigned Surgical Provider 04/29/20 Danette Alan APRN SEED TESTER [address] [place] [address] Assigned PCP 10/02/23 Cleve Barger MD [address] [place] [address] Assigned Surgical Provider 11/02/23 documented as of this encounter
--- OUTSIDE RECORDS SUMMARY | 2023-11-20 13:08 | XMS_ITS | Encounter Summary ---
Author Organization [place] Address [address] [place] [address] Care Team Providers Care Casino Gaming Worker Name Role Phone Joanna Hernandez MD Unavailable Joanna Hernandez MD Primary Care Provider [phone] Makenzie Toth PA-C Unavailable +[phone] Danette Alan APRN EDUCATIONAL PSYCHOLOGY TEACHER Primary Care Provider +[phone]- [phone] Danette Alan APRN EDUCATIONAL PSYCHOLOGY TEACHER Unavailable Cleve Barger MD Unavailable Encounter Details Date Type Department Care Team (Late st Contact Info) Description 01/07/2021 MyC Medical Advice [facility] [address] [place] [address] [place] [address] [place] [address] Acquired hypothyroidism (Primary Dx) Social [...] COVID-19? No / Unsure 01/09/2021 11:04 AM LEASING SPECIALIST documented as of this encounter Miscellaneous Notes * Telephone Encounter - Joanna Hernandez MD - 01/08/2021 10:34 AM LEASING SPECIALIST Orders in, please help schedule lab appt. [facility] ING SPECIALIST * Telephone Encounter - Vickie Landin - 01/07/2021 2:29 PM CST Please advise if you will place labs or if patient needs to schedule Vickie Landin/ Hop Worker ING SPECIALIST documented in this encounter Plan of Treatment Not on file documented as of this encounter Results * T4, free (01/09/2021 11:08 AM LEASING SPECIALIST) Free T4 1.01 0.76 - 1.46 ng/dL 01/10/2021 11:48 AM LEASING SPECIALIST LABORATORY Blood STRUCTURE OF LEFT UPPER LIMB / Unknown Venipuncture / Unknown 01/09/2021 11:08 AM LEASING SPECIALIST 01/09/2021 11:08 AM LEASING SPECIALIST Joanna Hernandez MD LAB - BLOOD ORDER [facility] [address] [facility] Lab (1st floor, no room number) [place] [address], [facility] [phone] * TSH (01/09/2021 11:08 AM LEASING SPECIALIST) Pathologist [facility] TSH 0.81 0.40 - 4.00 mU/L 01/10/2021 11:53 AM LEASING SPECIALIST LABORATORY Blood STRUCTURE OF LEFT UPPER LIMB / Unknown Venipuncture / Unknown 01/09/2021 11:08 AM LEASING SPECIALIST 01/09/2021 11:08 AM LEASING SPECIALIST Joanna Hernandez MD LAB - BLOOD ORDER [facility] [address] [facility] Lab (1st floor, no room number) [place] [address], [facility] [phone] documented in this encounter Visit Diagnoses Diagnosis Acquired hypothyroidism- Primary Unspecified hypothyroidism documented in this encounter Additional Health Concerns Assessment Noted Time PHQ-9 Depression Total Score: 27 021 7:02 AM CDT documented as of this encounter Care Teams Casino Gaming Worker Relationship Specialty [place] [address] [place] [address] PCP - General Family Practice 02/22/19 09/27/23 Danette Alan APRN EDUCATIONAL PSYCHOLOGY TEACHER [address] [place] [address] PCP - General Family Medicine 09/28/23 [place] [address] [place] [address] Assigned PCP 10/29/18 10/01/23 Makenzie Toth PA-C [address] [place] [address] Assigned Surgical Provider 04/29/20 Danette Alan APRN EDUCATIONAL PSYCHOLOGY TEACHER [address] [facility] [address] [facility] [address] Assigned PCP 10/02/23 Cleve Barger MD [address] [place] [address] Assigned Surgical Provider 11/02/23 documented as of this encounter
--- OUTSIDE RECORDS SUMMARY | 2023-11-20 13:08 | XMS_ITS | Encounter Summary ---
Author Organization [place] Address [address] [facility] [place] [address] Care Team Providers Care Ring Conductor Name Role Phone Joanna Hernandez MD Unavailable [phone] Joanna Hernandez MD Primary Care Provider [phone] Makenzie Toth PA-C Unavailable [phone] Dantete Alan APRN DIRECTOR OF EPIDEMIOLOGY Primary Care Provider +1- [phone] Danette Alan APRN DIRECTOR OF EPIDEMIOLOGY Unavailable Cleve Barger MD Unavailable Encounter Details Date Type Department Care Team (Late st Contact Info) Description 12/08/2020 MyC Medical Advice [facility] [id number] [place] [address] [place] [address] [place] [address] Social History Tobacco Use Types [...] - 12/10/2020 8:05 AM CDT Please see sales data analyst encounter 12/10/20. Karo Luciano RN documented in this encounter Plan of Treatment Not on file documented as of this encounter Visit Diagnoses Not on filedocumented in this encounter Additional Health Concerns Assessment Noted Time PHQ-9 Depression Total Score: 27 021 7:02 AM CDT documented as of this encounter Care Teams Ring Conductor Relationship Specialty [place] [address] [place] [address] PCP - General Family Practice 02/22/19 09/27/23 Danette Alan APRN DIRECTOR OF EPIDEMIOLOGY [address] [facility] [address] [place] [address] PCP - General Family Medicine 09/28/23 [place] [address] [place] [address] Assigned PCP 10/29/18 10/01/23 Makenzie Toth PA-C [address] [place] [address] Assigned Surgical Provider 04/29/20 Danette Alan APRN DIRECTOR OF EPIDEMIOLOGY [address] [facility] [address] [place] [address] Assigned PCP 10/02/23 Cleve Barger MD [address] [place] [address] Assigned Surgical Provider 11/02/23 documented as of this encounter
--- OUTSIDE RECORDS SUMMARY | 2023-11-20 13:08 | XMS_ITS | Encounter Summary ---
Author Organization [place] Address [address] [place] [address] Care Team Providers Care Manager Gyn Name Role Phone Joanna Hernandez MD Unavailable Joanna Hernandez MD Primary Care Provider [phone] Makenzie Toth PA-C Unavailable [phone] Danette Alan APRN REVENUE FIELD AUDITOR Primary Care Provider +[phone]- [phone] Danette Alan APRN REVENUE FIELD AUDITOR Unavailable Cleve Barger MD Unavailable Encounter Details Date Type Department Care Team (Late st Contact Info) Description 05/29/2021 MyC Medical Advice [facility] Surgical Weight Loss Clinic [place] [address] [place] [address] Makenzie Toth PA-C [address] [facility] [address] [place] [id number] Social History Tobacco Use Types Packs/Day Years [...] documented as of this encounter Care Teams Manager Gyn Relationship Specialty [place] [address] [place] [address] PCP - General Family Practice 02/22/19 09/27/23 Danette Alan APRN REVENUE FIELD AUDITOR [address] [place] [address] PCP - General Family Medicine 09/28/23 [place] [address] [place] [address] Assigned PCP 10/29/18 10/01/23 Makenzie Toth PA-C [address] [place] [address] Assigned Surgical Provider 04/29/20 Danette Alan APRN REVENUE FIELD AUDITOR [address] [place] [address] Assigned PCP 10/02/23 Cleve Barger MD [address] [place] [address] Assigned Surgical Provider 11/02/23 documented as of this encounter
--- OUTSIDE RECORDS SUMMARY | 2023-11-20 13:08 | XMS_ITS | Encounter Summary ---
Author Organization [place] Address [address] [place] [address] Care Team Providers Care Rubber Cutting Machine Tender Name Role Phone Joanna Hernandez MD Unavailable [phone] Joanna Hernandez MD Primary Care Provider [phone] Makenzie Toth PA-C Unavailable +[phone] Danette Alan APRN AMERICAN HISTORY TEACHER Primary Care Provider +[phone]- [phone] Danette Alan APRN AMERICAN HISTORY TEACHER Unavailable [phone] Cleve Barger MD Unavailable Encounter Details Date Type Department Care Team (Late st Contact Info) Description 04/08/2021 MyC Medical Advice [facility] Surgical Weight Loss Clinic [address] [place] [phone] Celena Davenport, [facility] [address] [facility] [address] [place] [address] Social History Tobacco Use Types Packs/Day Years [...] documented as of this encounter Care Teams Rubber Cutting Machine Tender Relationship Specialty [place] [address] [place] [address] PCP - General Family Practice 02/22/19 09/27/23 Danette Alan APRN AMERICAN HISTORY TEACHER [address] [place] [address] PCP - General Family Medicine 09/28/23 [place] [address] [place] [address] Assigned PCP 10/29/18 10/01/23 Makenzie Toth PA-C [address] [place] [address] Assigned Surgical Provider 04/29/20 Danette Alan APRN AMERICAN HISTORY TEACHER [address] [place] [address] Assigned PCP 10/02/23 Cleve Barger MD [address] [place] [address] Assigned Surgical Provider 11/02/23 documented as of this encounter
--- OUTSIDE RECORDS SUMMARY | 2023-11-20 13:08 | XMS_ITS | Encounter Summary ---
Author Organization [place] Address [address] [place] [address] Care Team Providers Care Electronics Commodity Manager Name Role Phone Joanna Hernandez MD Unavailable Joanna Hernandez MD Primary Care Provider [phone] Danette Alan APRN IMPROVEMENT DIRECTOR Primary Care Provider +[phone]- [phone] Danette Alan APRN IMPROVEMENT DIRECTOR Unavailable Cleve Barger MD Unavailable Encounter Details Date Type Department Care Team (Late st Contact Info) Description 01/27/2022 MyC Medical Advice [facility] Surgical Weight Loss Clinic [address] [address] Jodie Salazar MD [address] [facility] [address] [place] [address] Social History Tobacco Use Types [...] Coronavirus/COVID-19? No / Unsure 01/30/2022 10:03 AM SCREEN REPAIRER CRUSHER documented as of this encounter Plan of Treatment Not on file documented as of this encounter Visit Diagnoses Not on filedocumented in this encounter Additional Health Concerns Assessment Noted Time PHQ-9 Depression Total Score: 27 021 7:02 AM CDT documented as of this encounter Care Teams Electronics Commodity Manager Relationship Specialty [place] [address] [place] [address] PCP - General Family Practice 02/22/19 09/27/23 Danette Alan APRN IMPROVEMENT DIRECTOR [address] [facility] [address] [place] [address] PCP - General Family Medicine 09/28/23 [place] [address] [place] [address] Assigned PCP 10/29/18 10/01/23 Danette Alan APRN IMPROVEMENT DIRECTOR [address] [facility] [address] [place] [address] Assigned PCP 10/02/23 Cleve Barger MD [address] [facility] [address] [place] [address] Assigned Surgical Provider 11/02/23 documented as of this encounter
--- OUTSIDE RECORDS SUMMARY | 2023-11-20 13:09 | XMS_ITS | Encounter Summary ---
Author Organization [place] Address [address] [place] [address] Care Team Providers Care Supervisor Car And Yard Name Role Phone Joanna Hernandez MD Unavailable Joanna Hernandez MD Primary Care Provider [phone] Dimitri Pop MD Unavailable [phone] Dung De Jesus-C Unavailable Makenzie Toth-C Unavailable [phone] Danette Alan APRN ADULT REMEDIAL EDUCATION INSTRUCTOR Primary Care Provider +1- [phone] Danette Alan APRN ADULT REMEDIAL EDUCATION INSTRUCTOR Unavailable Cleve Barger MD Unavailable Encounter Details Date Type Department Care Team (Late st Contact Info) Description 11/29/2019 [facility] Surgical Weight Loss Clinic [place] [address] [facility] [address] [place] [phone] [facility] Social History Tobacco Use Types Packs/Day Years [...] on filedocumented in this encounter Care Teams Supervisor Car And Yard Relationship Specialty [place] [address] [place] [address] PCP - General Family Practice 02/22/19 09/27/23 Danette Alan APRN [facility] [address] [facility] [address] [place] [address] PCP - General Family Medicine 09/28/23 [place] [address] [place] [address] Assigned PCP 10/29/18 10/01/23 Dimitri Pop MD [address] [place] [address] Assigned Surgical Provider 12/02/19 Dung De Jesus PA-C [address] [place] [address] Assigned Surgical Provider 04/25/20 Makenzie Toth PA-C [address] [place] [address] Assigned Surgical Provider 04/29/20 Danette Alan APRN [facility] [address] [facility] [address] [place] [address] Assigned PCP 10/02/23 Cleve Barger MD [address] [place] [address] Assigned Surgical Provider 11/02/23 documented as of this encounter
--- OUTSIDE RECORDS SUMMARY | 2023-11-20 13:09 | XMS_ITS | Encounter Summary ---
Author Organization [place] Address [address] [facility] [place] [address] Care Team Providers Care Machine Skiver Name Role Phone Joanna Hernandez MD Unavailable [phone] Joanna Hernandez MD Primary Care Provider [phone] Makenzie Toth PA-C Unavailable [phone] Danette Alan APRN CONTROLS ENGINEER Primary Care Provider [phone]- [phone] Danette Alan APRN CONTROLS ENGINEER Unavailable Cleve Barger MD Unavailable Reason for Visit * Reason Onset Date Comments Orders 05/03/2020 Encounter Details Date Type Department Care Team (Late st Contact Info) Description 05/03/2020 Telephone [facility] [address] [place] [address] [place] [address] [place] [address] Orders Social History Tobacco Use [...] be reached at: Home number on file [phone] (home) Best Time: Anytime Can we leave a detailed message on this number? YES Call taken on 05/03/2020 at 9:54 AM by Natalie Wan documented in this encounter Plan of Treatment Not on file documented as of this encounter Results * T4, free (05/08/2020 10:53 AM CDT) T4 Free 1.04 0.76 - 1.46 ng/dL 05/09/2020 10:37 AM CDT [facility] Blood specimen (specimen) 05/08/2020 10:53 AM CDT 05/08/2020 10:58 AM CDT Joanna Hernandez MD LAB - BLOOD ORDER [facility] [address] [place] [address] * TSH (05/08/2020 10:53 AM CDT) TSH 1.30 0.40 - 4.00 mU/L 05/09/2020 10:43 AM CDT [facility] Blood specimen (specimen) 05/08/2020 10:53 AM CDT 05/08/2020 10:58 AM CDT Joanna Hernandez MD LAB - BLOOD ORDER [facility] [address] [place] [address] documented in this encounter Visit Diagnoses Diagnosis Acquired hypothyroidism- Primary Unspecified hypothyroidism documented in this encounter Care Teams Machine Skiver Relationship Specialty [place] [address] [place] [address] PCP - General Family Practice 02/22/19 09/27/23 Danette Alan APRN CONTROLS ENGINEER [address] [facility] [address] [place] [address] PCP - General Family Medicine 09/28/23 [place] [address] [place] [address] Assigned PCP 10/29/18 10/01/23 Makenzie Toth PA-C [address] [place] [address] Assigned Surgical Provider 04/29/20 Danette Alan APRN CONTROLS ENGINEER [address] [place], [place] [address] Assigned PCP 10/02/23 Cleve Barger MD [address] [place] [address] Assigned Surgical Provider 11/02/23 documented as of this encounter
--- OUTSIDE RECORDS SUMMARY | 2023-11-20 13:09 | XMS_ITS | Encounter Summary ---
Author Organization [place] Address [address] [facility] [place] [address] Care Team Providers Care Livestock Nutritionist Name Role Phone Joanna Hernandez MD Unavailable [phone] Joanna Hernandez MD Primary Care Provider [phone] Makenzie Toth PA-C Unavailable [phone] Danette Alan APRN FIRE SAFETY DIRECTOR Primary Care Provider [phone]- [phone] Danette Alan APRN FIRE SAFETY DIRECTOR Unavailable Cleve Barger MD Unavailable Reason for Visit * Reason Onset Date Comments Patient Inquiry 10/08/2020 Encounter Details Date Type Department Care Team (Late st Contact Info) Description 10/08/2020 MyC Medical Advice [facility] [address] [place] [address] [place] [address] [place] [address] Patient Inquiry Social History Tobacco Use [...] on filedocumented in this encounter Care Teams Livestock Nutritionist Relationship Specialty [place] [address] [place] [address] PCP - General Family Practice 02/22/19 09/27/23 Danette Alan APRN CNP [address] [facility] [address] [place] [address] PCP - General Family Medicine 09/28/23 [place] [address] [place] [address] Assigned PCP 10/29/18 10/01/23 Makenzie Toth PA-C [address] [place] [address] Assigned Surgical Provider 04/29/20 Danette Alan APRN [facility] [address] [facility] [address] [place] [address] Assigned PCP 10/02/23 Cleve Barger MD [address] [facility] [address] [place] [address] Assigned Surgical Provider 11/02/23 documented as of this encounter
--- OUTSIDE RECORDS SUMMARY | 2023-11-20 13:09 | XMS_ITS | Encounter Summary ---
Author Organization [place] Address [address] [place] [address] Care Team Providers Care Balloon Seller Name Role Phone Joanna Hernandez MD Unavailable Joanna Hernandez MD Primary Care Provider [phone] Dimitri Pop MD Unavailable [phone] Dung De Jesus PA-C Unavailable [phone] Makenzie Toth PA-C Unavailable [phone] Danette Alan APRN AGENCY LEGAL COUNSEL Primary Care Provider [phone]- [phone] Danette Alan APRN AGENCY LEGAL COUNSEL Unavailable [phone] Cleve Barger MD Unavailable Reason for Visit * Reason Comments Medication Refill Encounter Details Date Type Department Care Team (Late st Contact Info) Description 02/16/2020 Refill [facility] Surgical Weight Loss Clinic [place] [address] [facility] [address] [place] [phone] Dung De Jesus PA-C [address] [facility] [place] [address] Medication Refill Social History Tobacco Use Types [...] COVID-19? No / Unsure 02/15/2020 1:22 PM DULSER documented as of this encounter Miscellaneous Notes * Telephone Encounter - Celena Davenport, RN - 02/16/2020 9:18 AM DULSER Patient sent MYChart note and stated she will speak with provider when she is seen 02/28/20. No needfor refill now. Thx DZ ER documented in this encounter Plan of Treatment Not on file documented as of this encounter Visit Diagnoses Diagnosis Bariatric surgery status Gastroesophageal reflux disease without esophagitis Esophageal reflux documented in this encounter Care Teams Balloon Seller Relationship Specialty [place] [address] [place] [address] PCP - General Family Practice 02/22/19 09/27/23 Danette Alan APRN CNP [address] [place] [address] PCP - General Family Medicine 09/28/23 [place] [address] [place] [address] Assigned PCP 10/29/18 10/01/23 Dimitri Pop MD [address] [place] [address] Assigned Surgical Provider 12/02/19 Dung De Jesus PA-C [address] [place] [address] Assigned Surgical Provider 04/25/20 Makenzie Toth PA-C [address] [place] [address] Assigned Surgical Provider 04/29/20 Danette Alan APRN AGENCY LEGAL COUNSEL [address] [facility] [address] [place] [address] Assigned PCP 10/02/23 Cleve Barger MD [address] [place] [address] Assigned Surgical Provider 11/02/23 documented as of this encounter
--- OUTSIDE RECORDS SUMMARY | 2023-11-20 13:09 | XMS_ITS | Encounter Summary ---
Author Organization [place] Address [address] [place] [address] Care Team Providers Care Varnish Blender Name Role Phone Joanna Hrenandez MD Unavailable Joanna Hernandez MD Primary Care Provider [phone] Dimitri Pop MD Unavailable [phone] Dung De Jesus PA-C Unavailable [phone] Makenzie Toth PA-C Unavailable [phone] Danette Alan APRN FLOORPERSON Primary Care Provider [phone]- [phone] Danette Alan APRN FLOORPERSON Unavailable [phone] Cleve Barger MD Unavailable Encounter Details Date Type Department Care Team (Late st Contact Info) Description 03/22/2019 [facility] Medical Advice [facility] Surgical Weight Loss Clinic [place] [address] [facility] [address] [place] [phone] Dung De Jesus PA-C [address] [facility] [place] [address] Social History Tobacco Use Types Packs/Day Years [...] on filedocumented in this encounter Care Teams Varnish Blender Relationship Specialty [place] [address] [place] [address] PCP - General Family Practice 02/22/19 09/27/23 Danette Alan APRN FLOORPERSON [address] [facility] [address] [place] [address] PCP - General Family Medicine 09/28/23 [place] [address] [place] [address] Assigned PCP 10/29/18 10/01/23 Dimitri Pop MD [address] [place] [address] Assigned Surgical Provider 12/02/19 Dung De Jesus PA-C [address] [place] [address] Assigned Surgical Provider 04/25/20 Makenzie Toth PA-C [address] [place] [address] Assigned Surgical Provider 04/29/20 Danette Alan APRN [facility] [address] [facility] [address] [place] [address] Assigned PCP 10/02/23 Cleve Barger MD [address] [facility] [address] [place] [address] Assigned Surgical Provider 11/02/23 documented as of this encounter
--- OUTSIDE RECORDS SUMMARY | 2023-11-20 13:09 | XMS_ITS | Encounter Summary ---
Author Organization [place] Address [address] [facility] [place] [address] Care Team Providers Care Load Tester Name Role Phone Joanna Hernandez MD Unavailable [phone] Joanna Hernandez MD Primary Care Provider Makenzie Toth PA-C Unavailable [phone] Danette Alan APRN REAL ESTATE SALES AGENT Primary Care Provider [phone] Danette Alan APRN REAL ESTATE SALES AGENT Unavailable [phone] Cleve Barger MD Unavailable Encounter Details Date Type Department Care Team (Late st Contact Info) Description 05/03/2020 [facility] Medical Advice [address] [address] Vickie Landin Social History Tobacco [...] on filedocumented in this encounter Care Teams Load Tester Relationship Specialty [place] [address] [place] [address] PCP - General Family Practice 02/22/19 09/27/23 Danette Alan APRN REAL ESTATE SALES AGENT [address] [place] [address] PCP - General Family Medicine 09/28/23 [place] [address] [place] [address] Assigned PCP 10/29/18 10/01/23 Makenzie Toth PA-C [address] [place] [address] Assigned Surgical Provider 04/29/20 Danette Alan APRN REAL ESTATE SALES AGENT [address] [place] [address] Assigned PCP 10/02/23 Cleve Barger MD [address] [place] [address] Assigned Surgical Provider 11/02/23 documented as of this encounter
--- OUTSIDE RECORDS SUMMARY | 2023-11-20 13:09 | XMS_ITS | Encounter Summary ---
Author Organization [place] Address [address] [place] [address] Care Team Providers Care Liquor Department Manager Name Role Phone Joanna Hernandez MD Unavailable Joanna Hernandez MD Primary Care Provider [phone] Dimitri Pop MD Unavailable [phone] Dung De Jesus PA-C Unavailable Makenzie Toth PA-C Unavailable [phone] Danette Alan APRN COVERAGE SPECIALIST RN Primary Care Provider [phone]- [phone] Danette Alan APRN COVERAGE SPECIALIST RN Unavailable Cleve Barger MD Unavailable Encounter Details Date Type Department Care Team (Late st Contact Info) Description 11/22/2019 [facility] Medical Advice [facility] [place] [address] [facility] [address] [place], [place] [phone] Dung De Jesus PA-C [address] [facility] [place] [id number] Social History Tobacco Use Types Packs/Day Years Used Date Smoking Tobacco: Former Cigarettes 0 07/10/2001 - 2013 Smokeless Tobacco: Never Comments:Smoke free since , [...] on filedocumented in this encounter Care Teams Liquor Department Manager Relationship Specialty [place] [address] [place] [address] PCP - General Family Practice 02/22/19 09/27/23 Danette Alan APRN [facility] [address] [facility] [address] [place], [place] [address] PCP - General Family Medicine 09/28/23 [place] [address] [place] [address] Assigned PCP 10/29/18 10/01/23 Dimitri Pop MD [address] [place] [address] Assigned Surgical Provider 12/02/19 Dung De Jesus PA-C [address] [place] [address] [address] Assigned Surgical Provider 04/25/20 Makenzie Toth PA-C [address] [place] [address] Assigned Surgical Provider 04/29/20 Danette Alan APRN [facility] [address] [facility] [address] [place] [address] Assigned PCP 10/02/23 Cleve Barger MD [address] [place] [address] Assigned Surgical Provider 11/02/23 documented as of this encounter
--- OUTSIDE RECORDS SUMMARY | 2023-11-20 13:09 | XMS_ITS | Encounter Summary ---
Author Organization [place] Address [address] [place] [address] Care Team Providers Care Woodworker Name Role Phone Joanna Hernandez MD Unavailable [phone] Joanna Hernandez MD Primary Care Provider [phone] Dimitri Pop MD Unavailable [phone] Dung De Jesus PA-C Unavailable Makenzie Toth PA-C Unavailable [phone] Danette Alan APRN PAY STATION DEPARTMENT MANAGER Primary Care Provider [phone]- [phone] Danette Alan APRN PAY STATION DEPARTMENT MANAGER Unavailable Cleve Barger MD Unavailable Encounter Details Date Type Department Care Team (Late st Contact Info) Description 03/07/2019 [facility] Medical Advice [facility] [place] [address] [facility] [address] [place] [phone] Dung De Jesus PA-C [address] [facility] [place] [address] Social History Tobacco Use Types Packs/Day Years [...] on filedocumented in this encounter Care Teams Woodworker Relationship Specialty [place] [address] [address] [place] [address] PCP - General Family Practice 02/22/19 09/27/23 Danette Alan APRN PAY STATION DEPARTMENT MANAGER [address] [facility] [address] [place] [address] PCP - General Family Medicine 09/28/23 [place] [address] [place] [address] Assigned PCP 10/29/18 10/01/23 Dimitri Pop MD [address] [place] [address] Assigned Surgical Provider 12/02/19 Dung De Jesus PA-C [address] [place] [address] Assigned Surgical Provider 04/25/20 Makenzie Toth PA-C [address] [place] [address] Assigned Surgical Provider 04/29/20 Danette Alan APRN [facility] [address] [facility] [address] [place] [address] Assigned PCP 10/02/23 Cleve Barger MD [address] [facility] [address] [place] [address] Assigned Surgical Provider 11/02/23 documented as of this encounter
--- OUTSIDE RECORDS SUMMARY | 2023-11-20 13:09 | XMS_ITS | Encounter Summary ---
Author Organization [place] Address [address] [place] [address] Care Team Providers Care Plastic Cutter Name Role Phone Joanna Hernandez MD Unavailable Joanna Hernandez MD Primary Care Provider [phone] Dimitri Pop MD Unavailable [phone] Dung De Jesus-C Unavailable Makenzie Toth-C Unavailable [phone] Danette Alan APRN MATERIAL REQUIREMENTS WORKER Primary Care Provider [phone]- [phone] Danette Alan APRN MATERIAL REQUIREMENTS WORKER Unavailable [phone] Cleve Barger MD Unavailable Encounter Details Date Type Department Care Team (Late st Contact Info) Description 08/18/2019 [facility] [place] [address] [facility] [address] [place] [phone] [facility] Social History Tobacco Use Types [...] on filedocumented in this encounter Care Teams Plastic Cutter Relationship Specialty [place] [address] [place] [address] PCP - General Family Practice 02/22/19 09/27/23 Danette Alan APRN [facility] [address] [facility] [address] [place] [address] PCP - General Family Medicine 09/28/23 [place] [address] [place] [address] Assigned PCP 10/29/18 10/01/23 Dimitri Pop MD [address] [place] [address] Assigned Surgical Provider 12/02/19 Dung De Jesus PA-C [address] [place] [address] [address] Assigned Surgical Provider 04/25/20 Makenzie Toth PA-C [address] [place] [address] Assigned Surgical Provider 04/29/20 Danette Alan APRN [facility] [address] [facility] [address] [place] [address] Assigned PCP 10/02/23 Cleve Barger MD [address] [place] [address] Assigned Surgical Provider 11/02/23 documented as of this encounter
--- OUTSIDE RECORDS SUMMARY | 2023-11-20 13:09 | XMS_ITS | Encounter Summary ---
Author Organization [place] Address [address] [place] [address] Care Team Providers Care Web Site Administrator Name Role Phone Joanna Hernandez MD Unavailable [phone] Joanna Hernandez MD Primary Care Provider [phone] Dimitri Pop MD Unavailable [phone] Dung De Jesus-C Unavailable [phone] Makenzie Toth-C Unavailable [phone] Dnaette Alan APRN MOLD POLISHER Primary Care Provider [phone] Danette Alan APRN MOLD POLISHER Unavailable Cleve Barger MD Unavailable Encounter Details Date Type Department Care Team (Late st Contact Info) Description 08/22/2019 [facility] Medical Advice [facility] [place] [address] [facility] [address] [place], [place] [phone] Celena Davenport, [facility] [address] [facility] [address] [place] [address] Social History Tobacco Use Types Packs/Day Years [...] on filedocumented in this encounter Care Teams Web Site Administrator Relationship Specialty [place] [address] [place] [address] PCP - General Family Practice 02/22/19 09/27/23 Danette Alan APRN [facility] [address] [facility] [address] [place] [address] PCP - General Family Medicine 09/28/23 [place] [address] [place] [address] Assigned PCP 10/29/18 10/01/23 Dimitri Pop MD [address] [place] [address] Assigned Surgical Provider 12/02/19 Dung De Jesus PA-C [address] [place] [address] [address] Assigned Surgical Provider 04/25/20 Makenzie Toth PA-C [address] [place] [address] Assigned Surgical Provider 04/29/20 Danette Alan APRN [facility] [address] [facility] [address] [place] [address] Assigned PCP 10/02/23 Cleve Barger MD [address] [facility] [address] [place] [address] Assigned Surgical Provider 11/02/23 documented as of this encounter
--- OUTSIDE RECORDS SUMMARY | 2023-11-20 13:09 | XMS_ITS | Encounter Summary ---
Author Organization [place] Address [address] [place] [address] Care Team Providers Care Furnishings Conservator Name Role Phone Joanna Hernandez MD Unavailable Joanna Hernandez MD Primary Care Provider [phone] Dimitri Pop MD Unavailable [phone] Dung De Jesus PA-C Unavailable [phone] Makenzie Toth PA-C Unavailable [phone] Danette Alan APRN PROCESS IMPROVEMENT MANAGER Primary Care Provider [phone] Danette Alan APRN PROCESS IMPROVEMENT MANAGER Unavailable Cleve Barger MD Unavailable Encounter Details Date Type Department Care Team (Late st Contact Info) Description 07/25/2019 [facility] Medical Advice [facility] [place] [address] [facility] [address] [place], [place] [phone] Dung De Jesus PA-C [address] [facility] [place] [address] Social History Tobacco Use Types Packs/Day Years [...] on filedocumented in this encounter Care Teams Furnishings Conservator Relationship Specialty [place] [address] [place] [address] PCP - General Family Practice 02/22/19 09/27/23 Danette Alan APRN PROCESS IMPROVEMENT MANAGER [address] [facility] [address] [place] [address] PCP - General Family Medicine 09/28/23 [place] [address] [place] [address] Assigned PCP 10/29/18 10/01/23 Dimitri Pop MD [address] [address] Assigned Surgical Provider 12/02/19 Dung De Jesus PA-C [address] [place] [address] [address] Assigned Surgical Provider 04/25/20 Makenzie Toth PA-C [address] [place] [address] Assigned Surgical Provider 04/29/20 Danette Alan APRN PROCESS IMPROVEMENT MANAGER [address] [facility] [address] [place] [address] Assigned PCP 10/02/23 Cleve Barger MD [address] [place] [address] Assigned Surgical Provider 11/02/23 documented as of this encounter
--- OUTSIDE RECORDS SUMMARY | 2023-11-20 13:09 | XMS_ITS | Encounter Summary ---
Author Organization [place] Address [address] [place] [address] Care Team Providers Care Broth Setter Name Role Phone Joanna Hernandez MD Unavailable Joanna Hernandez MD Primary Care Provider [phone] Dimitri Pop MD Unavailable [phone] Dung De Jesus-C Unavailable Makenzie Toth-C Unavailable [phone] Danette Alan APRN SANITATION TECHNICIAN Primary Care Provider [phone] Danette Alan APRN SANITATION TECHNICIAN Unavailable Cleve Barger MD Unavailable Encounter Details Date Type Department Care Team (Late st Contact Info) Description 02/15/2020 [facility] [place] [facility] [place] [address] [place] [address] Dimitri Pop MD [address] [place] [address] Social History Tobacco Use Types Packs/Day Years [...] COVID-19? No / Unsure 02/15/2020 1:22 PM FLOOR TECHNICIAN documented as of this encounter Miscellaneous Notes * Telephone Encounter - Jana Delaney RN - 02/15/2020 2:06 PM CST Already addressed for pt. Jana Delaney RN on 02/15/2020 at 2:06 PM R TECHNICIAN documented in this encounter Plan of Treatment Not on file documented as of this encounter Visit Diagnoses Not on filedocumented in this encounter Care Teams Broth Setter Relationship Specialty [place] [address] [place] [address] PCP - General Family Practice 02/22/19 09/27/23 Danette Alan APRN CNP [address] [place] [address] PCP - General Family Medicine 09/28/23 [place] [address] [place] [address] Assigned PCP 10/29/18 10/01/23 Dimitri Pop MD [address] [place] [address] Assigned Surgical Provider 12/02/19 Dung De Jesus PA-C [address] [place] [address] Assigned Surgical Provider 04/25/20 Makenzie Toth PA-C [address] [place], [place] [address] Assigned Surgical Provider 04/29/20 Danette Alan APRN [facility] [address] [facility] [address] [place], [place] [address] Assigned PCP 10/02/23 Cleve Barger MD [address] [place], [place] [address] Assigned Surgical Provider 11/02/23 documented as of this encounter
--- OUTSIDE RECORDS SUMMARY | 2023-11-20 13:09 | XMS_ITS | Encounter Summary ---
Author Organization [place] Address [address] [place] [address] Care Team Providers Care Power Builder Developer Name Role Phone Joanna Hernandez MD Unavailable Joanna Hernandez MD Primary Care Provider [phone] Dimitri Pop MD Unavailable [phone] Dung De Jesus PA-C Unavailable Makenzie Toth PA-C Unavailable [phone] Danette Alan APRN FUNERAL DIRECTOR Primary Care Provider [phone] Danette Alan APRN FUNERAL DIRECTOR Unavailable Cleve Barger MD Unavailable Encounter Details Date Type Department Care Team (Late st Contact Info) Description 02/23/2019 [facility] Medical Advice [facility] [place] [address] [facility] [address] [place] [phone] Dung De Jesus PA-C [address] [facility] [place] [address] Social History Tobacco Use Types Packs/Day Years [...] on filedocumented in this encounter Care Teams Power Builder Developer Relationship Specialty [place] [address] [place] [place] [address] PCP - General Family Practice 02/22/19 09/27/23 Danette Alan APRN FUNERAL DIRECTOR [address] [facility] [address] [place] [address] PCP - General Family Medicine 09/28/23 [place] [address] [place] [address] Assigned PCP 10/29/18 10/01/23 Dimitri Pop MD [address] [place] [address] Assigned Surgical Provider 12/02/19 Dung De Jesus PA-C [address] [place] [address] Assigned Surgical Provider 04/25/20 Makenzie Toth PA-C [address] [place] [address] Assigned Surgical Provider 04/29/20 Danette Alan APRN [facility] [address] [facility] [address] [place] [address] Assigned PCP 10/02/23 Cleve Barger MD [address] [facility] [address] [place] [address] Assigned Surgical Provider 11/02/23 documented as of this encounter
--- OUTSIDE RECORDS SUMMARY | 2023-11-20 13:09 | XMS_ITS | Encounter Summary ---
Author Organization [place] Address [address] [place] [address] Care Team Providers Care Mid Level Provider Name Role Phone Joanna Hernandez MD Unavailable [phone] Joanna Hernandez MD Primary Care Provider [phone] Dimitri Pop MD Unavailable [phone] Dung De Jesus-C Unavailable Makenzie Toth-C Unavailable [phone] Danette Alan APRN FUSING FURNACE LOADER Primary Care Provider [phone] Danette Alan APRN FUSING FURNACE LOADER Unavailable Cleve Barger MD Unavailable Encounter Details Date Type Department Care Team (Late st Contact Info) Description 02/16/2020 [facility] Medical Advice [facility] [place] [address] [facility] [address] [place], [place] [phone] Celena Davenport, [facility] [address] [facility] [address] [place] [address] Social History Tobacco Use Types Packs/Day Years [...] COVID-19? No / Unsure 02/15/2020 1:22 PM JOY OPERATOR documented as of this encounter Plan of Treatment Not on file documented as of this encounter Visit Diagnoses Not on filedocumented in this encounter Care Teams Mid Level Provider Relationship Specialty [place] [address] [place] [address] PCP - General Family Practice 02/22/19 09/27/23 Danette Alan APRN [facility] [address] [facility] [address] [place] [address] PCP - General Family Medicine 09/28/23 [place] [address] [place] [address] Assigned PCP 10/29/18 10/01/23 Dimitri Pop MD [address] [place] [address] Assigned Surgical Provider 12/02/19 Dung De Jesus PA-C [address] [place] [address] [address] Assigned Surgical Provider 04/25/20 Makenzie Toth PA-C [address] [place] [address] Assigned Surgical Provider 04/29/20 Danette Alan APRN [facility] [address] [facility] [address] [place] [address] Assigned PCP 10/02/23 Cleve Barger MD [address] [facility] [address] [place] [address] Assigned Surgical Provider 11/02/23 documented as of this encounter
--- OUTSIDE RECORDS SUMMARY | 2023-11-20 13:09 | XMS_ITS | Encounter Summary ---
Author Organization [place] Address [address] [place] [address] Care Team Providers Care Power Distribution Engineer Name Role Phone Joanna Hernandez MD Unavailable Joanna Hernandez MD Primary Care Provider [phone] Dimitri Pop MD Unavailable [phone] Dung De Jesus PA-C Unavailable [phone] Makenzie Toth PA-C Unavailable [phone] Danette Alan APRN PUNCHER Primary Care Provider [phone] Danette Alan APRN PUNCHER Unavailable Cleve Barger MD Unavailable Encounter Details Date Type Department Care Team (Late st Contact Info) Description 08/19/2019 [facility] [place] [facility] [place] [address] [facility] [address] [place], [place] [phone] Dung De Jesus PA-C [address] [facility] [place] [id number] Social History Tobacco Use Types Packs/Day Years [...] filedocumented in this encounter Care Teams Power Distribution Engineer Relationship Specialty [place] [address] [place] [address] PCP - General Family Practice 02/22/19 09/27/23 Danette Alan APRN [facility] [address] [facility] [address] [place], [place] [address] PCP - General Family Medicine 09/28/23 [place] [address] [place] [address] Assigned PCP 10/29/18 10/01/23 Dimitri Pop MD [address] [place] [address] Assigned Surgical Provider 12/02/19 Dung De Jesus PA-C [address] [place] [address] [address] Assigned Surgical Provider 04/25/20 Makenzie Toth PA-C [address] [place] [address] Assigned Surgical Provider 04/29/20 Danette Alan APRN [facility] [address] [facility] [address] [place] [address] Assigned PCP 10/02/23 Cleve Barger MD [address] [place] [address] Assigned Surgical Provider 11/02/23 documented as of this encounter
--- OUTSIDE RECORDS SUMMARY | 2023-11-20 13:09 | XMS_ITS | Encounter Summary ---
Author Organization [place] Address [address] [place] [address] Care Team Providers Care Minor League Baseball Player Name Role Phone Joanna Hernandez MD Unavailable Joanna Hernandez MD Primary Care Provider [phone] Dimitri Pop MD Unavailable [phone] Dung De Jesus PA-C Unavailable Makenzie Toth PA-C Unavailable [phone] Danette Alan APRN SAILING MASTER Primary Care Provider [phone] Danette Alan APRN SAILING MASTER Unavailable Cleve Barger MD Unavailable Encounter Details Date Type Department Care Team (Late st Contact Info) Description 02/28/2020 [facility] Medical Advice [facility] [place] [address] [facility] [address] [place] [phone] Makenzie Toth PA-C [address] [facility] [address] [place] [address] Social History Tobacco Use Types Packs/Day Years [...] COVID-19? No / Unsure 02/15/2020 1:22 PM POTATO SORTER documented as of this encounter Plan of Treatment Not on file documented as of this encounter Visit Diagnoses Not on filedocumented in this encounter Care Teams Minor League Baseball Player Relationship Specialty [place] [address] [place] [address] PCP - General Family Practice 02/22/19 09/27/23 Danette Alan APRN [facility] [address] [facility] [address] [place], [place] [address] PCP - General Family Medicine 09/28/23 [place] [address] [facility] [place] [address] Assigned PCP 10/29/18 10/01/23 Dimitri Pop MD [address] [address] Assigned Surgical Provider 12/02/19 Dung De Jesus PA-C [address] [place] [address] [address] Assigned Surgical Provider 04/25/20 Makenzie Toth PA-C [address] [place] [address] Assigned Surgical Provider 04/29/20 Danette Alan APRN [facility] [address] [facility] [address] [place] [address] Assigned PCP 10/02/23 Cleve Barger MD [address] [facility] [address] [place] [address] Assigned Surgical Provider 11/02/23 documented as of this encounter
--- OUTSIDE RECORDS SUMMARY | 2023-11-20 13:09 | XMS_ITS | Encounter Summary ---
Author Organization [place] Address [address] [place] [address] Care Team Providers Care Director Investment Banking Name Role Phone Joanna Hernandez MD Unavailable Joanna Hernandez MD Primary Care Provider [phone] Dimitri Pop MD Unavailable [phone] Dung De Jesus PA-C Unavailable Makenzie Toth PA-C Unavailable [phone] Danette Alan APRN POLITICAL RESEARCH SCIENTIST Primary Care Provider [phone]- [phone] Danette Alan APRN POLITICAL RESEARCH SCIENTIST Unavailable Cleve Barger MD Unavailable Encounter Details Date Type Department Care Team (Late st Contact Info) Description 08/19/2019 [facility] Medical Advice [facility] [place] [address] [facility] [address] [place], [place] [id number] Dung De Jesus PA-C [address] [facility] [place] [id number] Social History Tobacco Use Types Packs/Day Years [...] on filedocumented in this encounter Care Teams Director Investment Banking Relationship Specialty [place] [address] [place] [address] PCP - General Family Practice 02/22/19 09/27/23 Danette Alan APRN [facility] [address] [facility] [address] [place], [place] [address] PCP - General Family Medicine 09/28/23 [place] [address] [place] [address] Assigned PCP 10/29/18 10/01/23 Dimitri Pop MD [address] [place] [address] Assigned Surgical Provider 12/02/19 Dung De Jesus PA-C [address] [place] [address] [address] Assigned Surgical Provider 04/25/20 Makenzie Toth PA-C [address] [place] [address] Assigned Surgical Provider 04/29/20 Danette Alan APRN [facility] [address] [facility] [facility] [address] [place] [address] Assigned PCP 10/02/23 Cleve Barger MD [address] [place] [address] Assigned Surgical Provider 11/02/23 documented as of this encounter
--- OUTSIDE RECORDS SUMMARY | 2023-11-20 13:09 | XMS_ITS | Encounter Summary ---
Author Organization [place] Address [address] [place] [address] Care Team Providers Care Case Briefer Name Role Phone Rhys Ordonez MD Primary Care Provider + Joanna Hernandez MD Unavailable [phone] Joanna Hernandez MD Primary Care Provider [phone] Dimitri Pop MD Unavailable [phone] Dung De Jesus PA-C Unavailable Makenzie Toth PA-C Unavailable [phone] Danette Alan APRN MINIBUS DRIVER Primary Care Provider [phone]- [phone] Danette Alan APRN MINIBUS DRIVER Unavailable [phone] Cleve Barger MD Unavailable Encounter Details Date Type Department Care Team (Late st Contact Info) Description 02/11/2019 [facility] Dimitri Pop MD [address] [facility] [address] [place] [address] Social History Tobacco Use Types Packs/Day Years [...] on filedocumented in this encounter Care Teams Case Briefer Relationship Specialty Start Date End Date Rhys Ordonez MD [address] [place] [address] PCP - General pump runner 10/01/18 02/21/19 [place] [address] [place] [address] PCP - General Family Practice 02/22/19 09/27/23 Danette Alan APRN MINIBUS DRIVER [address] [facility] [address] [place] [address] PCP - General Family Medicine 09/28/23 [place] [address] [place] [address] Assigned PCP 10/29/18 10/01/23 Dimitri Pop MD [address] [place] [address] Assigned Surgical Provider 12/02/19 Dung De Jesus PA-C [address] [place] [address] [address] Assigned Surgical Provider 04/25/20 Makenzie Toth PA-C [address] [place] [address] Assigned Surgical Provider 04/29/20 Danette Alan APRN MINIBUS DRIVER [address] [facility] [address] [place], [place] [address] Assigned PCP 10/02/23 Cleve Barger MD [address] [place] [address] Assigned Surgical Provider 11/02/23 documented as of this encounter
--- OUTSIDE RECORDS SUMMARY | 2023-11-20 13:09 | XMS_ITS | Encounter Summary ---
Author Organization [place] Address [address] [place] [address] Care Team Providers Care Landscaper Name Role Phone Rhys Ordonez MD Primary Care Provider + Joanna Hernandez MD Unavailable Joanna Hernandez MD Primary Care Provider [phone] Dimitri Pop MD Unavailable [phone] Dung De Jesus PA-C Unavailable [phone] Makenzie Toth PA-C Unavailable [phone] Danette Alan APRN PHOTOGRAPHY COORDINATOR Primary Care Provider [phone]- [phone] Danette Alan APRN PHOTOGRAPHY COORDINATOR Unavailable Cleve Barger MD Unavailable Encounter Details Date Type Department Care Team (Late st Contact Info) Description 01/26/2019 [facility] Medical Advice SX SURGERY CASES Dimitri Pop MD [address] [facility] [address] [place] [address] Social History Tobacco Use Types Packs/Day Years [...] on filedocumented in this encounter Care Teams Landscaper Relationship Specialty Start Date End Date Ryhs Ordonez MD [address] [place] [address] PCP - General college or university faculty member 10/01/18 02/21/19 [place] [address] [place] [address] PCP - General Family Practice 02/22/19 09/27/23 Danette Alan APRN PHOTOGRAPHY COORDINATOR [address] [facility] [address] [place] [address] PCP - General Family Medicine 09/28/23 [place] [address] [place] [address] Assigned PCP 10/29/18 10/01/23 Dimitri Pop MD [address] [place] [address] Assigned Surgical Provider 12/02/19 Dung De Jesus PA-C [address] [place] [address] [address] Assigned Surgical Provider 04/25/20 Makenzie Toth PA-C [address] [place] [address] Assigned Surgical Provider 04/29/20 Danette Alan APRN PHOTOGRAPHY COORDINATOR [address] [facility] [address] [place], [place] [address] Assigned PCP 10/02/23 Cleve Barger MD [address] [place] [address] Assigned Surgical Provider 11/02/23 documented as of this encounter
--- OUTSIDE RECORDS SUMMARY | 2023-11-20 13:09 | XMS_ITS | Encounter Summary ---
Author Organization [place] Address [address] [place] [address] Care Team Providers Care Regional Branch Manager Name Role Phone Rhys Ordonez MD Primary Care Provider + Joanna Hernandez MD Unavailable Joanna Hernandez MD Primary Care Provider [phone] Dimitri Pop MD Unavailable [phone] Dung De Jesus PA-C Unavailable Makenzie Toth PA-C Unavailable [phone] Danette Alan APRN TEACHER Primary Care Provider [phone] Danette Alan APRN TEACHER Unavailable Cleve Barger MD Unavailable Encounter Details Date Type Department Care Team (Late st Contact Info) Description 02/10/2019 [facility] Medical Advice SX SURGERY CASES Dimitri Pop MD [address] [facility] [address] [place] [id number] Social History Tobacco Use Types Packs/Day Years [...] on filedocumented in this encounter Care Teams Regional Branch Manager Relationship Specialty Start Date End Date Rhys Ordonez MD [address] [place] [address] PCP - General water proofer 10/01/18 02/21/19 [place] [address] [place] [address] PCP - General Family Practice 02/22/19 09/27/23 Danette Alan APRN TEACHER [address] [facility] [address] [place] [address] PCP - General Family Medicine 09/28/23 [place] [address] [place] [address] Assigned PCP 10/29/18 10/01/23 Dimitri Pop MD [address] [place] [address] Assigned Surgical Provider 12/02/19 Dung De Jesus PA-C [address] [place] [address] [address] Assigned Surgical Provider 04/25/20 Makenzie Toth PA-C [address] [place] [address] Assigned Surgical Provider 04/29/20 Danette Alan APRN TEACHER [address] [facility] [address] [place], [place] [address] Assigned PCP 10/02/23 Cleve Barger MD [address] [place] [address] Assigned Surgical Provider 11/02/23 documented as of this encounter
--- OUTSIDE RECORDS SUMMARY | 2023-11-20 13:09 | XMS_ITS | Encounter Summary ---
Author Organization [place] Address [address] [place] [address] Care Team Providers Care Golf Manager Name Role Phone Rhys Ordonez MD Primary Care Provider + Joanna Hernandez MD Unavailable Joanna Hernandez MD Primary Care Provider [phone] Dimitri Pop MD Unavailable [phone] Dung De Jesus PA-C Unavailable Makenzie Toth PA-C Unavailable [phone] Danette Alan APRN BRICK PICKER Primary Care Provider [phone]- [phone] Danette Alan APRN BRICK PICKER Unavailable Cleve Barger MD Unavailable Encounter Details Date Type Department Care Team (Late st Contact Info) Description 01/24/2019 [facility] Medical Advice SX SURGERY CASES Dimitri Pop MD [address] [facility] [address] [place] [address] Social History Tobacco Use Types Packs/Day Years [...] on filedocumented in this encounter Care Teams Golf Manager Relationship Specialty Start Date End Date Rhys Ordonez MD [address] [place] [address] PCP - General preschool assistant principal 10/01/18 02/21/19 [place] [address] [place] [address] PCP - General Family Practice 02/22/19 09/27/23 Danette Alan APRN BRICK PICKER [address] [facility] [address] [place] [address] PCP - General Family Medicine 09/28/23 [place] [address] [place] [address] Assigned PCP 10/29/18 10/01/23 Dimitri Pop MD [address] [place] [address] Assigned Surgical Provider 12/02/19 Dung De Jesus PA-C [address] [place] [address] [address] Assigned Surgical Provider 04/25/20 Makenzie Toth PA-C [address] [place] [address] Assigned Surgical Provider 04/29/20 Danette Alan APRN BRICK PICKER [address] [facility] [address] [place], [place] [address] Assigned PCP 10/02/23 Cleve Barger MD [address] [place] [address] Assigned Surgical Provider 11/02/23 documented as of this encounter
--- OUTSIDE RECORDS SUMMARY | 2023-11-20 13:10 | XMS_ITS | Encounter Summary ---
Author Organization [place] Address [address] [place] [address] Care Team Providers Care Cribber Name Role Phone Rhys Ordonez MD Primary Care Provider + Joanna Hernandez MD Unavailable Joanna Hernandez MD Primary Care Provider [phone] Dmiitri Pop MD Unavailable [phone] Dung De Jesus PA-C Unavailable [phone] Makenzie Toth PA-C Unavailable [phone] Danette Alan APRN GRAIN PICKER Primary Care Provider [phone]- [phone] Danette Alan APRN GRAIN PICKER Unavailable [phone] Cleve Barger MD Unavailable Encounter Details Date Type Department Care Team (Late st Contact Info) Description 12/27/2018 [facility] Medical Advice [facility] [place] [address] [facility] [address] [place], [place] [address] Dimitri Pop MD [address] [facility] [address] [place] [address] Social History Tobacco Use Types Packs/Day Years [...] on filedocumented in this encounter Care Teams Cribber Relationship Specialty Start Date End Date Rhys Ordonez MD [address] [place] [address] PCP - General theatrical trouper 10/01/18 02/21/19 [place] [address] [place] [address] PCP - General Family Practice 02/22/19 09/27/23 Danette Alan APRN [facility] [address] [facility] [address] [place] [address] PCP - General Family Medicine 09/28/23 [place] [address] [place] [address] Assigned PCP 10/29/18 10/01/23 Dimitri Pop MD [address] [place] [address] Assigned Surgical Provider 12/02/19 Dung De Jesus PA-C [address] [place] [address] [address] Assigned Surgical Provider 04/25/20 Makenzie Toth PA-C [address] [place] [address] Assigned Surgical Provider 04/29/20 Danette Alan APRN [facility] [address] [facility] [address] [place], [place] [address] Assigned PCP 10/02/23 Cleve Barger MD [address] [facility] [address] [place] [address] Assigned Surgical Provider 11/02/23 documented as of this encounter
--- OUTSIDE RECORDS SUMMARY | 2023-11-20 13:10 | XMS_ITS | Encounter Summary ---
Author Organization [place] Address [address] [place] [address] Care Team Providers Care Plumbing Engineer Name Role Phone Rhys Ordonez MD Primary Care Provider + Joanna Hernandez MD Unavailable [phone] Joanna Hernandez MD Primary Care Provider [phone] Dimitri Pop MD Unavailable [phone] Dung De Jesus PA-C Unavailable Makenzie Toth PA-C Unavailable [phone] Danette Alan APRN MARINE SAFETY OFFICER Primary Care Provider [phone] Danette Alan APRN MARINE SAFETY OFFICER Unavailable Cleve Barger MD Unavailable Encounter Details Date Type Department Care Team (Late st Contact Info) Description 11/04/2018 [place] Medical Advice [facility] [place] [address] [facility] [address] [place], [place] [address] Dung De Jesus PA-C [address] [facility] [place] [address] Social History Tobacco Use Types Packs/Day Years [...] on filedocumented in this encounter Care Teams Plumbing Engineer Relationship Specialty Start Date End Date Rhys Ordonez MD [address] [place] [address] PCP - General ward assistant 10/01/18 02/21/19 [place] [address] [place] [address] PCP - General Family Practice 02/22/19 09/27/23 Danette Alan APRN MARINE SAFETY OFFICER [address] [place], [place] [address] PCP - General Family Medicine 09/28/23 [place] [address] [place] [address] Assigned PCP 10/29/18 10/01/23 Dimitri Pop MD [address] [place] [address] Assigned Surgical Provider 12/02/19 Dung De Jesus PA-C [address] [place] [address] [address] Assigned Surgical Provider 04/25/20 Makenzie Toth PA-C [address] [place] [address] Assigned Surgical Provider 04/29/20 Danette Alan APRN [facility] [address] [facility] [address] [place] [address] Assigned PCP 10/02/23 Cleve Barger MD [address] [facility] [address] [place] [address] Assigned Surgical Provider 11/02/23 documented as of this encounter
--- OUTSIDE RECORDS SUMMARY | 2023-11-20 13:10 | XMS_ITS | Encounter Summary ---
Author Organization [place] Address [address] [place] [address] Care Team Providers Care Demand Generation Manager Name Role Phone Rhys Ordonez MD Primary Care Provider + Joanna Hernandez MD Unavailable Joanna Hernandez MD Primary Care Provider [phone] Dimitri Pop MD Unavailable [phone] Dung De Jesus PA-C Unavailable [phone] Makenzie Toth PA-C Unavailable [phone] Danette Alan APRN WEIGHER PRODUCTION Primary Care Provider [phone]- [phone] Danette Alan APRN WEIGHER PRODUCTION Unavailable [phone] Cleve Barger MD Unavailable Encounter Details Date Type Department Care Team (Late st Contact Info) Description 11/25/2018 [facility] Medical Advice [facility] [place] [address] [facility] [address] [place], [place] [address] Dung De Jesus PA-C [address] [facility] [place] [id number] Social History Tobacco Use Types Packs/Day Years [...] on filedocumented in this encounter Care Teams Demand Generation Manager Relationship Specialty Start Date End Date Rhys Ordonez MD [address] [place] [address] PCP - General architectural designer 10/01/18 02/21/19 [place] [address] [place] [address] PCP - General Family Practice 02/22/19 09/27/23 Danette Alan APRN [facility] [address] [facility] [address] [place] [address] PCP - General Family Medicine 09/28/23 [place] [address] [place] [address] Assigned PCP 10/29/18 10/01/23 Dimitri Pop MD [address] [place] [address] Assigned Surgical Provider 12/02/19 Dung De Jesus PA-C [address] [place] [address] [address] Assigned Surgical Provider 04/25/20 Makenzie Toth PA-C [address] [place] [address] Assigned Surgical Provider 04/29/20 Danette Alan APRN [facility] [address] [facility] [address] [place], [place] [address] Assigned PCP 10/02/23 Cleve Barger MD [address] [facility] [address] [place] [address] Assigned Surgical Provider 11/02/23 documented as of this encounter
--- OUTSIDE RECORDS SUMMARY | 2023-11-20 13:10 | XMS_ITS | Encounter Summary ---
Author Organization [place] Address [address] [place] [address] Care Team Providers Care Nuts And Bolts Assembler Name Role Phone Rhys Ordonez MD Primary Care Provider + Joanna Hernandez MD Unavailable [phone] Joanna Hernandez MD Primary Care Provider [phone] Dimitri Pop MD Unavailable [phone] Dung De Jesus PA-C Unavailable [phone] Makenzie Toth PA-C Unavailable [phone] Danette Alan APRN PRODUCTION MACHINE TENDER Primary Care Provider [phone] Danette Alan APRN PRODUCTION MACHINE TENDER Unavailable Cleve Barger MD Unavailable Encounter Details Date Type Department Care Team (Late st Contact Info) Description 10/29/2018 [facility] Medical Advice [facility] [place] [address] [facility] [address] [place], [place] [address] Dung De Jesus PA-C [address] [facility] [place] [id number] Social History Tobacco Use Types Packs/Day Years [...] on filedocumented in this encounter Care Teams Nuts And Bolts Assembler Relationship Specialty Start Date End Date Rhys Ordonez MD [address] [place] [address] PCP - General academic success coordinator 10/01/18 02/21/19 [place] [address] [place] [address] PCP - General Family Practice 02/22/19 09/27/23 Danette Alan APRN PRODUCTION MACHINE TENDER [address] [place], [place] [address] PCP - General Family Medicine 09/28/23 [place] [address] [place] [address] Assigned PCP 10/29/18 10/01/23 Dimitri Pop MD [address] [place] [address] Assigned Surgical Provider 12/02/19 Dung De Jesus PA-C [address] [place] [address] [address] Assigned Surgical Provider 04/25/20 Makenzie Toth PA-C [address] [place] [address] Assigned Surgical Provider 04/29/20 Danette Alan APRN [facility] [address] [facility] [address] [place] [address] Assigned PCP 10/02/23 Cleve Barger MD [address] [facility] [address] [place] [address] Assigned Surgical Provider 11/02/23 documented as of this encounter
--- OUTSIDE RECORDS SUMMARY | 2023-11-20 13:10 | XMS_ITS | Encounter Summary ---
Author Organization [place] Address [address] [place] [address] Care Team Providers Care Lock Operator Name Role Phone Rhys Ordonez MD Primary Care Provider + Joanna Hernandez MD Unavailable [phone] Joanna Hernandez MD Primary Care Provider [phone] Dimitri Pop MD Unavailable [phone] Dung De Jesus PA-C Unavailable Makenzie Toth PA-C Unavailable [phone] Danette Alan APRN STUDENT MINISTRY PASTOR Primary Care Provider [phone] Danette Alan APRN STUDENT MINISTRY PASTOR Unavailable Cleve Barger MD Unavailable Reason for Visit * Reason Onset Date Comments MyChart Communication 12/28/2018 Encounter Details Date Type Department Care Team (Late st Contact Info) Description 12/28/2018 [facility] [address] [place] [address] [place] [address] [place] [address] MyChart Communication Social History Tobacco [...] on filedocumented in this encounter Care Teams Lock Operator Relationship Specialty Start Date End Date Rhys Ordonez MD [address] [place] [address] PCP - General eligibility technician 10/01/18 02/21/19 [place] [address] [place] [address] PCP - General Family Practice 02/22/19 09/27/23 Danette Alan APRN [facility] [address] [facility] [address] [place] [address] PCP - General Family Medicine 09/28/23 [place] [address] [place] [address] Assigned PCP 10/29/18 10/01/23 Dimitri Pop MD [address] [place] [address] Assigned Surgical Provider 12/02/19 Dung De Jesus PA-C [address] [place] [address] Assigned Surgical Provider 04/25/20 Makenzie Toth PA-C [address] [place] [address] Assigned Surgical Provider 04/29/20 Danette Alan APRN [facility] [address] [facility] [address] [place], [place] [address] Assigned PCP 10/02/23 Cleve Barger MD [address] [facility] [address] [place] [address] Assigned Surgical Provider 11/02/23 documented as of this encounter
--- OUTSIDE RECORDS SUMMARY | 2023-11-20 13:10 | XMS_ITS | Encounter Summary ---
Author Organization [place] Address [address] [place] [address] Care Team Providers Care Shredding Machine Operator Name Role Phone Rhys Ordonez MD Primary Care Provider + Joanna Hernandez MD Unavailable Joanna Hernandez MD Primary Care Provider [phone] Dimitri Pop MD Unavailable [phone] Dung De Jesus PA-C Unavailable Makenzie Toth PA-C Unavailable [phone] Danette Alan APRN ANODE BUILDER Primary Care Provider [phone]- [phone] Danette Alan APRN ANODE BUILDER Unavailable Cleve Barger MD Unavailable Encounter Details Date Type Department Care Team (Late st Contact Info) Description 12/24/2018 [facility] Medical Advice [facility] [place] [address] [facility] [address] [place], [place] [address] Dung De Jesus PA-C [address] [facility] [place] [address] Social History Tobacco Use Types Packs/Day Years [...] on filedocumented in this encounter Care Teams Shredding Machine Operator Relationship Specialty Start Date End Date Rhys Ordonez MD [address] [place] [address] PCP - General improvement auditor 10/01/18 02/21/19 [place] [address] [place] [address] PCP - General Family Practice 02/22/19 09/27/23 Danette Alan APRN [facility] [address] [facility] [address] [place] [address] PCP - General Family Medicine 09/28/23 [place] [address] [place] [address] Assigned PCP 10/29/18 10/01/23 Dimitri Pop MD [address] [place] [address] Assigned Surgical Provider 12/02/19 Dung De Jesus PA-C [address] [place] [address] [address] Assigned Surgical Provider 04/25/20 Makenzie Toth PA-C [address] [place] [address] Assigned Surgical Provider 04/29/20 Danette Alan APRN [facility] [address] [facility] [address] [place], [place] [address] Assigned PCP 10/02/23 Cleve Barger MD [address] [facility] [address] [place] [address] Assigned Surgical Provider 11/02/23 documented as of this encounter
== END 2023-11-17 13:06 | disposition home or self-care (01) ==
LOC: NFLDREF 11-20 13:03
PROVIDERS: PCP Nurse Practitioner Family; Referring Provider Nurse Practitioner Family; Visit Provider Nurse Practitioner Family
DX: E03.9 Hypothyroidism, unspecified (principal)
CPT/HCPCS: 84443

== ENCOUNTER 2024-02-12 12:38 | Outpatient (CLI) | payer OTHER, SELFPAY | END 2024-02-12 12:39 | disposition home or self-care (01) | PROVIDERS: PCP Nurse Practitioner Family; Visit Provider Nurse Practitioner Family | DX: E03.9 Hypothyroidism, unspecified (principal); R74.8 Abnormal levels of other serum enzymes; R51.9 Headache, unspecified | CPT/HCPCS: 80076; 84443 ==

== ENCOUNTER 2024-04-07 14:24 | Outpatient (CLI) | payer OTHER, SELFPAY | END 2024-04-07 14:25 | disposition home or self-care (01) | PROVIDERS: PCP Nurse Practitioner Family; Visit Provider Nurse Practitioner Family | DX: M25.50 Pain in unspecified joint (principal) | CPT/HCPCS: 86140; 86431; 86618 ==

== ENCOUNTER 2024-09-16 11:14 | Outpatient (CLI) | payer BC, SELFPAY | END 2024-09-16 11:15 | disposition home or self-care (01) | PROVIDERS: PCP Nurse Practitioner Family; Visit Provider Nurse Practitioner Family | DX: E03.9 Hypothyroidism, unspecified (principal); D64.9 Anemia, unspecified; E66.3 Overweight | CPT/HCPCS: 84443; 84481 ==

== ENCOUNTER 2024-11-23 15:22 | Outpatient (CLI) | payer BC, SELFPAY ==
--- NOTE | 2024-11-23 15:45 | CRLHL7_ITS ---
For Patients: As a result of the 21st Century Cures Act, medical imaging exams and procedure reports are released immediately into your electronic medical record. You may view this report before your referring provider. If you have questions, please contact your health care provider. CLINICAL INDICATION: Plantar fascial fibromatosis. COMPARISON IMAGING STUDIES: Radiographs from 10/14/2025. TECHNICAL: Non-contrast MR of the right ankle. Axial, sagittal and coronal T1, PD, PDFS and STIR images. 1.5 Molly MR scanner. 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 It spans a 11 millimeter medial/lateral by 17 millimeter anterior/posterior extent. Small area of bone marrow edema is noted involving the superior calcaneus along the posterior margin of the posterior subtalar articular facet. Bone islands are present within the superior calcaneus. There is mild plantar calcaneal bone marrow edema. The bone marrow edema within the distal 1st metatarsal bone relates to distal articular surface chondromalacia. The same is true for the small foci of subchondral marrow changes involving the navicular bone. JOINT SPACES: The ankle joint space is maintained. As above there is an osseous middle subtalar coalition. Small foci of subchondral cystic change involving the proximal distal aspects of the navicular bone likely related to limited grade 4 chondromalacia. TMT articulations are maintained. 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 LIGAMENTS: Syndesmotic Ligaments: The anterior and posterior syndesmotic ligaments are intact. Lateral Ligaments: Mild thickening and irregularity of the anterior talofibular ligament likely reflecting sequelae of remote sprain. Calcaneofibular and posterior talofibular ligament are intact. Medial Ligaments: The superficial and deep components of the deltoid ligament complex are maintained. Spring Ligaments: Intact. Lisfranc ligament complex: Intact. TENDONS: Flexor Tendons: The posterior tibial, flexor digitorum longus and flexor hallucis longus tendons are intact. Extensor Tendons: The anterior extensor tendons are intact. Achilles Tendon: Mild Achilles tendinosis without tendon tear. Peroneal Tendons: The peroneus longus and brevis tendons are intact. TARSAL TUNNEL: No mass or fluid collection within the tarsal tunnel. SINUS TARSI: No significant effacement of sinus tarsi fat. PLANTAR SOFT TISSUES: Tiny plantar calcaneal spur. The proximal plantar fascia is abnormal. There is an approximately 7 millimeter proximal/distal by 13 millimeter medial/lateral defect of the proximal central band or at its plantar fascial attachment site which may relate to tearing versus release depending on surgical history. There is edema associated with the plantar fascia and involving the flexor digitorum brevis muscle. No atrophy of the abductor digiti minimi muscle. OTHER FINDINGS: No soft tissue mass. IMPRESSION: 1. Osseous middle subtalar coalition. 2. Abnormal proximal plantar fascia with a defect of the central band at its attachment which may relate either to tearing versus release depending on surgery history. There is edema associated with the plantar fascia and flexor digitorum brevis muscle. No muscle atrophy. 3. Sequelae of remote ATFL sprain. Ankle ligaments otherwise intact. 4. First MTP joint degenerative changes with bone marrow edema within the 1st metatarsal head. 5. No acute fracture. Dictated by Jitendra Jones MD @ 11/24/2024 9:25:06 AM (Electronically Signed)
== END 2024-11-23 15:23 | disposition home or self-care (01) ==
LOC: MRI 15:23
PROVIDERS: PCP Nurse Practitioner Family; Visit Provider Podiatrist
DX: M72.2 Plantar fascial fibromatosis (principal)
CPT/HCPCS: 73721